=== PATIENT | female | born 1980 | race Hispanic/Latino ===

== ENCOUNTER 2018-02-15 07:37 | Inpatient (IN) | payer MEDICAID ==
[2018-02-15] MEDS ORDERED: Morphine 2 mg/ml ISec IVP STA (08:11)
[2018-02-15] MEDS ORDERED: Sodium Chloride 0.9% 1,000 ML IV STA ×3 (08:12→16:51)
[2018-02-15] MEDS ORDERED: Insulin Regular 1 UNITS/0.01 ML ML IVP ONE (08:12)
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
[2018-02-15 08:33] LABS: BASO # 0.02 K/mm3 (0.0-2.0); BASO % 0.2 % (0.0-3.0); EOS # 0.1 (0.0-0.7); EOS % 0.7 % (1.5-5.0); GRAN # 9.35 (1.4-6.5); GRAN % 87.5 % (50.0-68.0); HEMOGLOBIN 11.4 g/dL (12.0-16.0); LYMPH # 0.8 (1.2-3.4); LYMPH % 7.8 % (22.0-35.0); MEAN CORPUSCULAR HEMOGLOBIN 30.7 pg (25.0-35.0); MEAN PLATELET VOLUME 9.6 fl (7.0-11.0); MONO # 0.4 (0.1-0.6); MONO % 3.8 % (1.0-6.0); RBC 3.71 10^6/uL (3.5-6.1); RED CELL DISTRIBUTION WIDTH 13.7 % (11.5-14.5); VENOUS BLOOD GAS BASE EXCESS -9.2 mmol/L (0.0-2.0); VENOUS BLOOD GAS PO2 60 mm/Hg (30-55); VENOUS BLOOD PH 7.23 (7.32-7.43); WHITE BLOOD COUNT 10.7 10^3/ul (4.5-11.0)
[2018-02-15 08:49] LABS: INR 1.25 (0.93-1.08); PROTHROMBIN TIME 14.4 SECONDS (9.4-12.5)
[2018-02-15 08:50] LABS: PARTIAL THROMBOPLASTIN TIME 25.2 Seconds (25.1-36.5)
[2018-02-15 09:04] LABS: ALB/GLOB RATIO 1.1 (1.1-1.8); ALBUMIN 3.3 g/dL (3.0-4.8); ALT/SGPT 548 U/L (7-56); AST/SGOT 1150 U/L (14-36); BLOOD UREA NITROGEN 14 mg/dL (7-21); CALCIUM 8.5 mg/dL (8.4-10.5); GFR AFRICAN-AMERICAN > 60; GFR NON-AFRICAN AMERICAN 50
[2018-02-15] MEDS ORDERED: Iohexol 350 MG/100 ML VIAL ONE (09:20)
[2018-02-15 09:38] LABS: OSMOLALITY,SERUM 297 mosm/kg (272-300)
--- NOTE | 2018-02-15 10:13 | CT ---
PROCEDURE: CT NECK WITH CONTRAST HISTORY: concern for ludwigs angina COMPARISON: None TECHNIQUE: CT of the neck with intravenous contrast. Coronal and sagittal reformats generated. Intravenous contrast dose: 100 cc of Omni 350 Radiation dose: DLP 477 mGy-cm This CT exam was performed using one or more of the following dose reduction techniques: Automated exposure control, adjustment of the mA and/or kV according to patient size, and/or use of iterative reconstruction technique. FINDINGS: NASOPHARYNX: Unremarkable. SUPRAHYOID NECK: There is a fluid collection in the floor of the mouth suspicious for an abscess and consistent with the clinical history of Dominick's angina. There is elevation of the tongue. There is also soft tissue swelling and edema in the left parapharyngeal space as well as swelling of the epiglottis. There is no airway obstruction at this time. The findings were discussed with Dr. Whittaker at 10 a.m. The submandibular fluid collection measures 7 mm in thickness and 32 mm anterior to posterior as seen on sagittal image 59. This is at the level of the hyoid bone. INFRAHYOID NECK: Unremarkable larynx, hypopharynx, and supraglottic space. Vocal cords intact. MASS: None. GLANDS: Parotid and submandibular glands unremarkable. Normal size thyroid gland, without nodule. LYMPH NODES: Large bilateral submandibular lymph nodes are seen. CERVICAL SPINE: No fracture or focal lesion. VASCULAR STRUCTURES: Unremarkable. OTHER FINDINGS: None. IMPRESSION: There is a fluid collection in the floor of the mouth suspicious for an abscess and consistent with the clinical history of Dominick's angina. There is elevation of the tongue. There is also soft tissue swelling and edema in the left parapharyngeal space as well as swelling of the epiglottis. There is no airway obstruction at this time.
--- NOTE | 2018-02-15 10:29 | RAD ---
PROCEDURE: CHEST RADIOGRAPH, 1 VIEW HISTORY: Sepsis Patient COMPARISON: None available. FINDINGS: LUNGS: Clear. PLEURA: No pneumothorax or pleural fluid seen. CARDIOVASCULAR: Normal. OSSEOUS STRUCTURES: No significant abnormalities. VISUALIZED UPPER ABDOMEN: Normal. OTHER FINDINGS: None. IMPRESSION: No active disease.
[2018-02-15] MEDS ORDERED: Saliva Substitute 44.3 ML PO ONE (10:41)
[2018-02-15] MEDS ORDERED: Saliva Substitute 44.3 ML PO PRN (10:54)
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
[2018-02-15] MEDS ORDERED: Insulin Regular 100 UNITS in Sodium Chloride 0.9% 99 ML IV PRN (11:06)
[2018-02-15] MEDS ORDERED: Sodium Chloride 0.9% 1,000 ML IV SCH (11:15)
[2018-02-15 11:22] LABS: URINE BILIRUBIN NEGATIVE (NEGATIVE); URINE BLOOD NEGATIVE (NEGATIVE); URINE GLUCOSE (UA) 250 mg/dL (NEGATIVE); URINE LEUKOCYTE ESTERASE NEGATIVE Leu/uL (NEGATIVE); URINE PROTEIN 30 mg/dL (<30 mg/dL)
[2018-02-15 11:24] LABS: URINE APPEARANCE SL CLOUDY (CLEAR); URINE COLOR YELLOW (YELLOW)
[2018-02-15 11:42] LABS: VENOUS BLOOD GAS BASE EXCESS -9.2 mmol/L (0.0-2.0); VENOUS BLOOD GAS PO2 46 mm/Hg (30-55); VENOUS BLOOD PH 7.23 (7.32-7.43)
[2018-02-15 11:45] LABS: URINE EPITHELIAL CELLS MANY /hpf (0-5); URINE RBC NEGATIVE /hpf (0-2)
[2018-02-15] MEDS ORDERED: Lidocaine 1% w Epi 1:100,000 Inj ONE (11:50)
[2018-02-15] MEDS ORDERED: Midazolam 2 MG/2 ML VIAL ONE ×2 (11:58→13:08)
[2018-02-15] MEDS ORDERED: Propofol 10 mg/ml Inj (20 ML) ONE (11:58)
[2018-02-15] MEDS ORDERED: Ketamine 10 mg/ml Inj (20 ml) ONE (12:03)
[2018-02-15] MEDS ORDERED: Lidocaine 1% Inj (20ml) ONE (12:04)
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
[2018-02-15] MEDS ORDERED: Oxymetazoline 0.05% Nasal Spray (30 ml) NS ONE (12:24)
[2018-02-15] MEDS ORDERED: Lidocaine 1%/Epinephrine 1:100000 30 ml vial IJ ONE (13:30)
--- NOTE | 2018-02-15 14:19 | PCM.SURG1 ---
Surgeon's Initial Post Op Note - Surgeon's Notes Surgeon: Kuldeep Tamayo MD Physician Underwriter: Sallie Oquendo, PGY-1 Type of Anesthesia: General Endo, Local Anesthesia Administered By: Noel Pre-Operative Diagnosis: Severe neck swelling/abscess Operative Findings: see op report Post-Operative Diagnosis: Abscess of anterior neck, tracheostomy for respiratory compromise Operation Performed: Open tracheostomy w/#6 fenestrated Shiley, incision & drainage of anterior neck abscess Specimen/Specimens Removed: Purulent wound drainage Estimated Blood Loss: EBL {In ML}: 10 Blood Products Given: N/A Drains Used: Stiven Post-Op Condition: Fair Date of Surgery/Procedure: 02/15/18 Time of Surgery/Procedure: 14:19
[2018-02-15] MEDS ORDERED: Midazolam 100 mg/100ml in NS 100 MG/100 ML SOL IV PRN (14:23)
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
[2018-02-15] MEDS ORDERED: HYDROmorphone 0.5 mg/0.5 ml ISec IVP PRN ×2 (14:51→15:10)
[2018-02-15] MEDS: Fentanyl 1000mcg/100ml NS 1,000 MCG/100 ML BAG IV PRN (14:59)
--- NOTE | 2018-02-15 15:06 | RAD ---
HISTORY: s/p trach COMPARISON: No prior. FINDINGS: LUNGS: No active pulmonary disease. PLEURA: No significant pleural effusion identified, no pneumothorax apparent. CARDIOVASCULAR: Normal. OSSEOUS STRUCTURES: No significant abnormalities. VISUALIZED UPPER ABDOMEN: Normal. OTHER FINDINGS: None. IMPRESSION: Tracheostomy in satisfactory position. The lungs are clear
[2018-02-15] MEDS ORDERED: Labetalol 5 mg/ml Inj 20ML IV STA (15:14)
--- NOTE | 2018-02-15 15:23 | PCM.SEPTIC ---
<Mikey Stone - Last Filed: 02/15/18 15:24> Sepsis Progress Note - Reassessment Type Date of Evaluation: 02/15/18 Time of Evaluation: 13:00 Reassessment Type: Non-invasive reassessment - Non Invasive Reassessment Were the most recent vital sign reviewed: Yes Vital Sign (Latest): Temp Pulse Resp BP Pulse Ox 98 F 101 H 24 124/53 L 96 02/15/18 12:22 02/15/18 12:00 02/15/18 14:37 02/15/18 12:00 02/15/18 14:37 Cardiovascular: Yes: Tachycardia Respiratory: Yes: Normal Breath Sounds Capillary Refill: Normal (Less than 2 sec) Skin: Warm, Dry <Jesse Cummings - Last Filed: 02/18/18 17:47> Sepsis Progress Note - Non Invasive Reassessment Vital Sign (Latest): Temp Pulse Resp BP Pulse Ox 98 F 97 H 28 H 100/78 86 L 02/18/18 04:00 02/18/18 09:48 02/18/18 07:01 02/18/18 13:06 02/18/18 04:02 Attending/Attestation - Attestation I have personally seen and examined this patient.: Yes I have fully participated in the care of the patient.: Yes I have reviewed all pertinent clinical information, including history, physical exam and plan: Yes Notes (Text): 02/18/18 17:47 Please see addendum note on HPI
[2018-02-15] MEDS: Sodium Chloride 0.9% 1,000 ML IV SCH ×2 (15:24→22:31)
[2018-02-15 16:23] VITALS: BMI 25.8
[2018-02-15] MEDS ORDERED: Pneumococcal 23-Valent Vaccine IM ONE (16:23)
[2018-02-15 16:41] LABS: VENOUS BLOOD GAS BASE EXCESS -13.8 mmol/L (0.0-2.0); VENOUS BLOOD GAS PO2 149 mm/Hg (30-55)
[2018-02-15 16:47] LABS: VENOUS BLOOD PH 7.19 (7.32-7.43)
[2018-02-15 16:56] LABS: ALBUMIN 2.9 g/dL (3.0-4.8); ALT/SGPT 525 U/L (7-56); AST/SGOT 1135 U/L (14-36); BLOOD UREA NITROGEN 12 mg/dL (7-21); CALCIUM 7.4 mg/dL (8.4-10.5); GFR AFRICAN-AMERICAN > 60; GFR NON-AFRICAN AMERICAN 55
[2018-02-15] MEDS: Piperacill/Tazo 4.5gm in NS 4.5 GM/100 ML BAG IVPB SCH (17:02)
--- NOTE | 2018-02-15 19:08 | US ---
EXAM: US Abdomen Complete CLINICAL HISTORY: 38 years old, female; Pain; Abdominal pain; Generalized; Additional info: Elevated lfts TECHNIQUE: Real-time ultrasound of the abdomen (complete) with image documentation. COMPARISON: No relevant prior studies available. FINDINGS: Liver: Enlarged, 19.8 cm. Fatty infiltration. No mass. No intrahepatic ductal dilatation. Gallbladder: No gallstones. No wall thickening. No pericholecystic fluid. Common bile duct: No dilatation. No stones. Pancreas: Obscured by overlying bowel gas. Kidneys: Normal echogenicity. No hydronephrosis. Spleen: Enlarged, 14.8 cm. Aorta: Unremarkable. No aneurysm. Inferior vena cava: Unremarkable. Free fluid: No significant free fluid. IMPRESSION: 1. Hepatic steatosis. 2. Splenomegaly.
[2018-02-15 20:06] LABS: VENOUS BLOOD GAS BASE EXCESS -7.8 mmol/L (0.0-2.0); VENOUS BLOOD GAS PO2 33 mm/Hg (30-55); VENOUS BLOOD PH 7.31 (7.32-7.43)
[2018-02-15 20:21] LABS: ALBUMIN 2.7 g/dL (3.0-4.8); ALT/SGPT 519 U/L (7-56); AST/SGOT 1182 U/L (14-36); BLOOD UREA NITROGEN 11 mg/dL (7-21); GFR AFRICAN-AMERICAN > 60; GFR NON-AFRICAN AMERICAN > 60
[2018-02-15] MEDS: HYDROmorphone 0.5 mg/0.5 ml ISec IVP PRN (20:40)
[2018-02-15] MEDS ORDERED: Dextrose 5%/0.45% NS 1,000 ML IV SCH (23:45)
[2018-02-16 00:47] LABS: ALB/GLOB RATIO 0.9 (1.1-1.8); ALBUMIN 2.6 g/dL (3.0-4.8); ALT/SGPT 575 U/L (7-56); AST/SGOT 1671 U/L (14-36); BLOOD UREA NITROGEN 11 mg/dL (7-21); CALCIUM 6.8 mg/dL (8.4-10.5); GFR AFRICAN-AMERICAN > 60; GFR NON-AFRICAN AMERICAN > 60
[2018-02-16] MEDS: Piperacill/Tazo 4.5gm in NS 4.5 GM/100 ML BAG IVPB SCH ×4 (01:00→17:58)
[2018-02-16] MEDS: HYDROmorphone 0.5 mg/0.5 ml ISec IVP PRN ×3 (03:12→22:33)
[2018-02-16] MEDS ORDERED: Albuterol-Ipratrop 3 mg / 0.5 (3 ml) UD IH ONE (03:50)
[2018-02-16 04:29] LABS: GRAN % 86.5 % (50.0-68.0); HEMOGLOBIN 9.7 g/dL (12.0-16.0); MEAN CELL VOLUME 94.2 fl (80.0-105.0); MEAN CORPUSCULAR HEMOGLOBIN 31.1 pg (25.0-35.0); MEAN PLATELET VOLUME 9.4 fl (7.0-11.0); RBC 3.12 10^6/uL (3.5-6.1); RED CELL DISTRIBUTION WIDTH 13.3 % (11.5-14.5); WHITE BLOOD COUNT 8.9 10^3/ul (4.5-11.0)
[2018-02-16 04:30] LABS: GRAN # 7.68 (1.4-6.5); LYMPH # 0.9 (1.2-3.4); LYMPH % 10.3 % (22.0-35.0); MONO # 0.3 (0.1-0.6); MONO % 3.2 % (1.0-6.0)
[2018-02-16] MEDS ORDERED: MethylPREDNISolone 40 mg Vial IVP ONE (04:34)
[2018-02-16] MEDS ORDERED: Thiamine 100 mg/ml Inj IM ONE (04:43)
[2018-02-16 04:53] LABS: ARTERIAL BLOOD GAS HCO3 16.7 mmol/L (21-28); ARTERIAL BLOOD GAS HEMOGLOBIN 10.3 g/dL (11.7-17.4); ARTERIAL BLOOD GAS O2 CAPACITY 14.5 mL/dl (16-24); ARTERIAL BLOOD GAS O2 CONTENT 13.9 ML/dl (15-23); ARTERIAL BLOOD GAS O2 SAT 95.9 % (95-98); ARTERIAL BLOOD GAS PCO2 31 mm/Hg (35-45); ARTERIAL BLOOD GAS PH 7.34 (7.35-7.45); ARTERIAL BLOOD GAS TCO2 17.7 mmol.L (22-28)
[2018-02-16 05:51] LABS: ALB/GLOB RATIO 0.9 (1.1-1.8); ALBUMIN 2.5 g/dL (3.0-4.8); ALT/SGPT 674 U/L (7-56); AST/SGOT 2653 U/L (14-36); BLOOD UREA NITROGEN 12 mg/dL (7-21); CALCIUM 6.6 mg/dL (8.4-10.5); GFR AFRICAN-AMERICAN > 60; GFR NON-AFRICAN AMERICAN > 60
[2018-02-16] MEDS ORDERED: Pantoprazole 40 mg EC Tab PO SCH (06:00)
[2018-02-16] MEDS ORDERED: Levalbuterol 0.63 MG/3 ML Inhal Soln UD IH STA (06:03)
[2018-02-16] MEDS ORDERED: Dextrose 5%/0.45% NS 1,000 ML IV SCH (06:14)
--- NOTE | 2018-02-16 06:33 | CP.CCUPN ---
<Cecilia Oneil - Last Filed: 02/16/18 11:38> CCU Subjective - Physician Review Subjective (Free Text): 02/16/18 08:34 Ativan made pt agitated, paradoxically. QTc 534. Will attempt versed IVP 0.5 instead will not wean today. CXR more hazy Off insulin gtt now, got levemir 20 at 7am Denies throat pain, abdominal pain, CP, N/V/D/C. NPO for now Pain adequately controlled CCU Objective - Vital Signs / Intake & Output Vital Signs (Last 4 hours): Vital Signs Pulse BP Pulse Ox 02/16/18 04:00 86 88 L 02/16/18 03:55 86 134/96 H 87 L 02/16/18 03:45 101 H 91 L 02/16/18 03:41 135/97 H 02/16/18 03:40 101 H 02/16/18 03:30 81 88 L 02/16/18 03:15 93 H 89 L 02/16/18 03:11 78 158/96 H 84 L 02/16/18 03:00 93 H 92 L 02/16/18 02:55 88 183/105 H 88 L 02/16/18 02:45 82 89 L 02/16/18 02:40 139/92 H 90 L Intake and Output (Last 8hrs): Intake & Output 02/15/18 02/15/18 02/16/18 14:59 22:59 06:59 Intake Total 2651 Output Total 750 Balance 1901 Weight 165 lb Intake: IV 2651 Right Forearm 2000 Right Wrist 600 fentanyl 8 insulin 16 Output: Urine 750 Urine, Voided 750 Other: Voiding Method Toilet # Bowel Movements 0 - Physical Exam Head: Positive for: Atraumatic, Normocephalic Pupils: Positive for: PERRL Extroacular Muscles: Positive for: EOMI Conjunctiva: Positive for: Normal. Negative for: Icteric Mouth: Positive for: Moist Mucous Membranes Neck: Positive for: Other (Fresh trach. Dressing intact, no strike through, not swelling) Respiratory/Chest: Positive for: Clear to Auscultation, Good Air Exchange, Rales. Negative for: Accessory Muscle Use, Retracting, Rhonchi, Tachypneic Cardiovascular: Positive for: Regular Rate and Rhythm, Normal S1, S2 Abdomen: Positive for: Normal Bowel Sounds. Negative for: Tenderness, Distention, Peritoneal Signs Lower Extremity: Positive for: Normal Inspection, Other (schuster intact). Negative for: Edema Neurological: Positive for: GCS=15. Negative for: Speech Normal Skin: Positive for: Warm, Dry Psychiatric: Positive for: Alert, Oriented x 3 - Medications Active Medications: Active Medications Generic Name Dose Route Start Last Admin Trade Name Freq PRN Reason Stop Dose Admin Hydromorphone HCl 1 mg 02/15/18 15:15 02/16/18 03:12 Dilaudid IVP 1 mg Q3H PRN Administration Pain, severe (8-10) Insulin Human Regular 100 100 mls @ 3 mls/hr 02/15/18 11:06 02/15/18 20:48 units/ Sodium Chloride IV 2 units/hr .Q24H PRN 2 mls/hr TITRATE PER MD ORDER Titration Protocol 3 UNITS/HR Fentanyl Citrate 1,000 mcg in 100 mls @ 2 mls/hr 02/15/18 14:51 02/15/18 20: 45 Fentanyl Citrate/Sodium Chloride 1 Mg/100 Ml IV 5 mcg/hr .Q24H PRN 0.5 mls/hr TITRATE PER MD ORDER Titration Protocol 20 MCG/HR Piperacillin Sod/Tazobactam Sod 4.5 gm in 100 mls @ 200 mls/hr 02/15/18 18:00 02/16/18 01:00 Zosyn 4.5 Gm In Ns 100ml IVPB 02/22/18 18:01 200 mls/hr Q6 KATYA Administration Protocol Dextrose/Sodium Chloride 1,000 mls @ 100 mls/hr 02/16/18 06:14 Dextrose 5%/0.45% Ns 1000 Ml IV .Q10H KATYA Lorazepam 2 mg 02/15/18 19:11 Ativan IVP Q2H PRN Anxiety Protocol Lorazepam 1 mg 02/15/18 19:15 02/16/18 02:15 Ativan IVP 1 mg Q6H KATYA Administration Protocol Pantoprazole Sodium 40 mg 02/16/18 06:00 Protonix Ec Tab PO 0600 KATYA Saliva Substitute 1 ml 02/15/18 10:54 02/15/18 20:58 Saliva Substitute PO 1 ml Q2H PRN Administration Dry mouth Thiamine HCl 100 mg 02/16/18 10:00 Vitamin B1 Inj IM DAILY KATYA - Patient Studies Lab Studies: Lab Studies 02/16/18 02/16/18 02/16/18 Range/Units 05:08 04:40 04:15 WBC (4.5-11.0) 10^3/ul RBC (3.5-6.1) 10^6/uL Hgb (12.0-16.0) g/dL Hct (36.0-48.0) % MCV (80.0-105.0) fl MCH (25.0-35.0) pg MCHC (31.0-37.0) g/dl RDW (11.5-14.5) % Plt Count (120.0-450.0) 10^3/uL MPV (7.0-11.0) fl Gran % (50.0-68.0) % Lymph % (Auto) (22.0-35.0) % Norman % (Auto) (1.0-6.0) % Eos % (Auto) (1.5-5.0) % Baso % (Auto) (0.0-3.0) % Gran # (1.4-6.5) Lymph # (Auto) (1.2-3.4) Norman # (Auto) (0.1-0.6) Eos # (Auto) (0.0-0.7) Baso # (Auto) (0.0-2.0) K/mm3 pCO2 31 L (35-45) mm/Hg pO2 79.0 L (30-55) mm/Hg HCO3 16.7 L (21-28) mmol/L ABG pH 7.34 L (7.35-7.45) ABG Total CO2 17.7 L (22-28) mmol.L ABG O2 Saturation 95.9 (95-98) % ABG O2 Content 13.9 L (15-23) ML/dl ABG Base Excess -8.1 L (-2.0-3.0) mmol/L ABG Hemoglobin 10.3 L (11.7-17.4) g/dL ABG Carboxyhemoglobin 0.2 L (0.5-1.5) % POC ABG HHb (Measured) 4.1 (0-5) % ABG Methemoglobin 0.1 (0.0-3.0) % ABG O2 Capacity 14.5 L (16-24) mL/dl VBG pH (7.32-7.43) VBG pCO2 (40-60) VBG HCO3 (21-28) mmol/l VBG Total CO2 (22-28) mmol.L VBG O2 Sat (Calc) (40-65) % VBG Base Excess (0.0-2.0) mmol/L VBG Potassium (3.6-5.2) mmol/L Hgb O2 Saturation 95.6 (95.0-98.0) % Sodium (132-148) mmol/L Chloride (98-107) mmol/L Glucose (65-105) mg/dl Lactate (0.7-2.1) mmol/L FiO2 100.0 % Potassium (3.6-5.0) mmol/L Carbon Dioxide (21-33) mmol/L Anion Gap (10-20) BUN (7-21) mg/dL Creatinine (0.7-1.2) mg/dl Est GFR ( Amer) Est GFR (Non-Af Amer) POC Glucose (mg/dL) 251 H (65-110) mg/dL Random Glucose (70-110) mg/dL Hemoglobin A1c (4.2-6.5) % Calcium (8.4-10.5) mg/dL Magnesium 1.6 L (1.7-2.2) mg/dL Total Bilirubin (0.2-1.3) mg/dL AST (14-36) U/L ALT (7-56) U/L Alkaline Phosphatase (38-126) U/L Total Protein (5.8-8.3) g/dL Albumin (3.0-4.8) g/dL Globulin gm/dL Albumin/Globulin Ratio (1.1-1.8) Venous Blood Potassium (3.6-5.2) mmol/L Alcohol, Quantitative (0-10) mg/dL 02/16/18 02/16/18 02/16/18 Range/Units 04:15 04:15 03:54 WBC 8.9 (4.5-11.0) 10^3/ul RBC 3.12 L (3.5-6.1) 10^6/uL Hgb 9.7 L (12.0-16.0) g/dL Hct 29.4 L (36.0-48.0) % MCV 94.2 (80.0-105.0) fl MCH 31.1 (25.0-35.0) pg MCHC 33.0 (31.0-37.0) g/dl RDW 13.3 (11.5-14.5) % Plt Count 143 (120.0-450.0) 10^3/uL MPV 9.4 (7.0-11.0) fl Gran % 86.5 H (50.0-68.0) % Lymph % (Auto) 10.3 L (22.0-35.0) % Norman % (Auto) 3.2 (1.0-6.0) % Eos % (Auto) 0.0 L (1.5-5.0) % Baso % (Auto) 0.0 (0.0-3.0) % Gran # 7.68 H (1.4-6.5) Lymph # (Auto) 0.9 L (1.2-3.4) Norman # (Auto) 0.3 (0.1-0.6) Eos # (Auto) 0.0 (0.0-0.7) Baso # (Auto) 0.00 (0.0-2.0) K/mm3 pCO2 (35-45) mm/Hg pO2 (30-55) mm/Hg HCO3 (21-28) mmol/L ABG pH (7.35-7.45) ABG Total CO2 (22-28) mmol.L ABG O2 Saturation (95-98) % ABG O2 Content (15-23) ML/dl ABG Base Excess (-2.0-3.0) mmol/L ABG Hemoglobin (11.7-17.4) g/dL ABG Carboxyhemoglobin (0.5-1.5) % POC ABG HHb (Measured) (0-5) % ABG Methemoglobin (0.0-3.0) % ABG O2 Capacity (16-24) mL/dl VBG pH (7.32-7.43) VBG pCO2 (40-60) VBG HCO3 (21-28) mmol/l VBG Total CO2 (22-28) mmol.L VBG O2 Sat (Calc) (40-65) % VBG Base Excess (0.0-2.0) mmol/L VBG Potassium (3.6-5.2) mmol/L Hgb O2 Saturation (95.0-98.0) % Sodium 139 (132-148) mmol/L Chloride 112 H (98-107) mmol/L Glucose (65-105) mg/dl Lactate (0.7-2.1) mmol/L FiO2 % Potassium 4.1 (3.6-5.0) mmol/L Carbon Dioxide 17 L (21-33) mmol/L Anion Gap 14 (10-20) BUN 12 (7-21) mg/dL Creatinine 0.9 (0.7-1.2) mg/dl Est GFR ( Amer) > 60 Est GFR (Non-Af Amer) > 60 POC Glucose (mg/dL) 233 H (65-110) mg/dL Random Glucose 249 H (70-110) mg/dL Hemoglobin A1c (4.2-6.5) % Calcium 6.6 L* (8.4-10.5) mg/dL Magnesium (1.7-2.2) mg/dL Total Bilirubin 0.9 (0.2-1.3) mg/dL AST 2653 H (14-36) U/L ALT 674 H (7-56) U/L Alkaline Phosphatase 224 H (38-126) U/L Total Protein 5.3 L (5.8-8.3) g/dL Albumin 2.5 L (3.0-4.8) g/dL Globulin 2.8 gm/dL Albumin/Globulin Ratio 0.9 L (1.1-1.8) Venous Blood Potassium (3.6-5.2) mmol/L Alcohol, Quantitative (0-10) mg/dL 02/16/18 02/16/18 02/16/18 Range/Units 03:10 02:07 00:38 WBC (4.5-11.0) 10^3/ul RBC (3.5-6.1) 10^6/uL Hgb (12.0-16.0) g/dL Hct (36.0-48.0) % MCV (80.0-105.0) fl MCH (25.0-35.0) pg MCHC (31.0-37.0) g/dl RDW (11.5-14.5) % Plt Count (120.0-450.0) 10^3/uL MPV (7.0-11.0) fl Gran % (50.0-68.0) % Lymph % (Auto) (22.0-35.0) % Norman % (Auto) (1.0-6.0) % Eos % (Auto) (1.5-5.0) % Baso % (Auto) (0.0-3.0) % Gran # (1.4-6.5) Lymph # (Auto) (1.2-3.4) Norman # (Auto) (0.1-0.6) Eos # (Auto) (0.0-0.7) Baso # (Auto) (0.0-2.0) K/mm3 pCO2 (35-45) mm/Hg pO2 (30-55) mm/Hg HCO3 (21-28) mmol/L ABG pH (7.35-7.45) ABG Total CO2 (22-28) mmol.L ABG O2 Saturation (95-98) % ABG O2 Content (15-23) ML/dl ABG Base Excess (-2.0-3.0) mmol/L ABG Hemoglobin (11.7-17.4) g/dL ABG Carboxyhemoglobin (0.5-1.5) % POC ABG HHb (Measured) (0-5) % ABG Methemoglobin (0.0-3.0) % ABG O2 Capacity (16-24) mL/dl VBG pH (7.32-7.43) VBG pCO2 (40-60) VBG HCO3 (21-28) mmol/l VBG Total CO2 (22-28) mmol.L VBG O2 Sat (Calc) (40-65) % VBG Base Excess (0.0-2.0) mmol/L VBG Potassium (3.6-5.2) mmol/L Hgb O2 Saturation (95.0-98.0) % Sodium (132-148) mmol/L Chloride (98-107) mmol/L Glucose (65-105) mg/dl Lactate (0.7-2.1) mmol/L FiO2 % Potassium (3.6-5.0) mmol/L Carbon Dioxide (21-33) mmol/L Anion Gap (10-20) BUN (7-21) mg/dL Creatinine (0.7-1.2) mg/dl Est GFR ( Amer) Est GFR (Non-Af Amer) POC Glucose (mg/dL) 230 H 219 H 180 H (65-110) mg/dL Random Glucose (70-110) mg/dL Hemoglobin A1c (4.2-6.5) % Calcium (8.4-10.5) mg/dL Magnesium (1.7-2.2) mg/dL Total Bilirubin (0.2-1.3) mg/dL AST (14-36) U/L ALT (7-56) U/L Alkaline Phosphatase (38-126) U/L Total Protein (5.8-8.3) g/dL Albumin (3.0-4.8) g/dL Globulin gm/dL Albumin/Globulin Ratio (1.1-1.8) Venous Blood Potassium (3.6-5.2) mmol/L Alcohol, Quantitative (0-10) mg/dL 02/15/18 02/15/18 02/15/18 Range/Units 23:50 23:19 22:12 WBC (4.5-11.0) 10^3/ul RBC (3.5-6.1) 10^6/uL Hgb (12.0-16.0) g/dL Hct (36.0-48.0) % MCV (80.0-105.0) fl MCH (25.0-35.0) pg MCHC (31.0-37.0) g/dl RDW (11.5-14.5) % Plt Count (120.0-450.0) 10^3/uL MPV (7.0-11.0) fl Gran % (50.0-68.0) % Lymph % (Auto) (22.0-35.0) % Norman % (Auto) (1.0-6.0) % Eos % (Auto) (1.5-5.0) % Baso % (Auto) (0.0-3.0) % Gran # (1.4-6.5) Lymph # (Auto) (1.2-3.4) Norman # (Auto) (0.1-0.6) Eos # (Auto) (0.0-0.7) Baso # (Auto) (0.0-2.0) K/mm3 pCO2 (35-45) mm/Hg pO2 (30-55) mm/Hg HCO3 (21-28) mmol/L ABG pH (7.35-7.45) ABG Total CO2 (22-28) mmol.L ABG O2 Saturation (95-98) % ABG O2 Content (15-23) ML/dl ABG Base Excess (-2.0-3.0) mmol/L ABG Hemoglobin (11.7-17.4) g/dL ABG Carboxyhemoglobin (0.5-1.5) % POC ABG HHb (Measured) (0-5) % ABG Methemoglobin (0.0-3.0) % ABG O2 Capacity (16-24) mL/dl VBG pH (7.32-7.43) VBG pCO2 (40-60) VBG HCO3 (21-28) mmol/l VBG Total CO2 (22-28) mmol.L VBG O2 Sat (Calc) (40-65) % VBG Base Excess (0.0-2.0) mmol/L VBG Potassium (3.6-5.2) mmol/L Hgb O2 Saturation (95.0-98.0) % Sodium 143 (132-148) mmol/L Chloride 113 H (98-107) mmol/L Glucose (65-105) mg/dl Lactate (0.7-2.1) mmol/L FiO2 % Potassium 4.5 (3.6-5.0) mmol/L Carbon Dioxide 20 L (21-33) mmol/L Anion Gap 15 (10-20) BUN 11 (7-21) mg/dL Creatinine 1.0 (0.7-1.2) mg/dl Est GFR ( Amer) > 60 Est GFR (Non-Af Amer) > 60 POC Glucose (mg/dL) 184 H 224 H (65-110) mg/dL Random Glucose 171 H (70-110) mg/dL Hemoglobin A1c (4.2-6.5) % Calcium 6.8 L* (8.4-10.5) mg/dL Magnesium (1.7-2.2) mg/dL Total Bilirubin 0.9 (0.2-1.3) mg/dL AST 1671 H (14-36) U/L ALT 575 H (7-56) U/L Alkaline Phosphatase 249 H (38-126) U/L Total Protein 5.4 L (5.8-8.3) g/dL Albumin 2.6 L (3.0-4.8) g/dL Globulin 2.8 gm/dL Albumin/Globulin Ratio 0.9 L (1.1-1.8) Venous Blood Potassium (3.6-5.2) mmol/L Alcohol, Quantitative (0-10) mg/dL 02/15/18 02/15/18 02/15/18 Range/Units 20:48 19:50 19:50 WBC (4.5-11.0) 10^3/ul RBC (3.5-6.1) 10^6/uL Hgb (12.0-16.0) g/dL Hct (36.0-48.0) % MCV (80.0-105.0) fl MCH (25.0-35.0) pg MCHC (31.0-37.0) g/dl RDW (11.5-14.5) % Plt Count (120.0-450.0) 10^3/uL MPV (7.0-11.0) fl Gran % (50.0-68.0) % Lymph % (Auto) (22.0-35.0) % Norman % (Auto) (1.0-6.0) % Eos % (Auto) (1.5-5.0) % Baso % (Auto) (0.0-3.0) % Gran # (1.4-6.5) Lymph # (Auto) (1.2-3.4) Norman # (Auto) (0.1-0.6) Eos # (Auto) (0.0-0.7) Baso # (Auto) (0.0-2.0) K/mm3 pCO2 (35-45) mm/Hg pO2 33 (30-55) mm/Hg HCO3 (21-28) mmol/L ABG pH (7.35-7.45) ABG Total CO2 (22-28) mmol.L ABG O2 Saturation (95-98) % ABG O2 Content (15-23) ML/dl ABG Base Excess (-2.0-3.0) mmol/L ABG Hemoglobin (11.7-17.4) g/dL ABG Carboxyhemoglobin (0.5-1.5) % POC ABG HHb (Measured) (0-5) % ABG Methemoglobin (0.0-3.0) % ABG O2 Capacity (16-24) mL/dl VBG pH 7.31 L (7.32-7.43) VBG pCO2 35.0 L (40-60) VBG HCO3 17.6 L (21-28) mmol/l VBG Total CO2 18.7 L (22-28) mmol.L VBG O2 Sat (Calc) 70.7 H (40-65) % VBG Base Excess -7.8 L (0.0-2.0) mmol/L VBG Potassium 4.4 (3.6-5.2) mmol/L Hgb O2 Saturation (95.0-98.0) % Sodium 138.0 142 (132-148) mmol/L Chloride 115.0 H 112 H (98-107) mmol/L Glucose 298 H (65-105) mg/dl Lactate 2.6 H (0.7-2.1) mmol/L FiO2 21.0 % Potassium 5.0 (3.6-5.0) mmol/L Carbon Dioxide 21 (21-33) mmol/L Anion Gap 14 (10-20) BUN 11 (7-21) mg/dL Creatinine 1.0 (0.7-1.2) mg/dl Est GFR ( Amer) > 60 Est GFR (Non-Af Amer) > 60 POC Glucose (mg/dL) 233 H (65-110) mg/dL Random Glucose 266 H (70-110) mg/dL Hemoglobin A1c (4.2-6.5) % Calcium 7.0 L (8.4-10.5) mg/dL Magnesium (1.7-2.2) mg/dL Total Bilirubin 0.9 (0.2-1.3) mg/dL AST 1182 H (14-36) U/L ALT 519 H (7-56) U/L Alkaline Phosphatase 256 H (38-126) U/L Total Protein 5.3 L (5.8-8.3) g/dL Albumin 2.7 L (3.0-4.8) g/dL Globulin 2.6 gm/dL Albumin/Globulin Ratio 1.0 L (1.1-1.8) Venous Blood Potassium 4.4 (3.6-5.2) mmol/L Alcohol, Quantitative (0-10) mg/dL 02/15/18 02/15/18 02/15/18 Range/Units 19:06 18:15 17:08 WBC (4.5-11.0) 10^3/ul RBC (3.5-6.1) 10^6/uL Hgb (12.0-16.0) g/dL Hct (36.0-48.0) % MCV (80.0-105.0) fl MCH (25.0-35.0) pg MCHC (31.0-37.0) g/dl RDW (11.5-14.5) % Plt Count (120.0-450.0) 10^3/uL MPV (7.0-11.0) fl Gran % (50.0-68.0) % Lymph % (Auto) (22.0-35.0) % Norman % (Auto) (1.0-6.0) % Eos % (Auto) (1.5-5.0) % Baso % (Auto) (0.0-3.0) % Gran # (1.4-6.5) Lymph # (Auto) (1.2-3.4) Norman # (Auto) (0.1-0.6) Eos # (Auto) (0.0-0.7) Baso # (Auto) (0.0-2.0) K/mm3 pCO2 (35-45) mm/Hg pO2 (30-55) mm/Hg HCO3 (21-28) mmol/L ABG pH (7.35-7.45) ABG Total CO2 (22-28) mmol.L ABG O2 Saturation (95-98) % ABG O2 Content (15-23) ML/dl ABG Base Excess (-2.0-3.0) mmol/L ABG Hemoglobin (11.7-17.4) g/dL ABG Carboxyhemoglobin (0.5-1.5) % POC ABG HHb (Measured) (0-5) % ABG Methemoglobin (0.0-3.0) % ABG O2 Capacity (16-24) mL/dl VBG pH (7.32-7.43) VBG pCO2 (40-60) VBG HCO3 (21-28) mmol/l VBG Total CO2 (22-28) mmol.L VBG O2 Sat (Calc) (40-65) % VBG Base Excess (0.0-2.0) mmol/L VBG Potassium (3.6-5.2) mmol/L Hgb O2 Saturation (95.0-98.0) % Sodium (132-148) mmol/L Chloride (98-107) mmol/L Glucose (65-105) mg/dl Lactate (0.7-2.1) mmol/L FiO2 % Potassium (3.6-5.0) mmol/L Carbon Dioxide (21-33) mmol/L Anion Gap (10-20) BUN (7-21) mg/dL Creatinine (0.7-1.2) mg/dl Est GFR ( Amer) Est GFR (Non-Af Amer) POC Glucose (mg/dL) 277 H 298 H 322 H (65-110) mg/dL Random Glucose (70-110) mg/dL Hemoglobin A1c (4.2-6.5) % Calcium (8.4-10.5) mg/dL Magnesium (1.7-2.2) mg/dL Total Bilirubin (0.2-1.3) mg/dL AST (14-36) U/L ALT (7-56) U/L Alkaline Phosphatase (38-126) U/L Total Protein (5.8-8.3) g/dL Albumin (3.0-4.8) g/dL Globulin gm/dL Albumin/Globulin Ratio (1.1-1.8) Venous Blood Potassium (3.6-5.2) mmol/L Alcohol, Quantitative (0-10) mg/dL 18 18 02/15/18 Range/Units 16:27 16:27 16:00 WBC (4.5-11.0) 10^3/ul RBC (3.5-6.1) 10^6/uL Hgb (12.0-16.0) g/dL Hct (36.0-48.0) % MCV (80.0-105.0) fl MCH (25.0-35.0) pg MCHC (31.0-37.0) g/dl RDW (11.5-14.5) % Plt Count (120.0-450.0) 10^3/uL MPV (7.0-11.0) fl Gran % (50.0-68.0) % Lymph % (Auto) (22.0-35.0) % Norman % (Auto) (1.0-6.0) % Eos % (Auto) (1.5-5.0) % Baso % (Auto) (0.0-3.0) % Gran # (1.4-6.5) Lymph # (Auto) (1.2-3.4) Norman # (Auto) (0.1-0.6) Eos # (Auto) (0.0-0.7) Baso # (Auto) (0.0-2.0) K/mm3 pCO2 (35-45) mm/Hg pO2 149 H (30-55) mm/Hg HCO3 (21-28) mmol/L ABG pH (7.35-7.45) ABG Total CO2 (22-28) mmol.L ABG O2 Saturation (95-98) % ABG O2 Content (15-23) ML/dl ABG Base Excess (-2.0-3.0) mmol/L ABG Hemoglobin (11.7-17.4) g/dL ABG Carboxyhemoglobin (0.5-1.5) % POC ABG HHb (Measured) (0-5) % ABG Methemoglobin (0.0-3.0) % ABG O2 Capacity (16-24) mL/dl VBG pH 7.19 L* (7.32-7.43) VBG pCO2 35.0 L (40-60) VBG HCO3 13.4 L (21-28) mmol/l VBG Total CO2 14.5 L (22-28) mmol.L VBG O2 Sat (Calc) 97.6 H (40-65) % VBG Base Excess -13.8 L (0.0-2.0) mmol/L VBG Potassium 4.7 (3.6-5.2) mmol/L Hgb O2 Saturation (95.0-98.0) % Sodium 138 135.0 (132-148) mmol/L Chloride 107 108.0 H (98-107) mmol/L Glucose 478 H* (65-105) mg/dl Lactate 2.2 H (0.7-2.1) mmol/L FiO2 21.0 % Potassium 4.8 (3.6-5.0) mmol/L Carbon Dioxide 14 L (21-33) mmol/L Anion Gap 22 H (10-20) BUN 12 (7-21) mg/dL Creatinine 1.1 (0.7-1.2) mg/dl Est GFR ( Amer) > 60 Est GFR (Non-Af Amer) 55 POC Glucose (mg/dL) 401 H* (65-110) mg/dL Random Glucose 451 H* (70-110) mg/dL Hemoglobin A1c (4.2-6.5) % Calcium 7.4 L (8.4-10.5) mg/dL Magnesium (1.7-2.2) mg/dL Total Bilirubin 1.4 H (0.2-1.3) mg/dL AST 1135 H (14-36) U/L ALT 525 H (7-56) U/L Alkaline Phosphatase 308 H D (38-126) U/L Total Protein 5.8 (5.8-8.3) g/dL Albumin 2.9 L (3.0-4.8) g/dL Globulin 2.9 gm/dL Albumin/Globulin Ratio 1.0 L (1.1-1.8) Venous Blood Potassium 4.7 (3.6-5.2) mmol/L Alcohol, Quantitative (0-10) mg/dL 02/15/18 02/15/18 02/15/18 Range/Units 16:00 15:11 14:00 WBC (4.5-11.0) 10^3/ul RBC (3.5-6.1) 10^6/uL Hgb (12.0-16.0) g/dL Hct (36.0-48.0) % MCV (80.0-105.0) fl MCH (25.0-35.0) pg MCHC (31.0-37.0) g/dl RDW (11.5-14.5) % Plt Count (120.0-450.0) 10^3/uL MPV (7.0-11.0) fl Gran % (50.0-68.0) % Lymph % (Auto) (22.0-35.0) % Norman % (Auto) (1.0-6.0) % Eos % (Auto) (1.5-5.0) % Baso % (Auto) (0.0-3.0) % Gran # (1.4-6.5) Lymph # (Auto) (1.2-3.4) Norman # (Auto) (0.1-0.6) Eos # (Auto) (0.0-0.7) Baso # (Auto) (0.0-2.0) K/mm3 pCO2 (35-45) mm/Hg pO2 (30-55) mm/Hg HCO3 (21-28) mmol/L ABG pH (7.35-7.45) ABG Total CO2 (22-28) mmol.L ABG O2 Saturation (95-98) % ABG O2 Content (15-23) ML/dl ABG Base Excess (-2.0-3.0) mmol/L ABG Hemoglobin (11.7-17.4) g/dL ABG Carboxyhemoglobin (0.5-1.5) % POC ABG HHb (Measured) (0-5) % ABG Methemoglobin (0.0-3.0) % ABG O2 Capacity (16-24) mL/dl VBG pH (7.32-7.43) VBG pCO2 (40-60) VBG HCO3 (21-28) mmol/l VBG Total CO2 (22-28) mmol.L VBG O2 Sat (Calc) (40-65) % VBG Base Excess (0.0-2.0) mmol/L VBG Potassium (3.6-5.2) mmol/L Hgb O2 Saturation (95.0-98.0) % Sodium (132-148) mmol/L Chloride (98-107) mmol/L Glucose (65-105) mg/dl Lactate (0.7-2.1) mmol/L FiO2 % Potassium (3.6-5.0) mmol/L Carbon Dioxide (21-33) mmol/L Anion Gap (10-20) BUN (7-21) mg/dL Creatinine (0.7-1.2) mg/dl Est GFR ( Amer) Est GFR (Non-Af Amer) POC Glucose (mg/dL) 378 H (65-110) mg/dL Random Glucose (70-110) mg/dL Hemoglobin A1c 10.6 H (4.2-6.5) % Calcium (8.4-10.5) mg/dL Magnesium (1.7-2.2) mg/dL Total Bilirubin (0.2-1.3) mg/dL AST (14-36) U/L ALT (7-56) U/L Alkaline Phosphatase (38-126) U/L Total Protein (5.8-8.3) g/dL Albumin (3.0-4.8) g/dL Globulin gm/dL Albumin/Globulin Ratio (1.1-1.8) Venous Blood Potassium (3.6-5.2) mmol/L Alcohol, Quantitative < 10 (0-10) mg/dL 02/15/18 02/15/18 Range/Units 11:26 11:15 WBC (4.5-11.0) 10^3/ul RBC (3.5-6.1) 10^6/uL Hgb (12.0-16.0) g/dL Hct (36.0-48.0) % MCV (80.0-105.0) fl MCH (25.0-35.0) pg MCHC (31.0-37.0) g/dl RDW (11.5-14.5) % Plt Count (120.0-450.0) 10^3/uL MPV (7.0-11.0) fl Gran % (50.0-68.0) % Lymph % (Auto) (22.0-35.0) % Norman % (Auto) (1.0-6.0) % Eos % (Auto) (1.5-5.0) % Baso % (Auto) (0.0-3.0) % Gran # (1.4-6.5) Lymph # (Auto) (1.2-3.4) Norman # (Auto) (0.1-0.6) Eos # (Auto) (0.0-0.7) Baso # (Auto) (0.0-2.0) K/mm3 pCO2 (35-45) mm/Hg pO2 46 (30-55) mm/Hg HCO3 (21-28) mmol/L ABG pH (7.35-7.45) ABG Total CO2 (22-28) mmol.L ABG O2 Saturation (95-98) % ABG O2 Content (15-23) ML/dl ABG Base Excess (-2.0-3.0) mmol/L ABG Hemoglobin (11.7-17.4) g/dL ABG Carboxyhemoglobin (0.5-1.5) % POC ABG HHb (Measured) (0-5) % ABG Methemoglobin (0.0-3.0) % ABG O2 Capacity (16-24) mL/dl VBG pH 7.23 L (7.32-7.43) VBG pCO2 43.0 (40-60) VBG HCO3 18.0 L (21-28) mmol/l VBG Total CO2 19.3 L (22-28) mmol.L VBG O2 Sat (Calc) 82.2 H (40-65) % VBG Base Excess -9.2 L (0.0-2.0) mmol/L VBG Potassium 3.7 (3.6-5.2) mmol/L Hgb O2 Saturation (95.0-98.0) % Sodium 132.0 (132-148) mmol/L Chloride 101.0 (98-107) mmol/L Glucose 500 H* (65-105) mg/dl Lactate 4.4 H* (0.7-2.1) mmol/L FiO2 21.0 % Potassium (3.6-5.0) mmol/L Carbon Dioxide (21-33) mmol/L Anion Gap (10-20) BUN (7-21) mg/dL Creatinine (0.7-1.2) mg/dl Est GFR ( Amer) Est GFR (Non-Af Amer) POC Glucose (mg/dL) 396 H (65-110) mg/dL Random Glucose (70-110) mg/dL Hemoglobin A1c (4.2-6.5) % Calcium (8.4-10.5) mg/dL Magnesium (1.7-2.2) mg/dL Total Bilirubin (0.2-1.3) mg/dL AST (14-36) U/L ALT (7-56) U/L Alkaline Phosphatase (38-126) U/L Total Protein (5.8-8.3) g/dL Albumin (3.0-4.8) g/dL Globulin gm/dL Albumin/Globulin Ratio (1.1-1.8) Venous Blood Potassium 3.7 (3.6-5.2) mmol/L Alcohol, Quantitative (0-10) mg/dL Laboratory Results - last 24 hr 02/15/18 02/15/18 02/15/18 11:15 11:26 14:00 WBC RBC Hgb Hct MCV MCH MCHC RDW Plt Count MPV Gran % Lymph % (Auto) Norman % (Auto) Eos % (Auto) Baso % (Auto) Gran # Lymph # (Auto) Norman # (Auto) Eos # (Auto) Baso # (Auto) pCO2 pO2 46 HCO3 ABG pH ABG Total CO2 ABG O2 Saturation ABG O2 Content ABG Base Excess ABG Hemoglobin ABG Carboxyhemoglobin POC ABG HHb (Measured) ABG Methemoglobin ABG O2 Capacity VBG pH 7.23 L VBG pCO2 43.0 VBG HCO3 18.0 L VBG Total CO2 19.3 L VBG O2 Sat (Calc) 82.2 H VBG Base Excess -9.2 L VBG Potassium 3.7 Hgb O2 Saturation Sodium 132.0 Chloride 101.0 Glucose 500 H* Lactate 4.4 H* FiO2 21.0 Potassium Carbon Dioxide Anion Gap BUN Creatinine Est GFR ( Amer) Est GFR (Non-Af Amer) POC Glucose (mg/dL) 396 H Random Glucose Hemoglobin A1c 10.6 H Calcium Magnesium Total Bilirubin AST ALT Alkaline Phosphatase Total Protein Albumin Globulin Albumin/Globulin Ratio Venous Blood Potassium 3.7 Alcohol, Quantitative 02/15/18 02/15/18 02/15/18 15:11 16:00 16:00 WBC RBC Hgb Hct MCV MCH MCHC RDW Plt Count MPV Gran % Lymph % (Auto) Norman % (Auto) Eos % (Auto) Baso % (Auto) Gran # Lymph # (Auto) Norman # (Auto) Eos # (Auto) Baso # (Auto) pCO2 pO2 HCO3 ABG pH ABG Total CO2 ABG O2 Saturation ABG O2 Content ABG Base Excess ABG Hemoglobin ABG Carboxyhemoglobin POC ABG HHb (Measured) ABG Methemoglobin ABG O2 Capacity VBG pH VBG pCO2 VBG HCO3 VBG Total CO2 VBG O2 Sat (Calc) VBG Base Excess VBG Potassium Hgb O2 Saturation Sodium Chloride Glucose Lactate FiO2 Potassium Carbon Dioxide Anion Gap BUN Creatinine Est GFR ( Amer) Est GFR (Non-Af Amer) POC Glucose (mg/dL) 378 H 401 H* Random Glucose Hemoglobin A1c Calcium Magnesium Total Bilirubin AST ALT Alkaline Phosphatase Total Protein Albumin Globulin Albumin/Globulin Ratio Venous Blood Potassium Alcohol, Quantitative < 10 02/15/18 02/15/18 02/15/18 16:27 16:27 17:08 WBC RBC Hgb Hct MCV MCH MCHC RDW Plt Count MPV Gran % Lymph % (Auto) Norman % (Auto) Eos % (Auto) Baso % (Auto) Gran # Lymph # (Auto) Norman # (Auto) Eos # (Auto) Baso # (Auto) pCO2 pO2 149 H HCO3 ABG pH ABG Total CO2 ABG O2 Saturation ABG O2 Content ABG Base Excess ABG Hemoglobin ABG Carboxyhemoglobin POC ABG HHb (Measured) ABG Methemoglobin ABG O2 Capacity VBG pH 7.19 L* VBG pCO2 35.0 L VBG HCO3 13.4 L VBG Total CO2 14.5 L VBG O2 Sat (Calc) 97.6 H VBG Base Excess -13.8 L VBG Potassium 4.7 Hgb O2 Saturation Sodium 135.0 138 Chloride 108.0 H 107 Glucose 478 H* Lactate 2.2 H FiO2 21.0 Potassium 4.8 Carbon Dioxide 14 L Anion Gap 22 H BUN 12 Creatinine 1.1 Est GFR ( Amer) > 60 Est GFR (Non-Af Amer) 55 POC Glucose (mg/dL) 322 H Random Glucose 451 H* Hemoglobin A1c Calcium 7.4 L Magnesium Total Bilirubin 1.4 H AST 1135 H ALT 525 H Alkaline Phosphatase 308 H D Total Protein 5.8 Albumin 2.9 L Globulin 2.9 Albumin/Globulin Ratio 1.0 L Venous Blood Potassium 4.7 Alcohol, Quantitative 02/15/18 02/15/18 02/15/18 18:15 19:06 19:50 WBC RBC Hgb Hct MCV MCH MCHC RDW Plt Count MPV Gran % Lymph % (Auto) Norman % (Auto) Eos % (Auto) Baso % (Auto) Gran # Lymph # (Auto) Norman # (Auto) Eos # (Auto) Baso # (Auto) pCO2 pO2 HCO3 ABG pH ABG Total CO2 ABG O2 Saturation ABG O2 Content ABG Base Excess ABG Hemoglobin ABG Carboxyhemoglobin POC ABG HHb (Measured) ABG Methemoglobin ABG O2 Capacity VBG pH VBG pCO2 VBG HCO3 VBG Total CO2 VBG O2 Sat (Calc) VBG Base Excess VBG Potassium Hgb O2 Saturation Sodium 142 Chloride 112 H Glucose Lactate FiO2 Potassium 5.0 Carbon Dioxide 21 Anion Gap 14 BUN 11 Creatinine 1.0 Est GFR ( Amer) > 60 Est GFR (Non-Af Amer) > 60 POC Glucose (mg/dL) 298 H 277 H Random Glucose 266 H Hemoglobin A1c Calcium 7.0 L Magnesium Total Bilirubin 0.9 AST 1182 H ALT 519 H Alkaline Phosphatase 256 H Total Protein 5.3 L Albumin 2.7 L Globulin 2.6 Albumin/Globulin Ratio 1.0 L Venous Blood Potassium Alcohol, Quantitative 02/15/18 02/15/18 02/15/18 19:50 20:48 22:12 WBC RBC Hgb Hct MCV MCH MCHC RDW Plt Count MPV Gran % Lymph % (Auto) Norman % (Auto) Eos % (Auto) Baso % (Auto) Gran # Lymph # (Auto) Norman # (Auto) Eos # (Auto) Baso # (Auto) pCO2 pO2 33 HCO3 ABG pH ABG Total CO2 ABG O2 Saturation ABG O2 Content ABG Base Excess ABG Hemoglobin ABG Carboxyhemoglobin POC ABG HHb (Measured) ABG Methemoglobin ABG O2 Capacity VBG pH 7.31 L VBG pCO2 35.0 L VBG HCO3 17.6 L VBG Total CO2 18.7 L VBG O2 Sat (Calc) 70.7 H VBG Base Excess -7.8 L VBG Potassium 4.4 Hgb O2 Saturation Sodium 138.0 Chloride 115.0 H Glucose 298 H Lactate 2.6 H FiO2 21.0 Potassium Carbon Dioxide Anion Gap BUN Creatinine Est GFR ( Amer) Est GFR (Non-Af Amer) POC Glucose (mg/dL) 233 H 224 H Random Glucose Hemoglobin A1c Calcium Magnesium Total Bilirubin AST ALT Alkaline Phosphatase Total Protein Albumin Globulin Albumin/Globulin Ratio Venous Blood Potassium 4.4 Alcohol, Quantitative 02/15/18 02/15/18 02/16/18 23:19 23:50 00:38 WBC RBC Hgb Hct MCV MCH MCHC RDW Plt Count MPV Gran % Lymph % (Auto) Norman % (Auto) Eos % (Auto) Baso % (Auto) Gran # Lymph # (Auto) Norman # (Auto) Eos # (Auto) Baso # (Auto) pCO2 pO2 HCO3 ABG pH ABG Total CO2 ABG O2 Saturation ABG O2 Content ABG Base Excess ABG Hemoglobin ABG Carboxyhemoglobin POC ABG HHb (Measured) ABG Methemoglobin ABG O2 Capacity VBG pH VBG pCO2 VBG HCO3 VBG Total CO2 VBG O2 Sat (Calc) VBG Base Excess VBG Potassium Hgb O2 Saturation Sodium 143 Chloride 113 H Glucose Lactate FiO2 Potassium 4.5 Carbon Dioxide 20 L Anion Gap 15 BUN 11 Creatinine 1.0 Est GFR ( Amer) > 60 Est GFR (Non-Af Amer) > 60 POC Glucose (mg/dL) 184 H 180 H Random Glucose 171 H Hemoglobin A1c Calcium 6.8 L* Magnesium Total Bilirubin 0.9 AST 1671 H ALT 575 H Alkaline Phosphatase 249 H Total Protein 5.4 L Albumin 2.6 L Globulin 2.8 Albumin/Globulin Ratio 0.9 L Venous Blood Potassium Alcohol, Quantitative 02/16/18 02/16/18 02/16/18 02:07 03:10 03:54 WBC RBC Hgb Hct MCV MCH MCHC RDW Plt Count MPV Gran % Lymph % (Auto) Norman % (Auto) Eos % (Auto) Baso % (Auto) Gran # Lymph # (Auto) Norman # (Auto) Eos # (Auto) Baso # (Auto) pCO2 pO2 HCO3 ABG pH ABG Total CO2 ABG O2 Saturation ABG O2 Content ABG Base Excess ABG Hemoglobin ABG Carboxyhemoglobin POC ABG HHb (Measured) ABG Methemoglobin ABG O2 Capacity VBG pH VBG pCO2 VBG HCO3 VBG Total CO2 VBG O2 Sat (Calc) VBG Base Excess VBG Potassium Hgb O2 Saturation Sodium Chloride Glucose Lactate FiO2 Potassium Carbon Dioxide Anion Gap BUN Creatinine Est GFR ( Amer) Est GFR (Non-Af Amer) POC Glucose (mg/dL) 219 H 230 H 233 H Random Glucose Hemoglobin A1c Calcium Magnesium Total Bilirubin AST ALT Alkaline Phosphatase Total Protein Albumin Globulin Albumin/Globulin Ratio Venous Blood Potassium Alcohol, Quantitative 02/16/18 02/16/18 02/16/18 04:15 04:15 04:15 WBC 8.9 RBC 3.12 L Hgb 9.7 L Hct 29.4 L MCV 94.2 MCH 31.1 MCHC 33.0 RDW 13.3 Plt Count 143 MPV 9.4 Gran % 86.5 H Lymph % (Auto) 10.3 L Norman % (Auto) 3.2 Eos % (Auto) 0.0 L Baso % (Auto) 0.0 Gran # 7.68 H Lymph # (Auto) 0.9 L Norman # (Auto) 0.3 Eos # (Auto) 0.0 Baso # (Auto) 0.00 pCO2 pO2 HCO3 ABG pH ABG Total CO2 ABG O2 Saturation ABG O2 Content ABG Base Excess ABG Hemoglobin ABG Carboxyhemoglobin POC ABG HHb (Measured) ABG Methemoglobin ABG O2 Capacity VBG pH VBG pCO2 VBG HCO3 VBG Total CO2 VBG O2 Sat (Calc) VBG Base Excess VBG Potassium Hgb O2 Saturation Sodium 139 Chloride 112 H Glucose Lactate FiO2 Potassium 4.1 Carbon Dioxide 17 L Anion Gap 14 BUN 12 Creatinine 0.9 Est GFR ( Amer) > 60 Est GFR (Non-Af Amer) > 60 POC Glucose (mg/dL) Random Glucose 249 H Hemoglobin A1c Calcium 6.6 L* Magnesium 1.6 L Total Bilirubin 0.9 AST 2653 H ALT 674 H Alkaline Phosphatase 224 H Total Protein 5.3 L Albumin 2.5 L Globulin 2.8 Albumin/Globulin Ratio 0.9 L Venous Blood Potassium Alcohol, Quantitative 02/16/18 02/16/18 04:40 05:08 WBC RBC Hgb Hct MCV MCH MCHC RDW Plt Count MPV Gran % Lymph % (Auto) Norman % (Auto) Eos % (Auto) Baso % (Auto) Gran # Lymph # (Auto) Norman # (Auto) Eos # (Auto) Baso # (Auto) pCO2 31 L pO2 79.0 L HCO3 16.7 L ABG pH 7.34 L ABG Total CO2 17.7 L ABG O2 Saturation 95.9 ABG O2 Content 13.9 L ABG Base Excess -8.1 L ABG Hemoglobin 10.3 L ABG Carboxyhemoglobin 0.2 L POC ABG HHb (Measured) 4.1 ABG Methemoglobin 0.1 ABG O2 Capacity 14.5 L VBG pH VBG pCO2 VBG HCO3 VBG Total CO2 VBG O2 Sat (Calc) VBG Base Excess VBG Potassium Hgb O2 Saturation 95.6 Sodium Chloride Glucose Lactate FiO2 100.0 Potassium Carbon Dioxide Anion Gap BUN Creatinine Est GFR ( Amer) Est GFR (Non-Af Amer) POC Glucose (mg/dL) 251 H Random Glucose Hemoglobin A1c Calcium Magnesium Total Bilirubin AST ALT Alkaline Phosphatase Total Protein Albumin Globulin Albumin/Globulin Ratio Venous Blood Potassium Alcohol, Quantitative Fingerstick Blood Sugar Results: 405 Assessment/Plan - Assessment and Plan (Free Text) Plan: Mindi Jarrell, 38 F, with PMhx of Hep C, polysubstance abuse, ETOH abuse x 5 years (last drink 02/15), IDDM, HTN, presented with swelling and erythema of the mouth/neck x 3 days, associated with dysphagia. CT soft tissue neck with contrast which showed Ludwigs Angina, soft tissue edema, left parapharyngeal space, epiglottis swelling, s/p abscess InD, and tracheostomy in the OR. Pt require PRVC on 100% last night. Now on PS 60%. Minimal suction out. A 1. Ludwigs Angina Epiglotitis, Neck Cellulitis, Sepsis s/p trach, day 1 s/p I&D for abscess, day 1 (Drained 20cc pus, foul smelling) 2. DKA - resolved 3. Acute Cardiomyopathy 4. Transaminitis 2/2 drug induce, sepsis, ischemic due to transient hypotension at SBP 90, R/O hepatitis, R/o autoimmune, pending acetaminophen level 5. ETOH abuse, Ativan induced psychosis Neuro Pain control, Fentanyl drip, Dilaudid PRN CIWA q4 Versed 0.5 IV Q4 KATYA Versed 1 Q 2 PRN Per ENT, no plan to redo decadron/CT neck UDS Pulm PS 5/5, 60 --> 50% (11:30am); see if ready for trach collar this afternoon Goal is to titrate PO2 demand ABG, CXR tomorrow Continue trachy care Pending ECHO (2013, normal EF) Card Tachycardia 100s Stop all IVF Got lasix 40 IV now Will get lasix 40 at 6pm tonight GI Tissue reported very swollen. Abdominal U/S: Fatty liver, splenomegaly Liver arterial doppler Start acetylcystein per GI Nector thick, full liquid diet. - Keep cuff inflated 1200 urine output over 12 hrs Endo Got Levemir 20 at 7AM. Off insulin gtt now. Gap closes Insulin SSS ACHS Accu ACHS Levemir 20 HS Heme ID CXR showed pulm edema cannot r/o pna. will ckeck with ID about expanding coverage Zosyn (day 2) for G+ and anerobe coverage Got in ED: Clindamycin, Zosyn Decadrone x 1 VBG lactate BCx neg x 1 day PVX SCD, protonix Dispo OOB to chair Consult Dr. Tamayo, Dr Shannon, Dr Lanier <Doug Fox - Last Filed: 02/16/18 11:56> CCU Objective - Vital Signs / Intake & Output Vital Signs (Last 4 hours): Vital Signs Temp Pulse Resp BP Pulse Ox 02/16/18 10:25 104 H 93 L 02/16/18 10:10 94 H 155/95 H 94 L 02/16/18 10:00 95 H 92 L 02/16/18 09:56 91 H 150/89 96 02/16/18 09:41 96 H 153/79 H 92 L 02/16/18 09:25 101 H 118/75 96 02/16/18 09:10 94 H 147/94 H 95 02/16/18 09:00 91 H 91 L 02/16/18 08:55 139/65 02/16/18 08:54 99 H 92 L 02/16/18 08:40 98 H 148/75 92 L 02/16/18 08:26 99 H 138/91 H 91 L 02/16/18 08:22 139/70 02/16/18 08:10 97 H 139/70 91 L 02/16/18 08:00 99.9 F H 98 H 88 L 02/16/18 07:58 27 H 94 L 02/16/18 07:55 90 133/97 H 89 L 02/16/18 07:53 98.1 F Intake and Output (Last 8hrs): Intake & Output 02/15/18 02/16/18 02/16/18 22:59 06:59 14:59 Intake Total 2651 2117 Output Total 750 1200 Balance 1901 917 Weight 165 lb 176 lb 14.4 oz Intake: IV 2651 2117 Right Forearm 2000 2000 Right Wrist 600 fentanyl 8 insulin 16 Output: Urine 750 1200 Urine, Voided 750 1200 Other: Voiding Method Toilet # Bowel Movements 0 0 - Medications Active Medications: Active Medications Generic Name Dose Route Start Last Admin Trade Name Freq PRN Reason Stop Dose Admin Furosemide 40 mg 02/16/18 18:05 Lasix IVP 02/16/18 18:06 ONCE ONE Hydromorphone HCl 1 mg 02/15/18 15:15 02/16/18 06:50 Dilaudid IVP 1 mg Q3H PRN Administration Pain, severe (8-10) Fentanyl Citrate 1,000 mcg in 100 mls @ 2 mls/hr 02/15/18 14:51 02/16/18 07: 36 Fentanyl Citrate/Sodium Chloride 1 Mg/100 Ml IV 5 mcg/hr .Q24H PRN 0.5 mls/hr TITRATE PER MD ORDER Administration Protocol 20 MCG/HR Piperacillin Sod/Tazobactam Sod 4.5 gm in 100 mls @ 200 mls/hr 02/15/18 18:00 02/16/18 06:59 Zosyn 4.5 Gm In Ns 100ml IVPB 02/22/18 18:01 200 mls/hr Q6 KATYA Administration Protocol Acetylcysteine 4,000 mg/ 520 mls @ 125 mls/hr 02/16/18 10:00 02/16/18 10:42 Dextrose IV 02/16/18 14:09 125 mls/hr .[id number] ONE Administration Acetylcysteine 8,000 mg/ 1,040 mls @ 62.5 mls/hr 02/16/18 14:00 Dextrose IV 02/17/18 06:38 .[id number] ONE Insulin Detemir 20 unit 02/16/18 22:00 Levemir SC HS [facility] Insulin Human Regular 0 units 02/16/18 16:30 Humulin R Med SC ACHS [facility] Protocol Midazolam HCl 0.5 mg 02/16/18 12:00 Versed Inj IVP Q4 KATYA Midazolam HCl 1 mg 02/16/18 09:11 Versed Inj IVP Q2 PRN Agitation Pantoprazole Sodium 40 mg 02/16/18 10:00 02/16/18 09:22 Protonix Inj IVP 40 mg DAILY KATYA Administration Saliva Substitute 1 ml 02/15/18 10:54 02/15/18 20:58 Saliva Substitute PO 1 ml Q2H PRN Administration Dry mouth Thiamine HCl 100 mg 02/16/18 10:00 02/16/18 09:23 Vitamin B1 Inj IM 100 mg DAILY KATYA Administration - Patient Studies Lab Studies: Lab Studies 02/16/18 02/16/18 02/16/18 Range/Units 11:24 10:30 10:30 WBC (4.5-11.0) 10^3/ul RBC (3.5-6.1) 10^6/uL Hgb (12.0-16.0) g/dL Hct (36.0-48.0) % MCV (80.0-105.0) fl MCH (25.0-35.0) pg MCHC (31.0-37.0) g/dl RDW (11.5-14.5) % Plt Count (120.0-450.0) 10^3/uL MPV (7.0-11.0) fl Gran % (50.0-68.0) % Lymph % (Auto) (22.0-35.0) % Norman % (Auto) (1.0-6.0) % Eos % (Auto) (1.5-5.0) % Baso % (Auto) (0.0-3.0) % Gran # (1.4-6.5) Lymph # (Auto) (1.2-3.4) Norman # (Auto) (0.1-0.6) Eos # (Auto) (0.0-0.7) Baso # (Auto) (0.0-2.0) K/mm3 PT (9.4-12.5) SECONDS INR (0.93-1.08) pCO2 (35-45) mm/Hg pO2 (30-55) mm/Hg HCO3 (21-28) mmol/L ABG pH (7.35-7.45) ABG Total CO2 (22-28) mmol.L ABG O2 Saturation (95-98) % ABG O2 Content (15-23) ML/dl ABG Base Excess (-2.0-3.0) mmol/L ABG Hemoglobin (11.7-17.4) g/dL ABG Carboxyhemoglobin (0.5-1.5) % POC ABG HHb (Measured) (0-5) % ABG Methemoglobin (0.0-3.0) % ABG O2 Capacity (16-24) mL/dl VBG pH (7.32-7.43) VBG pCO2 (40-60) VBG HCO3 (21-28) mmol/l VBG Total CO2 (22-28) mmol.L VBG O2 Sat (Calc) (40-65) % VBG Base Excess (0.0-2.0) mmol/L VBG Potassium (3.6-5.2) mmol/L Hgb O2 Saturation (95.0-98.0) % Sodium (132-148) mmol/L Chloride (98-107) mmol/L Glucose (65-105) mg/dl Lactate (0.7-2.1) mmol/L FiO2 % Potassium (3.6-5.0) mmol/L Carbon Dioxide (21-33) mmol/L Anion Gap (10-20) BUN (7-21) mg/dL Creatinine (0.7-1.2) mg/dl Est GFR ( Amer) Est GFR (Non-Af Amer) POC Glucose (mg/dL) (65-110) mg/dL Random Glucose (70-110) mg/dL Hemoglobin A1c (4.2-6.5) % Calcium (8.4-10.5) mg/dL Magnesium (1.7-2.2) mg/dL Iron 11 L (45-180) ug/dL TIBC 205 L (265-497) ug/dL % Saturation 5 L (20-55) % Total Bilirubin (0.2-1.3) mg/dL AST (14-36) U/L ALT (7-56) U/L Alkaline Phosphatase (38-126) U/L Total Protein (5.8-8.3) g/dL Albumin (3.0-4.8) g/dL Globulin gm/dL Albumin/Globulin Ratio (1.1-1.8) Triglycerides 104 (35-160) mg/dL Cholesterol 120 L (130-200) mg/dL LDL Cholesterol Direct 67 (0-129) mg/dL HDL Cholesterol 39 (29-60) mg/dL Lipase 25 (23-300) U/L Venous Blood Potassium (3.6-5.2) mmol/L Salicylates < 1 L (2.0-20.0) mg/dL Acetaminophen < 10.0 L (10.0-20.0) ug/ml Alcohol, Quantitative (0-10) mg/dL 02/16/18 02/16/18 02/16/18 Range/Units 09:19 07:57 07:13 WBC (4.5-11.0) 10^3/ul RBC (3.5-6.1) 10^6/uL Hgb (12.0-16.0) g/dL Hct (36.0-48.0) % MCV (80.0-105.0) fl MCH (25.0-35.0) pg MCHC (31.0-37.0) g/dl RDW (11.5-14.5) % Plt Count (120.0-450.0) 10^3/uL MPV (7.0-11.0) fl Gran % (50.0-68.0) % Lymph % (Auto) (22.0-35.0) % Norman % (Auto) (1.0-6.0) % Eos % (Auto) (1.5-5.0) % Baso % (Auto) (0.0-3.0) % Gran # (1.4-6.5) Lymph # (Auto) (1.2-3.4) Norman # (Auto) (0.1-0.6) Eos # (Auto) (0.0-0.7) Baso # (Auto) (0.0-2.0) K/mm3 PT (9.4-12.5) SECONDS INR (0.93-1.08) pCO2 (35-45) mm/Hg pO2 (30-55) mm/Hg HCO3 (21-28) mmol/L ABG pH (7.35-7.45) ABG Total CO2 (22-28) mmol.L ABG O2 Saturation (95-98) % ABG O2 Content (15-23) ML/dl ABG Base Excess (-2.0-3.0) mmol/L ABG Hemoglobin (11.7-17.4) g/dL ABG Carboxyhemoglobin (0.5-1.5) % POC ABG HHb (Measured) (0-5) % ABG Methemoglobin (0.0-3.0) % ABG O2 Capacity (16-24) mL/dl VBG pH (7.32-7.43) VBG pCO2 (40-60) VBG HCO3 (21-28) mmol/l VBG Total CO2 (22-28) mmol.L VBG O2 Sat (Calc) (40-65) % VBG Base Excess (0.0-2.0) mmol/L VBG Potassium (3.6-5.2) mmol/L Hgb O2 Saturation (95.0-98.0) % Sodium (132-148) mmol/L Chloride (98-107) mmol/L Glucose (65-105) mg/dl Lactate (0.7-2.1) mmol/L FiO2 % Potassium (3.6-5.0) mmol/L Carbon Dioxide (21-33) mmol/L Anion Gap (10-20) BUN (7-21) mg/dL Creatinine (0.7-1.2) mg/dl Est GFR ( Amer) Est GFR (Non-Af Amer) POC Glucose (mg/dL) 280 H 270 H 264 H (65-110) mg/dL Random Glucose (70-110) mg/dL Hemoglobin A1c (4.2-6.5) % Calcium (8.4-10.5) mg/dL Magnesium (1.7-2.2) mg/dL Iron (45-180) ug/dL TIBC (265-497) ug/dL % Saturation (20-55) % Total Bilirubin (0.2-1.3) mg/dL AST (14-36) U/L ALT (7-56) U/L Alkaline Phosphatase (38-126) U/L Total Protein (5.8-8.3) g/dL Albumin (3.0-4.8) g/dL Globulin gm/dL Albumin/Globulin Ratio (1.1-1.8) Triglycerides (35-160) mg/dL Cholesterol (130-200) mg/dL LDL Cholesterol Direct (0-129) mg/dL HDL Cholesterol (29-60) mg/dL Lipase (23-300) U/L Venous Blood Potassium (3.6-5.2) mmol/L Salicylates (2.0-20.0) mg/dL Acetaminophen (10.0-20.0) ug/ml Alcohol, Quantitative (0-10) mg/dL 02/16/18 02/16/18 02/16/18 Range/Units 06:48 06:27 05:08 WBC (4.5-11.0) 10^3/ul RBC (3.5-6.1) 10^6/uL Hgb (12.0-16.0) g/dL Hct (36.0-48.0) % MCV (80.0-105.0) fl MCH (25.0-35.0) pg MCHC (31.0-37.0) g/dl RDW (11.5-14.5) % Plt Count (120.0-450.0) 10^3/uL MPV (7.0-11.0) fl Gran % (50.0-68.0) % Lymph % (Auto) (22.0-35.0) % Norman % (Auto) (1.0-6.0) % Eos % (Auto) (1.5-5.0) % Baso % (Auto) (0.0-3.0) % Gran # (1.4-6.5) Lymph # (Auto) (1.2-3.4) Norman # (Auto) (0.1-0.6) Eos # (Auto) (0.0-0.7) Baso # (Auto) (0.0-2.0) K/mm3 PT 15.8 H (9.4-12.5) SECONDS INR 1.37 H (0.93-1.08) pCO2 (35-45) mm/Hg pO2 (30-55) mm/Hg HCO3 (21-28) mmol/L ABG pH (7.35-7.45) ABG Total CO2 (22-28) mmol.L ABG O2 Saturation (95-98) % ABG O2 Content (15-23) ML/dl ABG Base Excess (-2.0-3.0) mmol/L ABG Hemoglobin (11.7-17.4) g/dL ABG Carboxyhemoglobin (0.5-1.5) % POC ABG HHb (Measured) (0-5) % ABG Methemoglobin (0.0-3.0) % ABG O2 Capacity (16-24) mL/dl VBG pH (7.32-7.43) VBG pCO2 (40-60) VBG HCO3 (21-28) mmol/l VBG Total CO2 (22-28) mmol.L VBG O2 Sat (Calc) (40-65) % VBG Base Excess (0.0-2.0) mmol/L VBG Potassium (3.6-5.2) mmol/L Hgb O2 Saturation (95.0-98.0) % Sodium (132-148) mmol/L Chloride (98-107) mmol/L Glucose (65-105) mg/dl Lactate (0.7-2.1) mmol/L FiO2 % Potassium (3.6-5.0) mmol/L Carbon Dioxide (21-33) mmol/L Anion Gap (10-20) BUN (7-21) mg/dL Creatinine (0.7-1.2) mg/dl Est GFR ( Amer) Est GFR (Non-Af Amer) POC Glucose (mg/dL) 262 H 251 H (65-110) mg/dL Random Glucose (70-110) mg/dL Hemoglobin A1c (4.2-6.5) % Calcium (8.4-10.5) mg/dL Magnesium (1.7-2.2) mg/dL Iron (45-180) ug/dL TIBC (265-497) ug/dL % Saturation (20-55) % Total Bilirubin (0.2-1.3) mg/dL AST (14-36) U/L ALT (7-56) U/L Alkaline Phosphatase (38-126) U/L Total Protein (5.8-8.3) g/dL Albumin (3.0-4.8) g/dL Globulin gm/dL Albumin/Globulin Ratio (1.1-1.8) Triglycerides (35-160) mg/dL Cholesterol (130-200) mg/dL LDL Cholesterol Direct (0-129) mg/dL HDL Cholesterol (29-60) mg/dL Lipase (23-300) U/L Venous Blood Potassium (3.6-5.2) mmol/L Salicylates (2.0-20.0) mg/dL Acetaminophen (10.0-20.0) ug/ml Alcohol, Quantitative (0-10) mg/dL 02/16/18 02/16/18 02/16/18 Range/Units 04:40 04:15 04:15 WBC (4.5-11.0) 10^3/ul RBC (3.5-6.1) 10^6/uL Hgb (12.0-16.0) g/dL Hct (36.0-48.0) % MCV (80.0-105.0) fl MCH (25.0-35.0) pg MCHC (31.0-37.0) g/dl RDW (11.5-14.5) % Plt Count (120.0-450.0) 10^3/uL MPV (7.0-11.0) fl Gran % (50.0-68.0) % Lymph % (Auto) (22.0-35.0) % Norman % (Auto) (1.0-6.0) % Eos % (Auto) (1.5-5.0) % Baso % (Auto) (0.0-3.0) % Gran # (1.4-6.5) Lymph # (Auto) (1.2-3.4) Norman # (Auto) (0.1-0.6) Eos # (Auto) (0.0-0.7) Baso # (Auto) (0.0-2.0) K/mm3 PT (9.4-12.5) SECONDS INR (0.93-1.08) pCO2 31 L (35-45) mm/Hg pO2 79.0 L (30-55) mm/Hg HCO3 16.7 L (21-28) mmol/L ABG pH 7.34 L (7.35-7.45) ABG Total CO2 17.7 L (22-28) mmol.L ABG O2 Saturation 95.9 (95-98) % ABG O2 Content 13.9 L (15-23) ML/dl ABG Base Excess -8.1 L (-2.0-3.0) mmol/L ABG Hemoglobin 10.3 L (11.7-17.4) g/dL ABG Carboxyhemoglobin 0.2 L (0.5-1.5) % POC ABG HHb (Measured) 4.1 (0-5) % ABG Methemoglobin 0.1 (0.0-3.0) % ABG O2 Capacity 14.5 L (16-24) mL/dl VBG pH (7.32-7.43) VBG pCO2 (40-60) VBG HCO3 (21-28) mmol/l VBG Total CO2 (22-28) mmol.L VBG O2 Sat (Calc) (40-65) % VBG Base Excess (0.0-2.0) mmol/L VBG Potassium (3.6-5.2) mmol/L Hgb O2 Saturation 95.6 (95.0-98.0) % Sodium 139 (132-148) mmol/L Chloride 112 H (98-107) mmol/L Glucose (65-105) mg/dl Lactate (0.7-2.1) mmol/L FiO2 100.0 % Potassium 4.1 (3.6-5.0) mmol/L Carbon Dioxide 17 L (21-33) mmol/L Anion Gap 14 (10-20) BUN 12 (7-21) mg/dL Creatinine 0.9 (0.7-1.2) mg/dl Est GFR ( Amer) > 60 Est GFR (Non-Af Amer) > 60 POC Glucose (mg/dL) (65-110) mg/dL Random Glucose 249 H (70-110) mg/dL Hemoglobin A1c (4.2-6.5) % Calcium 6.6 L* (8.4-10.5) mg/dL Magnesium 1.6 L (1.7-2.2) mg/dL Iron (45-180) ug/dL TIBC (265-497) ug/dL % Saturation (20-55) % Total Bilirubin 0.9 (0.2-1.3) mg/dL AST 2653 H (14-36) U/L ALT 674 H (7-56) U/L Alkaline Phosphatase 224 H (38-126) U/L Total Protein 5.3 L (5.8-8.3) g/dL Albumin 2.5 L (3.0-4.8) g/dL Globulin 2.8 gm/dL Albumin/Globulin Ratio 0.9 L (1.1-1.8) Triglycerides (35-160) mg/dL Cholesterol (130-200) mg/dL LDL Cholesterol Direct (0-129) mg/dL HDL Cholesterol (29-60) mg/dL Lipase (23-300) U/L Venous Blood Potassium (3.6-5.2) mmol/L Salicylates (2.0-20.0) mg/dL Acetaminophen (10.0-20.0) ug/ml Alcohol, Quantitative (0-10) mg/dL 02/16/18 02/16/18 02/16/18 Range/Units 04:15 03:54 03:10 WBC 8.9 (4.5-11.0) 10^3/ul RBC 3.12 L (3.5-6.1) 10^6/uL Hgb 9.7 L (12.0-16.0) g/dL Hct 29.4 L (36.0-48.0) % MCV 94.2 (80.0-105.0) fl MCH 31.1 (25.0-35.0) pg MCHC 33.0 (31.0-37.0) g/dl RDW 13.3 (11.5-14.5) % Plt Count 143 (120.0-450.0) 10^3/uL MPV 9.4 (7.0-11.0) fl Gran % 86.5 H (50.0-68.0) % Lymph % (Auto) 10.3 L (22.0-35.0) % Norman % (Auto) 3.2 (1.0-6.0) % Eos % (Auto) 0.0 L (1.5-5.0) % Baso % (Auto) 0.0 (0.0-3.0) % Gran # 7.68 H (1.4-6.5) Lymph # (Auto) 0.9 L (1.2-3.4) Norman # (Auto) 0.3 (0.1-0.6) Eos # (Auto) 0.0 (0.0-0.7) Baso # (Auto) 0.00 (0.0-2.0) K/mm3 PT (9.4-12.5) SECONDS INR (0.93-1.08) pCO2 (35-45) mm/Hg pO2 (30-55) mm/Hg HCO3 (21-28) mmol/L ABG pH (7.35-7.45) ABG Total CO2 (22-28) mmol.L ABG O2 Saturation (95-98) % ABG O2 Content (15-23) ML/dl ABG Base Excess (-2.0-3.0) mmol/L ABG Hemoglobin (11.7-17.4) g/dL ABG Carboxyhemoglobin (0.5-1.5) % POC ABG HHb (Measured) (0-5) % ABG Methemoglobin (0.0-3.0) % ABG O2 Capacity (16-24) mL/dl VBG pH (7.32-7.43) VBG pCO2 (40-60) VBG HCO3 (21-28) mmol/l VBG Total CO2 (22-28) mmol.L VBG O2 Sat (Calc) (40-65) % VBG Base Excess (0.0-2.0) mmol/L VBG Potassium (3.6-5.2) mmol/L Hgb O2 Saturation (95.0-98.0) % Sodium (132-148) mmol/L Chloride (98-107) mmol/L Glucose (65-105) mg/dl Lactate (0.7-2.1) mmol/L FiO2 % Potassium (3.6-5.0) mmol/L Carbon Dioxide (21-33) mmol/L Anion Gap (10-20) BUN (7-21) mg/dL Creatinine (0.7-1.2) mg/dl Est GFR ( Amer) Est GFR (Non-Af Amer) POC Glucose (mg/dL) 233 H 230 H (65-110) mg/dL Random Glucose (70-110) mg/dL Hemoglobin A1c (4.2-6.5) % Calcium (8.4-10.5) mg/dL Magnesium (1.7-2.2) mg/dL Iron (45-180) ug/dL TIBC (265-497) ug/dL % Saturation (20-55) % Total Bilirubin (0.2-1.3) mg/dL AST (14-36) U/L ALT (7-56) U/L Alkaline Phosphatase (38-126) U/L Total Protein (5.8-8.3) g/dL Albumin (3.0-4.8) g/dL Globulin gm/dL Albumin/Globulin Ratio (1.1-1.8) Triglycerides (35-160) mg/dL Cholesterol (130-200) mg/dL LDL Cholesterol Direct (0-129) mg/dL HDL Cholesterol (29-60) mg/dL Lipase (23-300) U/L Venous Blood Potassium (3.6-5.2) mmol/L Salicylates (2.0-20.0) mg/dL Acetaminophen (10.0-20.0) ug/ml Alcohol, Quantitative (0-10) mg/dL 02/16/18 02/16/18 02/15/18 Range/Units 02:07 00:38 23:50 WBC (4.5-11.0) 10^3/ul RBC (3.5-6.1) 10^6/uL Hgb (12.0-16.0) g/dL Hct (36.0-48.0) % MCV (80.0-105.0) fl MCH (25.0-35.0) pg MCHC (31.0-37.0) g/dl RDW (11.5-14.5) % Plt Count (120.0-450.0) 10^3/uL MPV (7.0-11.0) fl Gran % (50.0-68.0) % Lymph % (Auto) (22.0-35.0) % Norman % (Auto) (1.0-6.0) % Eos % (Auto) (1.5-5.0) % Baso % (Auto) (0.0-3.0) % Gran # (1.4-6.5) Lymph # (Auto) (1.2-3.4) Norman # (Auto) (0.1-0.6) Eos # (Auto) (0.0-0.7) Baso # (Auto) (0.0-2.0) K/mm3 PT (9.4-12.5) SECONDS INR (0.93-1.08) pCO2 (35-45) mm/Hg pO2 (30-55) mm/Hg HCO3 (21-28) mmol/L ABG pH (7.35-7.45) ABG Total CO2 (22-28) mmol.L ABG O2 Saturation (95-98) % ABG O2 Content (15-23) ML/dl ABG Base Excess (-2.0-3.0) mmol/L ABG Hemoglobin (11.7-17.4) g/dL ABG Carboxyhemoglobin (0.5-1.5) % POC ABG HHb (Measured) (0-5) % ABG Methemoglobin (0.0-3.0) % ABG O2 Capacity (16-24) mL/dl VBG pH (7.32-7.43) VBG pCO2 (40-60) VBG HCO3 (21-28) mmol/l VBG Total CO2 (22-28) mmol.L VBG O2 Sat (Calc) (40-65) % VBG Base Excess (0.0-2.0) mmol/L VBG Potassium (3.6-5.2) mmol/L Hgb O2 Saturation (95.0-98.0) % Sodium 143 (132-148) mmol/L Chloride 113 H (98-107) mmol/L Glucose (65-105) mg/dl Lactate (0.7-2.1) mmol/L FiO2 % Potassium 4.5 (3.6-5.0) mmol/L Carbon Dioxide 20 L (21-33) mmol/L Anion Gap 15 (10-20) BUN 11 (7-21) mg/dL Creatinine 1.0 (0.7-1.2) mg/dl Est GFR ( Amer) > 60 Est GFR (Non-Af Amer) > 60 POC Glucose (mg/dL) 219 H 180 H (65-110) mg/dL Random Glucose 171 H (70-110) mg/dL Hemoglobin A1c (4.2-6.5) % Calcium 6.8 L* (8.4-10.5) mg/dL Magnesium (1.7-2.2) mg/dL Iron (45-180) ug/dL TIBC (265-497) ug/dL % Saturation (20-55) % Total Bilirubin 0.9 (0.2-1.3) mg/dL AST 1671 H (14-36) U/L ALT 575 H (7-56) U/L Alkaline Phosphatase 249 H (38-126) U/L Total Protein 5.4 L (5.8-8.3) g/dL Albumin 2.6 L (3.0-4.8) g/dL Globulin 2.8 gm/dL Albumin/Globulin Ratio 0.9 L (1.1-1.8) Triglycerides (35-160) mg/dL Cholesterol (130-200) mg/dL LDL Cholesterol Direct (0-129) mg/dL HDL Cholesterol (29-60) mg/dL Lipase (23-300) U/L Venous Blood Potassium (3.6-5.2) mmol/L Salicylates (2.0-20.0) mg/dL Acetaminophen (10.0-20.0) ug/ml Alcohol, Quantitative (0-10) mg/dL 02/15/18 02/15/18 02/15/18 Range/Units 23:19 22:12 20:48 WBC (4.5-11.0) 10^3/ul RBC (3.5-6.1) 10^6/uL Hgb (12.0-16.0) g/dL Hct (36.0-48.0) % MCV (80.0-105.0) fl MCH (25.0-35.0) pg MCHC (31.0-37.0) g/dl RDW (11.5-14.5) % Plt Count (120.0-450.0) 10^3/uL MPV (7.0-11.0) fl Gran % (50.0-68.0) % Lymph % (Auto) (22.0-35.0) % Norman % (Auto) (1.0-6.0) % Eos % (Auto) (1.5-5.0) % Baso % (Auto) (0.0-3.0) % Gran # (1.4-6.5) Lymph # (Auto) (1.2-3.4) Norman # (Auto) (0.1-0.6) Eos # (Auto) (0.0-0.7) Baso # (Auto) (0.0-2.0) K/mm3 PT (9.4-12.5) SECONDS INR (0.93-1.08) pCO2 (35-45) mm/Hg pO2 (30-55) mm/Hg HCO3 (21-28) mmol/L ABG pH (7.35-7.45) ABG Total CO2 (22-28) mmol.L ABG O2 Saturation (95-98) % ABG O2 Content (15-23) ML/dl ABG Base Excess (-2.0-3.0) mmol/L ABG Hemoglobin (11.7-17.4) g/dL ABG Carboxyhemoglobin (0.5-1.5) % POC ABG HHb (Measured) (0-5) % ABG Methemoglobin (0.0-3.0) % ABG O2 Capacity (16-24) mL/dl VBG pH (7.32-7.43) VBG pCO2 (40-60) VBG HCO3 (21-28) mmol/l VBG Total CO2 (22-28) mmol.L VBG O2 Sat (Calc) (40-65) % VBG Base Excess (0.0-2.0) mmol/L VBG Potassium (3.6-5.2) mmol/L Hgb O2 Saturation (95.0-98.0) % Sodium (132-148) mmol/L Chloride (98-107) mmol/L Glucose (65-105) mg/dl Lactate (0.7-2.1) mmol/L FiO2 % Potassium (3.6-5.0) mmol/L Carbon Dioxide (21-33) mmol/L Anion Gap (10-20) BUN (7-21) mg/dL Creatinine (0.7-1.2) mg/dl Est GFR ( Amer) Est GFR (Non-Af Amer) POC Glucose (mg/dL) 184 H 224 H 233 H (65-110) mg/dL Random Glucose (70-110) mg/dL Hemoglobin A1c (4.2-6.5) % Calcium (8.4-10.5) mg/dL Magnesium (1.7-2.2) mg/dL Iron (45-180) ug/dL TIBC (265-497) ug/dL % Saturation (20-55) % Total Bilirubin (0.2-1.3) mg/dL AST (14-36) U/L ALT (7-56) U/L Alkaline Phosphatase (38-126) U/L Total Protein (5.8-8.3) g/dL Albumin (3.0-4.8) g/dL Globulin gm/dL Albumin/Globulin Ratio (1.1-1.8) Triglycerides (35-160) mg/dL Cholesterol (130-200) mg/dL LDL Cholesterol Direct (0-129) mg/dL HDL Cholesterol (29-60) mg/dL Lipase (23-300) U/L Venous Blood Potassium (3.6-5.2) mmol/L Salicylates (2.0-20.0) mg/dL Acetaminophen (10.0-20.0) ug/ml Alcohol, Quantitative (0-10) mg/dL 02/15/18 02/15/18 02/15/18 Range/Units 19:50 19:50 19:06 WBC (4.5-11.0) 10^3/ul RBC (3.5-6.1) 10^6/uL Hgb (12.0-16.0) g/dL Hct (36.0-48.0) % MCV (80.0-105.0) fl MCH (25.0-35.0) pg MCHC (31.0-37.0) g/dl RDW (11.5-14.5) % Plt Count (120.0-450.0) 10^3/uL MPV (7.0-11.0) fl Gran % (50.0-68.0) % Lymph % (Auto) (22.0-35.0) % Norman % (Auto) (1.0-6.0) % Eos % (Auto) (1.5-5.0) % Baso % (Auto) (0.0-3.0) % Gran # (1.4-6.5) Lymph # (Auto) (1.2-3.4) Norman # (Auto) (0.1-0.6) Eos # (Auto) (0.0-0.7) Baso # (Auto) (0.0-2.0) K/mm3 PT (9.4-12.5) SECONDS INR (0.93-1.08) pCO2 (35-45) mm/Hg pO2 33 (30-55) mm/Hg HCO3 (21-28) mmol/L ABG pH (7.35-7.45) ABG Total CO2 (22-28) mmol.L ABG O2 Saturation (95-98) % ABG O2 Content (15-23) ML/dl ABG Base Excess (-2.0-3.0) mmol/L ABG Hemoglobin (11.7-17.4) g/dL ABG Carboxyhemoglobin (0.5-1.5) % POC ABG HHb (Measured) (0-5) % ABG Methemoglobin (0.0-3.0) % ABG O2 Capacity (16-24) mL/dl VBG pH 7.31 L (7.32-7.43) VBG pCO2 35.0 L (40-60) VBG HCO3 17.6 L (21-28) mmol/l VBG Total CO2 18.7 L (22-28) mmol.L VBG O2 Sat (Calc) 70.7 H (40-65) % VBG Base Excess -7.8 L (0.0-2.0) mmol/L VBG Potassium 4.4 (3.6-5.2) mmol/L Hgb O2 Saturation (95.0-98.0) % Sodium 138.0 142 (132-148) mmol/L Chloride 115.0 H 112 H (98-107) mmol/L Glucose 298 H (65-105) mg/dl Lactate 2.6 H (0.7-2.1) mmol/L FiO2 21.0 % Potassium 5.0 (3.6-5.0) mmol/L Carbon Dioxide 21 (21-33) mmol/L Anion Gap 14 (10-20) BUN 11 (7-21) mg/dL Creatinine 1.0 (0.7-1.2) mg/dl Est GFR ( Amer) > 60 Est GFR (Non-Af Amer) > 60 POC Glucose (mg/dL) 277 H (65-110) mg/dL Random Glucose 266 H (70-110) mg/dL Hemoglobin A1c (4.2-6.5) % Calcium 7.0 L (8.4-10.5) mg/dL Magnesium (1.7-2.2) mg/dL Iron (45-180) ug/dL TIBC (265-497) ug/dL % Saturation (20-55) % Total Bilirubin 0.9 (0.2-1.3) mg/dL AST 1182 H (14-36) U/L ALT 519 H (7-56) U/L Alkaline Phosphatase 256 H (38-126) U/L Total Protein 5.3 L (5.8-8.3) g/dL Albumin 2.7 L (3.0-4.8) g/dL Globulin 2.6 gm/dL Albumin/Globulin Ratio 1.0 L (1.1-1.8) Triglycerides (35-160) mg/dL Cholesterol (130-200) mg/dL LDL Cholesterol Direct (0-129) mg/dL HDL Cholesterol (29-60) mg/dL Lipase (23-300) U/L Venous Blood Potassium 4.4 (3.6-5.2) mmol/L Salicylates (2.0-20.0) mg/dL Acetaminophen (10.0-20.0) ug/ml Alcohol, Quantitative (0-10) mg/dL 02/15/18 02/15/18 02/15/18 Range/Units 18:15 17:08 16:27 WBC (4.5-11.0) 10^3/ul RBC (3.5-6.1) 10^6/uL Hgb (12.0-16.0) g/dL Hct (36.0-48.0) % MCV (80.0-105.0) fl MCH (25.0-35.0) pg MCHC (31.0-37.0) g/dl RDW (11.5-14.5) % Plt Count (120.0-450.0) 10^3/uL MPV (7.0-11.0) fl Gran % (50.0-68.0) % Lymph % (Auto) (22.0-35.0) % Norman % (Auto) (1.0-6.0) % Eos % (Auto) (1.5-5.0) % Baso % (Auto) (0.0-3.0) % Gran # (1.4-6.5) Lymph # (Auto) (1.2-3.4) Norman # (Auto) (0.1-0.6) Eos # (Auto) (0.0-0.7) Baso # (Auto) (0.0-2.0) K/mm3 PT (9.4-12.5) SECONDS INR (0.93-1.08) pCO2 (35-45) mm/Hg pO2 (30-55) mm/Hg HCO3 (21-28) mmol/L ABG pH (7.35-7.45) ABG Total CO2 (22-28) mmol.L ABG O2 Saturation (95-98) % ABG O2 Content (15-23) ML/dl ABG Base Excess (-2.0-3.0) mmol/L ABG Hemoglobin (11.7-17.4) g/dL ABG Carboxyhemoglobin (0.5-1.5) % POC ABG HHb (Measured) (0-5) % ABG Methemoglobin (0.0-3.0) % ABG O2 Capacity (16-24) mL/dl VBG pH (7.32-7.43) VBG pCO2 (40-60) VBG HCO3 (21-28) mmol/l VBG Total CO2 (22-28) mmol.L VBG O2 Sat (Calc) (40-65) % VBG Base Excess (0.0-2.0) mmol/L VBG Potassium (3.6-5.2) mmol/L Hgb O2 Saturation (95.0-98.0) % Sodium 138 (132-148) mmol/L Chloride 107 (98-107) mmol/L Glucose (65-105) mg/dl Lactate (0.7-2.1) mmol/L FiO2 % Potassium 4.8 (3.6-5.0) mmol/L Carbon Dioxide 14 L (21-33) mmol/L Anion Gap 22 H (10-20) BUN 12 (7-21) mg/dL Creatinine 1.1 (0.7-1.2) mg/dl Est GFR ( Amer) > 60 Est GFR (Non-Af Amer) 55 POC Glucose (mg/dL) 298 H 322 H (65-110) mg/dL Random Glucose 451 H* (70-110) mg/dL Hemoglobin A1c (4.2-6.5) % Calcium 7.4 L (8.4-10.5) mg/dL Magnesium (1.7-2.2) mg/dL Iron (45-180) ug/dL TIBC (265-497) ug/dL % Saturation (20-55) % Total Bilirubin 1.4 H (0.2-1.3) mg/dL AST 1135 H (14-36) U/L ALT 525 H (7-56) U/L Alkaline Phosphatase 308 H D (38-126) U/L Total Protein 5.8 (5.8-8.3) g/dL Albumin 2.9 L (3.0-4.8) g/dL Globulin 2.9 gm/dL Albumin/Globulin Ratio 1.0 L (1.1-1.8) Triglycerides (35-160) mg/dL Cholesterol (130-200) mg/dL LDL Cholesterol Direct (0-129) mg/dL HDL Cholesterol (29-60) mg/dL Lipase (23-300) U/L Venous Blood Potassium (3.6-5.2) mmol/L Salicylates (2.0-20.0) mg/dL Acetaminophen (10.0-20.0) ug/ml Alcohol, Quantitative (0-10) mg/dL 02/15/18 02/15/18 02/15/18 Range/Units 16:27 16:00 16:00 WBC (4.5-11.0) 10^3/ul RBC (3.5-6.1) 10^6/uL Hgb (12.0-16.0) g/dL Hct (36.0-48.0) % MCV (80.0-105.0) fl MCH (25.0-35.0) pg MCHC (31.0-37.0) g/dl RDW (11.5-14.5) % Plt Count (120.0-450.0) 10^3/uL MPV (7.0-11.0) fl Gran % (50.0-68.0) % Lymph % (Auto) (22.0-35.0) % Norman % (Auto) (1.0-6.0) % Eos % (Auto) (1.5-5.0) % Baso % (Auto) (0.0-3.0) % Gran # (1.4-6.5) Lymph # (Auto) (1.2-3.4) Norman # (Auto) (0.1-0.6) Eos # (Auto) (0.0-0.7) Baso # (Auto) (0.0-2.0) K/mm3 PT (9.4-12.5) SECONDS INR (0.93-1.08) pCO2 (35-45) mm/Hg pO2 149 H (30-55) mm/Hg HCO3 (21-28) mmol/L ABG pH (7.35-7.45) ABG Total CO2 (22-28) mmol.L ABG O2 Saturation (95-98) % ABG O2 Content (15-23) ML/dl ABG Base Excess (-2.0-3.0) mmol/L ABG Hemoglobin (11.7-17.4) g/dL ABG Carboxyhemoglobin (0.5-1.5) % POC ABG HHb (Measured) (0-5) % ABG Methemoglobin (0.0-3.0) % ABG O2 Capacity (16-24) mL/dl VBG pH 7.19 L* (7.32-7.43) VBG pCO2 35.0 L (40-60) VBG HCO3 13.4 L (21-28) mmol/l VBG Total CO2 14.5 L (22-28) mmol.L VBG O2 Sat (Calc) 97.6 H (40-65) % VBG Base Excess -13.8 L (0.0-2.0) mmol/L VBG Potassium 4.7 (3.6-5.2) mmol/L Hgb O2 Saturation (95.0-98.0) % Sodium 135.0 (132-148) mmol/L Chloride 108.0 H (98-107) mmol/L Glucose 478 H* (65-105) mg/dl Lactate 2.2 H (0.7-2.1) mmol/L FiO2 21.0 % Potassium (3.6-5.0) mmol/L Carbon Dioxide (21-33) mmol/L Anion Gap (10-20) BUN (7-21) mg/dL Creatinine (0.7-1.2) mg/dl Est GFR ( Amer) Est GFR (Non-Af Amer) POC Glucose (mg/dL) 401 H* (65-110) mg/dL Random Glucose (70-110) mg/dL Hemoglobin A1c (4.2-6.5) % Calcium (8.4-10.5) mg/dL Magnesium (1.7-2.2) mg/dL Iron (45-180) ug/dL TIBC (265-497) ug/dL % Saturation (20-55) % Total Bilirubin (0.2-1.3) mg/dL AST (14-36) U/L ALT (7-56) U/L Alkaline Phosphatase (38-126) U/L Total Protein (5.8-8.3) g/dL Albumin (3.0-4.8) g/dL Globulin gm/dL Albumin/Globulin Ratio (1.1-1.8) Triglycerides (35-160) mg/dL Cholesterol (130-200) mg/dL LDL Cholesterol Direct (0-129) mg/dL HDL Cholesterol (29-60) mg/dL Lipase (23-300) U/L Venous Blood Potassium 4.7 (3.6-5.2) mmol/L Salicylates (2.0-20.0) mg/dL Acetaminophen (10.0-20.0) ug/ml Alcohol, Quantitative < 10 (0-10) mg/dL 02/15/18 02/15/18 Range/Units 15:11 14:00 WBC (4.5-11.0) 10^3/ul RBC (3.5-6.1) 10^6/uL Hgb (12.0-16.0) g/dL Hct (36.0-48.0) % MCV (80.0-105.0) fl MCH (25.0-35.0) pg MCHC (31.0-37.0) g/dl RDW (11.5-14.5) % Plt Count (120.0-450.0) 10^3/uL MPV (7.0-11.0) fl Gran % (50.0-68.0) % Lymph % (Auto) (22.0-35.0) % Norman % (Auto) (1.0-6.0) % Eos % (Auto) (1.5-5.0) % Baso % (Auto) (0.0-3.0) % Gran # (1.4-6.5) Lymph # (Auto) (1.2-3.4) Norman # (Auto) (0.1-0.6) Eos # (Auto) (0.0-0.7) Baso # (Auto) (0.0-2.0) K/mm3 PT (9.4-12.5) SECONDS INR (0.93-1.08) pCO2 (35-45) mm/Hg pO2 (30-55) mm/Hg HCO3 (21-28) mmol/L ABG pH (7.35-7.45) ABG Total CO2 (22-28) mmol.L ABG O2 Saturation (95-98) % ABG O2 Content (15-23) ML/dl ABG Base Excess (-2.0-3.0) mmol/L ABG Hemoglobin (11.7-17.4) g/dL ABG Carboxyhemoglobin (0.5-1.5) % POC ABG HHb (Measured) (0-5) % ABG Methemoglobin (0.0-3.0) % ABG O2 Capacity (16-24) mL/dl VBG pH (7.32-7.43) VBG pCO2 (40-60) VBG HCO3 (21-28) mmol/l VBG Total CO2 (22-28) mmol.L VBG O2 Sat (Calc) (40-65) % VBG Base Excess (0.0-2.0) mmol/L VBG Potassium (3.6-5.2) mmol/L Hgb O2 Saturation (95.0-98.0) % Sodium (132-148) mmol/L Chloride (98-107) mmol/L Glucose (65-105) mg/dl Lactate (0.7-2.1) mmol/L FiO2 % Potassium (3.6-5.0) mmol/L Carbon Dioxide (21-33) mmol/L Anion Gap (10-20) BUN (7-21) mg/dL Creatinine (0.7-1.2) mg/dl Est GFR ( Amer) Est GFR (Non-Af Amer) POC Glucose (mg/dL) 378 H (65-110) mg/dL Random Glucose (70-110) mg/dL Hemoglobin A1c 10.6 H (4.2-6.5) % Calcium (8.4-10.5) mg/dL Magnesium (1.7-2.2) mg/dL Iron (45-180) ug/dL TIBC (265-497) ug/dL % Saturation (20-55) % Total Bilirubin (0.2-1.3) mg/dL AST (14-36) U/L ALT (7-56) U/L Alkaline Phosphatase (38-126) U/L Total Protein (5.8-8.3) g/dL Albumin (3.0-4.8) g/dL Globulin gm/dL Albumin/Globulin Ratio (1.1-1.8) Triglycerides (35-160) mg/dL Cholesterol (130-200) mg/dL LDL Cholesterol Direct (0-129) mg/dL HDL Cholesterol (29-60) mg/dL Lipase (23-300) U/L Venous Blood Potassium (3.6-5.2) mmol/L Salicylates (2.0-20.0) mg/dL Acetaminophen (10.0-20.0) ug/ml Alcohol, Quantitative (0-10) mg/dL Laboratory Results - last 24 hr 02/15/18 02/15/18 02/15/18 14:00 15:11 16:00 WBC RBC Hgb Hct MCV MCH MCHC RDW Plt Count MPV Gran % Lymph % (Auto) Norman % (Auto) Eos % (Auto) Baso % (Auto) Gran # Lymph # (Auto) Norman # (Auto) Eos # (Auto) Baso # (Auto) PT INR pCO2 pO2 HCO3 ABG pH ABG Total CO2 ABG O2 Saturation ABG O2 Content ABG Base Excess ABG Hemoglobin ABG Carboxyhemoglobin POC ABG HHb (Measured) ABG Methemoglobin ABG O2 Capacity VBG pH VBG pCO2 VBG HCO3 VBG Total CO2 VBG O2 Sat (Calc) VBG Base Excess VBG Potassium Hgb O2 Saturation Sodium Chloride Glucose Lactate FiO2 Potassium Carbon Dioxide Anion Gap BUN Creatinine Est GFR ( Amer) Est GFR (Non-Af Amer) POC Glucose (mg/dL) 378 H Random Glucose Hemoglobin A1c 10.6 H Calcium Magnesium Iron TIBC % Saturation Total Bilirubin AST ALT Alkaline Phosphatase Total Protein Albumin Globulin Albumin/Globulin Ratio Triglycerides Cholesterol LDL Cholesterol Direct HDL Cholesterol Lipase Venous Blood Potassium Salicylates Acetaminophen Alcohol, Quantitative < 10 02/15/18 02/15/18 02/15/18 16:00 16:27 16:27 WBC RBC Hgb Hct MCV MCH MCHC RDW Plt Count MPV Gran % Lymph % (Auto) Norman % (Auto) Eos % (Auto) Baso % (Auto) Gran # Lymph # (Auto) Norman # (Auto) Eos # (Auto) Baso # (Auto) PT INR pCO2 pO2 149 H HCO3 ABG pH ABG Total CO2 ABG O2 Saturation ABG O2 Content ABG Base Excess ABG Hemoglobin ABG Carboxyhemoglobin POC ABG HHb (Measured) ABG Methemoglobin ABG O2 Capacity VBG pH 7.19 L* VBG pCO2 35.0 L VBG HCO3 13.4 L VBG Total CO2 14.5 L VBG O2 Sat (Calc) 97.6 H VBG Base Excess -13.8 L VBG Potassium 4.7 Hgb O2 Saturation Sodium 135.0 138 Chloride 108.0 H 107 Glucose 478 H* Lactate 2.2 H FiO2 21.0 Potassium 4.8 Carbon Dioxide 14 L Anion Gap 22 H BUN 12 Creatinine 1.1 Est GFR ( Amer) > 60 Est GFR (Non-Af Amer) 55 POC Glucose (mg/dL) 401 H* Random Glucose 451 H* Hemoglobin A1c Calcium 7.4 L Magnesium Iron TIBC % Saturation Total Bilirubin 1.4 H AST 1135 H ALT 525 H Alkaline Phosphatase 308 H D Total Protein 5.8 Albumin 2.9 L Globulin 2.9 Albumin/Globulin Ratio 1.0 L Triglycerides Cholesterol LDL Cholesterol Direct HDL Cholesterol Lipase Venous Blood Potassium 4.7 Salicylates Acetaminophen Alcohol, Quantitative 02/15/18 02/15/18 02/15/18 17:08 18:15 19:06 WBC RBC Hgb Hct MCV MCH MCHC RDW Plt Count MPV Gran % Lymph % (Auto) Norman % (Auto) Eos % (Auto) Baso % (Auto) Gran # Lymph # (Auto) Norman # (Auto) Eos # (Auto) Baso # (Auto) PT INR pCO2 pO2 HCO3 ABG pH ABG Total CO2 ABG O2 Saturation ABG O2 Content ABG Base Excess ABG Hemoglobin ABG Carboxyhemoglobin POC ABG HHb (Measured) ABG Methemoglobin ABG O2 Capacity VBG pH VBG pCO2 VBG HCO3 VBG Total CO2 VBG O2 Sat (Calc) VBG Base Excess VBG Potassium Hgb O2 Saturation Sodium Chloride Glucose Lactate FiO2 Potassium Carbon Dioxide Anion Gap BUN Creatinine Est GFR ( Amer) Est GFR (Non-Af Amer) POC Glucose (mg/dL) 322 H 298 H 277 H Random Glucose Hemoglobin A1c Calcium Magnesium Iron TIBC % Saturation Total Bilirubin AST ALT Alkaline Phosphatase Total Protein Albumin Globulin Albumin/Globulin Ratio Triglycerides Cholesterol LDL Cholesterol Direct HDL Cholesterol Lipase Venous Blood Potassium Salicylates Acetaminophen Alcohol, Quantitative 02/15/18 02/15/18 02/15/18 19:50 19:50 20:48 WBC RBC Hgb Hct MCV MCH MCHC RDW Plt Count MPV Gran % Lymph % (Auto) Norman % (Auto) Eos % (Auto) Baso % (Auto) Gran # Lymph # (Auto) Norman # (Auto) Eos # (Auto) Baso # (Auto) PT INR pCO2 pO2 33 HCO3 ABG pH ABG Total CO2 ABG O2 Saturation ABG O2 Content ABG Base Excess ABG Hemoglobin ABG Carboxyhemoglobin POC ABG HHb (Measured) ABG Methemoglobin ABG O2 Capacity VBG pH 7.31 L VBG pCO2 35.0 L VBG HCO3 17.6 L VBG Total CO2 18.7 L VBG O2 Sat (Calc) 70.7 H VBG Base Excess -7.8 L VBG Potassium 4.4 Hgb O2 Saturation Sodium 142 138.0 Chloride 112 H 115.0 H Glucose 298 H Lactate 2.6 H FiO2 21.0 Potassium 5.0 Carbon Dioxide 21 Anion Gap 14 BUN 11 Creatinine 1.0 Est GFR ( Amer) > 60 Est GFR (Non-Af Amer) > 60 POC Glucose (mg/dL) 233 H Random Glucose 266 H Hemoglobin A1c Calcium 7.0 L Magnesium Iron TIBC % Saturation Total Bilirubin 0.9 AST 1182 H ALT 519 H Alkaline Phosphatase 256 H Total Protein 5.3 L Albumin 2.7 L Globulin 2.6 Albumin/Globulin Ratio 1.0 L Triglycerides Cholesterol LDL Cholesterol Direct HDL Cholesterol Lipase Venous Blood Potassium 4.4 Salicylates Acetaminophen Alcohol, Quantitative 02/15/18 02/15/18 02/15/18 22:12 23:19 23:50 WBC RBC Hgb Hct MCV MCH MCHC RDW Plt Count MPV Gran % Lymph % (Auto) Norman % (Auto) Eos % (Auto) Baso % (Auto) Gran # Lymph # (Auto) Norman # (Auto) Eos # (Auto) Baso # (Auto) PT INR pCO2 pO2 HCO3 ABG pH ABG Total CO2 ABG O2 Saturation ABG O2 Content ABG Base Excess ABG Hemoglobin ABG Carboxyhemoglobin POC ABG HHb (Measured) ABG Methemoglobin ABG O2 Capacity VBG pH VBG pCO2 VBG HCO3 VBG Total CO2 VBG O2 Sat (Calc) VBG Base Excess VBG Potassium Hgb O2 Saturation Sodium 143 Chloride 113 H Glucose Lactate FiO2 Potassium 4.5 Carbon Dioxide 20 L Anion Gap 15 BUN 11 Creatinine 1.0 Est GFR ( Amer) > 60 Est GFR (Non-Af Amer) > 60 POC Glucose (mg/dL) 224 H 184 H Random Glucose 171 H Hemoglobin A1c Calcium 6.8 L* Magnesium Iron TIBC % Saturation Total Bilirubin 0.9 AST 1671 H ALT 575 H Alkaline Phosphatase 249 H Total Protein 5.4 L Albumin 2.6 L Globulin 2.8 Albumin/Globulin Ratio 0.9 L Triglycerides Cholesterol LDL Cholesterol Direct HDL Cholesterol Lipase Venous Blood Potassium Salicylates Acetaminophen Alcohol, Quantitative 02/16/18 02/16/18 02/16/18 00:38 02:07 03:10 WBC RBC Hgb Hct MCV MCH MCHC RDW Plt Count MPV Gran % Lymph % (Auto) Norman % (Auto) Eos % (Auto) Baso % (Auto) Gran # Lymph # (Auto) Norman # (Auto) Eos # (Auto) Baso # (Auto) PT INR pCO2 pO2 HCO3 ABG pH ABG Total CO2 ABG O2 Saturation ABG O2 Content ABG Base Excess ABG Hemoglobin ABG Carboxyhemoglobin POC ABG HHb (Measured) ABG Methemoglobin ABG O2 Capacity VBG pH VBG pCO2 VBG HCO3 VBG Total CO2 VBG O2 Sat (Calc) VBG Base Excess VBG Potassium Hgb O2 Saturation Sodium Chloride Glucose Lactate FiO2 Potassium Carbon Dioxide Anion Gap BUN Creatinine Est GFR ( Amer) Est GFR (Non-Af Amer) POC Glucose (mg/dL) 180 H 219 H 230 H Random Glucose Hemoglobin A1c Calcium Magnesium Iron TIBC % Saturation Total Bilirubin AST ALT Alkaline Phosphatase Total Protein Albumin Globulin Albumin/Globulin Ratio Triglycerides Cholesterol LDL Cholesterol Direct HDL Cholesterol Lipase Venous Blood Potassium Salicylates Acetaminophen Alcohol, Quantitative 02/16/18 02/16/18 02/16/18 03:54 04:15 04:15 WBC 8.9 RBC 3.12 L Hgb 9.7 L Hct 29.4 L MCV 94.2 MCH 31.1 MCHC 33.0 RDW 13.3 Plt Count 143 MPV 9.4 Gran % 86.5 H Lymph % (Auto) 10.3 L Norman % (Auto) 3.2 Eos % (Auto) 0.0 L Baso % (Auto) 0.0 Gran # 7.68 H Lymph # (Auto) 0.9 L Norman # (Auto) 0.3 Eos # (Auto) 0.0 Baso # (Auto) 0.00 PT INR pCO2 pO2 HCO3 ABG pH ABG Total CO2 ABG O2 Saturation ABG O2 Content ABG Base Excess ABG Hemoglobin ABG Carboxyhemoglobin POC ABG HHb (Measured) ABG Methemoglobin ABG O2 Capacity VBG pH VBG pCO2 VBG HCO3 VBG Total CO2 VBG O2 Sat (Calc) VBG Base Excess VBG Potassium Hgb O2 Saturation Sodium 139 Chloride 112 H Glucose Lactate FiO2 Potassium 4.1 Carbon Dioxide 17 L Anion Gap 14 BUN 12 Creatinine 0.9 Est GFR ( Amer) > 60 Est GFR (Non-Af Amer) > 60 POC Glucose (mg/dL) 233 H Random Glucose 249 H Hemoglobin A1c Calcium 6.6 L* Magnesium Iron TIBC % Saturation Total Bilirubin 0.9 AST 2653 H ALT 674 H Alkaline Phosphatase 224 H Total Protein 5.3 L Albumin 2.5 L Globulin 2.8 Albumin/Globulin Ratio 0.9 L Triglycerides Cholesterol LDL Cholesterol Direct HDL Cholesterol Lipase Venous Blood Potassium Salicylates Acetaminophen Alcohol, Quantitative 02/16/18 02/16/18 02/16/18 04:15 04:40 05:08 WBC RBC Hgb Hct MCV MCH MCHC RDW Plt Count MPV Gran % Lymph % (Auto) Norman % (Auto) Eos % (Auto) Baso % (Auto) Gran # Lymph # (Auto) Norman # (Auto) Eos # (Auto) Baso # (Auto) PT INR pCO2 31 L pO2 79.0 L HCO3 16.7 L ABG pH 7.34 L ABG Total CO2 17.7 L ABG O2 Saturation 95.9 ABG O2 Content 13.9 L ABG Base Excess -8.1 L ABG Hemoglobin 10.3 L ABG Carboxyhemoglobin 0.2 L POC ABG HHb (Measured) 4.1 ABG Methemoglobin 0.1 ABG O2 Capacity 14.5 L VBG pH VBG pCO2 VBG HCO3 VBG Total CO2 VBG O2 Sat (Calc) VBG Base Excess VBG Potassium Hgb O2 Saturation 95.6 Sodium Chloride Glucose Lactate FiO2 100.0 Potassium Carbon Dioxide Anion Gap BUN Creatinine Est GFR ( Amer) Est GFR (Non-Af Amer) POC Glucose (mg/dL) 251 H Random Glucose Hemoglobin A1c Calcium Magnesium 1.6 L Iron TIBC % Saturation Total Bilirubin AST ALT Alkaline Phosphatase Total Protein Albumin Globulin Albumin/Globulin Ratio Triglycerides Cholesterol LDL Cholesterol Direct HDL Cholesterol Lipase Venous Blood Potassium Salicylates Acetaminophen Alcohol, Quantitative 02/16/18 02/16/18 02/16/18 06:27 06:48 07:13 WBC RBC Hgb Hct MCV MCH MCHC RDW Plt Count MPV Gran % Lymph % (Auto) Norman % (Auto) Eos % (Auto) Baso % (Auto) Gran # Lymph # (Auto) Norman # (Auto) Eos # (Auto) Baso # (Auto) PT 15.8 H INR 1.37 H pCO2 pO2 HCO3 ABG pH ABG Total CO2 ABG O2 Saturation ABG O2 Content ABG Base Excess ABG Hemoglobin ABG Carboxyhemoglobin POC ABG HHb (Measured) ABG Methemoglobin ABG O2 Capacity VBG pH VBG pCO2 VBG HCO3 VBG Total CO2 VBG O2 Sat (Calc) VBG Base Excess VBG Potassium Hgb O2 Saturation Sodium Chloride Glucose Lactate FiO2 Potassium Carbon Dioxide Anion Gap BUN Creatinine Est GFR ( Amer) Est GFR (Non-Af Amer) POC Glucose (mg/dL) 262 H 264 H Random Glucose Hemoglobin A1c Calcium Magnesium Iron TIBC % Saturation Total Bilirubin AST ALT Alkaline Phosphatase Total Protein Albumin Globulin Albumin/Globulin Ratio Triglycerides Cholesterol LDL Cholesterol Direct HDL Cholesterol Lipase Venous Blood Potassium Salicylates Acetaminophen Alcohol, Quantitative 02/16/18 02/16/18 02/16/18 07:57 09:19 10:30 WBC RBC Hgb Hct MCV MCH MCHC RDW Plt Count MPV Gran % Lymph % (Auto) Norman % (Auto) Eos % (Auto) Baso % (Auto) Gran # Lymph # (Auto) Norman # (Auto) Eos # (Auto) Baso # (Auto) PT INR pCO2 pO2 HCO3 ABG pH ABG Total CO2 ABG O2 Saturation ABG O2 Content ABG Base Excess ABG Hemoglobin ABG Carboxyhemoglobin POC ABG HHb (Measured) ABG Methemoglobin ABG O2 Capacity VBG pH VBG pCO2 VBG HCO3 VBG Total CO2 VBG O2 Sat (Calc) VBG Base Excess VBG Potassium Hgb O2 Saturation Sodium Chloride Glucose Lactate FiO2 Potassium Carbon Dioxide Anion Gap BUN Creatinine Est GFR ( Amer) Est GFR (Non-Af Amer) POC Glucose (mg/dL) 270 H 280 H Random Glucose Hemoglobin A1c Calcium Magnesium Iron TIBC % Saturation Total Bilirubin AST ALT Alkaline Phosphatase Total Protein Albumin Globulin Albumin/Globulin Ratio Triglycerides Cholesterol LDL Cholesterol Direct HDL Cholesterol Lipase Venous Blood Potassium Salicylates < 1 L Acetaminophen < 10.0 L Alcohol, Quantitative 02/16/18 02/16/18 10:30 11:24 WBC RBC Hgb Hct MCV MCH MCHC RDW Plt Count MPV Gran % Lymph % (Auto) Norman % (Auto) Eos % (Auto) Baso % (Auto) Gran # Lymph # (Auto) Norman # (Auto) Eos # (Auto) Baso # (Auto) PT INR pCO2 pO2 HCO3 ABG pH ABG Total CO2 ABG O2 Saturation ABG O2 Content ABG Base Excess ABG Hemoglobin ABG Carboxyhemoglobin POC ABG HHb (Measured) ABG Methemoglobin ABG O2 Capacity VBG pH VBG pCO2 VBG HCO3 VBG Total CO2 VBG O2 Sat (Calc) VBG Base Excess VBG Potassium Hgb O2 Saturation Sodium Chloride Glucose Lactate FiO2 Potassium Carbon Dioxide Anion Gap BUN Creatinine Est GFR ( Amer) Est GFR (Non-Af Amer) POC Glucose (mg/dL) Random Glucose Hemoglobin A1c Calcium Magnesium Iron 11 L TIBC 205 L % Saturation 5 L Total Bilirubin AST ALT Alkaline Phosphatase Total Protein Albumin Globulin Albumin/Globulin Ratio Triglycerides 104 Cholesterol 120 L LDL Cholesterol Direct 67 HDL Cholesterol 39 Lipase 25 Venous Blood Potassium Salicylates Acetaminophen Alcohol, Quantitative Critical Care Progress Note - Nutrition Nutrition: Nutrition Category Date Time Status Liquid Diet [DIET] Diets 02/16/18 Lunch Ordered Assessment/Plan - Assessment and Plan (Free Text) Plan: Patient seen and examined with resident, agree with note with following additions/exceptions: Patient is 38yo female with PMhx of Hep C, polysubstance abuse, IDDM, HTN, presented with swelling and erythema of the mouth/neck x 3 days, associated with dysphagia. Pt had CT soft tissue neck done with contrast which showed Ludwigs Angina, soft tissue edema, left parapharyngeal space, epiglottis swelling, s/p abscess InD, and tracheostomy in the OR. Overnight patient developed bilateral alveolar infiltrates likel c/w Pulm Edema , with increasing FiO2 requirements, IVF discontinued, given Lasix 40mg IV x 2, with improvement in oxygenation, and good UOP. ECHO pending,c ardiology eval pending DKA resolved, off insulin drip. Currently afebrile, HD stable, comfortable in NAD, doing well on CPAP 10/5/60% LFTs have increased since admission, INR normal, RUQ SONO noted, GI following, started on NAC. Will follow up hep panel, serologies Ludwigs Angina Epiglotitis Neck Cellulitis s/p trach s/p InD Hypertension DKA, resolved Volume overload CHF, acute decompensated, EF unknown Abnormal LFTs Recommend: - cont with vent support, daily cpap trials, wean to Trach collar as tolerated - duonebs PRN - cont with Zosyn IV, follow up ID, cultures - BP control - Lasix IV diuresis - HOLD IVF - ECHO - follow up cardiology - Sliding scale, Levemir QHS - speech swallow eval - hold Steroids as per ENT - Start NAC - follow up GI - follow up liver serologies - check CMP, Mg, Phos, LFts in PM' - repeat CXR - GI ppx - DVT ppx - Monitor in MICU critical care time 35 minutes
--- NOTE | 2018-02-16 07:02 | CP.PCM.PN ---
Subjective - Date & Time of Evaluation Date of Evaluation: 02/16/18 Time of Evaluation: 04:00 - Subjective Subjective: pt with sepsis , liudmila angina , IDDM/DKA on insulin drip and fluids at 150cc etoh, pt is tachypneac hypoxix, anxious HR 116 bp 119/68. Objective - Vital Signs/Intake and Output Vital Signs (last 24 hours): Temp Pulse Resp BP Pulse Ox 98 F 86 21 134/96 H 88 L 02/15/18 15:36 02/16/18 04:00 02/15/18 15:36 02/16/18 03:55 02/16/18 04:00 Intake and Output: 02/15/18 02/16/18 18:59 06:59 Intake Total 2646 5 Output Total 750 Balance 1896 5 - Medications Medications: Current Medications Hydromorphone HCl (Dilaudid) 1 mg IVP Q3H PRN PRN Reason: Pain, severe (8-10) Last Admin: 02/16/18 03:12 Dose: 1 mg Insulin Human Regular 100 (units/ Sodium Chloride) 100 mls @ 3 mls/hr IV .Q24H PRN; Protocol; 3 UNITS/HR PRN Reason: TITRATE PER MD ORDER Last Titration: 02/15/18 20:48 Dose: 2 units/hr, 2 mls/hr Fentanyl Citrate (Fentanyl Citrate/Sodium Chloride 1 Mg/100 Ml) 1,000 mcg in 100 mls @ 2 mls/hr IV .Q24H PRN; Protocol; 20 MCG/HR PRN Reason: TITRATE PER MD ORDER Last Titration: 02/15/18 20:45 Dose: 5 mcg/hr, 0.5 mls/hr Piperacillin Sod/Tazobactam Sod (Zosyn 4.5 Gm In Ns 100ml) 4.5 gm in 100 mls @ 200 mls/hr IVPB Q6 KATYA PRN Reason: Protocol Stop: 02/22/18 18:01 Last Admin: 02/16/18 01:00 Dose: 200 mls/hr Dextrose/Sodium Chloride (Dextrose 5%/0.45% Ns 1000 Ml) 1,000 mls @ 100 mls/hr IV .Q10H KATYA Lorazepam (Ativan) 2 mg IVP Q2H PRN; Protocol PRN Reason: Anxiety Lorazepam (Ativan) 1 mg IVP Q6H KATYA PRN Reason: Protocol Last Admin: 02/16/18 02:15 Dose: 1 mg Pantoprazole Sodium (Protonix Ec Tab) 40 mg PO 0600 KATYA Saliva Substitute (Saliva Substitute) 1 ml PO Q2H PRN PRN Reason: Dry mouth Last Admin: 02/15/18 20:58 Dose: 1 ml Thiamine HCl (Vitamin B1 Inj) 100 mg IM DAILY KATYA - Labs Labs: 02/16/18 04:15 02/16/18 04:15 PT 14.4 SECONDS (9.4-12.5) H 02/15/18 08:15 INR 1.25 (0.93-1.08) H 02/15/18 08:15 APTT 25.2 Seconds (25.1-36.5) 02/15/18 08:15 - Constitutional Appears: In Acute Distress - Head Exam Head Exam: NORMOCEPHALIC - Eye Exam Eye Exam: Normal appearance Pupil Exam: PERRL - ENT Exam Additional comments: trach collar in place. - Respiratory Exam Respiratory Exam: Wheezes - Cardiovascular Exam Cardiovascular Exam: Tachycardia, RRR, +S1, +S2 - GI/Abdominal Exam GI & Abdominal Exam: Soft, Normal Bowel Sounds - Neurological Exam Neurological Exam: Awake - Psychiatric Exam Psychiatric exam: Anxious - Skin Skin Exam: Normal Color Assessment and Plan - Assessment and Plan (Free Text) Assessment: chf /?ards . dka. alcohol with drefrain. Plan: hold fluids. lasix 40 mg x1 chest x-ray.
[2018-02-16] MEDS ORDERED: Insulin Detemir 100 units/ml Vial (Levemir) SC ONE (07:05)
[2018-02-16] MEDS ORDERED: Magnesium 2 gm/50 ml NS 2 GM/50 ML BAG IVPB ONE (07:14)
[2018-02-16 07:23] LABS: PROTHROMBIN TIME 15.8 SECONDS (9.4-12.5)
[2018-02-16 07:24] LABS: INR 1.37 (0.93-1.08)
[2018-02-16] MEDS: Fentanyl 1000mcg/100ml NS 1,000 MCG/100 ML BAG IV PRN (07:36)
[2018-02-16] MEDS ORDERED: Midazolam 5 MG/5 ML VIAL IVP ONE (08:03)
[2018-02-16] MEDS ORDERED: Midazolam 2 MG/2 ML VIAL IVP ONE (08:15)
--- NOTE | 2018-02-16 08:24 | RAD ---
HISTORY: low oxygen saturation COMPARISON: 02/15/2018 FINDINGS: LUNGS: Diffuse alveolar infiltrates are seen right greater than left. The pattern is most consistent with pulmonary edema. Pneumonia cannot be excluded PLEURA: No significant pleural effusion identified, no pneumothorax apparent. CARDIOVASCULAR: Normal. OSSEOUS STRUCTURES: No significant abnormalities. VISUALIZED UPPER ABDOMEN: Normal. OTHER FINDINGS: None. IMPRESSION: Diffuse alveolar infiltrates are seen right greater than left. The pattern is most consistent with pulmonary edema. Pneumonia cannot be excluded
--- NOTE | 2018-02-16 08:30 | CP.PCM.CON ---
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 Gran % 86.5 H Lymph % (Auto) 10.3 L [place] % (Auto) 3.2 Eos % (Auto) 0.0 L Baso % (Auto) 0.0 Gran # 7.68 H Lymph # (Auto) 0.9 L [place] # (Auto) 0.3 Eos # (Auto) 0.0 Baso # (Auto) 0.00 PT INR pCO2 pO2 HCO3 ABG pH ABG Total CO2 ABG O2 Saturation ABG O2 Content ABG Base Excess ABG Hemoglobin ABG Carboxyhemoglobin POC ABG HHb (Measured) ABG Methemoglobin ABG O2 Capacity VBG pH VBG pCO2 VBG HCO3 VBG Total CO2 VBG O2 Sat (Calc) VBG Base Excess VBG Potassium Hgb O2 Saturation Sodium 139 Chloride 112 H Glucose Lactate FiO2 Potassium 4.1 Carbon Dioxide 17 L Anion Gap 14 BUN 12 Creatinine 0.9 Est GFR ( Amer) > 60 Est GFR (Non-Af Amer) > 60 POC Glucose (mg/dL) Random Glucose 249 H Hemoglobin A1c Calcium 6.6 L* Magnesium 1.6 L Total Bilirubin 0.9 AST 2653 H ALT 674 H Alkaline Phosphatase 224 H Total Protein 5.3 L Albumin 2.5 L Globulin 2.8 Albumin/Globulin Ratio 0.9 L Venous Blood Potassium Alcohol, Quantitative 02/16/18 02/16/18 02/16/18 04:40 05:08 06:27 WBC RBC Hgb Hct MCV MCH MCHC RDW Plt Count MPV Gran % Lymph % (Auto) [place] % (Auto) Eos % (Auto) Baso % (Auto) Gran # Lymph # (Auto) [place] # (Auto) Eos # (Auto) Baso # (Auto) PT INR pCO2 31 L pO2 79.0 L HCO3 16.7 L ABG pH 7.34 L ABG Total CO2 17.7 L ABG O2 Saturation 95.9 ABG O2 Content 13.9 L ABG Base Excess -8.1 L ABG Hemoglobin 10.3 L ABG Carboxyhemoglobin 0.2 L POC ABG HHb (Measured) 4.1 ABG Methemoglobin 0.1 ABG O2 Capacity 14.5 L VBG pH VBG pCO2 VBG HCO3 VBG Total CO2 VBG O2 Sat (Calc) VBG Base Excess VBG Potassium Hgb O2 Saturation 95.6 Sodium Chloride Glucose Lactate FiO2 100.0 Potassium Carbon Dioxide Anion Gap BUN Creatinine Est GFR ( Amer) Est GFR (Non-Af Amer) POC Glucose (mg/dL) 251 H 262 H Random Glucose Hemoglobin A1c Calcium Magnesium Total Bilirubin AST ALT Alkaline Phosphatase Total Protein Albumin Globulin Albumin/Globulin Ratio Venous Blood Potassium Alcohol, Quantitative 02/16/18 06:48 WBC RBC Hgb Hct MCV MCH MCHC RDW Plt Count MPV Gran % Lymph % (Auto) [place] % (Auto) Eos % (Auto) Baso % (Auto) Gran # Lymph # (Auto) [place] # (Auto) Eos # (Auto) Baso # (Auto) PT 15.8 H INR 1.37 H pCO2 pO2 HCO3 ABG pH ABG Total CO2 ABG O2 Saturation ABG O2 Content ABG Base Excess ABG Hemoglobin ABG Carboxyhemoglobin POC ABG HHb (Measured) ABG Methemoglobin ABG O2 Capacity VBG pH VBG pCO2 VBG HCO3 VBG Total CO2 VBG O2 Sat (Calc) VBG Base Excess VBG Potassium Hgb O2 Saturation Sodium Chloride Glucose Lactate FiO2 Potassium Carbon Dioxide Anion Gap BUN Creatinine Est GFR ( Amer) Est GFR (Non-Af Amer) POC Glucose (mg/dL) Random Glucose Hemoglobin A1c Calcium Magnesium Total Bilirubin AST ALT Alkaline Phosphatase Total Protein Albumin Globulin Albumin/Globulin Ratio Venous Blood Potassium Alcohol, Quantitative Attending/Attestation - Attestation I have personally seen and examined this patient.: Yes I have fully participated in the care of the patient.: Yes I have reviewed all pertinent clinical information: Yes Notes (Text): 02/16/18 09:18 I have seen and examined patient with GI fellow. Agree with above documentation with the following additions. In brief, this is a 38 year old female with history of HCV, ETOH abuse, DM, HTN who initially presented to hospital with progressive neck and jaw pain. She was found to have a pharyngeal abscess s/p I/D and tracheostomy yesterday. GI called for evaluation of elevated LFTs. She admits to recent heavy ETOH use along with daily tylenol due to neck related discomfort. She otherwise denies abdominal pain, nausea, vomiting, fever/chills, weight loss, jaundice, pruritis. No prior endoscopic evaluation. HTN / DM HCV (?treated), ETOH abuse Transaminitis - differential is broad including ischemic (period of hypotension noted during current hospitalization) vs drug induced Parapharyngeal abscess s/p I&D, tracheostomy - NPO - Continue with antibiotic therapy, follow up drug cultures - Abdominal US reviewed by me showing no focal liver lesions, obtain duplex to ensure vascular patency - Obtain viral hepatitis and autoimmune serologies - Continue to monitor LFTs, avoid hepatotoxic therapies - Would initiate NAC protocol given history of prior heavy acetaminophen use, obtain levels. Even if etiology is not related strictly to tylenol toxicity, there is literature evidence showing efficacy of treatment for non- acetaminophen related liver injury. Will continue to monitor patient clinical course.
[2018-02-16] MEDS ORDERED: Acetylcysteine 12,000 MG in Dextrose 5% In Water 200 ML IV ONE (08:59)
--- NOTE | 2018-02-16 09:15 | CP.PCM.PN ---
<Ortiz Cunningham - Last Filed: 02/16/18 11:47> Subjective - Date & Time of Evaluation Date of Evaluation: 02/16/18 Time of Evaluation: 07:40 - Subjective Subjective: Medicine Progress Note: Patient seen and examined at bedside. Patient was tachypnic, hypoxic (sat 88%) and tachycardic overnight. Patient CXR showed pulm edema. Lasix was administered. 12 Point ROS limited 2/2 tracheostomy Objective - Vital Signs/Intake and Output Vital Signs (last 24 hours): Temp Pulse Resp BP Pulse Ox 98.1 F 102 H 27 H 139/70 94 L 02/16/18 07:53 02/16/18 07:44 02/16/18 07:58 02/16/18 08:22 02/16/18 07:58 Intake and Output: 02/16/18 02/16/18 06:59 18:59 Intake Total 5 2117 Output Total 1200 Balance 5 917 - Medications Medications: Current Medications Furosemide (Lasix) 40 mg IVP ONCE ONE Stop: 02/16/18 18:06 Hydromorphone HCl (Dilaudid) 1 mg IVP Q3H PRN PRN Reason: Pain, severe (8-10) Last Admin: 02/16/18 06:50 Dose: 1 mg Fentanyl Citrate (Fentanyl Citrate/Sodium Chloride 1 Mg/100 Ml) 1,000 mcg in 100 mls @ 2 mls/hr IV .Q24H PRN; Protocol; 20 MCG/HR PRN Reason: TITRATE PER MD ORDER Last Admin: 02/16/18 07:36 Dose: 5 mcg/hr, 0.5 mls/hr Piperacillin Sod/Tazobactam Sod (Zosyn 4.5 Gm In Ns 100ml) 4.5 gm in 100 mls @ 200 mls/hr IVPB Q6 KATYA PRN Reason: Protocol Stop: 02/22/18 18:01 Last Admin: 02/16/18 06:59 Dose: 200 mls/hr Acetylcysteine 12,000 mg/ (Dextrose) 260 mls @ 250 mls/hr IV .Q1H3M ONE Stop: 02/16/18 10:01 Acetylcysteine 4,000 mg/ (Dextrose) 520 mls @ 125 mls/hr IV .Q4H10M ONE Stop: 02/16/18 14:09 Acetylcysteine 8,000 mg/ (Dextrose) 1,040 mls @ 62.5 mls/hr IV .[id number] ONE Stop: 02/17/18 06:38 Midazolam HCl (Versed Inj) 0.5 mg IVP Q4 KATYA Midazolam HCl (Versed Inj) 1 mg IVP Q2 PRN PRN Reason: Agitation Pantoprazole Sodium (Protonix Inj) 40 mg IVP DAILY KATYA Saliva Substitute (Saliva Substitute) 1 ml PO Q2H PRN PRN Reason: Dry mouth Last Admin: 02/15/18 20:58 Dose: 1 ml Thiamine HCl (Vitamin B1 Inj) 100 mg IM DAILY KATYA - Labs Labs: 02/16/18 04:15 02/16/18 04:15 PT 15.8 SECONDS (9.4-12.5) H 02/16/18 06:48 INR 1.37 (0.93-1.08) H 02/16/18 06:48 APTT 25.2 Seconds (25.1-36.5) 02/15/18 08:15 - Constitutional Appears: No Acute Distress - Head Exam Head Exam: ATRAUMATIC - Eye Exam Eye Exam: EOMI, PERRL Pupil Exam: NORMAL ACCOMODATION - ENT Exam ENT Exam: Mucous Membranes Moist Additional comments: Neck: Dressing in place is c/d/i - Respiratory Exam Respiratory Exam: Clear to Ausculation Bilateral, Rales. absent: Wheezes - Cardiovascular Exam Cardiovascular Exam: REGULAR RHYTHM, RRR, +S1, +S2 - GI/Abdominal Exam GI & Abdominal Exam: Soft. absent: Tenderness, Normal Bowel Sounds - Neurological Exam Neurological Exam: Alert, Awake - Psychiatric Exam Psychiatric exam: Normal Mood - Skin Skin Exam: Dry, Intact, Warm Assessment and Plan - Assessment and Plan (Free Text) Assessment: 38 F with pmh of HTN, DM, thyrotoxicosis, Hep C (s/p treatment?) , hx dental caries/poor dentition presents with severe neck swelling/abscess concerning for ludwigs angina s/p parapharyngeal abscess I &D POD 1. Also found to be in DKA with gap of 18 now closed, and elevated LFTs. 1. Sepsis, Severe neck swelling/abscess - Concerning for Ludwigs angina - s/p parapharyngeal abscess I &D POD 1 - Lactate 4.4 - tachycardic, tachypnic, - code sepsis called in the ED - ENT consulted for recs - Pain control - fentanyl and dilaudid prn - Abx - Continue zosyn - procal 33.54 - ID consult for recs - Monitor closely in the ICU - CXR showed pulm edema - Lasix 40mg x 2 administered - F/u HIV ordered - Saliva substitute - AM labs 2. DKA - AG of 18 - gap closed now - Insulin ggt d/jose g Long acting Insulin started - Levemir 20unit x 1 - D/c - fluids NS @ 150 - Fingersticks q1H - Cont to monitor in the ICU 3. DM - Hba1c - 10.6 - Levemir 20unit x 1 - will add sliding scale - Cont to monitor 4. Transaminitis - AST 2654 and ALT 674 - Started on NAC protocol - Abdominal US ordered - Hepatic steatosis & splenomegaly - Avoid any hepatotoxic drugs - GI consulted - -Abd US duplex to look for portal vein patency -Viral hepatitis serologies and autoimmune serologies - F/u Lipid panel for TG, Ammonia and Lipase ordered - Cont to monitor 5. Electrolyte abnormality - Hypocalcemia and hypomagnesemia - Replete Calcium and Mg supplemented as needed - Cont to monitor 6. HTN - Currently normotensive - Cont to monitor 7. GI/DVT ppx - Protonix and SCDs Case and plan was reviewed and discussed in detail with Dr Richardson. <Cynthia Richardson - Last Filed: 02/16/18 21:43> Objective - Vital Signs/Intake and Output Vital Signs (last 24 hours): Temp Pulse Resp BP Pulse Ox 98.2 F 88 24 164/111 H 93 L 02/16/18 16:00 02/16/18 18:15 02/16/18 16:44 02/16/18 18:15 02/16/18 18:15 Intake and Output: 02/16/18 02/17/18 18:59 06:59 Intake Total 3050 8 Output Total 7960 Balance -4910 8 - Medications Medications: Current Medications Albuterol/Ipratropium (Duoneb 3 Mg/0.5 Mg (3 Ml) Ud) 3 ml IH Q2H PRN PRN Reason: Shortness of Breath Last Admin: 02/16/18 20:31 Dose: 3 ml Amlodipine Besylate (Norvasc) 10 mg PO DAILY KATYA Last Admin: 02/16/18 14:10 Dose: 10 mg Hydromorphone HCl (Dilaudid) 1 mg IVP Q3H PRN PRN Reason: Pain, severe (8-10) Last Admin: 02/16/18 06:50 Dose: 1 mg Fentanyl Citrate (Fentanyl Citrate/Sodium Chloride 1 Mg/100 Ml) 1,000 mcg in 100 mls @ 2 mls/hr IV .Q24H PRN; Protocol; 20 MCG/HR PRN Reason: TITRATE PER MD ORDER Last Titration: 02/16/18 20:53 Dose: 50 mcg/hr, 5 mls/hr Piperacillin Sod/Tazobactam Sod (Zosyn 4.5 Gm In Ns 100ml) 4.5 gm in 100 mls @ 200 mls/hr IVPB Q6 KATYA PRN Reason: Protocol Stop: 02/22/18 18:01 Last Admin: 02/16/18 17:58 Dose: 200 mls/hr Acetylcysteine 8,000 mg/ (Dextrose) 1,040 mls @ 62.5 mls/hr IV .[id number] ONE Stop: 02/17/18 06:38 Last Admin: 02/16/18 14:11 Dose: 62.5 mls/hr Potassium Chloride (Potassium Chloride 10 Meq/100 Ml) 10 meq in 100 mls @ 50 mls/hr IVPB Q2H KATYA Stop: 02/16/18 22:44 Last Admin: 02/16/18 19:58 Dose: 50 mls/hr Insulin Detemir (Levemir) 27 unit SC Q12 [facility] Insulin Human Regular (Humulin R Med) 0 units SC ACHS KATYA PRN Reason: Protocol Last Admin: 02/16/18 15:47 Dose: 10 units Insulin Human Regular (Humulin R) 7 units SC AC [facility] Last Admin: 02/16/18 16:45 Dose: 7 units Losartan Potassium (Cozaar) 50 mg PO DAILY [facility] Last Admin: 02/16/18 12:20 Dose: 50 mg Midazolam HCl (Versed Inj) 0.5 mg IVP Q4 [facility] Last Admin: 02/16/18 20:27 Dose: 0.5 mg Midazolam HCl (Versed Inj) 1 mg IVP Q2 PRN PRN Reason: Agitation Nicotine (Nicoderm Cq) 1 patch TD DAILY [facility] Last Admin: 02/16/18 15:46 Dose: 1 patch Pantoprazole Sodium (Protonix Inj) 40 mg IVP DAILY KATYA Last Admin: 02/16/18 09:22 Dose: 40 mg Saliva Substitute (Saliva Substitute) 1 ml PO Q2H PRN PRN Reason: Dry mouth Last Admin: 02/15/18 20:58 Dose: 1 ml Thiamine HCl (Vitamin B1 Inj) 100 mg IM DAILY KATYA Last Admin: 02/16/18 09:23 Dose: 100 mg - Labs Labs: 02/16/18 16:40 02/16/18 16:40 PT 15.8 SECONDS (9.4-12.5) H 02/16/18 06:48 INR 1.37 (0.93-1.08) H 02/16/18 06:48 APTT 25.2 Seconds (25.1-36.5) 02/15/18 08:15 Attending/Attestation - Attestation I have personally seen and examined this patient.: Yes I have fully participated in the care of the patient.: Yes I have reviewed all pertinent clinical information, including history, physical exam and plan: Yes Notes (Text): 02/16/18 21:42 Overnight issues reviewed. vitals, labs and notes reviewed. Multi-consultation obtained. CV work up to be undertaken . Agree with the remainder of the plan as outlined by the resident. Discussed with ICU team as well.
[2018-02-16] MEDS: Thiamine 100 mg/ml Inj IM SCH (09:23)
[2018-02-16] MEDS: WATER IV ONE ×2 (09:34→10:42)
[2018-02-16] MEDS: DEXTROSE 5% IV ONE ×2 (09:34→10:42)
[2018-02-16] MEDS: ACETYLCYSTEINE IV ONE ×2 (09:34→10:42)
--- NOTE | 2018-02-16 10:07 | CP.PCM.PN ---
Subjective - Date & Time of Evaluation Date of Evaluation: 02/16/18 Time of Evaluation: 10:05 - Subjective Subjective: ENT surgery progress note -Sallie Oquendo, PGY-1 Pt S & E at bedside at 0650 and again at 0900 Pt awake all night, complaints of anxiety. Pt reports difficulty breathing while on vent, tachypneic. Nursing reported poor O2 saturations while on vent - pO2 80-90's. ICU attending ordered CXR with diffuse alveolar infiltrates R>L, likely pulmonary edema. Objective - Vital Signs/Intake and Output Vital Signs (last 24 hours): Temp Pulse Resp BP Pulse Ox 98.1 F 102 H 27 H 139/70 94 L 02/16/18 07:53 02/16/18 07:44 02/16/18 07:58 02/16/18 08:22 02/16/18 07:58 Intake and Output: 02/16/18 02/16/18 06:59 18:59 Intake Total 5 2117 Output Total 1200 Balance 5 917 - Medications Medications: Current Medications Furosemide (Lasix) 40 mg IVP ONCE ONE Stop: 02/16/18 18:06 Hydromorphone HCl (Dilaudid) 1 mg IVP Q3H PRN PRN Reason: Pain, severe (8-10) Last Admin: 02/16/18 06:50 Dose: 1 mg Fentanyl Citrate (Fentanyl Citrate/Sodium Chloride 1 Mg/100 Ml) 1,000 mcg in 100 mls @ 2 mls/hr IV .Q24H PRN; Protocol; 20 MCG/HR PRN Reason: TITRATE PER MD ORDER Last Admin: 02/16/18 07:36 Dose: 5 mcg/hr, 0.5 mls/hr Piperacillin Sod/Tazobactam Sod (Zosyn 4.5 Gm In Ns 100ml) 4.5 gm in 100 mls @ 200 mls/hr IVPB Q6 KATYA PRN Reason: Protocol Stop: 02/22/18 18:01 Last Admin: 02/16/18 06:59 Dose: 200 mls/hr Acetylcysteine 4,000 mg/ (Dextrose) 520 mls @ 125 mls/hr IV .Q4H10M ONE Stop: 02/16/18 14:09 Last Admin: 02/16/18 09:34 Dose: 125 mls/hr Acetylcysteine 8,000 mg/ (Dextrose) 1,040 mls @ 62.5 mls/hr IV .[id number] ONE Stop: 02/17/18 06:38 Midazolam HCl (Versed Inj) 0.5 mg IVP Q4 [facility] Midazolam HCl (Versed Inj) 1 mg IVP Q2 PRN PRN Reason: Agitation Pantoprazole Sodium (Protonix Inj) 40 mg IVP DAILY [facility] Last Admin: 02/16/18 09:22 Dose: 40 mg Saliva Substitute (Saliva Substitute) 1 ml PO Q2H PRN PRN Reason: Dry mouth Last Admin: 02/15/18 20:58 Dose: 1 ml Thiamine HCl (Vitamin B1 Inj) 100 mg IM DAILY [facility] Last Admin: 02/16/18 09:23 Dose: 100 mg - Labs Labs: 02/16/18 04:15 02/16/18 04:15 PT 15.8 SECONDS (9.4-12.5) H 02/16/18 06:48 INR 1.37 (0.93-1.08) H 02/16/18 06:48 APTT 25.2 Seconds (25.1-36.5) 02/15/18 08:15 Assessment and Plan - Assessment and Plan (Free Text) Assessment: 38F w/severe neck swelling/Dominick's angina POD#1 s/p tracheostomy, incision & drainage of anterior neck abscesses Plan: Rec pulm consult Decrease IVF Pulmonary toilet Pulmonary optimization Wound dressing changed overnight, will monitor Cont Abx Monitor VS Further mgmt as per ICU team KIMBERLYN attending Azra, PGY-1
--- NOTE | 2018-02-16 10:20 | CARD ---
APPROVED REPORT EKG Measurement Heart [id number] <Conclusion> Sinus tachycardia NSSTW changes Prolonged QTc
[2018-02-16 10:52] LABS: ACETAMINOPHEN < 10.0 ug/ml (10.0-20.0); SALICYLATE < 1 mg/dL (2.0-20.0)
[2018-02-16 10:53] LABS: IRON 11 ug/dL (45-180)
[2018-02-16 11:02] LABS: % IRON SATURATION 5 % (20-55); TOTAL IRON BINDING CAPACITY 205 ug/dL (265-497)
[2018-02-16] MEDS ORDERED: Insulin Reg-MEDIUM-Coverage SC SCH ×4 (11:30→16:30)
[2018-02-16 11:34] LABS: HDL CHOLESTEROL 39 mg/dL (29-60); LIPASE 25 U/L (23-300)
[2018-02-16 11:44] LABS: LDL CHOLESTEROL 67 mg/dL (0-129)
[2018-02-16] MEDS ORDERED: Labetalol 5 mg/ml Inj 20ML IV ONE (11:59)
[2018-02-16] MEDS: Midazolam 2 MG/2 ML VIAL IVP SCH ×4 (12:19→20:27)
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
[2018-02-16] MEDS: Insulin Reg-MEDIUM-Coverage SC SCH ×3 (12:42→21:44)
[2018-02-16] MEDS ORDERED: WATER IV ONE (14:00)
[2018-02-16] MEDS ORDERED: DEXTROSE 5% IV ONE (14:00)
[2018-02-16] MEDS ORDERED: ACETYLCYSTEINE IV ONE (14:00)
--- NOTE | 2018-02-16 15:26 | RAD ---
HISTORY: pulm edema COMPARISON: Earlier same day FINDINGS: LUNGS: There is improvement in the pattern of pulmonary edema. Minimal infiltrates remain PLEURA: No significant pleural effusion identified, no pneumothorax apparent. CARDIOVASCULAR: Normal. OSSEOUS STRUCTURES: No significant abnormalities. VISUALIZED UPPER ABDOMEN: Normal. OTHER FINDINGS: None. IMPRESSION: There is improvement in the pattern of pulmonary edema. Minimal infiltrates remain
[2018-02-16 15:58] LABS: OPIATES, UR NEGATIVE (NEGATIVE)
[2018-02-16 16:04] LABS: BARBITURATES, UR NEGATIVE (NEGATIVE); BENZODIAZEPINES, UR POSITIVE (NEGATIVE); PHENCYCLIDINE, UR NEGATIVE (NEGATIVE)
[2018-02-16] MEDS: Insulin Regular 1 UNITS/0.01 ML ML SC SCH (16:45)
[2018-02-16 16:46] LABS: BASO # 0.02 K/mm3 (0.0-2.0); BASO % 0.2 % (0.0-3.0); GRAN # 8.31 (1.4-6.5); GRAN % 86.9 % (50.0-68.0); HEMOGLOBIN 10.7 g/dL (12.0-16.0); LYMPH # 0.9 (1.2-3.4); LYMPH % 8.9 % (22.0-35.0); MEAN CELL VOLUME 90.9 fl (80.0-105.0); MEAN CORPUSCULAR HEMOGLOBIN 30.3 pg (25.0-35.0); MEAN CORPUSCULAR HGB CONC 33.3 g/dl (31.0-37.0); MEAN PLATELET VOLUME 9.3 fl (7.0-11.0); MONO # 0.4 (0.1-0.6); RBC 3.53 10^6/uL (3.5-6.1); RED CELL DISTRIBUTION WIDTH 13.8 % (11.5-14.5); WHITE BLOOD COUNT 9.6 10^3/ul (4.5-11.0)
[2018-02-16 17:06] LABS: ALBUMIN 2.9 g/dL (3.0-4.8); ALT/SGPT 790 U/L (7-56); BLOOD UREA NITROGEN 15 mg/dL (7-21); CALCIUM 7.8 mg/dL (8.4-10.5); GFR AFRICAN-AMERICAN > 60; GFR NON-AFRICAN AMERICAN 50
[2018-02-16 17:09] LABS: ARTERIAL BLOOD GAS HCO3 19.2 mmol/L (21-28); ARTERIAL BLOOD GAS O2 SAT 92.7 % (95-98); ARTERIAL BLOOD GAS PCO2 31 mm/Hg (35-45); ARTERIAL BLOOD GAS TCO2 20.2 mmol.L (22-28)
[2018-02-16 17:10] LABS: AST/SGOT 1495 U/L (14-36)
--- NOTE | 2018-02-16 17:57 | US ---
PROCEDURE: Portal vein duplex ultrasound. CLINICAL HISTORY: Deteriorating liver function. Evaluate for portal vein thrombosis. PHYSICIAN(S): Dustin Cervantes M.D. FINDINGS: The hepatic parenchyma is echogenic and somewhat heterogeneous The extrahepatic portal vein is patent with hepatopetal flow. No sonographic evidence for thrombus or obstruction is seen. The 3 hepatic veins are visualized centrally and patent. The hepatic artery is patent. IMPRESSION: 1. Patent portal vein with hepatopetal flow.
--- NOTE | 2018-02-16 18:08 | US ---
HISTORY: Leg pain and swelling. Evaluate for DVT PHYSICIAN(S): Dustin Cervantes MD. TECHNIQUE: Duplex sonography and color-flow Doppler with graded compression were used to evaluate the deep venous systems of both lower extremities. FINDINGS: The visualized deep venous systems of both lower extremities are sonographically normal and compressible. Normal wave forms and augmentation are seen. There is no sonographic evidence for deep venous thrombosis in the visualized segments of both lower extremities. IMPRESSION: No sonographic evidence for deep venous thrombosis in the visualized segments of both lower extremities.
[2018-02-16 18:20] LABS: B-TYPE NATRIURETIC PEPTIDE 4020 pg/mL (0-450)
[2018-02-16] MEDS: Albuterol-Ipratrop 3 mg / 0.5 (3 ml) UD IH PRN (20:31)
[2018-02-16 21:31] LABS: VENOUS BLOOD GAS BASE EXCESS -1.1 mmol/L (0.0-2.0); VENOUS BLOOD GAS PO2 42 mm/Hg (30-55); VENOUS BLOOD PH 7.37 (7.32-7.43)
[2018-02-16] MEDS: Insulin Detemir 100 units/ml Vial (Levemir) SC SCH (21:44)
[2018-02-16] MEDS ORDERED: Insulin Detemir 100 units/ml Vial (Levemir) SC SCH (22:00)
[2018-02-16] MEDS: Midazolam 2 MG/2 ML VIAL IVP PRN (22:34)
[2018-02-17] MEDS: Piperacill/Tazo 4.5gm in NS 4.5 GM/100 ML BAG IVPB SCH ×5 (01:00→23:17)
[2018-02-17] MEDS: Fentanyl 1000mcg/100ml NS 1,000 MCG/100 ML BAG IV PRN ×3 (01:30→17:19)
[2018-02-17 02:25] LABS: VENOUS BLOOD GAS BASE EXCESS 0.8 mmol/L (0.0-2.0); VENOUS BLOOD GAS PO2 56 mm/Hg (30-55); VENOUS BLOOD PH 7.39 (7.32-7.43)
[2018-02-17] MEDS: Albuterol-Ipratrop 3 mg / 0.5 (3 ml) UD IH PRN ×2 (02:35→20:26)
[2018-02-17] MEDS: Midazolam 2 MG/2 ML VIAL IVP SCH ×4 (04:25→18:00)
[2018-02-17 05:45] LABS: ARTERIAL BLOOD GAS HCO3 22.8 mmol/L (21-28); ARTERIAL BLOOD GAS PCO2 36 mm/Hg (35-45); ARTERIAL BLOOD GAS PH 7.41 (7.35-7.45); ARTERIAL BLOOD GAS TCO2 23.9 mmol.L (22-28)
[2018-02-17 05:56] LABS: BASO # 0.01 K/mm3 (0.0-2.0); BASO % 0.1 % (0.0-3.0); GRAN # 9.18 (1.4-6.5); GRAN % 82.5 % (50.0-68.0); HEMOGLOBIN 9.6 g/dL (12.0-16.0); LYMPH # 1.3 (1.2-3.4); LYMPH % 11.3 % (22.0-35.0); MEAN CORPUSCULAR HGB CONC 33.3 g/dl (31.0-37.0); MEAN PLATELET VOLUME 9.4 fl (7.0-11.0); MONO # 0.7 (0.1-0.6); MONO % 6.1 % (1.0-6.0); RBC 3.2 10^6/uL (3.5-6.1); RED CELL DISTRIBUTION WIDTH 13.6 % (11.5-14.5); WHITE BLOOD COUNT 11.1 10^3/ul (4.5-11.0)
[2018-02-17 06:43] LABS: INR 1.18 (0.93-1.08); PROTHROMBIN TIME 13.6 SECONDS (9.4-12.5)
[2018-02-17 07:03] LABS: ALB/GLOB RATIO 0.9 (1.1-1.8); ALBUMIN 2.6 g/dL (3.0-4.8); ALT/SGPT 566 U/L (7-56); AST/SGOT 395 U/L (14-36); BLOOD UREA NITROGEN 15 mg/dL (7-21); CALCIUM 7.4 mg/dL (8.4-10.5); GFR AFRICAN-AMERICAN > 60; GFR NON-AFRICAN AMERICAN 50
--- NOTE | 2018-02-17 07:43 | CP.PCM.PN ---
<Hal Bashir - Last Filed: 02/17/18 10:14> Subjective - Date & Time of Evaluation Date of Evaluation: 02/17/18 Time of Evaluation: 07:30 - Subjective Subjective: PGY5 GI Fellow Progress Note Patient seen and examined bedside this morning. Patient is drowsy but arousable. Denies any abdominal pain presently. No events overnight. 12 system ROS limited given sedation. Objective - Vital Signs/Intake and Output Vital Signs (last 24 hours): Temp Pulse Resp BP Pulse Ox 98.6 F 87 24 108/70 99 02/17/18 04:00 02/17/18 06:11 02/16/18 16:44 02/17/18 06:11 02/17/18 06:11 Intake and Output: 02/17/18 02/17/18 06:59 18:59 Intake Total 1232 Output Total 2200 Balance -968 - Medications Medications: Current Medications Albuterol/Ipratropium (Duoneb 3 Mg/0.5 Mg (3 Ml) Ud) 3 ml IH Q2H PRN PRN Reason: Shortness of Breath Last Admin: 02/17/18 02:35 Dose: 3 ml Amlodipine Besylate (Norvasc) 10 mg PO DAILY [facility] Last Admin: 02/16/18 14:10 Dose: 10 mg Hydromorphone HCl (Dilaudid) 1 mg IVP Q3H PRN PRN Reason: Pain, severe (8-10) Last Admin: 02/16/18 22:33 Dose: 1 mg Fentanyl Citrate (Fentanyl Citrate/Sodium Chloride 1 Mg/100 Ml) 1,000 mcg in 100 mls @ 2 mls/hr IV .Q24H PRN; Protocol; 20 MCG/HR PRN Reason: TITRATE PER MD ORDER Last Admin: 02/17/18 01:30 Dose: 150 mcg/hr, 15 mls/hr Piperacillin Sod/Tazobactam Sod (Zosyn 4.5 Gm In Ns 100ml) 4.5 gm in 100 mls @ 200 mls/hr IVPB Q6 [facility] PRN Reason: Protocol Stop: 02/22/18 18:01 Last Admin: 02/17/18 05:43 Dose: 200 mls/hr Insulin Detemir (Levemir) 27 unit SC Q12 [facility] Last Admin: 02/16/18 21:44 Dose: 27 units Insulin Human Regular (Humulin R Med) 0 units SC ACHS [facility] PRN Reason: Protocol Last Admin: 02/16/18 21:44 Dose: 4 units Insulin Human Regular (Humulin R) 7 units SC AC [facility] Last Admin: 02/16/18 16:45 Dose: 7 units Losartan Potassium (Cozaar) 50 mg PO DAILY [facility] Last Admin: 02/16/18 12:20 Dose: 50 mg Midazolam HCl (Versed Inj) 0.5 mg IVP Q4 [facility] Last Admin: 02/17/18 05:00 Dose: Not Given Midazolam HCl (Versed Inj) 1 mg IVP Q2 PRN PRN Reason: Agitation Last Admin: 02/16/18 22:34 Dose: 1 mg Nicotine (Nicoderm Cq) 1 patch TD DAILY [facility] Last Admin: 02/16/18 15:46 Dose: 1 patch Pantoprazole Sodium (Protonix Inj) 40 mg IVP DAILY [facility] Last Admin: 02/16/18 09:22 Dose: 40 mg Saliva Substitute (Saliva Substitute) 1 ml PO Q2H PRN PRN Reason: Dry mouth Last Admin: 02/15/18 20:58 Dose: 1 ml Thiamine HCl (Vitamin B1 Inj) 100 mg IM DAILY [facility] Last Admin: 02/16/18 09:23 Dose: 100 mg - Labs Labs: 02/17/18 05:20 02/17/18 05:20 PT 13.6 SECONDS (9.4-12.5) H 02/17/18 05:20 INR 1.18 (0.93-1.08) H 02/17/18 05:20 APTT 25.2 Seconds (25.1-36.5) 02/15/18 08:15 - Constitutional Appears: Non-toxic, No Acute Distress - Eye Exam Eye Exam: PERRL - ENT Exam ENT Exam: Mucous Membranes Dry Additional comments: trach to vent - Neck Exam Additional comments: surgical wound, clean/intact - Respiratory Exam Respiratory Exam: Clear to Ausculation Bilateral. absent: Rales, Rhonchi, Wheezes - Cardiovascular Exam Cardiovascular Exam: RRR, +S1, +S2 - GI/Abdominal Exam GI & Abdominal Exam: Soft, Normal Bowel Sounds. absent: Distended, Firm, Guarding, Rigid, Tenderness, Organomegaly - Extremities Exam Extremities Exam: Normal Inspection. absent: Pedal Edema - Neurological Exam Neurological Exam: Awake - Psychiatric Exam Psychiatric exam: Normal Affect - Skin Skin Exam: Dry, Warm Assessment and Plan - Assessment and Plan (Free Text) Assessment: Patient is a 38yo female with PMHx significant for HTN, DM, DKA, thyrotoxicosis s/p partial thyroidectomy, HCV (s/p treatment with neg viral load 2012) who presented to the hospital with throat, neck and jaw pain. -Parapharyngeal abscess s/p I&D, tracheostomy -Sepsis -Transaminasemia -Ongoing EtOH use -H/O of heorin/cocaine abuse Plan: -LFTs downtrending since yesterday -Etiology likely multifactorial with history of heavy acetaminophen use prior to arrival, ischemia (episodes of hypotension noted) -S/P NAC administration -Awaiting autoimmune and viral hepatitis serologies -Ongoing IV antibiotics with zosyn - ID following -Supportive care, monitor LFTs <Juan Robbins - Last Filed: 02/17/18 10:29> Objective - Vital Signs/Intake and Output Vital Signs (last 24 hours): Temp Pulse Resp BP Pulse Ox 98.6 F 92 H 24 105/75 99 02/17/18 04:00 02/17/18 09:25 02/16/18 16:44 02/17/18 09:25 02/17/18 06:11 Intake and Output: 02/17/18 02/17/18 06:59 18:59 Intake Total 1232 100 Output Total 2200 Balance -968 100 - Medications Medications: Current Medications Albuterol/Ipratropium (Duoneb 3 Mg/0.5 Mg (3 Ml) Ud) 3 ml IH Q2H PRN PRN Reason: Shortness of Breath Last Admin: 02/17/18 02:35 Dose: 3 ml Amlodipine Besylate (Norvasc) 10 mg PO DAILY [facility] Last Admin: 02/17/18 09:25 Dose: 10 mg Folic Acid (Folic Acid) 1 mg PO DAILY [facility] Last Admin: 02/17/18 09:31 Dose: 1 mg Hydromorphone HCl (Dilaudid) 1 mg IVP Q3H PRN PRN Reason: Pain, severe (8-10) Last Admin: 02/16/18 22:33 Dose: 1 mg Fentanyl Citrate (Fentanyl Citrate/Sodium Chloride 1 Mg/100 Ml) 1,000 mcg in 100 mls @ 2 mls/hr IV .Q24H PRN; Protocol; 20 MCG/HR PRN Reason: TITRATE PER MD ORDER Last Admin: 02/17/18 08:03 Dose: 150 mcg/hr, 15 mls/hr Piperacillin Sod/Tazobactam Sod (Zosyn 4.5 Gm In Ns 100ml) 4.5 gm in 100 mls @ 200 mls/hr IVPB Q6 [facility] PRN Reason: Protocol Stop: 02/22/18 18:01 Last Admin: 02/17/18 05:43 Dose: 200 mls/hr Potassium Chloride (Potassium Chloride 10 Meq/100 Ml) 10 meq in 100 mls @ 50 mls/hr IVPB Q2H [facility] Stop: 02/17/18 11:59 Last Admin: 02/17/18 08:21 Dose: 50 mls/hr Insulin Detemir (Levemir) 35 unit SC Q12 [facility] Insulin Human Regular (Humulin R Med) 0 units SC ACHS [facility] PRN Reason: Protocol Last Admin: 02/17/18 08:35 Dose: 7 units Insulin Human Regular (Humulin R) 7 units SC AC [facility] Last Admin: 02/17/18 08:38 Dose: 7 units Losartan Potassium (Cozaar) 50 mg PO DAILY [facility] Last Admin: 02/17/18 09:25 Dose: 50 mg Midazolam HCl (Versed Inj) 0.5 mg IVP Q4 [facility] Last Admin: 02/17/18 08:30 Dose: Not Given Midazolam HCl (Versed Inj) 1 mg IVP Q2 PRN PRN Reason: Agitation Last Admin: 02/17/18 08:28 Dose: 1 mg Multivitamins (Thera Tab) 1 tab PO 0800 [facility] Nicotine (Nicoderm Cq) 1 patch TD DAILY [facility] Last Admin: 02/17/18 09:28 Dose: 1 patch Pantoprazole Sodium (Protonix Inj) 40 mg IVP DAILY [facility] Last Admin: 02/17/18 09:28 Dose: 40 mg Saliva Substitute (Saliva Substitute) 1 ml PO Q2H PRN PRN Reason: Dry mouth Last Admin: 02/15/18 20:58 Dose: 1 ml Thiamine HCl (Vitamin B1 Inj) 100 mg IM DAILY [facility] Last Admin: 02/17/18 09:36 Dose: 100 mg - Labs Labs: 02/17/18 05:20 02/17/18 05:20 PT 13.6 SECONDS (9.4-12.5) H 02/17/18 05:20 INR 1.18 (0.93-1.08) H 02/17/18 05:20 APTT 25.2 Seconds (25.1-36.5) 02/15/18 08:15 Attending/Attestation - Attestation I have personally seen and examined this patient.: Yes I have fully participated in the care of the patient.: Yes I have reviewed all pertinent clinical information, including history, physical exam and plan: Yes Notes (Text): 02/17/18 10:25 I have seen and examined patient with GI fellow. In brief, this is a 38 year old female with history of HCV, ETOH abuse, DM, HTN who initially presented to hospital with progressive neck and jaw pain. She was found to have a pharyngeal abscess s/p I/D and tracheostomy yesterday. GI called for evaluation of elevated LFTs which are down trending. She admits to recent heavy ETOH use along with daily tylenol due to neck related discomfort. Hepatitis and autoimmune serologies are unremarkable. Continue with antibiotic therapy, follow up drug cultures. Abdominal US reviewed by me showing no focal liver lesions, obtain duplex to ensure vascular patency. Can discontinue NAC after 72 hours. Will sign off now. Thank you for letting us participate in the care of your patient
[2018-02-17] MEDS ORDERED: Magnesium 2 gm/50 ml NS 2 GM/50 ML BAG IVPB ONE (07:55)
--- NOTE | 2018-02-17 08:19 | OP ---
PROCEDURE DATE: 02/15/2018 PREOPERATIVE DIAGNOSES: Dominick's angina, airway obstruction. POSTOPERATIVE DIAGNOSES: Dominick's angina, airway obstruction. PROCEDURE: Tracheostomy under local with incision and drainage of deep neck space abscess in submandibular region. SURGEON: Kuldeep Tamayo DO [employer] T[employer]ATER: Jay. ESTIMATED BLOOD LOSS: 5 mL. OPERATIVE PROCEDURE: This is a 38-year-old white female who has developed progressive dysphagia, swelling in the anterior and lateral portions of the neck with some difficulty breathing, who was evaluated in the emergency room. Patient subsequently underwent a CT scan, which revealed evidence of Dominick's angina and was scheduled for emergent tracheostomy and drainage of the abscess. The patient was prepped and draped intraoperatively and a direct examination was carried out orally while the patient was awake with the use of the endoscope. Unfortunately due to the swelling, we decided to perform an awake tracheostomy where the patient was prepped and draped and the neck was injected using 1% Xylocaine with epinephrine. Previous incision was made over there. An incision was made in transverse fashion with a #15 blade over previous thyroidectomy scar. Dissection was carried down with Bovie dissection to the subcutaneous planes, where there was noted to be marked amount of scar tissue. The strap muscles were divided, were retracted laterally although these planes were not so apparent. Through the second tracheal ring, an incision was made in transverse fashion with a superior-based flap, which was sewn into place with a 3-0 silk suture in a horizontal mattress fashion. A #6 fenestrated cuffed tracheostomy tube is then inserted through the incision and was sewn in to place using 2-0 silk sutures. Care was then taken to the left submandibular area where using a #18 gauge needle, the majority of the abscess location was evaluated and a transverse incision was made with a #15 blade. Foul purulent discharge approximately 20 mL was evacuated from submandibular regions and with blunt finger dissection, the tracheostomy was noted to be going to the contralateral submandibular side. The wound was irrigated and cultures were obtained. A #1/4-inch Stiven drain was sewn into place using 2-0 silk suture followed by sterile dressings. The patient tolerated the procedure well, was taken from the operating room to the recovery room in stable condition. Kuldeep Tamayo DO [facility]
[2018-02-17] MEDS: Midazolam 2 MG/2 ML VIAL IVP PRN (08:28)
[2018-02-17] MEDS: Insulin Reg-MEDIUM-Coverage SC SCH ×4 (08:35→22:17)
[2018-02-17] MEDS: Insulin Regular 1 UNITS/0.01 ML ML SC SCH ×3 (08:38→17:43)
--- NOTE | 2018-02-17 08:38 | CP.CCUPN ---
<Cecilia Oneil - Last Filed: 02/17/18 12:08> CCU Subjective - Physician Review Subjective (Free Text): 02/16/18 08:34 Ativan made pt agitated, paradoxically. QTc 534. Will attempt versed IVP 0.5 instead will not wean today. CXR more hazy Off insulin gtt now, got levemir 20 at 7am Denies throat pain, abdominal pain, CP, N/V/D/C. NPO for now Pain adequately controlled 02/17/18 08:37 fentynl 150. dilaudid x 1, pain adequately controled Got 1 neb for SOB U/O 2200 CCU Objective - Vital Signs / Intake & Output Vital Signs (Last 4 hours): Vital Signs Pulse BP Pulse Ox 02/17/18 06:11 87 108/70 99 02/17/18 06:00 87 100 02/17/18 05:41 85 124/75 99 02/17/18 05:11 73 136/70 87 L 02/17/18 05:00 76 98 02/17/18 04:41 87 116/75 100 Intake and Output (Last 8hrs): Intake & Output 02/16/18 02/17/18 02/17/18 22:59 06:59 14:59 Intake Total 941 1224 Output Total 6760 2200 Balance -5819 -976 Intake: IV 461 1024 Right Forearm 350 Right Wrist 844 fentanyl 56 130 insulin 5 Oral 480 200 Output: Urine 6760 2200 Urine, Voided 6760 2200 Stool 0 0 - Physical Exam Head: Positive for: Atraumatic, Normocephalic Pupils: Positive for: PERRL Extroacular Muscles: Positive for: EOMI Conjunctiva: Positive for: Normal. Negative for: Icteric Mouth: Positive for: Moist Mucous Membranes Neck: Positive for: Other (Fresh trach. Dressing intact, no strike through, not swelling) Respiratory/Chest: Positive for: Clear to Auscultation, Good Air Exchange, Rales. Negative for: Accessory Muscle Use, Retracting, Rhonchi, Tachypneic Cardiovascular: Positive for: Regular Rate and Rhythm, Normal S1, S2 Abdomen: Positive for: Normal Bowel Sounds. Negative for: Tenderness, Distention, Peritoneal Signs Lower Extremity: Positive for: Normal Inspection, Other (schuster intact). Negative for: Edema Neurological: Positive for: GCS=15. Negative for: Speech Normal Skin: Positive for: Warm, Dry Psychiatric: Positive for: Alert, Oriented x 3 - Medications Active Medications: Active Medications Generic Name Dose Route Start Last Admin Trade Name Freq PRN Reason Stop Dose Admin Albuterol/Ipratropium 3 ml 02/16/18 19:55 02/17/18 02:35 Duoneb 3 Mg/0.5 Mg (3 Ml) Ud IH 3 ml Q2H PRN Administration Shortness of Breath Amlodipine Besylate 10 mg 02/16/18 14:15 02/16/18 14:10 Norvasc PO 10 mg DAILY KATYA Administration Hydromorphone HCl 1 mg 02/15/18 15:15 02/16/18 22:33 Dilaudid IVP 1 mg Q3H PRN Administration Pain, severe (8-10) Fentanyl Citrate 1,000 mcg in 100 mls @ 2 mls/hr 02/15/18 14:51 02/17/18 01: 30 Fentanyl Citrate/Sodium Chloride 1 Mg/100 Ml IV 150 mcg/hr .Q24H PRN 15 mls/hr TITRATE PER MD ORDER Administration Protocol 20 MCG/HR Piperacillin Sod/Tazobactam Sod 4.5 gm in 100 mls @ 200 mls/hr 02/15/18 18:00 02/17/18 05:43 Zosyn 4.5 Gm In Ns 100ml IVPB 02/22/18 18:01 200 mls/hr Q6 KATYA Administration Protocol Magnesium 2 gm/50 ml NS 2 gm in 50 mls @ 50 mls/hr 02/17/18 07:55 Magnesium Sulfate 2 Gm/50 Ml Ns IVPB 02/17/18 08:54 ONCE ONE Potassium Chloride 10 meq in 100 mls @ 50 mls/hr 02/17/18 08:00 Potassium Chloride 10 Meq/100 Ml IVPB 02/17/18 11:59 Q2H KATYA Insulin Detemir 27 unit 02/16/18 22:00 02/16/18 21:44 Levemir SC 27 units Q12 KATYA Administration Insulin Human Regular 0 units 02/16/18 12:30 02/16/18 21:44 Humulin R Med SC 4 units ACHS KATYA Administration Protocol Insulin Human Regular 7 units 02/16/18 16:30 02/16/18 16:45 Humulin R SC 7 units AC KATYA Administration Losartan Potassium 50 mg 02/16/18 12:15 02/16/18 12:20 Cozaar PO 50 mg DAILY KATYA Administration Midazolam HCl 0.5 mg 02/16/18 12:00 02/17/18 05:00 Versed Inj IVP Not Given Q4 KATYA Midazolam HCl 1 mg 02/16/18 09:11 02/16/18 22:34 Versed Inj IVP 1 mg Q2 PRN Administration Agitation Nicotine 1 patch 02/16/18 15:45 02/16/18 15:46 Nicoderm Cq TD 1 patch DAILY KATYA Administration Pantoprazole Sodium 40 mg 02/16/18 10:00 02/16/18 09:22 Protonix Inj IVP 40 mg DAILY KATYA Administration Saliva Substitute 1 ml 02/15/18 10:54 02/15/18 20:58 Saliva Substitute PO 1 ml Q2H PRN Administration Dry mouth Thiamine HCl 100 mg 02/16/18 10:00 02/16/18 09:23 Vitamin B1 Inj IM 100 mg DAILY KATYA Administration - Patient Studies Lab Studies: Lab Studies 02/17/18 02/17/18 02/17/18 Range/Units 05:30 05:20 05:20 WBC (4.5-11.0) 10^3/ul RBC (3.5-6.1) 10^6/uL Hgb (12.0-16.0) g/dL Hct (36.0-48.0) % MCV (80.0-105.0) fl MCH (25.0-35.0) pg MCHC (31.0-37.0) g/dl RDW (11.5-14.5) % Plt Count (120.0-450.0) 10^3/uL MPV (7.0-11.0) fl Gran % (50.0-68.0) % Lymph % (Auto) (22.0-35.0) % Wirt % (Auto) (1.0-6.0) % Eos % (Auto) (1.5-5.0) % Baso % (Auto) (0.0-3.0) % Gran # (1.4-6.5) Lymph # (Auto) (1.2-3.4) Wirt # (Auto) (0.1-0.6) Eos # (Auto) (0.0-0.7) Baso # (Auto) (0.0-2.0) K/mm3 PT 13.6 H (9.4-12.5) SECONDS INR 1.18 H (0.93-1.08) pCO2 36 (35-45) mm/Hg pO2 92.0 (80-100) mm/Hg HCO3 22.8 (21-28) mmol/L ABG pH 7.41 (7.35-7.45) ABG Total CO2 23.9 (22-28) mmol.L ABG O2 Saturation 97.0 (95-98) % ABG Base Excess -1.4 (-2.0-3.0) mmol/L ABG Potassium 3.0 L (3.6-5.2) mmol/L VBG pH (7.32-7.43) VBG pCO2 (40-60) VBG HCO3 (21-28) mmol/l VBG Total CO2 (22-28) mmol.L VBG O2 Sat (Calc) (40-65) % VBG Base Excess (0.0-2.0) mmol/L VBG Potassium (3.6-5.2) mmol/L Glucose 306 H (65-105) mg/dl Lactate 1.2 (0.7-2.1) mmol/L Mechanical Rate FiO2 60.0 % Tidal Volume PEEP Sodium 137.0 136 (132-148) mmol/L Potassium 3.3 L (3.6-5.0) mmol/L Chloride 108.0 H 98 (98-107) mmol/L Carbon Dioxide 26 (21-33) mmol/L Anion Gap 15 (10-20) BUN 15 (7-21) mg/dL Creatinine 1.2 (0.7-1.2) mg/dl Est GFR ( Amer) > 60 Est GFR (Non-Af Amer) 50 POC Glucose (mg/dL) (65-110) mg/dL Random Glucose 322 H* D (70-110) mg/dL Calcium 7.4 L (8.4-10.5) mg/dL Phosphorus 3.4 (2.5-4.5) mg/dL Magnesium 1.7 (1.7-2.2) mg/dL Iron (45-180) ug/dL TIBC (265-497) ug/dL % Saturation (20-55) % Ferritin ng/mL Total Bilirubin 1.2 (0.2-1.3) mg/dL AST 395 H D (14-36) U/L ALT 566 H (7-56) U/L Alkaline Phosphatase 224 H (38-126) U/L Ammonia (9-33) umol/L NT-Pro-B Natriuret Pep (0-450) pg/mL Total Protein 5.3 L (5.8-8.3) g/dL Albumin 2.6 L (3.0-4.8) g/dL Globulin 2.8 gm/dL Albumin/Globulin Ratio 0.9 L (1.1-1.8) Triglycerides (35-160) mg/dL Cholesterol (130-200) mg/dL LDL Cholesterol Direct (0-129) mg/dL HDL Cholesterol (29-60) mg/dL Lipase (23-300) U/L Arterial Blood Potassium 3.0 L (3.6-5.2) mmol/L Venous Blood Potassium (3.6-5.2) mmol/L Salicylates (2.0-20.0) mg/dL Urine Opiates Screen (NEGATIVE) Urine Methadone Screen (NEGATIVE) Acetaminophen (10.0-20.0) ug/ml Ur Barbiturates Screen (NEGATIVE) Ur Phencyclidine Scrn (NEGATIVE) Ur Amphetamines Screen (NEGATIVE) U Benzodiazepines Scrn (NEGATIVE) U Oth Cocaine Metabols (NEGATIVE) U Cannabinoids Screen (NEGATIVE) IgG (700.0-1600.0) mg/dL 02/17/18 02/17/18 02/17/18 Range/Units 05:20 01:45 01:34 WBC 11.1 H (4.5-11.0) 10^3/ul RBC 3.20 L (3.5-6.1) 10^6/uL Hgb 9.6 L (12.0-16.0) g/dL Hct 28.8 L (36.0-48.0) % MCV 90.0 (80.0-105.0) fl MCH 30.0 (25.0-35.0) pg MCHC 33.3 (31.0-37.0) g/dl RDW 13.6 (11.5-14.5) % Plt Count 148 (120.0-450.0) 10^3/uL MPV 9.4 (7.0-11.0) fl Gran % 82.5 H (50.0-68.0) % Lymph % (Auto) 11.3 L (22.0-35.0) % Wirt % (Auto) 6.1 H (1.0-6.0) % Eos % (Auto) 0.0 L (1.5-5.0) % Baso % (Auto) 0.1 (0.0-3.0) % Gran # 9.18 H (1.4-6.5) Lymph # (Auto) 1.3 (1.2-3.4) Wirt # (Auto) 0.7 H (0.1-0.6) Eos # (Auto) 0.0 (0.0-0.7) Baso # (Auto) 0.01 (0.0-2.0) K/mm3 PT (9.4-12.5) SECONDS INR (0.93-1.08) pCO2 (35-45) mm/Hg pO2 56 H (80-100) mm/Hg HCO3 (21-28) mmol/L ABG pH (7.35-7.45) ABG Total CO2 (22-28) mmol.L ABG O2 Saturation (95-98) % ABG Base Excess (-2.0-3.0) mmol/L ABG Potassium (3.6-5.2) mmol/L VBG pH 7.39 (7.32-7.43) VBG pCO2 43.0 (40-60) VBG HCO3 26.0 (21-28) mmol/l VBG Total CO2 27.3 (22-28) mmol.L VBG O2 Sat (Calc) 91.0 H (40-65) % VBG Base Excess 0.8 (0.0-2.0) mmol/L VBG Potassium 3.1 L (3.6-5.2) mmol/L Glucose 378 H (65-105) mg/dl Lactate 1.5 (0.7-2.1) mmol/L Mechanical Rate FiO2 21.0 % Tidal Volume PEEP Sodium 133.0 (132-148) mmol/L Potassium (3.6-5.0) mmol/L Chloride 100.0 (98-107) mmol/L Carbon Dioxide (21-33) mmol/L Anion Gap (10-20) BUN (7-21) mg/dL Creatinine (0.7-1.2) mg/dl Est GFR ( Amer) Est GFR (Non-Af Amer) POC Glucose (mg/dL) 356 H (65-110) mg/dL Random Glucose (70-110) mg/dL Calcium (8.4-10.5) mg/dL Phosphorus (2.5-4.5) mg/dL Magnesium (1.7-2.2) mg/dL Iron (45-180) ug/dL TIBC (265-497) ug/dL % Saturation (20-55) % Ferritin ng/mL Total Bilirubin (0.2-1.3) mg/dL AST (14-36) U/L ALT (7-56) U/L Alkaline Phosphatase (38-126) U/L Ammonia (9-33) umol/L NT-Pro-B Natriuret Pep (0-450) pg/mL Total Protein (5.8-8.3) g/dL Albumin (3.0-4.8) g/dL Globulin gm/dL Albumin/Globulin Ratio (1.1-1.8) Triglycerides (35-160) mg/dL Cholesterol (130-200) mg/dL LDL Cholesterol Direct (0-129) mg/dL HDL Cholesterol (29-60) mg/dL Lipase (23-300) U/L Arterial Blood Potassium (3.6-5.2) mmol/L Venous Blood Potassium 3.1 L (3.6-5.2) mmol/L Salicylates (2.0-20.0) mg/dL Urine Opiates Screen (NEGATIVE) Urine Methadone Screen (NEGATIVE) Acetaminophen (10.0-20.0) ug/ml Ur Barbiturates Screen (NEGATIVE) Ur Phencyclidine Scrn (NEGATIVE) Ur Amphetamines Screen (NEGATIVE) U Benzodiazepines Scrn (NEGATIVE) U Oth Cocaine Metabols (NEGATIVE) U Cannabinoids Screen (NEGATIVE) IgG (700.0-1600.0) mg/dL 02/16/18 02/16/18 02/16/18 Range/Units 21:33 21:15 17:00 WBC (4.5-11.0) 10^3/ul RBC (3.5-6.1) 10^6/uL Hgb (12.0-16.0) g/dL Hct (36.0-48.0) % MCV (80.0-105.0) fl MCH (25.0-35.0) pg MCHC (31.0-37.0) g/dl RDW (11.5-14.5) % Plt Count (120.0-450.0) 10^3/uL MPV (7.0-11.0) fl Gran % (50.0-68.0) % Lymph % (Auto) (22.0-35.0) % Wirt % (Auto) (1.0-6.0) % Eos % (Auto) (1.5-5.0) % Baso % (Auto) (0.0-3.0) % Gran # (1.4-6.5) Lymph # (Auto) (1.2-3.4) Wirt # (Auto) (0.1-0.6) Eos # (Auto) (0.0-0.7) Baso # (Auto) (0.0-2.0) K/mm3 PT (9.4-12.5) SECONDS INR (0.93-1.08) pCO2 31 L (35-45) mm/Hg pO2 42 61.0 L (80-100) mm/Hg HCO3 19.2 L (21-28) mmol/L ABG pH 7.40 (7.35-7.45) ABG Total CO2 20.2 L (22-28) mmol.L ABG O2 Saturation 92.7 L (95-98) % ABG Base Excess -4.8 L (-2.0-3.0) mmol/L ABG Potassium 3.1 L (3.6-5.2) mmol/L VBG pH 7.37 (7.32-7.43) VBG pCO2 42.0 (40-60) VBG HCO3 24.3 (21-28) mmol/l VBG Total CO2 25.6 (22-28) mmol.L VBG O2 Sat (Calc) 79.9 H (40-65) % VBG Base Excess -1.1 L (0.0-2.0) mmol/L VBG Potassium 3.6 (3.6-5.2) mmol/L Glucose 476 H* 576 H* D (65-105) mg/dl Lactate 2.3 H 2.0 (0.7-2.1) mmol/L Mechanical Rate 12 FiO2 21.0 50.0 % Tidal Volume 400 PEEP 5 Sodium 134.0 133.0 (132-148) mmol/L Potassium (3.6-5.0) mmol/L Chloride 97.0 L 101.0 (98-107) mmol/L Carbon Dioxide (21-33) mmol/L Anion Gap (10-20) BUN (7-21) mg/dL Creatinine (0.7-1.2) mg/dl Est GFR ( Amer) Est GFR (Non-Af Amer) POC Glucose (mg/dL) 412 H* (65-110) mg/dL Random Glucose (70-110) mg/dL Calcium (8.4-10.5) mg/dL Phosphorus (2.5-4.5) mg/dL Magnesium (1.7-2.2) mg/dL Iron (45-180) ug/dL TIBC (265-497) ug/dL % Saturation (20-55) % Ferritin ng/mL Total Bilirubin (0.2-1.3) mg/dL AST (14-36) U/L ALT (7-56) U/L Alkaline Phosphatase (38-126) U/L Ammonia (9-33) umol/L NT-Pro-B Natriuret Pep (0-450) pg/mL Total Protein (5.8-8.3) g/dL Albumin (3.0-4.8) g/dL Globulin gm/dL Albumin/Globulin Ratio (1.1-1.8) Triglycerides (35-160) mg/dL Cholesterol (130-200) mg/dL LDL Cholesterol Direct (0-129) mg/dL HDL Cholesterol (29-60) mg/dL Lipase (23-300) U/L Arterial Blood Potassium 3.1 L (3.6-5.2) mmol/L Venous Blood Potassium 3.6 (3.6-5.2) mmol/L Salicylates (2.0-20.0) mg/dL Urine Opiates Screen (NEGATIVE) Urine Methadone Screen (NEGATIVE) Acetaminophen (10.0-20.0) ug/ml Ur Barbiturates Screen (NEGATIVE) Ur Phencyclidine Scrn (NEGATIVE) Ur Amphetamines Screen (NEGATIVE) U Benzodiazepines Scrn (NEGATIVE) U Oth Cocaine Metabols (NEGATIVE) U Cannabinoids Screen (NEGATIVE) IgG (700.0-1600.0) mg/dL 02/16/18 02/16/18 02/16/18 Range/Units 16:40 16:40 16:40 WBC 9.6 (4.5-11.0) 10^3/ul RBC 3.53 (3.5-6.1) 10^6/uL Hgb 10.7 L (12.0-16.0) g/dL Hct 32.1 L (36.0-48.0) % MCV 90.9 D (80.0-105.0) fl MCH 30.3 (25.0-35.0) pg MCHC 33.3 (31.0-37.0) g/dl RDW 13.8 (11.5-14.5) % Plt Count 135 (120.0-450.0) 10^3/uL MPV 9.3 (7.0-11.0) fl Gran % 86.9 H (50.0-68.0) % Lymph % (Auto) 8.9 L (22.0-35.0) % Wirt % (Auto) 4.0 (1.0-6.0) % Eos % (Auto) 0.0 L (1.5-5.0) % Baso % (Auto) 0.2 (0.0-3.0) % Gran # 8.31 H (1.4-6.5) Lymph # (Auto) 0.9 L (1.2-3.4) Wirt # (Auto) 0.4 (0.1-0.6) Eos # (Auto) 0.0 (0.0-0.7) Baso # (Auto) 0.02 (0.0-2.0) K/mm3 PT (9.4-12.5) SECONDS INR (0.93-1.08) pCO2 (35-45) mm/Hg pO2 (80-100) mm/Hg HCO3 (21-28) mmol/L ABG pH (7.35-7.45) ABG Total CO2 (22-28) mmol.L ABG O2 Saturation (95-98) % ABG Base Excess (-2.0-3.0) mmol/L ABG Potassium (3.6-5.2) mmol/L VBG pH (7.32-7.43) VBG pCO2 (40-60) VBG HCO3 (21-28) mmol/l VBG Total CO2 (22-28) mmol.L VBG O2 Sat (Calc) (40-65) % VBG Base Excess (0.0-2.0) mmol/L VBG Potassium (3.6-5.2) mmol/L Glucose (65-105) mg/dl Lactate (0.7-2.1) mmol/L Mechanical Rate FiO2 % Tidal Volume PEEP Sodium 133 (132-148) mmol/L Potassium 3.5 L (3.6-5.0) mmol/L Chloride 98 (98-107) mmol/L Carbon Dioxide 19 L (21-33) mmol/L Anion Gap 19 (10-20) BUN 15 (7-21) mg/dL Creatinine 1.2 (0.7-1.2) mg/dl Est GFR ( Amer) > 60 Est GFR (Non-Af Amer) 50 POC Glucose (mg/dL) (65-110) mg/dL Random Glucose 595 H* D (70-110) mg/dL Calcium 7.8 L (8.4-10.5) mg/dL Phosphorus 3.1 (2.5-4.5) mg/dL Magnesium 2.0 (1.7-2.2) mg/dL Iron (45-180) ug/dL TIBC (265-497) ug/dL % Saturation (20-55) % Ferritin ng/mL Total Bilirubin 1.3 (0.2-1.3) mg/dL AST 1495 H (14-36) U/L ALT 790 H (7-56) U/L Alkaline Phosphatase 235 H (38-126) U/L Ammonia 9 (9-33) umol/L NT-Pro-B Natriuret Pep 4020 H (0-450) pg/mL Total Protein 5.8 (5.8-8.3) g/dL Albumin 2.9 L (3.0-4.8) g/dL Globulin 2.9 gm/dL Albumin/Globulin Ratio 1.0 L (1.1-1.8) Triglycerides (35-160) mg/dL Cholesterol (130-200) mg/dL LDL Cholesterol Direct (0-129) mg/dL HDL Cholesterol (29-60) mg/dL Lipase (23-300) U/L Arterial Blood Potassium (3.6-5.2) mmol/L Venous Blood Potassium (3.6-5.2) mmol/L Salicylates (2.0-20.0) mg/dL Urine Opiates Screen (NEGATIVE) Urine Methadone Screen (NEGATIVE) Acetaminophen (10.0-20.0) ug/ml Ur Barbiturates Screen (NEGATIVE) Ur Phencyclidine Scrn (NEGATIVE) Ur Amphetamines Screen (NEGATIVE) U Benzodiazepines Scrn (NEGATIVE) U Oth Cocaine Metabols (NEGATIVE) U Cannabinoids Screen (NEGATIVE) IgG (700.0-1600.0) mg/dL 02/16/18 02/16/18 02/16/18 Range/Units 15:43 15:00 12:00 WBC (4.5-11.0) 10^3/ul RBC (3.5-6.1) 10^6/uL Hgb (12.0-16.0) g/dL Hct (36.0-48.0) % MCV (80.0-105.0) fl MCH (25.0-35.0) pg MCHC (31.0-37.0) g/dl RDW (11.5-14.5) % Plt Count (120.0-450.0) 10^3/uL MPV (7.0-11.0) fl Gran % (50.0-68.0) % Lymph % (Auto) (22.0-35.0) % Wirt % (Auto) (1.0-6.0) % Eos % (Auto) (1.5-5.0) % Baso % (Auto) (0.0-3.0) % Gran # (1.4-6.5) Lymph # (Auto) (1.2-3.4) Wirt # (Auto) (0.1-0.6) Eos # (Auto) (0.0-0.7) Baso # (Auto) (0.0-2.0) K/mm3 PT (9.4-12.5) SECONDS INR (0.93-1.08) pCO2 (35-45) mm/Hg pO2 (80-100) mm/Hg HCO3 (21-28) mmol/L ABG pH (7.35-7.45) ABG Total CO2 (22-28) mmol.L ABG O2 Saturation (95-98) % ABG Base Excess (-2.0-3.0) mmol/L ABG Potassium (3.6-5.2) mmol/L VBG pH (7.32-7.43) VBG pCO2 (40-60) VBG HCO3 (21-28) mmol/l VBG Total CO2 (22-28) mmol.L VBG O2 Sat (Calc) (40-65) % VBG Base Excess (0.0-2.0) mmol/L VBG Potassium (3.6-5.2) mmol/L Glucose (65-105) mg/dl Lactate (0.7-2.1) mmol/L Mechanical Rate FiO2 % Tidal Volume PEEP Sodium (132-148) mmol/L Potassium (3.6-5.0) mmol/L Chloride (98-107) mmol/L Carbon Dioxide (21-33) mmol/L Anion Gap (10-20) BUN (7-21) mg/dL Creatinine (0.7-1.2) mg/dl Est GFR ( Amer) Est GFR (Non-Af Amer) POC Glucose (mg/dL) > 500 H* 405 H* (65-110) mg/dL Random Glucose (70-110) mg/dL Calcium (8.4-10.5) mg/dL Phosphorus (2.5-4.5) mg/dL Magnesium (1.7-2.2) mg/dL Iron (45-180) ug/dL TIBC (265-497) ug/dL % Saturation (20-55) % Ferritin ng/mL Total Bilirubin (0.2-1.3) mg/dL AST (14-36) U/L ALT (7-56) U/L Alkaline Phosphatase (38-126) U/L Ammonia (9-33) umol/L NT-Pro-B Natriuret Pep (0-450) pg/mL Total Protein (5.8-8.3) g/dL Albumin (3.0-4.8) g/dL Globulin gm/dL Albumin/Globulin Ratio (1.1-1.8) Triglycerides (35-160) mg/dL Cholesterol (130-200) mg/dL LDL Cholesterol Direct (0-129) mg/dL HDL Cholesterol (29-60) mg/dL Lipase (23-300) U/L Arterial Blood Potassium (3.6-5.2) mmol/L Venous Blood Potassium (3.6-5.2) mmol/L Salicylates (2.0-20.0) mg/dL Urine Opiates Screen Negative (NEGATIVE) Urine Methadone Screen Positive H (NEGATIVE) Acetaminophen (10.0-20.0) ug/ml Ur Barbiturates Screen Negative (NEGATIVE) Ur Phencyclidine Scrn Negative (NEGATIVE) Ur Amphetamines Screen Negative (NEGATIVE) U Benzodiazepines Scrn Positive H (NEGATIVE) U Oth Cocaine Metabols Negative (NEGATIVE) U Cannabinoids Screen Negative (NEGATIVE) IgG (700.0-1600.0) mg/dL 02/16/18 02/16/18 02/16/18 Range/Units 11:24 10:30 10:30 WBC (4.5-11.0) 10^3/ul RBC (3.5-6.1) 10^6/uL Hgb (12.0-16.0) g/dL Hct (36.0-48.0) % MCV (80.0-105.0) fl MCH (25.0-35.0) pg MCHC (31.0-37.0) g/dl RDW (11.5-14.5) % Plt Count (120.0-450.0) 10^3/uL MPV (7.0-11.0) fl Gran % (50.0-68.0) % Lymph % (Auto) (22.0-35.0) % Wirt % (Auto) (1.0-6.0) % Eos % (Auto) (1.5-5.0) % Baso % (Auto) (0.0-3.0) % Gran # (1.4-6.5) Lymph # (Auto) (1.2-3.4) Wirt # (Auto) (0.1-0.6) Eos # (Auto) (0.0-0.7) Baso # (Auto) (0.0-2.0) K/mm3 PT (9.4-12.5) SECONDS INR (0.93-1.08) pCO2 (35-45) mm/Hg pO2 (80-100) mm/Hg HCO3 (21-28) mmol/L ABG pH (7.35-7.45) ABG Total CO2 (22-28) mmol.L ABG O2 Saturation (95-98) % ABG Base Excess (-2.0-3.0) mmol/L ABG Potassium (3.6-5.2) mmol/L VBG pH (7.32-7.43) VBG pCO2 (40-60) VBG HCO3 (21-28) mmol/l VBG Total CO2 (22-28) mmol.L VBG O2 Sat (Calc) (40-65) % VBG Base Excess (0.0-2.0) mmol/L VBG Potassium (3.6-5.2) mmol/L Glucose (65-105) mg/dl Lactate (0.7-2.1) mmol/L Mechanical Rate FiO2 % Tidal Volume PEEP Sodium (132-148) mmol/L Potassium (3.6-5.0) mmol/L Chloride (98-107) mmol/L Carbon Dioxide (21-33) mmol/L Anion Gap (10-20) BUN (7-21) mg/dL Creatinine (0.7-1.2) mg/dl Est GFR ( Amer) Est GFR (Non-Af Amer) POC Glucose (mg/dL) (65-110) mg/dL Random Glucose (70-110) mg/dL Calcium (8.4-10.5) mg/dL Phosphorus (2.5-4.5) mg/dL Magnesium (1.7-2.2) mg/dL Iron 11 L (45-180) ug/dL TIBC 205 L (265-497) ug/dL % Saturation 5 L (20-55) % Ferritin 1150.0 ng/mL Total Bilirubin (0.2-1.3) mg/dL AST (14-36) U/L ALT (7-56) U/L Alkaline Phosphatase (38-126) U/L Ammonia (9-33) umol/L NT-Pro-B Natriuret Pep (0-450) pg/mL Total Protein (5.8-8.3) g/dL Albumin (3.0-4.8) g/dL Globulin gm/dL Albumin/Globulin Ratio (1.1-1.8) Triglycerides 104 (35-160) mg/dL Cholesterol 120 L (130-200) mg/dL LDL Cholesterol Direct 67 (0-129) mg/dL HDL Cholesterol 39 (29-60) mg/dL Lipase 25 (23-300) U/L Arterial Blood Potassium (3.6-5.2) mmol/L Venous Blood Potassium (3.6-5.2) mmol/L Salicylates (2.0-20.0) mg/dL Urine Opiates Screen (NEGATIVE) Urine Methadone Screen (NEGATIVE) Acetaminophen (10.0-20.0) ug/ml Ur Barbiturates Screen (NEGATIVE) Ur Phencyclidine Scrn (NEGATIVE) Ur Amphetamines Screen (NEGATIVE) U Benzodiazepines Scrn (NEGATIVE) U Oth Cocaine Metabols (NEGATIVE) U Cannabinoids Screen (NEGATIVE) IgG (700.0-1600.0) mg/dL 02/16/18 02/16/18 02/16/18 Range/Units 10:30 10:30 09:19 WBC (4.5-11.0) 10^3/ul RBC (3.5-6.1) 10^6/uL Hgb (12.0-16.0) g/dL Hct (36.0-48.0) % MCV (80.0-105.0) fl MCH (25.0-35.0) pg MCHC (31.0-37.0) g/dl RDW (11.5-14.5) % Plt Count (120.0-450.0) 10^3/uL MPV (7.0-11.0) fl Gran % (50.0-68.0) % Lymph % (Auto) (22.0-35.0) % Wirt % (Auto) (1.0-6.0) % Eos % (Auto) (1.5-5.0) % Baso % (Auto) (0.0-3.0) % Gran # (1.4-6.5) Lymph # (Auto) (1.2-3.4) Wirt # (Auto) (0.1-0.6) Eos # (Auto) (0.0-0.7) Baso # (Auto) (0.0-2.0) K/mm3 PT (9.4-12.5) SECONDS INR (0.93-1.08) pCO2 (35-45) mm/Hg pO2 (80-100) mm/Hg HCO3 (21-28) mmol/L ABG pH (7.35-7.45) ABG Total CO2 (22-28) mmol.L ABG O2 Saturation (95-98) % ABG Base Excess (-2.0-3.0) mmol/L ABG Potassium (3.6-5.2) mmol/L VBG pH (7.32-7.43) VBG pCO2 (40-60) VBG HCO3 (21-28) mmol/l VBG Total CO2 (22-28) mmol.L VBG O2 Sat (Calc) (40-65) % VBG Base Excess (0.0-2.0) mmol/L VBG Potassium (3.6-5.2) mmol/L Glucose (65-105) mg/dl Lactate (0.7-2.1) mmol/L Mechanical Rate FiO2 % Tidal Volume PEEP Sodium (132-148) mmol/L Potassium (3.6-5.0) mmol/L Chloride (98-107) mmol/L Carbon Dioxide (21-33) mmol/L Anion Gap (10-20) BUN (7-21) mg/dL Creatinine (0.7-1.2) mg/dl Est GFR ( Amer) Est GFR (Non-Af Amer) POC Glucose (mg/dL) 280 H (65-110) mg/dL Random Glucose (70-110) mg/dL Calcium (8.4-10.5) mg/dL Phosphorus (2.5-4.5) mg/dL Magnesium (1.7-2.2) mg/dL Iron (45-180) ug/dL TIBC (265-497) ug/dL % Saturation (20-55) % Ferritin ng/mL Total Bilirubin (0.2-1.3) mg/dL AST (14-36) U/L ALT (7-56) U/L Alkaline Phosphatase (38-126) U/L Ammonia (9-33) umol/L NT-Pro-B Natriuret Pep (0-450) pg/mL Total Protein (5.8-8.3) g/dL Albumin (3.0-4.8) g/dL Globulin gm/dL Albumin/Globulin Ratio (1.1-1.8) Triglycerides (35-160) mg/dL Cholesterol (130-200) mg/dL LDL Cholesterol Direct (0-129) mg/dL HDL Cholesterol (29-60) mg/dL Lipase (23-300) U/L Arterial Blood Potassium (3.6-5.2) mmol/L Venous Blood Potassium (3.6-5.2) mmol/L Salicylates < 1 L (2.0-20.0) mg/dL Urine Opiates Screen (NEGATIVE) Urine Methadone Screen (NEGATIVE) Acetaminophen < 10.0 L (10.0-20.0) ug/ml Ur Barbiturates Screen (NEGATIVE) Ur Phencyclidine Scrn (NEGATIVE) Ur Amphetamines Screen (NEGATIVE) U Benzodiazepines Scrn (NEGATIVE) U Oth Cocaine Metabols (NEGATIVE) U Cannabinoids Screen (NEGATIVE) IgG 712.5 (700.0-1600.0) mg/dL 02/16/18 02/16/18 Range/Units 07:57 07:13 WBC (4.5-11.0) 10^3/ul RBC (3.5-6.1) 10^6/uL Hgb (12.0-16.0) g/dL Hct (36.0-48.0) % MCV (80.0-105.0) fl MCH (25.0-35.0) pg MCHC (31.0-37.0) g/dl RDW (11.5-14.5) % Plt Count (120.0-450.0) 10^3/uL MPV (7.0-11.0) fl Gran % (50.0-68.0) % Lymph % (Auto) (22.0-35.0) % Wirt % (Auto) (1.0-6.0) % Eos % (Auto) (1.5-5.0) % Baso % (Auto) (0.0-3.0) % Gran # (1.4-6.5) Lymph # (Auto) (1.2-3.4) Wirt # (Auto) (0.1-0.6) Eos # (Auto) (0.0-0.7) Baso # (Auto) (0.0-2.0) K/mm3 PT (9.4-12.5) SECONDS INR (0.93-1.08) pCO2 (35-45) mm/Hg pO2 (80-100) mm/Hg HCO3 (21-28) mmol/L ABG pH (7.35-7.45) ABG Total CO2 (22-28) mmol.L ABG O2 Saturation (95-98) % ABG Base Excess (-2.0-3.0) mmol/L ABG Potassium (3.6-5.2) mmol/L VBG pH (7.32-7.43) VBG pCO2 (40-60) VBG HCO3 (21-28) mmol/l VBG Total CO2 (22-28) mmol.L VBG O2 Sat (Calc) (40-65) % VBG Base Excess (0.0-2.0) mmol/L VBG Potassium (3.6-5.2) mmol/L Glucose (65-105) mg/dl Lactate (0.7-2.1) mmol/L Mechanical Rate FiO2 % Tidal Volume PEEP Sodium (132-148) mmol/L Potassium (3.6-5.0) mmol/L Chloride (98-107) mmol/L Carbon Dioxide (21-33) mmol/L Anion Gap (10-20) BUN (7-21) mg/dL Creatinine (0.7-1.2) mg/dl Est GFR ( Amer) Est GFR (Non-Af Amer) POC Glucose (mg/dL) 270 H 264 H (65-110) mg/dL Random Glucose (70-110) mg/dL Calcium (8.4-10.5) mg/dL Phosphorus (2.5-4.5) mg/dL Magnesium (1.7-2.2) mg/dL Iron (45-180) ug/dL TIBC (265-497) ug/dL % Saturation (20-55) % Ferritin ng/mL Total Bilirubin (0.2-1.3) mg/dL AST (14-36) U/L ALT (7-56) U/L Alkaline Phosphatase (38-126) U/L Ammonia (9-33) umol/L NT-Pro-B Natriuret Pep (0-450) pg/mL Total Protein (5.8-8.3) g/dL Albumin (3.0-4.8) g/dL Globulin gm/dL Albumin/Globulin Ratio (1.1-1.8) Triglycerides (35-160) mg/dL Cholesterol (130-200) mg/dL LDL Cholesterol Direct (0-129) mg/dL HDL Cholesterol (29-60) mg/dL Lipase (23-300) U/L Arterial Blood Potassium (3.6-5.2) mmol/L Venous Blood Potassium (3.6-5.2) mmol/L Salicylates (2.0-20.0) mg/dL Urine Opiates Screen (NEGATIVE) Urine Methadone Screen (NEGATIVE) Acetaminophen (10.0-20.0) ug/ml Ur Barbiturates Screen (NEGATIVE) Ur Phencyclidine Scrn (NEGATIVE) Ur Amphetamines Screen (NEGATIVE) U Benzodiazepines Scrn (NEGATIVE) U Oth Cocaine Metabols (NEGATIVE) U Cannabinoids Screen (NEGATIVE) IgG (700.0-1600.0) mg/dL Laboratory Results - last 24 hr 02/16/18 02/16/18 02/16/18 07:13 07:57 09:19 WBC RBC Hgb Hct MCV MCH MCHC RDW Plt Count MPV Gran % Lymph % (Auto) Wirt % (Auto) Eos % (Auto) Baso % (Auto) Gran # Lymph # (Auto) Wirt # (Auto) Eos # (Auto) Baso # (Auto) PT INR pCO2 pO2 HCO3 ABG pH ABG Total CO2 ABG O2 Saturation ABG Base Excess ABG Potassium VBG pH VBG pCO2 VBG HCO3 VBG Total CO2 VBG O2 Sat (Calc) VBG Base Excess VBG Potassium Glucose Lactate Mechanical Rate FiO2 Tidal Volume PEEP Sodium Potassium Chloride Carbon Dioxide Anion Gap BUN Creatinine Est GFR ( Amer) Est GFR (Non-Af Amer) POC Glucose (mg/dL) 264 H 270 H 280 H Random Glucose Calcium Phosphorus Magnesium Iron TIBC % Saturation Ferritin Total Bilirubin AST ALT Alkaline Phosphatase Ammonia NT-Pro-B Natriuret Pep Total Protein Albumin Globulin Albumin/Globulin Ratio Triglycerides Cholesterol LDL Cholesterol Direct HDL Cholesterol Lipase Arterial Blood Potassium Venous Blood Potassium Salicylates Urine Opiates Screen Urine Methadone Screen Acetaminophen Ur Barbiturates Screen Ur Phencyclidine Scrn Ur Amphetamines Screen U Benzodiazepines Scrn U Oth Cocaine Metabols U Cannabinoids Screen IgG 02/16/18 02/16/18 02/16/18 10:30 10:30 10:30 WBC RBC Hgb Hct MCV MCH MCHC RDW Plt Count MPV Gran % Lymph % (Auto) Wirt % (Auto) Eos % (Auto) Baso % (Auto) Gran # Lymph # (Auto) Wirt # (Auto) Eos # (Auto) Baso # (Auto) PT INR pCO2 pO2 HCO3 ABG pH ABG Total CO2 ABG O2 Saturation ABG Base Excess ABG Potassium VBG pH VBG pCO2 VBG HCO3 VBG Total CO2 VBG O2 Sat (Calc) VBG Base Excess VBG Potassium Glucose Lactate Mechanical Rate FiO2 Tidal Volume PEEP Sodium Potassium Chloride Carbon Dioxide Anion Gap BUN Creatinine Est GFR ( Amer) Est GFR (Non-Af Amer) POC Glucose (mg/dL) Random Glucose Calcium Phosphorus Magnesium Iron TIBC % Saturation Ferritin 1150.0 Total Bilirubin AST ALT Alkaline Phosphatase Ammonia NT-Pro-B Natriuret Pep Total Protein Albumin Globulin Albumin/Globulin Ratio Triglycerides Cholesterol LDL Cholesterol Direct HDL Cholesterol Lipase Arterial Blood Potassium Venous Blood Potassium Salicylates < 1 L Urine Opiates Screen Urine Methadone Screen Acetaminophen < 10.0 L Ur Barbiturates Screen Ur Phencyclidine Scrn Ur Amphetamines Screen U Benzodiazepines Scrn U Oth Cocaine Metabols U Cannabinoids Screen IgG 712.5 02/16/18 02/16/18 02/16/18 10:30 11:24 12:00 WBC RBC Hgb Hct MCV MCH MCHC RDW Plt Count MPV Gran % Lymph % (Auto) Wirt % (Auto) Eos % (Auto) Baso % (Auto) Gran # Lymph # (Auto) Wirt # (Auto) Eos # (Auto) Baso # (Auto) PT INR pCO2 pO2 HCO3 ABG pH ABG Total CO2 ABG O2 Saturation ABG Base Excess ABG Potassium VBG pH VBG pCO2 VBG HCO3 VBG Total CO2 VBG O2 Sat (Calc) VBG Base Excess VBG Potassium Glucose Lactate Mechanical Rate FiO2 Tidal Volume PEEP Sodium Potassium Chloride Carbon Dioxide Anion Gap BUN Creatinine Est GFR ( Amer) Est GFR (Non-Af Amer) POC Glucose (mg/dL) 405 H* Random Glucose Calcium Phosphorus Magnesium Iron 11 L TIBC 205 L % Saturation 5 L Ferritin Total Bilirubin AST ALT Alkaline Phosphatase Ammonia NT-Pro-B Natriuret Pep Total Protein Albumin Globulin Albumin/Globulin Ratio Triglycerides 104 Cholesterol 120 L LDL Cholesterol Direct 67 HDL Cholesterol 39 Lipase 25 Arterial Blood Potassium Venous Blood Potassium Salicylates Urine Opiates Screen Urine Methadone Screen Acetaminophen Ur Barbiturates Screen Ur Phencyclidine Scrn Ur Amphetamines Screen U Benzodiazepines Scrn U Oth Cocaine Metabols U Cannabinoids Screen IgG 02/16/18 02/16/18 02/16/18 15:00 15:43 16:40 WBC RBC Hgb Hct MCV MCH MCHC RDW Plt Count MPV Gran % Lymph % (Auto) Wirt % (Auto) Eos % (Auto) Baso % (Auto) Gran # Lymph # (Auto) Wirt # (Auto) Eos # (Auto) Baso # (Auto) PT INR pCO2 pO2 HCO3 ABG pH ABG Total CO2 ABG O2 Saturation ABG Base Excess ABG Potassium VBG pH VBG pCO2 VBG HCO3 VBG Total CO2 VBG O2 Sat (Calc) VBG Base Excess VBG Potassium Glucose Lactate Mechanical Rate FiO2 Tidal Volume PEEP Sodium Potassium Chloride Carbon Dioxide Anion Gap BUN Creatinine Est GFR ( Amer) Est GFR (Non-Af Amer) POC Glucose (mg/dL) > 500 H* Random Glucose Calcium Phosphorus Magnesium Iron TIBC % Saturation Ferritin Total Bilirubin AST ALT Alkaline Phosphatase Ammonia 9 NT-Pro-B Natriuret Pep Total Protein Albumin Globulin Albumin/Globulin Ratio Triglycerides Cholesterol LDL Cholesterol Direct HDL Cholesterol Lipase Arterial Blood Potassium Venous Blood Potassium Salicylates Urine Opiates Screen Negative Urine Methadone Screen Positive H Acetaminophen Ur Barbiturates Screen Negative Ur Phencyclidine Scrn Negative Ur Amphetamines Screen Negative U Benzodiazepines Scrn Positive H U Oth Cocaine Metabols Negative U Cannabinoids Screen Negative IgG 02/16/18 02/16/18 02/16/18 16:40 16:40 17:00 WBC 9.6 RBC 3.53 Hgb 10.7 L Hct 32.1 L MCV 90.9 D MCH 30.3 MCHC 33.3 RDW 13.8 Plt Count 135 MPV 9.3 Gran % 86.9 H Lymph % (Auto) 8.9 L Wirt % (Auto) 4.0 Eos % (Auto) 0.0 L Baso % (Auto) 0.2 Gran # 8.31 H Lymph # (Auto) 0.9 L Wirt # (Auto) 0.4 Eos # (Auto) 0.0 Baso # (Auto) 0.02 PT INR pCO2 31 L pO2 61.0 L HCO3 19.2 L ABG pH 7.40 ABG Total CO2 20.2 L ABG O2 Saturation 92.7 L ABG Base Excess -4.8 L ABG Potassium 3.1 L VBG pH VBG pCO2 VBG HCO3 VBG Total CO2 VBG O2 Sat (Calc) VBG Base Excess VBG Potassium Glucose 576 H* D Lactate 2.0 Mechanical Rate 12 FiO2 50.0 Tidal Volume 400 PEEP 5 Sodium 133 133.0 Potassium 3.5 L Chloride 98 101.0 Carbon Dioxide 19 L Anion Gap 19 BUN 15 Creatinine 1.2 Est GFR ( Amer) > 60 Est GFR (Non-Af Amer) 50 POC Glucose (mg/dL) Random Glucose 595 H* D Calcium 7.8 L Phosphorus 3.1 Magnesium 2.0 Iron TIBC % Saturation Ferritin Total Bilirubin 1.3 AST 1495 H ALT 790 H Alkaline Phosphatase 235 H Ammonia NT-Pro-B Natriuret Pep 4020 H Total Protein 5.8 Albumin 2.9 L Globulin 2.9 Albumin/Globulin Ratio 1.0 L Triglycerides Cholesterol LDL Cholesterol Direct HDL Cholesterol Lipase Arterial Blood Potassium 3.1 L Venous Blood Potassium Salicylates Urine Opiates Screen Urine Methadone Screen Acetaminophen Ur Barbiturates Screen Ur Phencyclidine Scrn Ur Amphetamines Screen U Benzodiazepines Scrn U Oth Cocaine Metabols U Cannabinoids Screen IgG 02/16/18 02/16/18 02/17/18 21:15 21:33 01:34 WBC RBC Hgb Hct MCV MCH MCHC RDW Plt Count MPV Gran % Lymph % (Auto) Wirt % (Auto) Eos % (Auto) Baso % (Auto) Gran # Lymph # (Auto) Wirt # (Auto) Eos # (Auto) Baso # (Auto) PT INR pCO2 pO2 42 HCO3 ABG pH ABG Total CO2 ABG O2 Saturation ABG Base Excess ABG Potassium VBG pH 7.37 VBG pCO2 42.0 VBG HCO3 24.3 VBG Total CO2 25.6 VBG O2 Sat (Calc) 79.9 H VBG Base Excess -1.1 L VBG Potassium 3.6 Glucose 476 H* Lactate 2.3 H Mechanical Rate FiO2 21.0 Tidal Volume PEEP Sodium 134.0 Potassium Chloride 97.0 L Carbon Dioxide Anion Gap BUN Creatinine Est GFR ( Amer) Est GFR (Non-Af Amer) POC Glucose (mg/dL) 412 H* 356 H Random Glucose Calcium Phosphorus Magnesium Iron TIBC % Saturation Ferritin Total Bilirubin AST ALT Alkaline Phosphatase Ammonia NT-Pro-B Natriuret Pep Total Protein Albumin Globulin Albumin/Globulin Ratio Triglycerides Cholesterol LDL Cholesterol Direct HDL Cholesterol Lipase Arterial Blood Potassium Venous Blood Potassium 3.6 Salicylates Urine Opiates Screen Urine Methadone Screen Acetaminophen Ur Barbiturates Screen Ur Phencyclidine Scrn Ur Amphetamines Screen U Benzodiazepines Scrn U Oth Cocaine Metabols U Cannabinoids Screen IgG 02/17/18 02/17/18 02/17/18 01:45 05:20 05:20 WBC 11.1 H RBC 3.20 L Hgb 9.6 L Hct 28.8 L MCV 90.0 MCH 30.0 MCHC 33.3 RDW 13.6 Plt Count 148 MPV 9.4 Gran % 82.5 H Lymph % (Auto) 11.3 L Wirt % (Auto) 6.1 H Eos % (Auto) 0.0 L Baso % (Auto) 0.1 Gran # 9.18 H Lymph # (Auto) 1.3 Wirt # (Auto) 0.7 H Eos # (Auto) 0.0 Baso # (Auto) 0.01 PT INR pCO2 pO2 56 H HCO3 ABG pH ABG Total CO2 ABG O2 Saturation ABG Base Excess ABG Potassium VBG pH 7.39 VBG pCO2 43.0 VBG HCO3 26.0 VBG Total CO2 27.3 VBG O2 Sat (Calc) 91.0 H VBG Base Excess 0.8 VBG Potassium 3.1 L Glucose 378 H Lactate 1.5 Mechanical Rate FiO2 21.0 Tidal Volume PEEP Sodium 133.0 136 Potassium 3.3 L Chloride 100.0 98 Carbon Dioxide 26 Anion Gap 15 BUN 15 Creatinine 1.2 Est GFR ( Amer) > 60 Est GFR (Non-Af Amer) 50 POC Glucose (mg/dL) Random Glucose 322 H* D Calcium 7.4 L Phosphorus 3.4 Magnesium 1.7 Iron TIBC % Saturation Ferritin Total Bilirubin 1.2 AST 395 H D ALT 566 H Alkaline Phosphatase 224 H Ammonia NT-Pro-B Natriuret Pep Total Protein 5.3 L Albumin 2.6 L Globulin 2.8 Albumin/Globulin Ratio 0.9 L Triglycerides Cholesterol LDL Cholesterol Direct HDL Cholesterol Lipase Arterial Blood Potassium Venous Blood Potassium 3.1 L Salicylates Urine Opiates Screen Urine Methadone Screen Acetaminophen Ur Barbiturates Screen Ur Phencyclidine Scrn Ur Amphetamines Screen U Benzodiazepines Scrn U Oth Cocaine Metabols U Cannabinoids Screen IgG 02/17/18 02/17/18 05:20 05:30 WBC RBC Hgb Hct MCV MCH MCHC RDW Plt Count MPV Gran % Lymph % (Auto) Wirt % (Auto) Eos % (Auto) Baso % (Auto) Gran # Lymph # (Auto) Wirt # (Auto) Eos # (Auto) Baso # (Auto) PT 13.6 H INR 1.18 H pCO2 36 pO2 92.0 HCO3 22.8 ABG pH 7.41 ABG Total CO2 23.9 ABG O2 Saturation 97.0 ABG Base Excess -1.4 ABG Potassium 3.0 L VBG pH VBG pCO2 VBG HCO3 VBG Total CO2 VBG O2 Sat (Calc) VBG Base Excess VBG Potassium Glucose 306 H Lactate 1.2 Mechanical Rate FiO2 60.0 Tidal Volume PEEP Sodium 137.0 Potassium Chloride 108.0 H Carbon Dioxide Anion Gap BUN Creatinine Est GFR ( Amer) Est GFR (Non-Af Amer) POC Glucose (mg/dL) Random Glucose Calcium Phosphorus Magnesium Iron TIBC % Saturation Ferritin Total Bilirubin AST ALT Alkaline Phosphatase Ammonia NT-Pro-B Natriuret Pep Total Protein Albumin Globulin Albumin/Globulin Ratio Triglycerides Cholesterol LDL Cholesterol Direct HDL Cholesterol Lipase Arterial Blood Potassium 3.0 L Venous Blood Potassium Salicylates Urine Opiates Screen Urine Methadone Screen Acetaminophen Ur Barbiturates Screen Ur Phencyclidine Scrn Ur Amphetamines Screen U Benzodiazepines Scrn U Oth Cocaine Metabols U Cannabinoids Screen IgG Fingerstick Blood Sugar Results: 500 Critical Care Progress Note - Nutrition Nutrition: Nutrition Category Date Time Status Liquid Diet [DIET] Diets 02/16/18 Dinner Ordered Assessment/Plan - Assessment and Plan (Free Text) Plan: Ms SchulzMindi, 38 F, with PMhx of Hep C, polysubstance abuse, ETOH abuse x 5 years (last drink 02/15), IDDM, HTN, presented with swelling and erythema of the mouth/neck x 3 days, associated with dysphagia. CT soft tissue neck with contrast which showed Ludwigs Angina, soft tissue edema, left parapharyngeal space, epiglottis swelling, s/p abscess InD, and tracheostomy in the OR. Pt was on PS 5/5, 50-60%. Minimal suction out. Then, she became tachyneic, tachycardia , cough, so switch her to PRVC 400/12/P5/60% A 1. Ludwigs Angina Epiglotitis, Neck Cellulitis, Sepsis s/p trach, day 2 s/p I&D for abscess, day 2 (Drained 20cc pus, foul smelling) 2. DKA - resolved 3. Acute Cardiomyopathy 4. Transaminitis on NAC. 2/2 drug induce, sepsis, ischemic due to transient hypotension at SBP 90, R/O hepatitis, R/o autoimmune, pending acetaminophen level 5. ETOH abuse, Ativan induced psychosis Neuro Pain control, Fentanyl drip @150, Dilaudid 1q3PRN CIWA q4 Taper to Versed 0.5 IV Q6 KATYA; Versed 1 Q 3 PRN; B1, folate, MV Per ENT, no plan to redo decadron/CT neck UDS (+) Methadone F/U methadone clinic Nicotine patch Pulm PS 8/5 on 50% Goal is to titrate PO2 demand Continue trachy care Pending ECHO (2012, normal EF) Duoneb PRN Card Cozaar 50, Amlodipine 10 daily Stop all IVF Lasix PRN. U/O 8000 + 2200 cc overnight. Avoid over diurese Pending Echo GI re-consult swallow Eval Tissue reported very swollen. Abdominal U/S: Fatty liver, splenomegaly Liver arterial doppler: Patent portal vein Start acetylcystein per GI Nector thick, full liquid diet. - Keep cuff inflated Srtict i/o Repeat BMP at 5pm Check Mg to prevent refeeding syndrome Endo Levemir 27 BID, 7u regular insulin AC, ISSS-med Accu ACHS Heme ID CXR showed pulm edema cannot r/o pna. Pending ID rec on adding Vanco Zosyn (day 3) for G+ and anerobe coverage Doxy (day 1) CAP coverage Got in ED: Clindamycin, Zosyn Decadrone x 1 BCx neg x 2 day Wound Cx - anerobe neg x 1d PVX protonix, heparin SC Dispo OOB to chair Consult Dr. Tamayo, Dr Shannon, Dr Lanier s/r/d/w Dr Garcia <Ray Garcia - Last Filed: 02/17/18 13:05> CCU Objective - Vital Signs / Intake & Output Vital Signs (Last 4 hours): Vital Signs Pulse BP 02/17/18 09:25 92 H 105/75 Intake and Output (Last 8hrs): Intake & Output 02/16/18 02/17/18 02/17/18 22:59 06:59 14:59 Intake Total 941 1224 100 Output Total 6760 2200 Balance -5819 -976 100 Intake: IV 461 1024 100 Right Forearm 350 Right Wrist 844 fentanyl 56 130 insulin 5 Oral 480 200 Output: Urine 6760 2200 Urine, Voided 6760 2200 Stool 0 0 - Medications Active Medications: Active Medications Generic Name Dose Route Start Last Admin Trade Name Freq PRN Reason Stop Dose Admin Albuterol/Ipratropium 3 ml 02/16/18 19:55 02/17/18 02:35 Duoneb 3 Mg/0.5 Mg (3 Ml) Ud IH 3 ml Q2H PRN Administration Shortness of Breath Amlodipine Besylate 10 mg 02/16/18 14:15 02/17/18 09:25 Norvasc PO 10 mg DAILY KATYA Administration Folic Acid 1 mg 02/17/18 10:00 02/17/18 09:31 Folic Acid PO 1 mg DAILY KATYA Administration Hydromorphone HCl 1 mg 02/15/18 15:15 02/16/18 22:33 Dilaudid IVP 1 mg Q3H PRN Administration Pain, severe (8-10) Fentanyl Citrate 1,000 mcg in 100 mls @ 2 mls/hr 02/15/18 14:51 02/17/18 08: 03 Fentanyl Citrate/Sodium Chloride 1 Mg/100 Ml IV 150 mcg/hr .Q24H PRN 15 mls/hr TITRATE PER MD ORDER Administration Protocol 20 MCG/HR Piperacillin Sod/Tazobactam Sod 4.5 gm in 100 mls @ 200 mls/hr 02/15/18 18:00 02/17/18 05:43 Zosyn 4.5 Gm In Ns 100ml IVPB 02/22/18 18:01 200 mls/hr Q6 KATYA Administration Protocol Vancomycin HCl 2 gm/ Sodium 500 mls @ 170 mls/hr 02/17/18 10:23 Chloride IVPB 02/17/18 13:19 ONCE ONE Protocol Doxycycline Hyclate 100 mg/ 100 mls @ 100 mls/hr 02/17/18 10:30 Sodium Chloride IVPB Q12 KATYA Protocol Insulin Detemir 35 unit 02/17/18 09:54 Levemir SC Q12 KATYA Insulin Human Regular 0 units 02/16/18 12:30 02/17/18 08:35 Humulin R Med SC 7 units ACHS KATYA Administration Protocol Insulin Human Regular 7 units 02/16/18 16:30 02/17/18 08:38 Humulin R SC 7 units AC KATYA Administration Losartan Potassium 50 mg 02/16/18 12:15 02/17/18 09:25 Cozaar PO 50 mg DAILY KATYA Administration Midazolam HCl 0.5 mg 02/17/18 18:00 Versed Inj IVP Q6 KATYA Midazolam HCl 1 mg 02/17/18 15:00 Versed Inj IVP Q3 PRN Symptoms of alcohol withdrawl Multivitamins 1 tab 02/18/18 08:00 Thera Tab PO 0800 [facility] Nicotine 1 patch 02/16/18 15:45 02/17/18 09:28 Nicoderm Cq TD 1 patch DAILY KATYA Administration Pantoprazole Sodium 40 mg 02/16/18 10:00 02/17/18 09:28 Protonix Inj IVP 40 mg DAILY KATYA Administration Saliva Substitute 1 ml 02/15/18 10:54 02/15/18 20:58 Saliva Substitute PO 1 ml Q2H PRN Administration Dry mouth Thiamine HCl 100 mg 02/16/18 10:00 02/17/18 09:36 Vitamin B1 Inj IM 100 mg DAILY KATYA Administration - Patient Studies Lab Studies: Microbiology Studies 02/15/18 16:00 Anaerobic Culture - Final Abscess - Neck NO ANAEROBES ISOLATED. Lab Studies 02/17/18 02/17/18 02/17/18 Range/Units 05:30 05:20 05:20 WBC (4.5-11.0) 10^3/ul RBC (3.5-6.1) 10^6/uL Hgb (12.0-16.0) g/dL Hct (36.0-48.0) % MCV (80.0-105.0) fl MCH (25.0-35.0) pg MCHC (31.0-37.0) g/dl RDW (11.5-14.5) % Plt Count (120.0-450.0) 10^3/uL MPV (7.0-11.0) fl Gran % (50.0-68.0) % Lymph % (Auto) (22.0-35.0) % Wirt % (Auto) (1.0-6.0) % Eos % (Auto) (1.5-5.0) % Baso % (Auto) (0.0-3.0) % Gran # (1.4-6.5) Lymph # (Auto) (1.2-3.4) Wirt # (Auto) (0.1-0.6) Eos # (Auto) (0.0-0.7) Baso # (Auto) (0.0-2.0) K/mm3 PT 13.6 H (9.4-12.5) SECONDS INR 1.18 H (0.93-1.08) pCO2 36 (35-45) mm/Hg pO2 92.0 (80-100) mm/Hg HCO3 22.8 (21-28) mmol/L ABG pH 7.41 (7.35-7.45) ABG Total CO2 23.9 (22-28) mmol.L ABG O2 Saturation 97.0 (95-98) % ABG Base Excess -1.4 (-2.0-3.0) mmol/L ABG Potassium 3.0 L (3.6-5.2) mmol/L VBG pH (7.32-7.43) VBG pCO2 (40-60) VBG HCO3 (21-28) mmol/l VBG Total CO2 (22-28) mmol.L VBG O2 Sat (Calc) (40-65) % VBG Base Excess (0.0-2.0) mmol/L VBG Potassium (3.6-5.2) mmol/L Glucose 306 H (65-105) mg/dl Lactate 1.2 (0.7-2.1) mmol/L Mechanical Rate FiO2 60.0 % Tidal Volume PEEP Sodium 137.0 136 (132-148) mmol/L Potassium 3.3 L (3.6-5.0) mmol/L Chloride 108.0 H 98 (98-107) mmol/L Carbon Dioxide 26 (21-33) mmol/L Anion Gap 15 (10-20) BUN 15 (7-21) mg/dL Creatinine 1.2 (0.7-1.2) mg/dl Est GFR ( Amer) > 60 Est GFR (Non-Af Amer) 50 POC Glucose (mg/dL) (65-110) mg/dL Random Glucose 322 H* D (70-110) mg/dL Calcium 7.4 L (8.4-10.5) mg/dL Phosphorus 3.4 (2.5-4.5) mg/dL Magnesium 1.7 (1.7-2.2) mg/dL Ferritin ng/mL Total Bilirubin 1.2 (0.2-1.3) mg/dL AST 395 H D (14-36) U/L ALT 566 H (7-56) U/L Alkaline Phosphatase 224 H (38-126) U/L Ammonia (9-33) umol/L NT-Pro-B Natriuret Pep (0-450) pg/mL Total Protein 5.3 L (5.8-8.3) g/dL Albumin 2.6 L (3.0-4.8) g/dL Globulin 2.8 gm/dL Albumin/Globulin Ratio 0.9 L (1.1-1.8) Arterial Blood Potassium 3.0 L (3.6-5.2) mmol/L Venous Blood Potassium (3.6-5.2) mmol/L Urine Opiates Screen (NEGATIVE) Urine Methadone Screen (NEGATIVE) Ur Barbiturates Screen (NEGATIVE) Ur Phencyclidine Scrn (NEGATIVE) Ur Amphetamines Screen (NEGATIVE) U Benzodiazepines Scrn (NEGATIVE) U Oth Cocaine Metabols (NEGATIVE) U Cannabinoids Screen (NEGATIVE) IgG (700.0-1600.0) mg/dL Anti-Mitochondrial Ab (Negative) Hepatitis A IgM Ab (NEGATIVE) Hep Bs Antigen (NEGATIVE) Hep B Core IgM Ab (NEGATIVE) Hepatitis C Antibody (NEGATIVE) 02/17/18 02/17/18 02/17/18 Range/Units 05:20 01:45 01:34 WBC 11.1 H (4.5-11.0) 10^3/ul RBC 3.20 L (3.5-6.1) 10^6/uL Hgb 9.6 L (12.0-16.0) g/dL Hct 28.8 L (36.0-48.0) % MCV 90.0 (80.0-105.0) fl MCH 30.0 (25.0-35.0) pg MCHC 33.3 (31.0-37.0) g/dl RDW 13.6 (11.5-14.5) % Plt Count 148 (120.0-450.0) 10^3/uL MPV 9.4 (7.0-11.0) fl Gran % 82.5 H (50.0-68.0) % Lymph % (Auto) 11.3 L (22.0-35.0) % Wirt % (Auto) 6.1 H (1.0-6.0) % Eos % (Auto) 0.0 L (1.5-5.0) % Baso % (Auto) 0.1 (0.0-3.0) % Gran # 9.18 H (1.4-6.5) Lymph # (Auto) 1.3 (1.2-3.4) Wirt # (Auto) 0.7 H (0.1-0.6) Eos # (Auto) 0.0 (0.0-0.7) Baso # (Auto) 0.01 (0.0-2.0) K/mm3 PT (9.4-12.5) SECONDS INR (0.93-1.08) pCO2 (35-45) mm/Hg pO2 56 H (80-100) mm/Hg HCO3 (21-28) mmol/L ABG pH (7.35-7.45) ABG Total CO2 (22-28) mmol.L ABG O2 Saturation (95-98) % ABG Base Excess (-2.0-3.0) mmol/L ABG Potassium (3.6-5.2) mmol/L VBG pH 7.39 (7.32-7.43) VBG pCO2 43.0 (40-60) VBG HCO3 26.0 (21-28) mmol/l VBG Total CO2 27.3 (22-28) mmol.L VBG O2 Sat (Calc) 91.0 H (40-65) % VBG Base Excess 0.8 (0.0-2.0) mmol/L VBG Potassium 3.1 L (3.6-5.2) mmol/L Glucose 378 H (65-105) mg/dl Lactate 1.5 (0.7-2.1) mmol/L Mechanical Rate FiO2 21.0 % Tidal Volume PEEP Sodium 133.0 (132-148) mmol/L Potassium (3.6-5.0) mmol/L Chloride 100.0 (98-107) mmol/L Carbon Dioxide (21-33) mmol/L Anion Gap (10-20) BUN (7-21) mg/dL Creatinine (0.7-1.2) mg/dl Est GFR ( Amer) Est GFR (Non-Af Amer) POC Glucose (mg/dL) 356 H (65-110) mg/dL Random Glucose (70-110) mg/dL Calcium (8.4-10.5) mg/dL Phosphorus (2.5-4.5) mg/dL Magnesium (1.7-2.2) mg/dL Ferritin ng/mL Total Bilirubin (0.2-1.3) mg/dL AST (14-36) U/L ALT (7-56) U/L Alkaline Phosphatase (38-126) U/L Ammonia (9-33) umol/L NT-Pro-B Natriuret Pep (0-450) pg/mL Total Protein (5.8-8.3) g/dL Albumin (3.0-4.8) g/dL Globulin gm/dL Albumin/Globulin Ratio (1.1-1.8) Arterial Blood Potassium (3.6-5.2) mmol/L Venous Blood Potassium 3.1 L (3.6-5.2) mmol/L Urine Opiates Screen (NEGATIVE) Urine Methadone Screen (NEGATIVE) Ur Barbiturates Screen (NEGATIVE) Ur Phencyclidine Scrn (NEGATIVE) Ur Amphetamines Screen (NEGATIVE) U Benzodiazepines Scrn (NEGATIVE) U Oth Cocaine Metabols (NEGATIVE) U Cannabinoids Screen (NEGATIVE) IgG (700.0-1600.0) mg/dL Anti-Mitochondrial Ab (Negative) Hepatitis A IgM Ab (NEGATIVE) Hep Bs Antigen (NEGATIVE) Hep B Core IgM Ab (NEGATIVE) Hepatitis C Antibody (NEGATIVE) 02/16/18 02/16/18 02/16/18 Range/Units 21:33 21:15 17:00 WBC (4.5-11.0) 10^3/ul RBC (3.5-6.1) 10^6/uL Hgb (12.0-16.0) g/dL Hct (36.0-48.0) % MCV (80.0-105.0) fl MCH (25.0-35.0) pg MCHC (31.0-37.0) g/dl RDW (11.5-14.5) % Plt Count (120.0-450.0) 10^3/uL MPV (7.0-11.0) fl Gran % (50.0-68.0) % Lymph % (Auto) (22.0-35.0) % Wirt % (Auto) (1.0-6.0) % Eos % (Auto) (1.5-5.0) % Baso % (Auto) (0.0-3.0) % Gran # (1.4-6.5) Lymph # (Auto) (1.2-3.4) Wirt # (Auto) (0.1-0.6) Eos # (Auto) (0.0-0.7) Baso # (Auto) (0.0-2.0) K/mm3 PT (9.4-12.5) SECONDS INR (0.93-1.08) pCO2 31 L (35-45) mm/Hg pO2 42 61.0 L (80-100) mm/Hg HCO3 19.2 L (21-28) mmol/L ABG pH 7.40 (7.35-7.45) ABG Total CO2 20.2 L (22-28) mmol.L ABG O2 Saturation 92.7 L (95-98) % ABG Base Excess -4.8 L (-2.0-3.0) mmol/L ABG Potassium 3.1 L (3.6-5.2) mmol/L VBG pH 7.37 (7.32-7.43) VBG pCO2 42.0 (40-60) VBG HCO3 24.3 (21-28) mmol/l VBG Total CO2 25.6 (22-28) mmol.L VBG O2 Sat (Calc) 79.9 H (40-65) % VBG Base Excess -1.1 L (0.0-2.0) mmol/L VBG Potassium 3.6 (3.6-5.2) mmol/L Glucose 476 H* 576 H* D (65-105) mg/dl Lactate 2.3 H 2.0 (0.7-2.1) mmol/L Mechanical Rate 12 FiO2 21.0 50.0 % Tidal Volume 400 PEEP 5 Sodium 134.0 133.0 (132-148) mmol/L Potassium (3.6-5.0) mmol/L Chloride 97.0 L 101.0 (98-107) mmol/L Carbon Dioxide (21-33) mmol/L Anion Gap (10-20) BUN (7-21) mg/dL Creatinine (0.7-1.2) mg/dl Est GFR ( Amer) Est GFR (Non-Af Amer) POC Glucose (mg/dL) 412 H* (65-110) mg/dL Random Glucose (70-110) mg/dL Calcium (8.4-10.5) mg/dL Phosphorus (2.5-4.5) mg/dL Magnesium (1.7-2.2) mg/dL Ferritin ng/mL Total Bilirubin (0.2-1.3) mg/dL AST (14-36) U/L ALT (7-56) U/L Alkaline Phosphatase (38-126) U/L Ammonia (9-33) umol/L NT-Pro-B Natriuret Pep (0-450) pg/mL Total Protein (5.8-8.3) g/dL Albumin (3.0-4.8) g/dL Globulin gm/dL Albumin/Globulin Ratio (1.1-1.8) Arterial Blood Potassium 3.1 L (3.6-5.2) mmol/L Venous Blood Potassium 3.6 (3.6-5.2) mmol/L Urine Opiates Screen (NEGATIVE) Urine Methadone Screen (NEGATIVE) Ur Barbiturates Screen (NEGATIVE) Ur Phencyclidine Scrn (NEGATIVE) Ur Amphetamines Screen (NEGATIVE) U Benzodiazepines Scrn (NEGATIVE) U Oth Cocaine Metabols (NEGATIVE) U Cannabinoids Screen (NEGATIVE) IgG (700.0-1600.0) mg/dL Anti-Mitochondrial Ab (Negative) Hepatitis A IgM Ab (NEGATIVE) Hep Bs Antigen (NEGATIVE) Hep B Core IgM Ab (NEGATIVE) Hepatitis C Antibody (NEGATIVE) 02/16/18 02/16/18 02/16/18 Range/Units 16:40 16:40 16:40 WBC 9.6 (4.5-11.0) 10^3/ul RBC 3.53 (3.5-6.1) 10^6/uL Hgb 10.7 L (12.0-16.0) g/dL Hct 32.1 L (36.0-48.0) % MCV 90.9 D (80.0-105.0) fl MCH 30.3 (25.0-35.0) pg MCHC 33.3 (31.0-37.0) g/dl RDW 13.8 (11.5-14.5) % Plt Count 135 (120.0-450.0) 10^3/uL MPV 9.3 (7.0-11.0) fl Gran % 86.9 H (50.0-68.0) % Lymph % (Auto) 8.9 L (22.0-35.0) % Wirt % (Auto) 4.0 (1.0-6.0) % Eos % (Auto) 0.0 L (1.5-5.0) % Baso % (Auto) 0.2 (0.0-3.0) % Gran # 8.31 H (1.4-6.5) Lymph # (Auto) 0.9 L (1.2-3.4) Wirt # (Auto) 0.4 (0.1-0.6) Eos # (Auto) 0.0 (0.0-0.7) Baso # (Auto) 0.02 (0.0-2.0) K/mm3 PT (9.4-12.5) SECONDS INR (0.93-1.08) pCO2 (35-45) mm/Hg pO2 (80-100) mm/Hg HCO3 (21-28) mmol/L ABG pH (7.35-7.45) ABG Total CO2 (22-28) mmol.L ABG O2 Saturation (95-98) % ABG Base Excess (-2.0-3.0) mmol/L ABG Potassium (3.6-5.2) mmol/L VBG pH (7.32-7.43) VBG pCO2 (40-60) VBG HCO3 (21-28) mmol/l VBG Total CO2 (22-28) mmol.L VBG O2 Sat (Calc) (40-65) % VBG Base Excess (0.0-2.0) mmol/L VBG Potassium (3.6-5.2) mmol/L Glucose (65-105) mg/dl Lactate (0.7-2.1) mmol/L Mechanical Rate FiO2 % Tidal Volume PEEP Sodium 133 (132-148) mmol/L Potassium 3.5 L (3.6-5.0) mmol/L Chloride 98 (98-107) mmol/L Carbon Dioxide 19 L (21-33) mmol/L Anion Gap 19 (10-20) BUN 15 (7-21) mg/dL Creatinine 1.2 (0.7-1.2) mg/dl Est GFR ( Amer) > 60 Est GFR (Non-Af Amer) 50 POC Glucose (mg/dL) (65-110) mg/dL Random Glucose 595 H* D (70-110) mg/dL Calcium 7.8 L (8.4-10.5) mg/dL Phosphorus 3.1 (2.5-4.5) mg/dL Magnesium 2.0 (1.7-2.2) mg/dL Ferritin ng/mL Total Bilirubin 1.3 (0.2-1.3) mg/dL AST 1495 H (14-36) U/L ALT 790 H (7-56) U/L Alkaline Phosphatase 235 H (38-126) U/L Ammonia 9 (9-33) umol/L NT-Pro-B Natriuret Pep 4020 H (0-450) pg/mL Total Protein 5.8 (5.8-8.3) g/dL Albumin 2.9 L (3.0-4.8) g/dL Globulin 2.9 gm/dL Albumin/Globulin Ratio 1.0 L (1.1-1.8) Arterial Blood Potassium (3.6-5.2) mmol/L Venous Blood Potassium (3.6-5.2) mmol/L Urine Opiates Screen (NEGATIVE) Urine Methadone Screen (NEGATIVE) Ur Barbiturates Screen (NEGATIVE) Ur Phencyclidine Scrn (NEGATIVE) Ur Amphetamines Screen (NEGATIVE) U Benzodiazepines Scrn (NEGATIVE) U Oth Cocaine Metabols (NEGATIVE) U Cannabinoids Screen (NEGATIVE) IgG (700.0-1600.0) mg/dL Anti-Mitochondrial Ab (Negative) Hepatitis A IgM Ab (NEGATIVE) Hep Bs Antigen (NEGATIVE) Hep B Core IgM Ab (NEGATIVE) Hepatitis C Antibody (NEGATIVE) 02/16/18 02/16/18 02/16/18 Range/Units 15:43 15:00 10:30 WBC (4.5-11.0) 10^3/ul RBC (3.5-6.1) 10^6/uL Hgb (12.0-16.0) g/dL Hct (36.0-48.0) % MCV (80.0-105.0) fl MCH (25.0-35.0) pg MCHC (31.0-37.0) g/dl RDW (11.5-14.5) % Plt Count (120.0-450.0) 10^3/uL MPV (7.0-11.0) fl Gran % (50.0-68.0) % Lymph % (Auto) (22.0-35.0) % Wirt % (Auto) (1.0-6.0) % Eos % (Auto) (1.5-5.0) % Baso % (Auto) (0.0-3.0) % Gran # (1.4-6.5) Lymph # (Auto) (1.2-3.4) Wirt # (Auto) (0.1-0.6) Eos # (Auto) (0.0-0.7) Baso # (Auto) (0.0-2.0) K/mm3 PT (9.4-12.5) SECONDS INR (0.93-1.08) pCO2 (35-45) mm/Hg pO2 (80-100) mm/Hg HCO3 (21-28) mmol/L ABG pH (7.35-7.45) ABG Total CO2 (22-28) mmol.L ABG O2 Saturation (95-98) % ABG Base Excess (-2.0-3.0) mmol/L ABG Potassium (3.6-5.2) mmol/L VBG pH (7.32-7.43) VBG pCO2 (40-60) VBG HCO3 (21-28) mmol/l VBG Total CO2 (22-28) mmol.L VBG O2 Sat (Calc) (40-65) % VBG Base Excess (0.0-2.0) mmol/L VBG Potassium (3.6-5.2) mmol/L Glucose (65-105) mg/dl Lactate (0.7-2.1) mmol/L Mechanical Rate FiO2 % Tidal Volume PEEP Sodium (132-148) mmol/L Potassium (3.6-5.0) mmol/L Chloride (98-107) mmol/L Carbon Dioxide (21-33) mmol/L Anion Gap (10-20) BUN (7-21) mg/dL Creatinine (0.7-1.2) mg/dl Est GFR ( Amer) Est GFR (Non-Af Amer) POC Glucose (mg/dL) > 500 H* (65-110) mg/dL Random Glucose (70-110) mg/dL Calcium (8.4-10.5) mg/dL Phosphorus (2.5-4.5) mg/dL Magnesium (1.7-2.2) mg/dL Ferritin ng/mL Total Bilirubin (0.2-1.3) mg/dL AST (14-36) U/L ALT (7-56) U/L Alkaline Phosphatase (38-126) U/L Ammonia (9-33) umol/L NT-Pro-B Natriuret Pep (0-450) pg/mL Total Protein (5.8-8.3) g/dL Albumin (3.0-4.8) g/dL Globulin gm/dL Albumin/Globulin Ratio (1.1-1.8) Arterial Blood Potassium (3.6-5.2) mmol/L Venous Blood Potassium (3.6-5.2) mmol/L Urine Opiates Screen Negative (NEGATIVE) Urine Methadone Screen Positive H (NEGATIVE) Ur Barbiturates Screen Negative (NEGATIVE) Ur Phencyclidine Scrn Negative (NEGATIVE) Ur Amphetamines Screen Negative (NEGATIVE) U Benzodiazepines Scrn Positive H (NEGATIVE) U Oth Cocaine Metabols Negative (NEGATIVE) U Cannabinoids Screen Negative (NEGATIVE) IgG (700.0-1600.0) mg/dL Anti-Mitochondrial Ab Negative (Negative) Hepatitis A IgM Ab (NEGATIVE) Hep Bs Antigen (NEGATIVE) Hep B Core IgM Ab (NEGATIVE) Hepatitis C Antibody (NEGATIVE) 02/16/18 02/16/18 02/15/18 Range/Units 10:30 10:30 16:00 WBC (4.5-11.0) 10^3/ul RBC (3.5-6.1) 10^6/uL Hgb (12.0-16.0) g/dL Hct (36.0-48.0) % MCV (80.0-105.0) fl MCH (25.0-35.0) pg MCHC (31.0-37.0) g/dl RDW (11.5-14.5) % Plt Count (120.0-450.0) 10^3/uL MPV (7.0-11.0) fl Gran % (50.0-68.0) % Lymph % (Auto) (22.0-35.0) % Wirt % (Auto) (1.0-6.0) % Eos % (Auto) (1.5-5.0) % Baso % (Auto) (0.0-3.0) % Gran # (1.4-6.5) Lymph # (Auto) (1.2-3.4) Wirt # (Auto) (0.1-0.6) Eos # (Auto) (0.0-0.7) Baso # (Auto) (0.0-2.0) K/mm3 PT (9.4-12.5) SECONDS INR (0.93-1.08) pCO2 (35-45) mm/Hg pO2 (80-100) mm/Hg HCO3 (21-28) mmol/L ABG pH (7.35-7.45) ABG Total CO2 (22-28) mmol.L ABG O2 Saturation (95-98) % ABG Base Excess (-2.0-3.0) mmol/L ABG Potassium (3.6-5.2) mmol/L VBG pH (7.32-7.43) VBG pCO2 (40-60) VBG HCO3 (21-28) mmol/l VBG Total CO2 (22-28) mmol.L VBG O2 Sat (Calc) (40-65) % VBG Base Excess (0.0-2.0) mmol/L VBG Potassium (3.6-5.2) mmol/L Glucose (65-105) mg/dl Lactate (0.7-2.1) mmol/L Mechanical Rate FiO2 % Tidal Volume PEEP Sodium (132-148) mmol/L Potassium (3.6-5.0) mmol/L Chloride (98-107) mmol/L Carbon Dioxide (21-33) mmol/L Anion Gap (10-20) BUN (7-21) mg/dL Creatinine (0.7-1.2) mg/dl Est GFR ( Amer) Est GFR (Non-Af Amer) POC Glucose (mg/dL) (65-110) mg/dL Random Glucose (70-110) mg/dL Calcium (8.4-10.5) mg/dL Phosphorus (2.5-4.5) mg/dL Magnesium (1.7-2.2) mg/dL Ferritin 1150.0 ng/mL Total Bilirubin (0.2-1.3) mg/dL AST (14-36) U/L ALT (7-56) U/L Alkaline Phosphatase (38-126) U/L Ammonia (9-33) umol/L NT-Pro-B Natriuret Pep (0-450) pg/mL Total Protein (5.8-8.3) g/dL Albumin (3.0-4.8) g/dL Globulin gm/dL Albumin/Globulin Ratio (1.1-1.8) Arterial Blood Potassium (3.6-5.2) mmol/L Venous Blood Potassium (3.6-5.2) mmol/L Urine Opiates Screen (NEGATIVE) Urine Methadone Screen (NEGATIVE) Ur Barbiturates Screen (NEGATIVE) Ur Phencyclidine Scrn (NEGATIVE) Ur Amphetamines Screen (NEGATIVE) U Benzodiazepines Scrn (NEGATIVE) U Oth Cocaine Metabols (NEGATIVE) U Cannabinoids Screen (NEGATIVE) IgG 712.5 (700.0-1600.0) mg/dL Anti-Mitochondrial Ab (Negative) Hepatitis A IgM Ab Negative (NEGATIVE) Hep Bs Antigen Negative (NEGATIVE) Hep B Core IgM Ab Negative (NEGATIVE) Hepatitis C Antibody Reactive (NEGATIVE) Laboratory Results - last 24 hr 02/15/18 02/16/18 02/16/18 16:00 10:30 10:30 WBC RBC Hgb Hct MCV MCH MCHC RDW Plt Count MPV Gran % Lymph % (Auto) Wirt % (Auto) Eos % (Auto) Baso % (Auto) Gran # Lymph # (Auto) Wirt # (Auto) Eos # (Auto) Baso # (Auto) PT INR pCO2 pO2 HCO3 ABG pH ABG Total CO2 ABG O2 Saturation ABG Base Excess ABG Potassium VBG pH VBG pCO2 VBG HCO3 VBG Total CO2 VBG O2 Sat (Calc) VBG Base Excess VBG Potassium Glucose Lactate Mechanical Rate FiO2 Tidal Volume PEEP Sodium Potassium Chloride Carbon Dioxide Anion Gap BUN Creatinine Est GFR ( Amer) Est GFR (Non-Af Amer) POC Glucose (mg/dL) Random Glucose Calcium Phosphorus Magnesium Ferritin 1150.0 Total Bilirubin AST ALT Alkaline Phosphatase Ammonia NT-Pro-B Natriuret Pep Total Protein Albumin Globulin Albumin/Globulin Ratio Arterial Blood Potassium Venous Blood Potassium Urine Opiates Screen Urine Methadone Screen Ur Barbiturates Screen Ur Phencyclidine Scrn Ur Amphetamines Screen U Benzodiazepines Scrn U Oth Cocaine Metabols U Cannabinoids Screen IgG 712.5 Anti-Mitochondrial Ab Hepatitis A IgM Ab Negative Hep Bs Antigen Negative Hep B Core IgM Ab Negative Hepatitis C Antibody Reactive 02/16/18 02/16/18 02/16/18 10:30 15:00 15:43 WBC RBC Hgb Hct MCV MCH MCHC RDW Plt Count MPV Gran % Lymph % (Auto) Wirt % (Auto) Eos % (Auto) Baso % (Auto) Gran # Lymph # (Auto) Wirt # (Auto) Eos # (Auto) Baso # (Auto) PT INR pCO2 pO2 HCO3 ABG pH ABG Total CO2 ABG O2 Saturation ABG Base Excess ABG Potassium VBG pH VBG pCO2 VBG HCO3 VBG Total CO2 VBG O2 Sat (Calc) VBG Base Excess VBG Potassium Glucose Lactate Mechanical Rate FiO2 Tidal Volume PEEP Sodium Potassium Chloride Carbon Dioxide Anion Gap BUN Creatinine Est GFR ( Amer) Est GFR (Non-Af Amer) POC Glucose (mg/dL) > 500 H* Random Glucose Calcium Phosphorus Magnesium Ferritin Total Bilirubin AST ALT Alkaline Phosphatase Ammonia NT-Pro-B Natriuret Pep Total Protein Albumin Globulin Albumin/Globulin Ratio Arterial Blood Potassium Venous Blood Potassium Urine Opiates Screen Negative Urine Methadone Screen Positive H Ur Barbiturates Screen Negative Ur Phencyclidine Scrn Negative Ur Amphetamines Screen Negative U Benzodiazepines Scrn Positive H U Oth Cocaine Metabols Negative U Cannabinoids Screen Negative IgG Anti-Mitochondrial Ab Negative Hepatitis A IgM Ab Hep Bs Antigen Hep B Core IgM Ab Hepatitis C Antibody 02/16/18 02/16/18 02/16/18 16:40 16:40 16:40 WBC 9.6 RBC 3.53 Hgb 10.7 L Hct 32.1 L MCV 90.9 D MCH 30.3 MCHC 33.3 RDW 13.8 Plt Count 135 MPV 9.3 Gran % 86.9 H Lymph % (Auto) 8.9 L Wirt % (Auto) 4.0 Eos % (Auto) 0.0 L Baso % (Auto) 0.2 Gran # 8.31 H Lymph # (Auto) 0.9 L Wirt # (Auto) 0.4 Eos # (Auto) 0.0 Baso # (Auto) 0.02 PT INR pCO2 pO2 HCO3 ABG pH ABG Total CO2 ABG O2 Saturation ABG Base Excess ABG Potassium VBG pH VBG pCO2 VBG HCO3 VBG Total CO2 VBG O2 Sat (Calc) VBG Base Excess VBG Potassium Glucose Lactate Mechanical Rate FiO2 Tidal Volume PEEP Sodium 133 Potassium 3.5 L Chloride 98 Carbon Dioxide 19 L Anion Gap 19 BUN 15 Creatinine 1.2 Est GFR ( Amer) > 60 Est GFR (Non-Af Amer) 50 POC Glucose (mg/dL) Random Glucose 595 H* D Calcium 7.8 L Phosphorus 3.1 Magnesium 2.0 Ferritin Total Bilirubin 1.3 AST 1495 H ALT 790 H Alkaline Phosphatase 235 H Ammonia 9 NT-Pro-B Natriuret Pep 4020 H Total Protein 5.8 Albumin 2.9 L Globulin 2.9 Albumin/Globulin Ratio 1.0 L Arterial Blood Potassium Venous Blood Potassium Urine Opiates Screen Urine Methadone Screen Ur Barbiturates Screen Ur Phencyclidine Scrn Ur Amphetamines Screen U Benzodiazepines Scrn U Oth Cocaine Metabols U Cannabinoids Screen IgG Anti-Mitochondrial Ab Hepatitis A IgM Ab Hep Bs Antigen Hep B Core IgM Ab Hepatitis C Antibody 02/16/18 02/16/18 02/16/18 17:00 21:15 21:33 WBC RBC Hgb Hct MCV MCH MCHC RDW Plt Count MPV Gran % Lymph % (Auto) Wirt % (Auto) Eos % (Auto) Baso % (Auto) Gran # Lymph # (Auto) Wirt # (Auto) Eos # (Auto) Baso # (Auto) PT INR pCO2 31 L pO2 61.0 L 42 HCO3 19.2 L ABG pH 7.40 ABG Total CO2 20.2 L ABG O2 Saturation 92.7 L ABG Base Excess -4.8 L ABG Potassium 3.1 L VBG pH 7.37 VBG pCO2 42.0 VBG HCO3 24.3 VBG Total CO2 25.6 VBG O2 Sat (Calc) 79.9 H VBG Base Excess -1.1 L VBG Potassium 3.6 Glucose 576 H* D 476 H* Lactate 2.0 2.3 H Mechanical Rate 12 FiO2 50.0 21.0 Tidal Volume 400 PEEP 5 Sodium 133.0 134.0 Potassium Chloride 101.0 97.0 L Carbon Dioxide Anion Gap BUN Creatinine Est GFR ( Amer) Est GFR (Non-Af Amer) POC Glucose (mg/dL) 412 H* Random Glucose Calcium Phosphorus Magnesium Ferritin Total Bilirubin AST ALT Alkaline Phosphatase Ammonia NT-Pro-B Natriuret Pep Total Protein Albumin Globulin Albumin/Globulin Ratio Arterial Blood Potassium 3.1 L Venous Blood Potassium 3.6 Urine Opiates Screen Urine Methadone Screen Ur Barbiturates Screen Ur Phencyclidine Scrn Ur Amphetamines Screen U Benzodiazepines Scrn U Oth Cocaine Metabols U Cannabinoids Screen IgG Anti-Mitochondrial Ab Hepatitis A IgM Ab Hep Bs Antigen Hep B Core IgM Ab Hepatitis C Antibody 02/17/18 02/17/18 02/17/18 01:34 01:45 05:20 WBC 11.1 H RBC 3.20 L Hgb 9.6 L Hct 28.8 L MCV 90.0 MCH 30.0 MCHC 33.3 RDW 13.6 Plt Count 148 MPV 9.4 Gran % 82.5 H Lymph % (Auto) 11.3 L Wirt % (Auto) 6.1 H Eos % (Auto) 0.0 L Baso % (Auto) 0.1 Gran # 9.18 H Lymph # (Auto) 1.3 Wirt # (Auto) 0.7 H Eos # (Auto) 0.0 Baso # (Auto) 0.01 PT INR pCO2 pO2 56 H HCO3 ABG pH ABG Total CO2 ABG O2 Saturation ABG Base Excess ABG Potassium VBG pH 7.39 VBG pCO2 43.0 VBG HCO3 26.0 VBG Total CO2 27.3 VBG O2 Sat (Calc) 91.0 H VBG Base Excess 0.8 VBG Potassium 3.1 L Glucose 378 H Lactate 1.5 Mechanical Rate FiO2 21.0 Tidal Volume PEEP Sodium 133.0 Potassium Chloride 100.0 Carbon Dioxide Anion Gap BUN Creatinine Est GFR ( Amer) Est GFR (Non-Af Amer) POC Glucose (mg/dL) 356 H Random Glucose Calcium Phosphorus Magnesium Ferritin Total Bilirubin AST ALT Alkaline Phosphatase Ammonia NT-Pro-B Natriuret Pep Total Protein Albumin Globulin Albumin/Globulin Ratio Arterial Blood Potassium Venous Blood Potassium 3.1 L Urine Opiates Screen Urine Methadone Screen Ur Barbiturates Screen Ur Phencyclidine Scrn Ur Amphetamines Screen U Benzodiazepines Scrn U Oth Cocaine Metabols U Cannabinoids Screen IgG Anti-Mitochondrial Ab Hepatitis A IgM Ab Hep Bs Antigen Hep B Core IgM Ab Hepatitis C Antibody 02/17/18 02/17/18 02/17/18 05:20 05:20 05:30 WBC RBC Hgb Hct MCV MCH MCHC RDW Plt Count MPV Gran % Lymph % (Auto) Wirt % (Auto) Eos % (Auto) Baso % (Auto) Gran # Lymph # (Auto) Wirt # (Auto) Eos # (Auto) Baso # (Auto) PT 13.6 H INR 1.18 H pCO2 36 pO2 92.0 HCO3 22.8 ABG pH 7.41 ABG Total CO2 23.9 ABG O2 Saturation 97.0 ABG Base Excess -1.4 ABG Potassium 3.0 L VBG pH VBG pCO2 VBG HCO3 VBG Total CO2 VBG O2 Sat (Calc) VBG Base Excess VBG Potassium Glucose 306 H Lactate 1.2 Mechanical Rate FiO2 60.0 Tidal Volume PEEP Sodium 136 137.0 Potassium 3.3 L Chloride 98 108.0 H Carbon Dioxide 26 Anion Gap 15 BUN 15 Creatinine 1.2 Est GFR ( Amer) > 60 Est GFR (Non-Af Amer) 50 POC Glucose (mg/dL) Random Glucose 322 H* D Calcium 7.4 L Phosphorus 3.4 Magnesium 1.7 Ferritin Total Bilirubin 1.2 AST 395 H D ALT 566 H Alkaline Phosphatase 224 H Ammonia NT-Pro-B Natriuret Pep Total Protein 5.3 L Albumin 2.6 L Globulin 2.8 Albumin/Globulin Ratio 0.9 L Arterial Blood Potassium 3.0 L Venous Blood Potassium Urine Opiates Screen Urine Methadone Screen Ur Barbiturates Screen Ur Phencyclidine Scrn Ur Amphetamines Screen U Benzodiazepines Scrn U Oth Cocaine Metabols U Cannabinoids Screen IgG Anti-Mitochondrial Ab Hepatitis A IgM Ab Hep Bs Antigen Hep B Core IgM Ab Hepatitis C Antibody Critical Care Progress Note - Nutrition Nutrition: Nutrition Category Date Time Status Liquid Diet [DIET] Diets 02/16/18 Dinner Ordered Attending/Attestation - Attestation I have personally seen and examined this patient.: Yes I have fully participated in the care of the patient.: Yes I have reviewed all pertinent clinical information: Yes Notes (Text): 02/17/18 13:00 The patient was seen and examined at the bedside. Patient care was discussed with resident Medical records, lab studies, and imaging were reviewed and management issues were discussed and formulated. Last 24H events reviewed. Agree with above treatment plans as outlined in 's note with addition of the following: Acute Respiratory Failure \ Hypoxemia \ Dominick's angina \ Sepsis \ Parapharyngeal Abscess \ DM 2 \ Hep C \ -hemodynamic monitoring to maintain MAP>65; f\u Echo -mechanical ventilation and o2 supplementation to maintain Spo2 >90 Pao2>60 -monitor for TV 6ml\kg IBW and plateau pressure <30 -Abg and CXR reviewed -Fio2 decreased to 50%; PS 8 plus 5 Peep trial this morning -continue broad spectrum Abx as per ID team and and f\u cultures -f\u Bun\Cr and U\o; monitor and repeat e-lites -NPO and aspiration precautions; dysphagia eval repeat f\u; pt noted coughing after swallowing thickened liquid -ISS andLantus and BGM monitoring -ENT surgery f\u -f\u serial LFT; GI team f\u -DVT \ PUD prophylaxis CCM time 33min
[2018-02-17] MEDS: Insulin Detemir 100 units/ml Vial (Levemir) SC SCH ×3 (09:32→22:17)
[2018-02-17] MEDS: Thiamine 100 mg/ml Inj IM SCH (09:36)
[2018-02-17 09:40] LABS: HEPATITIS B SURFACE AG Negative (NEGATIVE)
[2018-02-17 09:46] LABS: HEPATITIS A IGM NEGATIVE (NEGATIVE); HEPATITIS B CORE AB NEGATIVE (NEGATIVE)
--- NOTE | 2018-02-17 09:57 | RAD ---
HISTORY: pulm edema COMPARISON: 02/16/2018 FINDINGS: LUNGS: No change in right lower lobe infiltrate. Mild vascular congestion PLEURA: No significant pleural effusion identified, no pneumothorax apparent. CARDIOVASCULAR: Normal. OSSEOUS STRUCTURES: No significant abnormalities. VISUALIZED UPPER ABDOMEN: Normal. OTHER FINDINGS: None. IMPRESSION: No change in right lower lobe infiltrate. Mild vascular congestion
[2018-02-17] MEDS ORDERED: Vancomycin 2 GM in Sodium Chloride 0.9% 500 ML IVPB ONE (10:23)
[2018-02-17 11:13] LABS: HEPATITIS C ANTIBODY REACTIVE (NEGATIVE)
--- NOTE | 2018-02-17 11:26 | CP.PCM.PN ---
Subjective - Date & Time of Evaluation Date of Evaluation: 02/17/18 Time of Evaluation: 11:22 - Subjective Subjective: ENT note for Dr. Cristobal Oquendo, PGY-1 Pt S & E at bedside at 1100 Pt sedated, on mechanical vent via tracheostomy- PRVC FiO2 60%, TV 400, RR 12, PEEP 5. Pt currently arousable to tactile stimuli. Per nursing- pt given sedation/anxiolytics overnight with resolution of insomnia, no acute events overnight. Parents at bedside, all questions answered. Objective - Vital Signs/Intake and Output Vital Signs (last 24 hours): Temp Pulse Resp BP Pulse Ox 98.6 F 92 H 24 105/75 99 02/17/18 04:00 02/17/18 09:25 02/16/18 16:44 02/17/18 09:25 02/17/18 06:11 Intake and Output: 02/17/18 02/17/18 06:59 18:59 Intake Total 1232 100 Output Total 2200 Balance -968 100 - Medications Medications: Current Medications Albuterol/Ipratropium (Duoneb 3 Mg/0.5 Mg (3 Ml) Ud) 3 ml IH Q2H PRN PRN Reason: Shortness of Breath Last Admin: 02/17/18 02:35 Dose: 3 ml Amlodipine Besylate (Norvasc) 10 mg PO DAILY [facility] Last Admin: 02/17/18 09:25 Dose: 10 mg Folic Acid (Folic Acid) 1 mg PO DAILY [facility] Last Admin: 02/17/18 09:31 Dose: 1 mg Hydromorphone HCl (Dilaudid) 1 mg IVP Q3H PRN PRN Reason: Pain, severe (8-10) Last Admin: 02/16/18 22:33 Dose: 1 mg Fentanyl Citrate (Fentanyl Citrate/Sodium Chloride 1 Mg/100 Ml) 1,000 mcg in 100 mls @ 2 mls/hr IV .Q24H PRN; Protocol; 20 MCG/HR PRN Reason: TITRATE PER MD ORDER Last Admin: 02/17/18 08:03 Dose: 150 mcg/hr, 15 mls/hr Piperacillin Sod/Tazobactam Sod (Zosyn 4.5 Gm In Ns 100ml) 4.5 gm in 100 mls @ 200 mls/hr IVPB Q6 [facility] PRN Reason: Protocol Stop: 02/22/18 18:01 Last Admin: 02/17/18 05:43 Dose: 200 mls/hr Potassium Chloride (Potassium Chloride 10 Meq/100 Ml) 10 meq in 100 mls @ 50 mls/hr IVPB Q2H [facility] Stop: 02/17/18 11:59 Last Admin: 02/17/18 08:21 Dose: 50 mls/hr Vancomycin HCl 2 gm/ Sodium (Chloride) 500 mls @ 170 mls/hr IVPB ONCE ONE PRN Reason: Protocol Stop: 02/17/18 13:19 Doxycycline Hyclate 100 mg/ (Sodium Chloride) 100 mls @ 100 mls/hr IVPB Q12 [facility] PRN Reason: Protocol Insulin Detemir (Levemir) 35 unit SC Q12 [facility] Insulin Human Regular (Humulin R Med) 0 units SC ACHS [facility] PRN Reason: Protocol Last Admin: 02/17/18 08:35 Dose: 7 units Insulin Human Regular (Humulin R) 7 units SC AC [facility] Last Admin: 02/17/18 08:38 Dose: 7 units Losartan Potassium (Cozaar) 50 mg PO DAILY [facility] Last Admin: 02/17/18 09:25 Dose: 50 mg Midazolam HCl (Versed Inj) 0.5 mg IVP Q4 [facility] Last Admin: 02/17/18 08:30 Dose: Not Given Midazolam HCl (Versed Inj) 1 mg IVP Q2 PRN PRN Reason: Agitation Last Admin: 02/17/18 08:28 Dose: 1 mg Multivitamins (Thera Tab) 1 tab PO 0800 [facility] Nicotine (Nicoderm Cq) 1 patch TD DAILY [facility] Last Admin: 02/17/18 09:28 Dose: 1 patch Pantoprazole Sodium (Protonix Inj) 40 mg IVP DAILY [facility] Last Admin: 02/17/18 09:28 Dose: 40 mg Saliva Substitute (Saliva Substitute) 1 ml PO Q2H PRN PRN Reason: Dry mouth Last Admin: 02/15/18 20:58 Dose: 1 ml Thiamine HCl (Vitamin B1 Inj) 100 mg IM DAILY [facility] Last Admin: 02/17/18 09:36 Dose: 100 mg - Labs Labs: 02/17/18 05:20 02/17/18 05:20 PT 13.6 SECONDS (9.4-12.5) H 02/17/18 05:20 INR 1.18 (0.93-1.08) H 02/17/18 05:20 APTT 25.2 Seconds (25.1-36.5) 02/15/18 08:15 - Constitutional Appears: Non-toxic, No Acute Distress - Head Exam Head Exam: ATRAUMATIC, NORMAL INSPECTION, NORMOCEPHALIC - ENT Exam ENT Exam: Mucous Membranes Moist. absent: Normal Exam (poor dentition) - Neck Exam Neck Exam: Tenderness (anterior, left side). absent: Normal Inspection Additional comments: anterior neck dressing in place- clean/dry/intact. Tender to palpation over anterior and left neck. Induration of anterior neck and left neck, no fluctuance appreciated Tracheostomy in place, no secretions or drainage noted, small area of dressing w /slight dried serous strike through - Respiratory Exam Respiratory Exam: NORMAL BREATHING PATTERN - Cardiovascular Exam Cardiovascular Exam: REGULAR RHYTHM, +S1, +S2 - GI/Abdominal Exam GI & Abdominal Exam: Soft. absent: Distended, Firm, Guarding, Tenderness - Extremities Exam Extremities Exam: Normal Inspection - Neurological Exam Additional comments: sedated, arousable to tactile stimuli - Psychiatric Exam Additional comments: sedated, arousable to tactile stimuli - Skin Skin Exam: Dry, Intact, Normal Color, Warm Assessment and Plan - Assessment and Plan (Free Text) Assessment: 38F w/tracheostomy, I & D of anterior neck POD#2 Plan: Contintue dressing changes for I & D site PRN Cont IV Abx Monitor tracheostomy site Further mgmt as per ICU & primary/specialist teams Will DW attending Azra, PGY-1
--- NOTE | 2018-02-17 13:15 | CP.PCM.PN ---
Subjective - Date & Time of Evaluation Date of Evaluation: 02/17/18 Time of Evaluation: 09:20 - Subjective Subjective: Still on the ventilator, groggy but arousable, noted events overnight that the patient had episodes of respiratory distress. Objective - Vital Signs/Intake and Output Vital Signs (last 24 hours): Temp Pulse Resp BP Pulse Ox 98.6 F 92 H 24 105/75 99 02/17/18 04:00 02/17/18 09:25 02/16/18 16:44 02/17/18 09:25 02/17/18 06:11 Intake and Output: 02/17/18 02/17/18 06:59 18:59 Intake Total 1232 100 Output Total 2200 Balance -968 100 - Medications Medications: Current Medications Albuterol/Ipratropium (Duoneb 3 Mg/0.5 Mg (3 Ml) Ud) 3 ml IH Q2H PRN PRN Reason: Shortness of Breath Last Admin: 02/17/18 02:35 Dose: 3 ml Amlodipine Besylate (Norvasc) 10 mg PO DAILY [facility] Last Admin: 02/17/18 09:25 Dose: 10 mg Folic Acid (Folic Acid) 1 mg PO DAILY [facility] Last Admin: 02/17/18 09:31 Dose: 1 mg Hydromorphone HCl (Dilaudid) 1 mg IVP Q3H PRN PRN Reason: Pain, severe (8-10) Last Admin: 02/16/18 22:33 Dose: 1 mg Fentanyl Citrate (Fentanyl Citrate/Sodium Chloride 1 Mg/100 Ml) 1,000 mcg in 100 mls @ 2 mls/hr IV .Q24H PRN; Protocol; 20 MCG/HR PRN Reason: TITRATE PER MD ORDER Last Admin: 02/17/18 08:03 Dose: 150 mcg/hr, 15 mls/hr Piperacillin Sod/Tazobactam Sod (Zosyn 4.5 Gm In Ns 100ml) 4.5 gm in 100 mls @ 200 mls/hr IVPB Q6 [facility] PRN Reason: Protocol Stop: 02/22/18 18:01 Last Admin: 02/17/18 05:43 Dose: 200 mls/hr Potassium Chloride (Potassium Chloride 10 Meq/100 Ml) 10 meq in 100 mls @ 50 mls/hr IVPB Q2H [facility] Stop: 02/17/18 11:59 Last Admin: 02/17/18 08:21 Dose: 50 mls/hr Vancomycin HCl 2 gm/ Sodium (Chloride) 500 mls @ 170 mls/hr IVPB ONCE ONE PRN Reason: Protocol Stop: 02/17/18 13:19 Insulin Detemir (Levemir) 35 unit SC Q12 [facility] Insulin Human Regular (Humulin R Med) 0 units SC ACHS [facility] PRN Reason: Protocol Last Admin: 02/17/18 08:35 Dose: 7 units Insulin Human Regular (Humulin R) 7 units SC AC [facility] Last Admin: 02/17/18 08:38 Dose: 7 units Losartan Potassium (Cozaar) 50 mg PO DAILY [facility] Last Admin: 02/17/18 09:25 Dose: 50 mg Midazolam HCl (Versed Inj) 0.5 mg IVP Q4 [facility] Last Admin: 02/17/18 08:30 Dose: Not Given Midazolam HCl (Versed Inj) 1 mg IVP Q2 PRN PRN Reason: Agitation Last Admin: 02/17/18 08:28 Dose: 1 mg Multivitamins (Thera Tab) 1 tab PO 0800 [facility] Nicotine (Nicoderm Cq) 1 patch TD DAILY [facility] Last Admin: 02/17/18 09:28 Dose: 1 patch Pantoprazole Sodium (Protonix Inj) 40 mg IVP DAILY [facility] Last Admin: 02/17/18 09:28 Dose: 40 mg Saliva Substitute (Saliva Substitute) 1 ml PO Q2H PRN PRN Reason: Dry mouth Last Admin: 02/15/18 20:58 Dose: 1 ml Thiamine HCl (Vitamin B1 Inj) 100 mg IM DAILY [facility] Last Admin: 02/17/18 09:36 Dose: 100 mg - Labs Labs: 02/17/18 05:20 02/17/18 05:20 PT 13.6 SECONDS (9.4-12.5) H 02/17/18 05:20 INR 1.18 (0.93-1.08) H 02/17/18 05:20 APTT 25.2 Seconds (25.1-36.5) 02/15/18 08:15 - Constitutional Appears: Chronically Ill - Head Exam Head Exam: NORMAL INSPECTION - Neck Exam Neck Exam: absent: Meningismus Additional comments: tracheostomy and dressings in place over the anterior neck - Respiratory Exam Respiratory Exam: Decreased Breath Sounds - Cardiovascular Exam Cardiovascular Exam: +S1, +S2 - GI/Abdominal Exam GI & Abdominal Exam: Soft. absent: Tenderness Assessment and Plan - Assessment and Plan (Free Text) Plan: Assessment Anterior neck abscess / Dominick's angina S/P I and and tracheostomy POD #2, on top of probable right lower lobe aspiration pneumonia acute renal failure HTN DM history of IV drug use significant smoking history chronic Hepatitis C S/P treatment history of thyrotoxicosis S/P partial thyroidectomy Plan continue Zosyn day 2, gave a dose of IV Vancomycin and started Doxycycline pending cultures from the abscess; blood cx are negative so far will monitor clinically follow up rapid HIV test reviewed CXR which is showing peristent right lower lobe infiltrate monitor transaminases which have been elevated since admission but now trending downwards
--- NOTE | 2018-02-17 14:12 | CARD ---
APPROVED REPORT EXAM: Two-dimensional and M-mode echocardiogram with Doppler and color Doppler. INDICATION 2D DIMENSIONS IVSd1.0 (0.7-1.1cm)LVDd4.6 (3.9-5.9cm) PWd1.0 (0.7-1.1cm)LVDs3.0 (2.5-4.0cm) FS (%) 34.9 %LVEF (%)64.3 (>50%) M-Mode DIMENSIONS Left Atrium (MM)3.40 (2.5-4.0cm)Aortic Root3.20 (2.2-3.7cm) Aortic Cusp Exc.1.90 (1.5-2.0cm) Aortic Valve AoV Peak Mmhxqsig377.0cm/Oj Peak GR.9mmHg Mitral Valve MV E Lvhlyftb10.6cm/sMV A Qvnsvchc92.2cm/sE/A ratio0.7 TDI Lateral E' Peak V5.95cm/sMedial E' Peak V12.30cm/sE/Lateral E'11.0 E/Medial E'5.3 Tricuspid Valve TR Peak Srckflxr110ds/sRAP [id number] Peak Gr.18mmHg [id number] LEFT VENTRICLE The left ventricle is normal size. There is normal left ventricular wall thickness. The left ventricular ejection fraction is within the normal range. Septal hypokinesis Transmitral Doppler flow pattern is Grade I-abnormal relaxation pattern. RIGHT VENTRICLE The right ventricle is normal size. There is normal right ventricular wall thickness. The right ventricular systolic function is normal. ATRIA The left atrium size is normal. The right atrium size is normal. AORTIC VALVE The aortic valve is not well visualized. No aortic regurgitation is present. There is no aortic valvular stenosis. MITRAL VALVE The mitral valve is not well visualized. There is no mitral valve regurgitation noted. There is no mitral valve stenosis. TRICUSPID VALVE The tricuspid valve is normal in structure. There is trace tricuspid regurgitation. PULMONIC VALVE The pulmonary valve is normal in structure. There is trace pulmonic valvular regurgitation. GREAT VESSELS The aortic root is normal in size. The IVC is normal in size and collapses >50% with inspiration. PERICARDIAL EFFUSION There is no pericardial effusion. <Conclusion> The left ventricle is normal size. There is normal left ventricular wall thickness. The left ventricular ejection fraction is within the normal range. Septal hypokinesis Transmitral Doppler flow pattern is Grade I-abnormal relaxation pattern.
--- NOTE | 2018-02-17 14:25 | CP.PCM.PN ---
<Leighann Casillas - Last Filed: 02/17/18 15:39> Subjective - Date & Time of Evaluation Date of Evaluation: 02/17/18 Time of Evaluation: 09:00 - Subjective Subjective: Leighann Casillas, PGY1, Medicine Progress Note for Dr Preston: Patient seen and examined at bedside. No acute events overnight. Pt failed bipap , had to be switched to PRVC. Reports pain at trach site. Denies fevers, chills , nausea, vomiting, abdominal pain, leg swelling. Objective - Vital Signs/Intake and Output Vital Signs (last 24 hours): Temp Pulse Resp BP Pulse Ox 98.6 F 92 H 24 105/75 99 02/17/18 04:00 02/17/18 09:25 02/16/18 16:44 02/17/18 09:25 02/17/18 06:11 Intake and Output: 02/17/18 02/17/18 06:59 18:59 Intake Total 1232 100 Output Total 2200 Balance -968 100 - Medications Medications: Current Medications Albuterol/Ipratropium (Duoneb 3 Mg/0.5 Mg (3 Ml) Ud) 3 ml IH Q2H PRN PRN Reason: Shortness of Breath Last Admin: 02/17/18 02:35 Dose: 3 ml Amlodipine Besylate (Norvasc) 10 mg PO DAILY [facility] Last Admin: 02/17/18 09:25 Dose: 10 mg Folic Acid (Folic Acid) 1 mg PO DAILY [facility] Last Admin: 02/17/18 09:31 Dose: 1 mg Hydromorphone HCl (Dilaudid) 1 mg IVP Q3H PRN PRN Reason: Pain, severe (8-10) Last Admin: 02/16/18 22:33 Dose: 1 mg Fentanyl Citrate (Fentanyl Citrate/Sodium Chloride 1 Mg/100 Ml) 1,000 mcg in 100 mls @ 2 mls/hr IV .Q24H PRN; Protocol; 20 MCG/HR PRN Reason: TITRATE PER MD ORDER Last Admin: 02/17/18 08:03 Dose: 150 mcg/hr, 15 mls/hr Piperacillin Sod/Tazobactam Sod (Zosyn 4.5 Gm In Ns 100ml) 4.5 gm in 100 mls @ 200 mls/hr IVPB Q6 [facility] PRN Reason: Protocol Stop: 02/22/18 18:01 Last Admin: 02/17/18 05:43 Dose: 200 mls/hr Doxycycline Hyclate 100 mg/ (Sodium Chloride) 100 mls @ 100 mls/hr IVPB Q12 [facility] PRN Reason: Protocol Insulin Detemir (Levemir) 35 unit SC Q12 [facility] Insulin Human Regular (Humulin R Med) 0 units SC ACHS [facility] PRN Reason: Protocol Last Admin: 02/17/18 13:05 Dose: 1 units Insulin Human Regular (Humulin R) 7 units SC AC [facility] Last Admin: 02/17/18 13:07 Dose: 7 units Losartan Potassium (Cozaar) 50 mg PO DAILY [facility] Last Admin: 02/17/18 09:25 Dose: 50 mg Midazolam HCl (Versed Inj) 0.5 mg IVP Q6 [facility] Midazolam HCl (Versed Inj) 1 mg IVP Q3 PRN PRN Reason: Symptoms of alcohol withdrawl Multivitamins (Thera Tab) 1 tab PO 0800 [facility] Nicotine (Nicoderm Cq) 1 patch TD DAILY [facility] Last Admin: 02/17/18 09:28 Dose: 1 patch Pantoprazole Sodium (Protonix Inj) 40 mg IVP DAILY [facility] Last Admin: 02/17/18 09:28 Dose: 40 mg Saliva Substitute (Saliva Substitute) 1 ml PO Q2H PRN PRN Reason: Dry mouth Last Admin: 02/15/18 20:58 Dose: 1 ml Thiamine HCl (Vitamin B1 Inj) 100 mg IM DAILY [facility] Last Admin: 02/17/18 09:36 Dose: 100 mg - Labs Labs: 02/17/18 05:20 02/17/18 05:20 PT 13.6 SECONDS (9.4-12.5) H 02/17/18 05:20 INR 1.18 (0.93-1.08) H 02/17/18 05:20 APTT 25.2 Seconds (25.1-36.5) 02/15/18 08:15 - Constitutional Appears: Non-toxic, No Acute Distress - Head Exam Head Exam: ATRAUMATIC, NORMOCEPHALIC Additional comments: + trach in place - Eye Exam Eye Exam: EOMI, PERRL. absent: Conjunctival injection, Nystagmus, Scleral icterus Pupil Exam: NORMAL ACCOMODATION, PERRL. absent: Fixed, Irregular, Miosis, Unequal - ENT Exam ENT Exam: Mucous Membranes Moist - Respiratory Exam Respiratory Exam: Decreased Breath Sounds. absent: Accessory Muscle Use, Rales , Rhonchi, Wheezes, Respiratory Distress, Stridor - Cardiovascular Exam Cardiovascular Exam: Tachycardia, +S1, +S2. absent: Murmur - GI/Abdominal Exam GI & Abdominal Exam: Soft, Normal Bowel Sounds. absent: Distended, Firm, Guarding, Tenderness, Mass, Organomegaly, Rebound - Extremities Exam Extremities Exam: Normal Inspection. 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 Pt also found to be in DKA, resolved currently. Pt also found to have transaminitis: Parapharyngeal abscess, s/p I &D and tracheostomy, POD 2: - Lactate 4.4 - tachycardic, tachypnic, - code sepsis called in the ED - ENT consulted. appreciate recs - Pain control - fentanyl and dilaudid prn - Abx - Continue zosyn - procal 33.54 - ID consult for recs - Monitor closely in the ICU - CXR showed pulm edema - Lasix 40mg x 2 administered - F/u HIV ordered - Saliva substitute - remains on PRVC mode on trach DKA: - Monitor blood glucose - On levemir and ISS regular - Cont to monitor in the ICU Transaminitis: - AST 2654 and ALT 674 on 02/16 -> downtrending - s/p NAC protocol - Abdominal US ordered - Hepatic steatosis & splenomegaly - Avoid any hepatotoxic drugs - GI consulted - -Abd US duplex to look for portal vein patency -Viral hepatitis serologies negative and autoimmune serologies pending - lipid panel reviewed, LDL 67. Triglycerides 104. Ammonia 9. Lipase 25. - Cont to monitor Hx of DM: - Hba1c - 10.6 - Levemir 35 units q12h. - ISS med - Cont to monitor Electrolyte abnormality: - Hypocalcemia and hypomagnesemia - Replete Calcium and Mg supplemented as needed - Cont to monitor Hx of HTN: - Currently normotensive - Cont to monitor GI/DVT ppx: - Protonix and SCDs Dispo: consider LTAC placement. Discuss with family welfare social work professor. Case seen, reviewed and discussed with Dr Preston. Leighann Casillas, pGY1 <Alexandra Preston - Last Filed: 02/17/18 18:31> Objective - Vital Signs/Intake and Output Vital Signs (last 24 hours): Temp Pulse Resp BP Pulse Ox 98.6 F 92 H 24 105/75 99 02/17/18 04:00 02/17/18 09:25 02/16/18 16:44 02/17/18 09:25 02/17/18 06:11 Intake and Output: 02/17/18 02/17/18 06:59 18:59 Intake Total 1232 200 Output Total 2200 Balance -968 200 - Medications Medications: Current Medications Albuterol/Ipratropium (Duoneb 3 Mg/0.5 Mg (3 Ml) Ud) 3 ml IH Q2H PRN PRN Reason: Shortness of Breath Last Admin: 02/17/18 02:35 Dose: 3 ml Amlodipine Besylate (Norvasc) 10 mg PO DAILY [facility] Last Admin: 02/17/18 09:25 Dose: 10 mg Folic Acid (Folic Acid) 1 mg PO DAILY [facility] Last Admin: 02/17/18 09:31 Dose: 1 mg Hydromorphone HCl (Dilaudid) 1 mg IVP Q3H PRN PRN Reason: Pain, severe (8-10) Last Admin: 02/17/18 17:15 Dose: 1 mg Fentanyl Citrate (Fentanyl Citrate/Sodium Chloride 1 Mg/100 Ml) 1,000 mcg in 100 mls @ 2 mls/hr IV .Q24H PRN; Protocol; 20 MCG/HR PRN Reason: TITRATE PER MD ORDER Last Admin: 02/17/18 17:19 Dose: 100 mcg/hr, 10 mls/hr Piperacillin Sod/Tazobactam Sod (Zosyn 4.5 Gm In Ns 100ml) 4.5 gm in 100 mls @ 200 mls/hr IVPB Q6 [facility] PRN Reason: Protocol Stop: 02/22/18 18:01 Last Admin: 02/17/18 13:00 Dose: 200 mls/hr Doxycycline Hyclate 100 mg/ (Sodium Chloride) 100 mls @ 100 mls/hr IVPB Q12 [facility] PRN Reason: Protocol Last Admin: 02/17/18 15:34 Dose: 100 mls/hr Vancomycin HCl (Vancomycin 1gm) 1 gm in 250 mls @ 167 mls/hr IVPB Q12H [facility] PRN Reason: Protocol Insulin Detemir (Levemir) 35 unit SC Q12 [facility] Last Admin: 02/17/18 10:25 Dose: 35 u Insulin Human Regular (Humulin R Med) 0 units SC ACHS [facility] PRN Reason: Protocol Last Admin: 02/17/18 17:44 Dose: Not Given Insulin Human Regular (Humulin R) 7 units SC AC [facility] Last Admin: 02/17/18 17:43 Dose: Not Given Losartan Potassium (Cozaar) 50 mg PO DAILY [facility] Last Admin: 02/17/18 09:25 Dose: 50 mg Midazolam HCl (Versed Inj) 0.5 mg IVP Q6 [facility] Midazolam HCl (Versed Inj) 1 mg IVP Q3 PRN PRN Reason: Symptoms of alcohol withdrawl Multivitamins (Thera Tab) 1 tab PO 0800 [facility] Nicotine (Nicoderm Cq) 1 patch TD DAILY [facility] Last Admin: 02/17/18 09:28 Dose: 1 patch Pantoprazole Sodium (Protonix Inj) 40 mg IVP DAILY [facility] Last Admin: 02/17/18 09:28 Dose: 40 mg Saliva Substitute (Saliva Substitute) 1 ml PO Q2H PRN PRN Reason: Dry mouth Last Admin: 02/15/18 20:58 Dose: 1 ml Thiamine HCl (Vitamin B1 Inj) 100 mg IM DAILY [facility] Last Admin: 02/17/18 09:36 Dose: 100 mg - Labs Labs: 02/17/18 17:01 02/17/18 17:01 PT 13.6 SECONDS (9.4-12.5) H 02/17/18 05:20 INR 1.18 (0.93-1.08) H 02/17/18 05:20 APTT 25.2 Seconds (25.1-36.5) 02/15/18 08:15 Attending/Attestation - Attestation I have personally seen and examined this patient.: Yes I have fully participated in the care of the patient.: Yes I have reviewed all pertinent clinical information, including history, physical exam and plan: Yes Notes (Text): 02/17/18 18:22 attending note; Patient seen and examined with resident in ICU. patient is a 38 yr old female with PMH of Hep C, DM, HTN, drug abuse and hypothyroidism presented with swelling and erythema of the mouth/neck x 3 days , associated with dysphagia. Pt had CT soft tissue neck done with contrast which showed, soft tissue edema, left parapharyngeal space, epiglottis swelling suggestive of Ludwigs Angina. Patient is s/p I/D of abscess and tracheostomy in the OR by ENT. monitor closely in ICU. Continue weaning trial. currently on ventilator support. continue IV antibiotics with doxycycline and Zosyn. culture is negative so far. ID evaluation appreciated. DKA ; Resolved. Continue Levemir with regular insulin sliding scale. Elevated LFT; etiology unclear. possible hypotension/drug effect. currently treated with N-acetylcysteine. LFTs improving. GI evaluation appreciated. Pending autoimmune workup. abdominal ultrasound showed hepatic steatosis and splenomegaly. Patent portal vein. complete alcohol and drug abuse cessation is strongly advised. Hypotension; Resolved. echocardiogram showed ejection fraction of 63% with septal hypokinesis. Monitor the patient closely in ICU. Case discussed family welfare social work professor in detail for Possible LTAC placement versus rehabilitation. upon discharge the patient will follow-up with PMD .
[2018-02-17] MEDS ORDERED: Midazolam 2 MG/2 ML VIAL IVP PRN (15:00)
[2018-02-17 17:05] LABS: BASO # 0.02 K/mm3 (0.0-2.0); BASO % 0.1 % (0.0-3.0); EOS % 0.1 % (1.5-5.0); GRAN # 11.88 (1.4-6.5); GRAN % 80.8 % (50.0-68.0); HEMOGLOBIN 9.5 g/dL (12.0-16.0); LYMPH # 2.1 (1.2-3.4); LYMPH % 14.4 % (22.0-35.0); MEAN CELL VOLUME 91.1 fl (80.0-105.0); MEAN CORPUSCULAR HEMOGLOBIN 30.4 pg (25.0-35.0); MEAN CORPUSCULAR HGB CONC 33.3 g/dl (31.0-37.0); MEAN PLATELET VOLUME 8.8 fl (7.0-11.0); MONO # 0.7 (0.1-0.6); MONO % 4.6 % (1.0-6.0); RBC 3.13 10^6/uL (3.5-6.1); RED CELL DISTRIBUTION WIDTH 13.8 % (11.5-14.5); WHITE BLOOD COUNT 14.7 10^3/ul (4.5-11.0)
[2018-02-17] MEDS: HYDROmorphone 0.5 mg/0.5 ml ISec IVP PRN ×2 (17:15→21:51)
[2018-02-17 17:23] LABS: ALBUMIN 2.7 g/dL (3.0-4.8); ALT/SGPT 473 U/L (7-56); AST/SGOT 197 U/L (14-36); BLOOD UREA NITROGEN 20 mg/dL (7-21); CALCIUM 7.3 mg/dL (8.4-10.5); GFR AFRICAN-AMERICAN > 60; GFR NON-AFRICAN AMERICAN 55
[2018-02-17 17:44] LABS: FREE T4 0.74 ng/dL (0.78-2.19)
[2018-02-17] MEDS ORDERED: Magnesium Sulfate 1 gm in D5W 1 GM/100 ML BAG IVPB ONE (18:45)
[2018-02-17] MEDS ORDERED: Vancomycin 1gm in NS 250ml 1 GM/250 ML BAG IVPB SCH (20:00)
[2018-02-17 21:04] LABS: ALB/GLOB RATIO 0.9 (1.1-1.8); ALBUMIN 2.8 g/dL (3.0-4.8); ALT/SGPT 469 U/L (7-56); AST/SGOT 235 U/L (14-36); BLOOD UREA NITROGEN 20 mg/dL (7-21); CALCIUM 7.5 mg/dL (8.4-10.5); GFR AFRICAN-AMERICAN > 60; GFR NON-AFRICAN AMERICAN 55
[2018-02-17] MEDS ORDERED: Dextrose 50% SYRINGE Inj (50 ml) IVP ONE (22:14)
[2018-02-18] MEDS: HYDROmorphone 0.5 mg/0.5 ml ISec IVP PRN ×3 (00:09→22:34)
[2018-02-18] MEDS: Vancomycin 1gm in NS 250ml 1 GM/250 ML BAG IVPB SCH ×3 (00:34→23:28)
[2018-02-18] MEDS: Midazolam 2 MG/2 ML VIAL IVP SCH ×2 (01:00→06:00)
[2018-02-18] MEDS: Albuterol-Ipratrop 3 mg / 0.5 (3 ml) UD IH PRN (02:26)
[2018-02-18] MEDS: Fentanyl 1000mcg/100ml NS 1,000 MCG/100 ML BAG IV PRN (03:25)
[2018-02-18] MEDS: Piperacill/Tazo 4.5gm in NS 4.5 GM/100 ML BAG IVPB SCH ×4 (06:18→23:28)
[2018-02-18 07:03] LABS: BASO # 0.03 K/mm3 (0.0-2.0); BASO % 0.2 % (0.0-3.0); EOS # 0.1 (0.0-0.7); EOS % 0.4 % (1.5-5.0); GRAN # 13.73 (1.4-6.5); GRAN % 82.5 % (50.0-68.0); HEMOGLOBIN 8.8 g/dL (12.0-16.0); LYMPH # 1.9 (1.2-3.4); LYMPH % 11.4 % (22.0-35.0); MEAN CELL VOLUME 91.8 fl (80.0-105.0); MEAN CORPUSCULAR HGB CONC 32.7 g/dl (31.0-37.0); MONO # 0.9 (0.1-0.6); MONO % 5.5 % (1.0-6.0); RBC 2.93 10^6/uL (3.5-6.1); WHITE BLOOD COUNT 16.6 10^3/ul (4.5-11.0)
[2018-02-18 07:35] LABS: CERULOPLASMIN 28 mg/dL (18-53)
[2018-02-18 07:46] LABS: ALB/GLOB RATIO 0.9 (1.1-1.8); ALBUMIN 2.7 g/dL (3.0-4.8); ALT/SGPT 390 U/L (7-56); AST/SGOT 197 U/L (14-36); BLOOD UREA NITROGEN 21 mg/dL (7-21); CALCIUM 7.3 mg/dL (8.4-10.5); GFR AFRICAN-AMERICAN > 60; GFR NON-AFRICAN AMERICAN > 60
[2018-02-18] MEDS: Insulin Regular 1 UNITS/0.01 ML ML SC SCH ×3 (08:15→17:54)
[2018-02-18] MEDS: Insulin Reg-MEDIUM-Coverage SC SCH ×4 (08:15→22:30)
[2018-02-18] MEDS ORDERED: Potassium Chloride 40 mEq/30 ml LIQ UD PO ONE ×2 (08:19→20:42)
[2018-02-18] MEDS: Thiamine 100 mg/ml Inj IM SCH (10:06)
--- NOTE | 2018-02-18 10:11 | RAD ---
HISTORY: pulm edema COMPARISON: 02/17/2018 FINDINGS: LUNGS: Patchy opacity at right base. Possible pneumonia. No significant change. PLEURA: No significant pleural effusion identified, no pneumothorax apparent. CARDIOVASCULAR: Normal heart size. Tracheostomy unchanged. OSSEOUS STRUCTURES: No significant abnormalities. VISUALIZED UPPER ABDOMEN: Normal. OTHER FINDINGS: None. IMPRESSION: Opacity at right base. Possible pneumonia. Followup advised.
[2018-02-18] MEDS: Multivitamin Therapeutic Tab PO SCH (10:31)
[2018-02-18] MEDS ORDERED: Magnesium Oxide 400 mg Tab UD PO STA (10:52)
--- NOTE | 2018-02-18 11:54 | CP.PCM.PN ---
Subjective - Date & Time of Evaluation Date of Evaluation: 02/18/18 Time of Evaluation: 08:45 - Subjective Subjective: Patient is now off the ventilator but still has the tracheostomy tube, no SOB at rest, no fevers, neck is starting to feel better. Objective - Vital Signs/Intake and Output Vital Signs (last 24 hours): Temp Pulse Resp BP Pulse Ox 98.6 F 109 H 22 139/65 96 02/18/18 00:00 02/18/18 04:00 02/18/18 00:00 02/18/18 03:02 02/18/18 04:00 Intake and Output: 02/17/18 02/18/18 18:59 06:59 Intake Total 1200 100 Output Total 400 Balance 800 100 - Medications Medications: Current Medications Albuterol/Ipratropium (Duoneb 3 Mg/0.5 Mg (3 Ml) Ud) 3 ml IH Q2H PRN PRN Reason: Shortness of Breath Last Admin: 02/18/18 02:26 Dose: 3 ml Amlodipine Besylate (Norvasc) 10 mg PO DAILY [facility] Last Admin: 02/17/18 09:25 Dose: 10 mg Folic Acid (Folic Acid) 1 mg PO DAILY [facility] Last Admin: 02/17/18 09:31 Dose: 1 mg Hydromorphone HCl (Dilaudid) 1 mg IVP Q3H PRN PRN Reason: Pain, severe (8-10) Last Admin: 02/18/18 04:38 Dose: 1 mg Fentanyl Citrate (Fentanyl Citrate/Sodium Chloride 1 Mg/100 Ml) 1,000 mcg in 100 mls @ 2 mls/hr IV .Q24H PRN; Protocol; 20 MCG/HR PRN Reason: TITRATE PER MD ORDER Last Admin: 02/18/18 03:25 Dose: 100 mcg/hr, 10 mls/hr Piperacillin Sod/Tazobactam Sod (Zosyn 4.5 Gm In Ns 100ml) 4.5 gm in 100 mls @ 200 mls/hr IVPB Q6 [facility] PRN Reason: Protocol Stop: 02/22/18 18:01 Last Admin: 02/18/18 06:18 Dose: 200 mls/hr Doxycycline Hyclate 100 mg/ (Sodium Chloride) 100 mls @ 100 mls/hr IVPB Q12 [facility] PRN Reason: Protocol Last Admin: 02/17/18 21:46 Dose: 100 mls/hr Vancomycin HCl (Vancomycin 1gm) 1 gm in 250 mls @ 167 mls/hr IVPB 0000,1200 [facility] PRN Reason: Protocol Last Admin: 02/18/18 00:34 Dose: 167 mls/hr Insulin Detemir (Levemir) 35 unit SC Q12 [facility] Last Admin: 02/17/18 22:17 Dose: Not Given Insulin Human Regular (Humulin R Med) 0 units SC ACHS [facility] PRN Reason: Protocol Last Admin: 02/17/18 22:17 Dose: Not Given Insulin Human Regular (Humulin R) 7 units SC AC [facility] Last Admin: 02/17/18 17:43 Dose: Not Given Losartan Potassium (Cozaar) 50 mg PO DAILY [facility] Last Admin: 02/17/18 09:25 Dose: 50 mg Midazolam HCl (Versed Inj) 0.5 mg IVP Q6 [facility] Last Admin: 02/18/18 01:00 Dose: Not Given Midazolam HCl (Versed Inj) 1 mg IVP Q3 PRN PRN Reason: Symptoms of alcohol withdrawl Last Admin: 02/18/18 02:20 Dose: 1 mg Multivitamins (Thera Tab) 1 tab PO 0800 [facility] Nicotine (Nicoderm Cq) 1 patch TD DAILY [facility] Last Admin: 02/17/18 09:28 Dose: 1 patch Pantoprazole Sodium (Protonix Inj) 40 mg IVP DAILY [facility] Last Admin: 02/17/18 09:28 Dose: 40 mg Saliva Substitute (Saliva Substitute) 1 ml PO Q2H PRN PRN Reason: Dry mouth Last Admin: 02/15/18 20:58 Dose: 1 ml Thiamine HCl (Vitamin B1 Inj) 100 mg IM DAILY [facility] Last Admin: 02/17/18 09:36 Dose: 100 mg - Labs Labs: 02/17/18 17:01 02/17/18 20:30 PT 13.6 SECONDS (9.4-12.5) H 02/17/18 05:20 INR 1.18 (0.93-1.08) H 02/17/18 05:20 APTT 25.2 Seconds (25.1-36.5) 02/15/18 08:15 - Constitutional Appears: Chronically Ill - Head Exam Head Exam: NORMAL INSPECTION - ENT Exam Additional comments: tracheostomy tube in place - Neck Exam Neck Exam: absent: Meningismus - Respiratory Exam Respiratory Exam: Decreased Breath Sounds. absent: Rales - Cardiovascular Exam Cardiovascular Exam: +S1, +S2 - GI/Abdominal Exam GI & Abdominal Exam: Soft. absent: Tenderness Assessment and Plan - Assessment and Plan (Free Text) Plan: Assessment Anterior neck abscess / Dominick's angina S/P I and and tracheostomy POD #3, on top of probable right lower lobe aspiration pneumonia, with gram positive cocci bacteremia acute renal failure HTN DM history of IV drug use significant smoking history chronic Hepatitis C S/P treatment history of thyrotoxicosis S/P partial thyroidectomy Plan continue Zosyn day 2, abd started IV Vancomycin and started Doxycycline pending cultures from the abscess; follow up the identification of the bactereia in the blood cx and will repeat blood cultures will continue to monitor clinically rapid HIV test is negative reviewed CXR which is showing peristent right lower lobe infiltrate monitor transaminases which have been elevated since admission but now trending downwards
--- NOTE | 2018-02-18 12:13 | CP.CCUPN ---
<Johnny Briggs - Last Filed: 02/18/18 12:12> CCU Subjective - Physician Review Events Since Last Encounter (Free Text): 02/18/18 10:00A Patient seen and examined at bedside. Was put back on PRVC overnight because of coughing; this AM, changed back to CPAP. Patient is doing well and denies any complaints. CCU Objective - Vital Signs / Intake & Output Vital Signs (Last 4 hours): Vital Signs Pulse BP 02/18/18 09:53 106/52 L 02/18/18 09:48 97 H Intake and Output (Last 8hrs): Intake & Output 02/17/18 02/18/18 02/18/18 22:59 06:59 14:59 Intake Total 1100 870 Output Total 400 525 Balance 700 345 Weight 77.309 kg Intake: IV 100 870 Left Hand 200 Right Forearm 450 fentanyl 120 Other 1000 Output: Urine 400 525 2-way Urethral 525 Urine, Voided 400 - Physical Exam Head: Positive for: Atraumatic, Normocephalic Pupils: Positive for: PERRL Extroacular Muscles: Positive for: EOMI Conjunctiva: Positive for: Normal. Negative for: Icteric Mouth: Positive for: Moist Mucous Membranes Neck: Positive for: Other (Fresh trach. Dressing intact, no strike through, not swelling) Respiratory/Chest: Positive for: Clear to Auscultation, Good Air Exchange, Rales. Negative for: Accessory Muscle Use, Retracting, Rhonchi, Tachypneic Cardiovascular: Positive for: Regular Rate and Rhythm, Normal S1, S2 Abdomen: Positive for: Normal Bowel Sounds. Negative for: Tenderness, Distention, Peritoneal Signs Lower Extremity: Positive for: Normal Inspection, Other (schuster intact). Negative for: Edema Neurological: Positive for: GCS=15. Negative for: Speech Normal Skin: Positive for: Warm, Dry Psychiatric: Positive for: Alert, Oriented x 3 - Medications Active Medications: Active Medications Generic Name Dose Route Start Last Admin Trade Name Freq PRN Reason Stop Dose Admin Albuterol/Ipratropium 3 ml 02/16/18 19:55 02/18/18 02:26 Duoneb 3 Mg/0.5 Mg (3 Ml) Ud IH 3 ml Q2H PRN Administration Shortness of Breath Amlodipine Besylate 10 mg 02/16/18 14:15 02/18/18 09:53 Norvasc PO 10 mg DAILY KATYA Administration Folic Acid 1 mg 02/17/18 10:00 02/18/18 09:52 Folic Acid PO 1 mg DAILY KATYA Administration Furosemide 40 mg 02/18/18 11:00 Lasix IVP DAILY [facility] Hydromorphone HCl 1 mg 02/15/18 15:15 02/18/18 04:38 Dilaudid IVP 1 mg Q3H PRN Administration Pain, severe (8-10) Piperacillin Sod/Tazobactam Sod 4.5 gm in 100 mls @ 200 mls/hr 02/15/18 18:00 02/18/18 06:18 Zosyn 4.5 Gm In Ns 100ml IVPB 02/22/18 18:01 200 mls/hr Q6 [facility] Administration Protocol Doxycycline Hyclate 100 mg/ 100 mls @ 100 mls/hr 02/17/18 10:30 02/18/18 09: 57 Sodium Chloride IVPB 100 mls/hr Q12 [facility] Administration Protocol Vancomycin HCl 1 gm in 250 mls @ 167 mls/hr 02/17/18 21:08 02/18/18 00:34 Vancomycin 1gm IVPB 167 mls/hr 0000,1200 [facility] Administration Protocol Insulin Detemir 20 unit 02/18/18 10:53 Levemir SC Q12 [facility] Insulin Human Regular 0 units 02/16/18 12:30 02/18/18 08:15 Humulin R Med SC Not Given ACHS [facility] Protocol Insulin Human Regular 3 units 02/18/18 10:54 Humulin R SC AC [facility] Losartan Potassium 50 mg 02/16/18 12:15 02/18/18 09:48 Cozaar PO 50 mg DAILY [facility] Administration Multivitamins 1 tab 02/18/18 08:00 02/18/18 10:31 Thera Tab PO 1 tab 0800 [facility] Administration Nicotine 1 patch 02/16/18 15:45 02/18/18 09:52 Nicoderm Cq TD 1 patch DAILY [facility] Administration Pantoprazole Sodium 40 mg 02/16/18 10:00 02/18/18 10:30 Protonix Inj IVP 40 mg DAILY KATYA Administration Saliva Substitute 1 ml 02/15/18 10:54 02/15/18 20:58 Saliva Substitute PO 1 ml Q2H PRN Administration Dry mouth Thiamine HCl 100 mg 02/16/18 10:00 02/18/18 10:06 Vitamin B1 Inj IM 100 mg DAILY KATYA Administration - Patient Studies Lab Studies: Microbiology Studies 02/17/18 15:55 Gram Stain - Final Abscess - Neck Wound Culture - Preliminary NO GROWTH AFTER 24 HOURS 02/15/18 16:00 Anaerobic Culture - Final Abscess - Neck NO ANAEROBES ISOLATED. Lab Studies 02/18/18 02/18/18 02/18/18 Range/Units 07:12 06:20 06:20 WBC 16.6 H (4.5-11.0) 10^3/ul RBC 2.93 L (3.5-6.1) 10^6/uL Hgb 8.8 L (12.0-16.0) g/dL Hct 26.9 L (36.0-48.0) % MCV 91.8 (80.0-105.0) fl MCH 30.0 (25.0-35.0) pg MCHC 32.7 (31.0-37.0) g/dl RDW 14.0 (11.5-14.5) % Plt Count 137 (120.0-450.0) 10^3/uL MPV 9.0 (7.0-11.0) fl Gran % 82.5 H (50.0-68.0) % Lymph % (Auto) 11.4 L (22.0-35.0) % Pierce % (Auto) 5.5 (1.0-6.0) % Eos % (Auto) 0.4 L (1.5-5.0) % Baso % (Auto) 0.2 (0.0-3.0) % Gran # 13.73 H (1.4-6.5) Lymph # (Auto) 1.9 (1.2-3.4) Pierce # (Auto) 0.9 H (0.1-0.6) Eos # (Auto) 0.1 (0.0-0.7) Baso # (Auto) 0.03 (0.0-2.0) K/mm3 Sodium 140 (132-148) mmol/L Potassium 3.4 L (3.6-5.0) mmol/L Chloride 106 (98-107) mmol/L Carbon Dioxide 24 (21-33) mmol/L Anion Gap 13 (10-20) BUN 21 (7-21) mg/dL Creatinine 1.0 (0.7-1.2) mg/dl Est GFR ( Amer) > 60 Est GFR (Non-Af Amer) > 60 POC Glucose (mg/dL) 131 H (65-110) mg/dL Random Glucose 128 H (70-110) mg/dL Calcium 7.3 L (8.4-10.5) mg/dL Phosphorus 2.8 (2.5-4.5) mg/dL Magnesium 1.7 (1.7-2.2) mg/dL Total Bilirubin 1.9 H (0.2-1.3) mg/dL AST 197 H (14-36) U/L ALT 390 H (7-56) U/L Alkaline Phosphatase 433 H (38-126) U/L Total Protein 5.6 L (5.8-8.3) g/dL Albumin 2.7 L (3.0-4.8) g/dL Globulin 2.9 gm/dL Albumin/Globulin Ratio 0.9 L (1.1-1.8) Ceruloplasmin (18-53) mg/dL Free T4 (0.78-2.19) ng/dL TSH 3rd Generation (0.46-4.68) mIU/mL Random Vancomycin (20-40) ug/mL Anti-Mitochondrial Ab (Negative) HIV 1&2 Ag/Ab, 4th Gen (Nonreactive) 02/17/18 02/17/18 02/17/18 Range/Units 23:55 22:07 21:11 WBC (4.5-11.0) 10^3/ul RBC (3.5-6.1) 10^6/uL Hgb (12.0-16.0) g/dL Hct (36.0-48.0) % MCV (80.0-105.0) fl MCH (25.0-35.0) pg MCHC (31.0-37.0) g/dl RDW (11.5-14.5) % Plt Count (120.0-450.0) 10^3/uL MPV (7.0-11.0) fl Gran % (50.0-68.0) % Lymph % (Auto) (22.0-35.0) % Pierce % (Auto) (1.0-6.0) % Eos % (Auto) (1.5-5.0) % Baso % (Auto) (0.0-3.0) % Gran # (1.4-6.5) Lymph # (Auto) (1.2-3.4) Pierce # (Auto) (0.1-0.6) Eos # (Auto) (0.0-0.7) Baso # (Auto) (0.0-2.0) K/mm3 Sodium (132-148) mmol/L Potassium (3.6-5.0) mmol/L Chloride (98-107) mmol/L Carbon Dioxide (21-33) mmol/L Anion Gap (10-20) BUN (7-21) mg/dL Creatinine (0.7-1.2) mg/dl Est GFR ( Amer) Est GFR (Non-Af Amer) POC Glucose (mg/dL) 120 H 75 (65-110) mg/dL Random Glucose (70-110) mg/dL Calcium (8.4-10.5) mg/dL Phosphorus (2.5-4.5) mg/dL Magnesium 1.9 (1.7-2.2) mg/dL Total Bilirubin (0.2-1.3) mg/dL AST (14-36) U/L ALT (7-56) U/L Alkaline Phosphatase (38-126) U/L Total Protein (5.8-8.3) g/dL Albumin (3.0-4.8) g/dL Globulin gm/dL Albumin/Globulin Ratio (1.1-1.8) Ceruloplasmin (18-53) mg/dL Free T4 (0.78-2.19) ng/dL TSH 3rd Generation (0.46-4.68) mIU/mL Random Vancomycin (20-40) ug/mL Anti-Mitochondrial Ab (Negative) HIV 1&2 Ag/Ab, 4th Gen (Nonreactive) 02/17/18 02/17/18 02/17/18 Range/Units 20:30 17:40 17:01 WBC (4.5-11.0) 10^3/ul RBC (3.5-6.1) 10^6/uL Hgb (12.0-16.0) g/dL Hct (36.0-48.0) % MCV (80.0-105.0) fl MCH (25.0-35.0) pg MCHC (31.0-37.0) g/dl RDW (11.5-14.5) % Plt Count (120.0-450.0) 10^3/uL MPV (7.0-11.0) fl Gran % (50.0-68.0) % Lymph % (Auto) (22.0-35.0) % Pierce % (Auto) (1.0-6.0) % Eos % (Auto) (1.5-5.0) % Baso % (Auto) (0.0-3.0) % Gran # (1.4-6.5) Lymph # (Auto) (1.2-3.4) Pierce # (Auto) (0.1-0.6) Eos # (Auto) (0.0-0.7) Baso # (Auto) (0.0-2.0) K/mm3 Sodium 141 (132-148) mmol/L Potassium 3.3 L (3.6-5.0) mmol/L Chloride 104 (98-107) mmol/L Carbon Dioxide 26 (21-33) mmol/L Anion Gap 15 (10-20) BUN 20 (7-21) mg/dL Creatinine 1.1 (0.7-1.2) mg/dl Est GFR ( Amer) > 60 Est GFR (Non-Af Amer) 55 POC Glucose (mg/dL) 99 (65-110) mg/dL Random Glucose 73 (70-110) mg/dL Calcium 7.5 L (8.4-10.5) mg/dL Phosphorus (2.5-4.5) mg/dL Magnesium (1.7-2.2) mg/dL Total Bilirubin 1.7 H (0.2-1.3) mg/dL AST 235 H (14-36) U/L ALT 469 H (7-56) U/L Alkaline Phosphatase 373 H D (38-126) U/L Total Protein 5.8 (5.8-8.3) g/dL Albumin 2.8 L (3.0-4.8) g/dL Globulin 3.1 gm/dL Albumin/Globulin Ratio 0.9 L (1.1-1.8) Ceruloplasmin (18-53) mg/dL Free T4 0.74 L (0.78-2.19) ng/dL TSH 3rd Generation 14.90 H (0.46-4.68) mIU/mL Random Vancomycin (20-40) ug/mL Anti-Mitochondrial Ab (Negative) HIV 1&2 Ag/Ab, 4th Gen (Nonreactive) 02/17/18 02/17/18 02/17/18 Range/Units 17:01 17:01 17:01 WBC 14.7 H D (4.5-11.0) 10^3/ul RBC 3.13 L (3.5-6.1) 10^6/uL Hgb 9.5 L (12.0-16.0) g/dL Hct 28.5 L (36.0-48.0) % MCV 91.1 (80.0-105.0) fl MCH 30.4 (25.0-35.0) pg MCHC 33.3 (31.0-37.0) g/dl RDW 13.8 (11.5-14.5) % Plt Count 145 (120.0-450.0) 10^3/uL MPV 8.8 (7.0-11.0) fl Gran % 80.8 H (50.0-68.0) % Lymph % (Auto) 14.4 L (22.0-35.0) % Pierce % (Auto) 4.6 (1.0-6.0) % Eos % (Auto) 0.1 L (1.5-5.0) % Baso % (Auto) 0.1 (0.0-3.0) % Gran # 11.88 H (1.4-6.5) Lymph # (Auto) 2.1 (1.2-3.4) Pierce # (Auto) 0.7 H (0.1-0.6) Eos # (Auto) 0.0 (0.0-0.7) Baso # (Auto) 0.02 (0.0-2.0) K/mm3 Sodium 139 (132-148) mmol/L Potassium 3.5 L (3.6-5.0) mmol/L Chloride 102 (98-107) mmol/L Carbon Dioxide 27 (21-33) mmol/L Anion Gap 13 (10-20) BUN 20 (7-21) mg/dL Creatinine 1.1 (0.7-1.2) mg/dl Est GFR ( Amer) > 60 Est GFR (Non-Af Amer) 55 POC Glucose (mg/dL) (65-110) mg/dL Random Glucose 86 (70-110) mg/dL Calcium 7.3 L (8.4-10.5) mg/dL Phosphorus 2.8 (2.5-4.5) mg/dL Magnesium 1.9 (1.7-2.2) mg/dL Total Bilirubin 1.1 (0.2-1.3) mg/dL AST 197 H D (14-36) U/L ALT 473 H (7-56) U/L Alkaline Phosphatase 261 H (38-126) U/L Total Protein 5.5 L (5.8-8.3) g/dL Albumin 2.7 L (3.0-4.8) g/dL Globulin 2.8 gm/dL Albumin/Globulin Ratio 1.0 L (1.1-1.8) Ceruloplasmin (18-53) mg/dL Free T4 (0.78-2.19) ng/dL TSH 3rd Generation (0.46-4.68) mIU/mL Random Vancomycin 36.5 (20-40) ug/mL Anti-Mitochondrial Ab (Negative) HIV 1&2 Ag/Ab, 4th Gen (Nonreactive) 02/17/18 02/17/18 02/16/18 Range/Units 12:35 07:28 16:40 WBC (4.5-11.0) 10^3/ul RBC (3.5-6.1) 10^6/uL Hgb (12.0-16.0) g/dL Hct (36.0-48.0) % MCV (80.0-105.0) fl MCH (25.0-35.0) pg MCHC (31.0-37.0) g/dl RDW (11.5-14.5) % Plt Count (120.0-450.0) 10^3/uL MPV (7.0-11.0) fl Gran % (50.0-68.0) % Lymph % (Auto) (22.0-35.0) % Pierce % (Auto) (1.0-6.0) % Eos % (Auto) (1.5-5.0) % Baso % (Auto) (0.0-3.0) % Gran # (1.4-6.5) Lymph # (Auto) (1.2-3.4) Pierce # (Auto) (0.1-0.6) Eos # (Auto) (0.0-0.7) Baso # (Auto) (0.0-2.0) K/mm3 Sodium (132-148) mmol/L Potassium (3.6-5.0) mmol/L Chloride (98-107) mmol/L Carbon Dioxide (21-33) mmol/L Anion Gap (10-20) BUN (7-21) mg/dL Creatinine (0.7-1.2) mg/dl Est GFR ( Amer) Est GFR (Non-Af Amer) POC Glucose (mg/dL) 280 H 344 H (65-110) mg/dL Random Glucose (70-110) mg/dL Calcium (8.4-10.5) mg/dL Phosphorus (2.5-4.5) mg/dL Magnesium (1.7-2.2) mg/dL Total Bilirubin (0.2-1.3) mg/dL AST (14-36) U/L ALT (7-56) U/L Alkaline Phosphatase (38-126) U/L Total Protein (5.8-8.3) g/dL Albumin (3.0-4.8) g/dL Globulin gm/dL Albumin/Globulin Ratio (1.1-1.8) Ceruloplasmin (18-53) mg/dL Free T4 (0.78-2.19) ng/dL TSH 3rd Generation (0.46-4.68) mIU/mL Random Vancomycin (20-40) ug/mL Anti-Mitochondrial Ab (Negative) HIV 1&2 Ag/Ab, 4th Gen Nonreactive (Nonreactive) 02/16/18 Range/Units 10:30 WBC (4.5-11.0) 10^3/ul RBC (3.5-6.1) 10^6/uL Hgb (12.0-16.0) g/dL Hct (36.0-48.0) % MCV (80.0-105.0) fl MCH (25.0-35.0) pg MCHC (31.0-37.0) g/dl RDW (11.5-14.5) % Plt Count (120.0-450.0) 10^3/uL MPV (7.0-11.0) fl Gran % (50.0-68.0) % Lymph % (Auto) (22.0-35.0) % Pierce % (Auto) (1.0-6.0) % Eos % (Auto) (1.5-5.0) % Baso % (Auto) (0.0-3.0) % Gran # (1.4-6.5) Lymph # (Auto) (1.2-3.4) Pierce # (Auto) (0.1-0.6) Eos # (Auto) (0.0-0.7) Baso # (Auto) (0.0-2.0) K/mm3 Sodium (132-148) mmol/L Potassium (3.6-5.0) mmol/L Chloride (98-107) mmol/L Carbon Dioxide (21-33) mmol/L Anion Gap (10-20) BUN (7-21) mg/dL Creatinine (0.7-1.2) mg/dl Est GFR ( Amer) Est GFR (Non-Af Amer) POC Glucose (mg/dL) (65-110) mg/dL Random Glucose (70-110) mg/dL Calcium (8.4-10.5) mg/dL Phosphorus (2.5-4.5) mg/dL Magnesium (1.7-2.2) mg/dL Total Bilirubin (0.2-1.3) mg/dL AST (14-36) U/L ALT (7-56) U/L Alkaline Phosphatase (38-126) U/L Total Protein (5.8-8.3) g/dL Albumin (3.0-4.8) g/dL Globulin gm/dL Albumin/Globulin Ratio (1.1-1.8) Ceruloplasmin 28 (18-53) mg/dL Free T4 (0.78-2.19) ng/dL TSH 3rd Generation (0.46-4.68) mIU/mL Random Vancomycin (20-40) ug/mL Anti-Mitochondrial Ab Negative (Negative) HIV 1&2 Ag/Ab, 4th Gen (Nonreactive) Laboratory Results - last 24 hr 02/16/18 02/16/18 02/17/18 10:30 16:40 07:28 WBC RBC Hgb Hct MCV MCH MCHC RDW Plt Count MPV Gran % Lymph % (Auto) Pierce % (Auto) Eos % (Auto) Baso % (Auto) Gran # Lymph # (Auto) Pierce # (Auto) Eos # (Auto) Baso # (Auto) Sodium Potassium Chloride Carbon Dioxide Anion Gap BUN Creatinine Est GFR ( Amer) Est GFR (Non-Af Amer) POC Glucose (mg/dL) 344 H Random Glucose Calcium Phosphorus Magnesium Total Bilirubin AST ALT Alkaline Phosphatase Total Protein Albumin Globulin Albumin/Globulin Ratio Ceruloplasmin 28 Free T4 TSH 3rd Generation Random Vancomycin Anti-Mitochondrial Ab Negative HIV 1&2 Ag/Ab, 4th Gen Nonreactive 02/17/18 02/17/18 02/17/18 12:35 17:01 17:01 WBC 14.7 H D RBC 3.13 L Hgb 9.5 L Hct 28.5 L MCV 91.1 MCH 30.4 MCHC 33.3 RDW 13.8 Plt Count 145 MPV 8.8 Gran % 80.8 H Lymph % (Auto) 14.4 L Pierce % (Auto) 4.6 Eos % (Auto) 0.1 L Baso % (Auto) 0.1 Gran # 11.88 H Lymph # (Auto) 2.1 Pierce # (Auto) 0.7 H Eos # (Auto) 0.0 Baso # (Auto) 0.02 Sodium 139 Potassium 3.5 L Chloride 102 Carbon Dioxide 27 Anion Gap 13 BUN 20 Creatinine 1.1 Est GFR ( Amer) > 60 Est GFR (Non-Af Amer) 55 POC Glucose (mg/dL) 280 H Random Glucose 86 Calcium 7.3 L Phosphorus 2.8 Magnesium 1.9 Total Bilirubin 1.1 AST 197 H D ALT 473 H Alkaline Phosphatase 261 H Total Protein 5.5 L Albumin 2.7 L Globulin 2.8 Albumin/Globulin Ratio 1.0 L Ceruloplasmin Free T4 TSH 3rd Generation Random Vancomycin Anti-Mitochondrial Ab HIV 1&2 Ag/Ab, 4th Gen 0602/17/18 02/17/18 17:01 17:01 17:40 WBC RBC Hgb Hct MCV MCH MCHC RDW Plt Count MPV Gran % Lymph % (Auto) Pierce % (Auto) Eos % (Auto) Baso % (Auto) Gran # Lymph # (Auto) Pierce # (Auto) Eos # (Auto) Baso # (Auto) Sodium Potassium Chloride Carbon Dioxide Anion Gap BUN Creatinine Est GFR ( Amer) Est GFR (Non-Af Amer) POC Glucose (mg/dL) 99 Random Glucose Calcium Phosphorus Magnesium Total Bilirubin AST ALT Alkaline Phosphatase Total Protein Albumin Globulin Albumin/Globulin Ratio Ceruloplasmin Free T4 0.74 L TSH 3rd Generation 14.90 H Random Vancomycin 36.5 Anti-Mitochondrial Ab HIV 1&2 Ag/Ab, 4th Gen 02/17/18 02/17/18 02/17/18 20:30 21:11 22:07 WBC RBC Hgb Hct MCV MCH MCHC RDW Plt Count MPV Gran % Lymph % (Auto) Pierce % (Auto) Eos % (Auto) Baso % (Auto) Gran # Lymph # (Auto) Pierce # (Auto) Eos # (Auto) Baso # (Auto) Sodium 141 Potassium 3.3 L Chloride 104 Carbon Dioxide 26 Anion Gap 15 BUN 20 Creatinine 1.1 Est GFR ( Amer) > 60 Est GFR (Non-Af Amer) 55 POC Glucose (mg/dL) 75 Random Glucose 73 Calcium 7.5 L Phosphorus Magnesium 1.9 Total Bilirubin 1.7 H AST 235 H ALT 469 H Alkaline Phosphatase 373 H D Total Protein 5.8 Albumin 2.8 L Globulin 3.1 Albumin/Globulin Ratio 0.9 L Ceruloplasmin Free T4 TSH 3rd Generation Random Vancomycin Anti-Mitochondrial Ab HIV 1&2 Ag/Ab, 4th Gen 02/17/18 02/18/18 02/18/18 23:55 06:20 06:20 WBC 16.6 H RBC 2.93 L Hgb 8.8 L Hct 26.9 L MCV 91.8 MCH 30.0 MCHC 32.7 RDW 14.0 Plt Count 137 MPV 9.0 Gran % 82.5 H Lymph % (Auto) 11.4 L Pierce % (Auto) 5.5 Eos % (Auto) 0.4 L Baso % (Auto) 0.2 Gran # 13.73 H Lymph # (Auto) 1.9 Pierce # (Auto) 0.9 H Eos # (Auto) 0.1 Baso # (Auto) 0.03 Sodium 140 Potassium 3.4 L Chloride 106 Carbon Dioxide 24 Anion Gap 13 BUN 21 Creatinine 1.0 Est GFR ( Amer) > 60 Est GFR (Non-Af Amer) > 60 POC Glucose (mg/dL) 120 H Random Glucose 128 H Calcium 7.3 L Phosphorus 2.8 Magnesium 1.7 Total Bilirubin 1.9 H AST 197 H ALT 390 H Alkaline Phosphatase 433 H Total Protein 5.6 L Albumin 2.7 L Globulin 2.9 Albumin/Globulin Ratio 0.9 L Ceruloplasmin Free T4 TSH 3rd Generation Random Vancomycin Anti-Mitochondrial Ab HIV 1&2 Ag/Ab, 4th Gen 02/18/18 07:12 WBC RBC Hgb Hct MCV MCH MCHC RDW Plt Count MPV Gran % Lymph % (Auto) Pierce % (Auto) Eos % (Auto) Baso % (Auto) Gran # Lymph # (Auto) Pierce # (Auto) Eos # (Auto) Baso # (Auto) Sodium Potassium Chloride Carbon Dioxide Anion Gap BUN Creatinine Est GFR ( Amer) Est GFR (Non-Af Amer) POC Glucose (mg/dL) 131 H Random Glucose Calcium Phosphorus Magnesium Total Bilirubin AST ALT Alkaline Phosphatase Total Protein Albumin Globulin Albumin/Globulin Ratio Ceruloplasmin Free T4 TSH 3rd Generation Random Vancomycin Anti-Mitochondrial Ab HIV 1&2 Ag/Ab, 4th Gen Fingerstick Blood Sugar Results: 130 Critical Care Progress Note - Nutrition Nutrition: Nutrition Category Date Time Status Liquid Diet [DIET] Diets 02/16/18 Dinner Ordered Assessment/Plan - Assessment and Plan (Free Text) Assessment: Mindi Jarrell, 38 F, with PMhx of Hep C, polysubstance abuse, ETOH abuse x 5 years (last drink 02/15), IDDM, HTN, presented with swelling and erythema of the mouth/neck x 3 days, associated with dysphagia. CT soft tissue neck with contrast which showed Ludwigs Angina, soft tissue edema, left parapharyngeal space, epiglottis swelling, s/p abscess InD, and tracheostomy in the OR. Pt was on PS 5/5, 50-60%. Minimal suction out. Then, she became tachyneic, tachycardia , cough, so switch her to PRVC 400/12/P5/60% A 1. Ludwigs Angina Epiglotitis, Neck Cellulitis, Sepsis s/p trach, day 2 s/p I&D for abscess, day 2 (Drained 20cc pus, foul smelling) 2. DKA - resolved 3. Acute Cardiomyopathy 4. Transaminitis on NAC. 2/2 drug induce, sepsis, ischemic due to transient hypotension at SBP 90, R/O hepatitis, R/o autoimmune, pending acetaminophen level - trending down 5. ETOH abuse, Ativan induced psychosis Neuro Dilaudid 1q3PRN CIWA q4 D/C Versed, Fentanyl B1, folate, MV Per ENT, no plan to redo decadron/CT neck UDS (+) Methadone - restart @ 90 Nicotine patch Pulm Patient on CPAP setting now Goal is to titrate PO2 demand Continue trach care Pending ECHO (2012, normal EF) Duoneb PRN Card Cozaar 50, Amlodipine 10 daily Stop all IVF Lasix 40 daily Avoid over diuresing Pending Echo read GI Abdominal U/S: Fatty liver, splenomegaly Liver arterial doppler: Patent portal vein Start acetylcysteine per GI Nector thick, full liquid diet. - Keep cuff inflated Srtict i/o Check Mg to prevent refeeding syndrome Endo Levemir 20 BID, 3u regular insulin AC, ISSS-med Accu ACHS Heme ID CXR showed pulm edema cannot r/o pna. Zosyn (day 4) for G+ and anerobe coverage; Vanc Day 2; Doxy day 2 Decadrone x 1 RPT blood culture, as first one might have been contaminated Wound Cx - anerobe neg x 1d PVX protonix, heparin SC Dispo OOB to chair Consult Dr. Tamayo, Dr Shannon, Dr Lanier <Doug Fox - Last Filed: 02/18/18 12:17> CCU Objective - Vital Signs / Intake & Output Vital Signs (Last 4 hours): Vital Signs Pulse BP 02/18/18 09:53 106/52 L 02/18/18 09:48 97 H Intake and Output (Last 8hrs): Intake & Output 02/17/18 02/18/18 02/18/18 22:59 06:59 14:59 Intake Total 1100 870 Output Total 400 525 Balance 700 345 Weight 170 lb 7 oz Intake: IV 100 870 Left Hand 200 Right Forearm 450 fentanyl 120 Other 1000 Output: Urine 400 525 2-way Urethral 525 Urine, Voided 400 - Medications Active Medications: Active Medications Generic Name Dose Route Start Last Admin Trade Name Freq PRN Reason Stop Dose Admin Albuterol/Ipratropium 3 ml 02/16/18 19:55 02/18/18 02:26 Duoneb 3 Mg/0.5 Mg (3 Ml) Ud IH 3 ml Q2H PRN Administration Shortness of Breath Amlodipine Besylate 10 mg 02/16/18 14:15 02/18/18 09:53 Norvasc PO 10 mg DAILY [facility] Administration Folic Acid 1 mg 02/17/18 10:00 02/18/18 09:52 Folic Acid PO 1 mg DAILY [facility] Administration Furosemide 40 mg 02/18/18 11:00 Lasix IVP DAILY [facility] Hydromorphone HCl 1 mg 02/15/18 15:15 02/18/18 04:38 Dilaudid IVP 1 mg Q3H PRN Administration Pain, severe (8-10) Piperacillin Sod/Tazobactam Sod 4.5 gm in 100 mls @ 200 mls/hr 02/15/18 18:00 02/18/18 06:18 Zosyn 4.5 Gm In Ns 100ml IVPB 02/22/18 18:01 200 mls/hr Q6 [facility] Administration Protocol Doxycycline Hyclate 100 mg/ 100 mls @ 100 mls/hr 02/17/18 10:30 02/18/18 09: 57 Sodium Chloride IVPB 100 mls/hr Q12 [facility] Administration Protocol Vancomycin HCl 1 gm in 250 mls @ 167 mls/hr 02/17/18 21:08 02/18/18 00:34 Vancomycin 1gm IVPB 167 mls/hr 0000,1200 [facility] Administration Protocol Insulin Detemir 20 unit 02/18/18 10:53 Levemir SC Q12 [facility] Insulin Human Regular 0 units 02/16/18 12:30 02/18/18 08:15 Humulin R Med SC Not Given ACHS [facility] Protocol Insulin Human Regular 3 units 02/18/18 10:54 Humulin R SC AC [facility] Losartan Potassium 50 mg 02/16/18 12:15 02/18/18 09:48 Cozaar PO 50 mg DAILY [facility] Administration Multivitamins 1 tab 02/18/18 08:00 02/18/18 10:31 Thera Tab PO 1 tab 0800 KATYA Administration Nicotine 1 patch 02/16/18 15:45 02/18/18 09:52 Nicoderm Cq TD 1 patch DAILY KATYA Administration Pantoprazole Sodium 40 mg 02/16/18 10:00 02/18/18 10:30 Protonix Inj IVP 40 mg DAILY KATYA Administration Saliva Substitute 1 ml 02/15/18 10:54 02/15/18 20:58 Saliva Substitute PO 1 ml Q2H PRN Administration Dry mouth Thiamine HCl 100 mg 02/16/18 10:00 02/18/18 10:06 Vitamin B1 Inj IM 100 mg DAILY KATYA Administration - Patient Studies Lab Studies: Microbiology Studies 02/17/18 15:55 Gram Stain - Final Abscess - Neck Wound Culture - Preliminary NO GROWTH AFTER 24 HOURS 02/15/18 16:00 Anaerobic Culture - Final Abscess - Neck NO ANAEROBES ISOLATED. Lab Studies 02/18/18 02/18/18 02/18/18 Range/Units 07:12 06:20 06:20 WBC 16.6 H (4.5-11.0) 10^3/ul RBC 2.93 L (3.5-6.1) 10^6/uL Hgb 8.8 L (12.0-16.0) g/dL Hct 26.9 L (36.0-48.0) % MCV 91.8 (80.0-105.0) fl MCH 30.0 (25.0-35.0) pg MCHC 32.7 (31.0-37.0) g/dl RDW 14.0 (11.5-14.5) % Plt Count 137 (120.0-450.0) 10^3/uL MPV 9.0 (7.0-11.0) fl Gran % 82.5 H (50.0-68.0) % Lymph % (Auto) 11.4 L (22.0-35.0) % Pierce % (Auto) 5.5 (1.0-6.0) % Eos % (Auto) 0.4 L (1.5-5.0) % Baso % (Auto) 0.2 (0.0-3.0) % Gran # 13.73 H (1.4-6.5) Lymph # (Auto) 1.9 (1.2-3.4) Pierce # (Auto) 0.9 H (0.1-0.6) Eos # (Auto) 0.1 (0.0-0.7) Baso # (Auto) 0.03 (0.0-2.0) K/mm3 Sodium 140 (132-148) mmol/L Potassium 3.4 L (3.6-5.0) mmol/L Chloride 106 (98-107) mmol/L Carbon Dioxide 24 (21-33) mmol/L Anion Gap 13 (10-20) BUN 21 (7-21) mg/dL Creatinine 1.0 (0.7-1.2) mg/dl Est GFR ( Amer) > 60 Est GFR (Non-Af Amer) > 60 POC Glucose (mg/dL) 131 H (65-110) mg/dL Random Glucose 128 H (70-110) mg/dL Calcium 7.3 L (8.4-10.5) mg/dL Phosphorus 2.8 (2.5-4.5) mg/dL Magnesium 1.7 (1.7-2.2) mg/dL Total Bilirubin 1.9 H (0.2-1.3) mg/dL AST 197 H (14-36) U/L ALT 390 H (7-56) U/L Alkaline Phosphatase 433 H (38-126) U/L Total Protein 5.6 L (5.8-8.3) g/dL Albumin 2.7 L (3.0-4.8) g/dL Globulin 2.9 gm/dL Albumin/Globulin Ratio 0.9 L (1.1-1.8) Ceruloplasmin (18-53) mg/dL Free T4 (0.78-2.19) ng/dL TSH 3rd Generation (0.46-4.68) mIU/mL Random Vancomycin (20-40) ug/mL Anti-Mitochondrial Ab (Negative) HIV 1&2 Ag/Ab, 4th Gen (Nonreactive) 02/17/18 02/17/18 02/17/18 Range/Units 23:55 22:07 21:11 WBC (4.5-11.0) 10^3/ul RBC (3.5-6.1) 10^6/uL Hgb (12.0-16.0) g/dL Hct (36.0-48.0) % MCV (80.0-105.0) fl MCH (25.0-35.0) pg MCHC (31.0-37.0) g/dl RDW (11.5-14.5) % Plt Count (120.0-450.0) 10^3/uL MPV (7.0-11.0) fl Gran % (50.0-68.0) % Lymph % (Auto) (22.0-35.0) % Pierce % (Auto) (1.0-6.0) % Eos % (Auto) (1.5-5.0) % Baso % (Auto) (0.0-3.0) % Gran # (1.4-6.5) Lymph # (Auto) (1.2-3.4) Pierce # (Auto) (0.1-0.6) Eos # (Auto) (0.0-0.7) Baso # (Auto) (0.0-2.0) K/mm3 Sodium (132-148) mmol/L Potassium (3.6-5.0) mmol/L Chloride (98-107) mmol/L Carbon Dioxide (21-33) mmol/L Anion Gap (10-20) BUN (7-21) mg/dL Creatinine (0.7-1.2) mg/dl Est GFR ( Amer) Est GFR (Non-Af Amer) POC Glucose (mg/dL) 120 H 75 (65-110) mg/dL Random Glucose (70-110) mg/dL Calcium (8.4-10.5) mg/dL Phosphorus (2.5-4.5) mg/dL Magnesium 1.9 (1.7-2.2) mg/dL Total Bilirubin (0.2-1.3) mg/dL AST (14-36) U/L ALT (7-56) U/L Alkaline Phosphatase (38-126) U/L Total Protein (5.8-8.3) g/dL Albumin (3.0-4.8) g/dL Globulin gm/dL Albumin/Globulin Ratio (1.1-1.8) Ceruloplasmin (18-53) mg/dL Free T4 (0.78-2.19) ng/dL TSH 3rd Generation (0.46-4.68) mIU/mL Random Vancomycin (20-40) ug/mL Anti-Mitochondrial Ab (Negative) HIV 1&2 Ag/Ab, 4th Gen (Nonreactive) 02/17/18 02/17/18 02/17/18 Range/Units 20:30 17:40 17:01 WBC (4.5-11.0) 10^3/ul RBC (3.5-6.1) 10^6/uL Hgb (12.0-16.0) g/dL Hct (36.0-48.0) % MCV (80.0-105.0) fl MCH (25.0-35.0) pg MCHC (31.0-37.0) g/dl RDW (11.5-14.5) % Plt Count (120.0-450.0) 10^3/uL MPV (7.0-11.0) fl Gran % (50.0-68.0) % Lymph % (Auto) (22.0-35.0) % Pierce % (Auto) (1.0-6.0) % Eos % (Auto) (1.5-5.0) % Baso % (Auto) (0.0-3.0) % Gran # (1.4-6.5) Lymph # (Auto) (1.2-3.4) Pierce # (Auto) (0.1-0.6) Eos # (Auto) (0.0-0.7) Baso # (Auto) (0.0-2.0) K/mm3 Sodium 141 (132-148) mmol/L Potassium 3.3 L (3.6-5.0) mmol/L Chloride 104 (98-107) mmol/L Carbon Dioxide 26 (21-33) mmol/L Anion Gap 15 (10-20) BUN 20 (7-21) mg/dL Creatinine 1.1 (0.7-1.2) mg/dl Est GFR ( Amer) > 60 Est GFR (Non-Af Amer) 55 POC Glucose (mg/dL) 99 (65-110) mg/dL Random Glucose 73 (70-110) mg/dL Calcium 7.5 L (8.4-10.5) mg/dL Phosphorus (2.5-4.5) mg/dL Magnesium (1.7-2.2) mg/dL Total Bilirubin 1.7 H (0.2-1.3) mg/dL AST 235 H (14-36) U/L ALT 469 H (7-56) U/L Alkaline Phosphatase 373 H D (38-126) U/L Total Protein 5.8 (5.8-8.3) g/dL Albumin 2.8 L (3.0-4.8) g/dL Globulin 3.1 gm/dL Albumin/Globulin Ratio 0.9 L (1.1-1.8) Ceruloplasmin (18-53) mg/dL Free T4 0.74 L (0.78-2.19) ng/dL TSH 3rd Generation 14.90 H (0.46-4.68) mIU/mL Random Vancomycin (20-40) ug/mL Anti-Mitochondrial Ab (Negative) HIV 1&2 Ag/Ab, 4th Gen (Nonreactive) 02/17/18 02/17/18 02/17/18 Range/Units 17:01 17:01 17:01 WBC 14.7 H D (4.5-11.0) 10^3/ul RBC 3.13 L (3.5-6.1) 10^6/uL Hgb 9.5 L (12.0-16.0) g/dL Hct 28.5 L (36.0-48.0) % MCV 91.1 (80.0-105.0) fl MCH 30.4 (25.0-35.0) pg MCHC 33.3 (31.0-37.0) g/dl RDW 13.8 (11.5-14.5) % Plt Count 145 (120.0-450.0) 10^3/uL MPV 8.8 (7.0-11.0) fl Gran % 80.8 H (50.0-68.0) % Lymph % (Auto) 14.4 L (22.0-35.0) % Pierce % (Auto) 4.6 (1.0-6.0) % Eos % (Auto) 0.1 L (1.5-5.0) % Baso % (Auto) 0.1 (0.0-3.0) % Gran # 11.88 H (1.4-6.5) Lymph # (Auto) 2.1 (1.2-3.4) Pierce # (Auto) 0.7 H (0.1-0.6) Eos # (Auto) 0.0 (0.0-0.7) Baso # (Auto) 0.02 (0.0-2.0) K/mm3 Sodium 139 (132-148) mmol/L Potassium 3.5 L (3.6-5.0) mmol/L Chloride 102 (98-107) mmol/L Carbon Dioxide 27 (21-33) mmol/L Anion Gap 13 (10-20) BUN 20 (7-21) mg/dL Creatinine 1.1 (0.7-1.2) mg/dl Est GFR ( Amer) > 60 Est GFR (Non-Af Amer) 55 POC Glucose (mg/dL) (65-110) mg/dL Random Glucose 86 (70-110) mg/dL Calcium 7.3 L (8.4-10.5) mg/dL Phosphorus 2.8 (2.5-4.5) mg/dL Magnesium 1.9 (1.7-2.2) mg/dL Total Bilirubin 1.1 (0.2-1.3) mg/dL AST 197 H D (14-36) U/L ALT 473 H (7-56) U/L Alkaline Phosphatase 261 H (38-126) U/L Total Protein 5.5 L (5.8-8.3) g/dL Albumin 2.7 L (3.0-4.8) g/dL Globulin 2.8 gm/dL Albumin/Globulin Ratio 1.0 L (1.1-1.8) Ceruloplasmin (18-53) mg/dL Free T4 (0.78-2.19) ng/dL TSH 3rd Generation (0.46-4.68) mIU/mL Random Vancomycin 36.5 (20-40) ug/mL Anti-Mitochondrial Ab (Negative) HIV 1&2 Ag/Ab, 4th Gen (Nonreactive) 02/17/18 02/17/18 02/16/18 Range/Units 12:35 07:28 16:40 WBC (4.5-11.0) 10^3/ul RBC (3.5-6.1) 10^6/uL Hgb (12.0-16.0) g/dL Hct (36.0-48.0) % MCV (80.0-105.0) fl MCH (25.0-35.0) pg MCHC (31.0-37.0) g/dl RDW (11.5-14.5) % Plt Count (120.0-450.0) 10^3/uL MPV (7.0-11.0) fl Gran % (50.0-68.0) % Lymph % (Auto) (22.0-35.0) % Pierce % (Auto) (1.0-6.0) % Eos % (Auto) (1.5-5.0) % Baso % (Auto) (0.0-3.0) % Gran # (1.4-6.5) Lymph # (Auto) (1.2-3.4) Pierce # (Auto) (0.1-0.6) Eos # (Auto) (0.0-0.7) Baso # (Auto) (0.0-2.0) K/mm3 Sodium (132-148) mmol/L Potassium (3.6-5.0) mmol/L Chloride (98-107) mmol/L Carbon Dioxide (21-33) mmol/L Anion Gap (10-20) BUN (7-21) mg/dL Creatinine (0.7-1.2) mg/dl Est GFR ( Amer) Est GFR (Non-Af Amer) POC Glucose (mg/dL) 280 H 344 H (65-110) mg/dL Random Glucose (70-110) mg/dL Calcium (8.4-10.5) mg/dL Phosphorus (2.5-4.5) mg/dL Magnesium (1.7-2.2) mg/dL Total Bilirubin (0.2-1.3) mg/dL AST (14-36) U/L ALT (7-56) U/L Alkaline Phosphatase (38-126) U/L Total Protein (5.8-8.3) g/dL Albumin (3.0-4.8) g/dL Globulin gm/dL Albumin/Globulin Ratio (1.1-1.8) Ceruloplasmin (18-53) mg/dL Free T4 (0.78-2.19) ng/dL TSH 3rd Generation (0.46-4.68) mIU/mL Random Vancomycin (20-40) ug/mL Anti-Mitochondrial Ab (Negative) HIV 1&2 Ag/Ab, 4th Gen Nonreactive (Nonreactive) 02/16/18 Range/Units 10:30 WBC (4.5-11.0) 10^3/ul RBC (3.5-6.1) 10^6/uL Hgb (12.0-16.0) g/dL Hct (36.0-48.0) % MCV (80.0-105.0) fl MCH (25.0-35.0) pg MCHC (31.0-37.0) g/dl RDW (11.5-14.5) % Plt Count (120.0-450.0) 10^3/uL MPV (7.0-11.0) fl Gran % (50.0-68.0) % Lymph % (Auto) (22.0-35.0) % Pierce % (Auto) (1.0-6.0) % Eos % (Auto) (1.5-5.0) % Baso % (Auto) (0.0-3.0) % Gran # (1.4-6.5) Lymph # (Auto) (1.2-3.4) Pierce # (Auto) (0.1-0.6) Eos # (Auto) (0.0-0.7) Baso # (Auto) (0.0-2.0) K/mm3 Sodium (132-148) mmol/L Potassium (3.6-5.0) mmol/L Chloride (98-107) mmol/L Carbon Dioxide (21-33) mmol/L Anion Gap (10-20) BUN (7-21) mg/dL Creatinine (0.7-1.2) mg/dl Est GFR ( Amer) Est GFR (Non-Af Amer) POC Glucose (mg/dL) (65-110) mg/dL Random Glucose (70-110) mg/dL Calcium (8.4-10.5) mg/dL Phosphorus (2.5-4.5) mg/dL Magnesium (1.7-2.2) mg/dL Total Bilirubin (0.2-1.3) mg/dL AST (14-36) U/L ALT (7-56) U/L Alkaline Phosphatase (38-126) U/L Total Protein (5.8-8.3) g/dL Albumin (3.0-4.8) g/dL Globulin gm/dL Albumin/Globulin Ratio (1.1-1.8) Ceruloplasmin 28 (18-53) mg/dL Free T4 (0.78-2.19) ng/dL TSH 3rd Generation (0.46-4.68) mIU/mL Random Vancomycin (20-40) ug/mL Anti-Mitochondrial Ab Negative (Negative) HIV 1&2 Ag/Ab, 4th Gen (Nonreactive) Laboratory Results - last 24 hr 02/16/18 02/16/18 02/17/18 10:30 16:40 07:28 WBC RBC Hgb Hct MCV MCH MCHC RDW Plt Count MPV Gran % Lymph % (Auto) Pierce % (Auto) Eos % (Auto) Baso % (Auto) Gran # Lymph # (Auto) Pierce # (Auto) Eos # (Auto) Baso # (Auto) Sodium Potassium Chloride Carbon Dioxide Anion Gap BUN Creatinine Est GFR ( Amer) Est GFR (Non-Af Amer) POC Glucose (mg/dL) 344 H Random Glucose Calcium Phosphorus Magnesium Total Bilirubin AST ALT Alkaline Phosphatase Total Protein Albumin Globulin Albumin/Globulin Ratio Ceruloplasmin 28 Free T4 TSH 3rd Generation Random Vancomycin Anti-Mitochondrial Ab Negative HIV 1&2 Ag/Ab, 4th Gen Nonreactive 02/17/18 02/17/18 02/17/18 12:35 17:01 17:01 WBC 14.7 H D RBC 3.13 L Hgb 9.5 L Hct 28.5 L MCV 91.1 MCH 30.4 MCHC 33.3 RDW 13.8 Plt Count 145 MPV 8.8 Gran % 80.8 H Lymph % (Auto) 14.4 L Pierce % (Auto) 4.6 Eos % (Auto) 0.1 L Baso % (Auto) 0.1 Gran # 11.88 H Lymph # (Auto) 2.1 Pierce # (Auto) 0.7 H Eos # (Auto) 0.0 Baso # (Auto) 0.02 Sodium 139 Potassium 3.5 L Chloride 102 Carbon Dioxide 27 Anion Gap 13 BUN 20 Creatinine 1.1 Est GFR ( Amer) > 60 Est GFR (Non-Af Amer) 55 POC Glucose (mg/dL) 280 H Random Glucose 86 Calcium 7.3 L Phosphorus 2.8 Magnesium 1.9 Total Bilirubin 1.1 AST 197 H D ALT 473 H Alkaline Phosphatase 261 H Total Protein 5.5 L Albumin 2.7 L Globulin 2.8 Albumin/Globulin Ratio 1.0 L Ceruloplasmin Free T4 TSH 3rd Generation Random Vancomycin Anti-Mitochondrial Ab HIV 1&2 Ag/Ab, 4th Gen 02/17/18 02/17/18 02/17/18 17:01 17:01 17:40 WBC RBC Hgb Hct MCV MCH MCHC RDW Plt Count MPV Gran % Lymph % (Auto) Pierce % (Auto) Eos % (Auto) Baso % (Auto) Gran # Lymph # (Auto) Pierce # (Auto) Eos # (Auto) Baso # (Auto) Sodium Potassium Chloride Carbon Dioxide Anion Gap BUN Creatinine Est GFR ( Amer) Est GFR (Non-Af Amer) POC Glucose (mg/dL) 99 Random Glucose Calcium Phosphorus Magnesium Total Bilirubin AST ALT Alkaline Phosphatase Total Protein Albumin Globulin Albumin/Globulin Ratio Ceruloplasmin Free T4 0.74 L TSH 3rd Generation 14.90 H Random Vancomycin 36.5 Anti-Mitochondrial Ab HIV 1&2 Ag/Ab, 4th Gen 02/17/18 02/17/18 02/17/18 20:30 21:11 22:07 WBC RBC Hgb Hct MCV MCH MCHC RDW Plt Count MPV Gran % Lymph % (Auto) Pierce % (Auto) Eos % (Auto) Baso % (Auto) Gran # Lymph # (Auto) Pierce # (Auto) Eos # (Auto) Baso # (Auto) Sodium 141 Potassium 3.3 L Chloride 104 Carbon Dioxide 26 Anion Gap 15 BUN 20 Creatinine 1.1 Est GFR ( Amer) > 60 Est GFR (Non-Af Amer) 55 POC Glucose (mg/dL) 75 Random Glucose 73 Calcium 7.5 L Phosphorus Magnesium 1.9 Total Bilirubin 1.7 H AST 235 H ALT 469 H Alkaline Phosphatase 373 H D Total Protein 5.8 Albumin 2.8 L Globulin 3.1 Albumin/Globulin Ratio 0.9 L Ceruloplasmin Free T4 TSH 3rd Generation Random Vancomycin Anti-Mitochondrial Ab HIV 1&2 Ag/Ab, 4th Gen 02/17/18 02/18/18 02/18/18 23:55 06:20 06:20 WBC 16.6 H RBC 2.93 L Hgb 8.8 L Hct 26.9 L MCV 91.8 MCH 30.0 MCHC 32.7 RDW 14.0 Plt Count 137 MPV 9.0 Gran % 82.5 H Lymph % (Auto) 11.4 L Pierce % (Auto) 5.5 Eos % (Auto) 0.4 L Baso % (Auto) 0.2 Gran # 13.73 H Lymph # (Auto) 1.9 Pierce # (Auto) 0.9 H Eos # (Auto) 0.1 Baso # (Auto) 0.03 Sodium 140 Potassium 3.4 L Chloride 106 Carbon Dioxide 24 Anion Gap 13 BUN 21 Creatinine 1.0 Est GFR ( Amer) > 60 Est GFR (Non-Af Amer) > 60 POC Glucose (mg/dL) 120 H Random Glucose 128 H Calcium 7.3 L Phosphorus 2.8 Magnesium 1.7 Total Bilirubin 1.9 H AST 197 H ALT 390 H Alkaline Phosphatase 433 H Total Protein 5.6 L Albumin 2.7 L Globulin 2.9 Albumin/Globulin Ratio 0.9 L Ceruloplasmin Free T4 TSH 3rd Generation Random Vancomycin Anti-Mitochondrial Ab HIV 1&2 Ag/Ab, 4th Gen 02/18/18 07:12 WBC RBC Hgb Hct MCV MCH MCHC RDW Plt Count MPV Gran % Lymph % (Auto) Pierce % (Auto) Eos % (Auto) Baso % (Auto) Gran # Lymph # (Auto) Pierce # (Auto) Eos # (Auto) Baso # (Auto) Sodium Potassium Chloride Carbon Dioxide Anion Gap BUN Creatinine Est GFR ( Amer) Est GFR (Non-Af Amer) POC Glucose (mg/dL) 131 H Random Glucose Calcium Phosphorus Magnesium Total Bilirubin AST ALT Alkaline Phosphatase Total Protein Albumin Globulin Albumin/Globulin Ratio Ceruloplasmin Free T4 TSH 3rd Generation Random Vancomycin Anti-Mitochondrial Ab HIV 1&2 Ag/Ab, 4th Gen Critical Care Progress Note - Nutrition Nutrition: Nutrition Category Date Time Status Liquid Diet [DIET] Diets 02/16/18 Dinner Ordered Assessment/Plan - Assessment and Plan (Free Text) Assessment: Patient seen and examined with resident, agree with note with following additions/exceptions: Patient is 38yo female with PMhx of Hep C, polysubstance abuse, IDDM, HTN, presented with swelling and erythema of the mouth/neck x 3 days, associated with dysphagia. CT soft tissue neck done with contrast which showed Ludwigs Angina, soft tissue edema, left parapharyngeal space, epiglottis swelling, s/p abscess InD, and tracheostomy in the OR. Patient then went in pulm edema, had persistent RLL infiltrate, on broad spectrum abx, ID following Blood cultures noted, repeat pending Patient currently on trach collar, tolrating well, 40%, saturation 94% DKA resolved ENT following ECHO done, noted LFTs now downtrending s/p NAC Ludwigs Angina Epiglotitis Neck Cellulitis s/p trach s/p InD Hypertension DKA, resolved Volume overload Abnormal LFTs Recommend: - cont with Trach collar as tolerated - duonebs PRN - cont with Zosyn IV, Vanco, Doxy, follow up ID, cultures - BP control - Lasix IV diuresis - HOLD IVF - follow up cardiology - Sliding scale, Levemir QHS, decrease dose to 20u BID - follow up GI - follow up liver serologies - GI ppx - DVT ppx - Monitor in MICU critical care time 30 minutes
--- NOTE | 2018-02-18 12:57 | CP.PCM.PN ---
<Leighann Casillas - Last Filed: 02/18/18 12:50> Subjective - Date & Time of Evaluation Date of Evaluation: 02/18/18 Time of Evaluation: 12:50 - Subjective Subjective: Leighann Casillas, PGY1, Medicine Progress Note for Dr Preston: Patient seen and examined at bedside. No acute events overnight. Pt switched to trach collar with humidified oxygen this morning, tolerating well. Pt started on methadone, drowsy on exam this morning. Mother at bedside, explained the patient's condition, all questions answered. Pt denies fevers, chills, nausea, vomiting, abdominal pain, leg swelling. Objective - Vital Signs/Intake and Output Vital Signs (last 24 hours): Temp Pulse Resp BP Pulse Ox 98 F 97 H 28 H 106/52 L 86 L 02/18/18 04:00 02/18/18 09:48 02/18/18 07:01 02/18/18 09:53 02/18/18 04:02 Intake and Output: 02/18/18 02/18/18 06:59 18:59 Intake Total 870 Output Total 525 Balance 345 - Medications Medications: Current Medications Albuterol/Ipratropium (Duoneb 3 Mg/0.5 Mg (3 Ml) Ud) 3 ml IH Q2H PRN PRN Reason: Shortness of Breath Last Admin: 02/18/18 02:26 Dose: 3 ml Amlodipine Besylate (Norvasc) 10 mg PO DAILY [facility] Last Admin: 02/18/18 09:53 Dose: 10 mg Folic Acid (Folic Acid) 1 mg PO DAILY [facility] Last Admin: 02/18/18 09:52 Dose: 1 mg Furosemide (Lasix) 40 mg IVP DAILY [facility] Hydromorphone HCl (Dilaudid) 1 mg IVP Q3H PRN PRN Reason: Pain, severe (8-10) Last Admin: 02/18/18 04:38 Dose: 1 mg Piperacillin Sod/Tazobactam Sod (Zosyn 4.5 Gm In Ns 100ml) 4.5 gm in 100 mls @ 200 mls/hr IVPB Q6 KATYA PRN Reason: Protocol Stop: 02/22/18 18:01 Last Admin: 02/18/18 06:18 Dose: 200 mls/hr Doxycycline Hyclate 100 mg/ (Sodium Chloride) 100 mls @ 100 mls/hr IVPB Q12 KATYA PRN Reason: Protocol Last Admin: 02/18/18 09:57 Dose: 100 mls/hr Vancomycin HCl (Vancomycin 1gm) 1 gm in 250 mls @ 167 mls/hr IVPB 0000,1200 KATYA PRN Reason: Protocol Last Admin: 02/18/18 00:34 Dose: 167 mls/hr Insulin Detemir (Levemir) 20 unit SC Q12 [facility] Insulin Human Regular (Humulin R Med) 0 units SC ACHS [facility] PRN Reason: Protocol Last Admin: 02/18/18 08:15 Dose: Not Given Insulin Human Regular (Humulin R) 3 units SC AC [facility] Losartan Potassium (Cozaar) 50 mg PO DAILY [facility] Last Admin: 02/18/18 09:48 Dose: 50 mg Multivitamins (Thera Tab) 1 tab PO 0800 [facility] Last Admin: 02/18/18 10:31 Dose: 1 tab Nicotine (Nicoderm Cq) 1 patch TD DAILY [facility] Last Admin: 02/18/18 09:52 Dose: 1 patch Pantoprazole Sodium (Protonix Inj) 40 mg IVP DAILY [facility] Last Admin: 02/18/18 10:30 Dose: 40 mg Saliva Substitute (Saliva Substitute) 1 ml PO Q2H PRN PRN Reason: Dry mouth Last Admin: 02/15/18 20:58 Dose: 1 ml Thiamine HCl (Vitamin B1 Inj) 100 mg IM DAILY [facility] Last Admin: 02/18/18 10:06 Dose: 100 mg - Labs Labs: 02/18/18 06:20 02/18/18 06:20 PT 13.6 SECONDS (9.4-12.5) H 02/17/18 05:20 INR 1.18 (0.93-1.08) H 02/17/18 05:20 APTT 25.2 Seconds (25.1-36.5) 02/15/18 08:15 - Additional Findings Additional findings: - Constitutional Appears: Non-toxic, No Acute Distress - Head Exam Head Exam: ATRAUMATIC, NORMOCEPHALIC Additional comments: + trach in place - Eye Exam Eye Exam: EOMI, PERRL. absent: Conjunctival injection, Nystagmus, Scleral icterus Pupil Exam: NORMAL ACCOMODATION, PERRL. absent: Fixed, Irregular, Miosis, Unequal - ENT Exam ENT Exam: Mucous Membranes Moist - Respiratory Exam Respiratory Exam: Decreased Breath Sounds. absent: Accessory Muscle Use, Rales , Rhonchi, Wheezes, Respiratory Distress, Stridor - Cardiovascular Exam Cardiovascular Exam: Tachycardia, +S1, +S2. absent: Murmur - GI/Abdominal Exam GI & Abdominal Exam: Soft, Normal Bowel Sounds. absent: Distended, Firm, Guarding, Tenderness, Mass, Organomegaly, Rebound - Extremities Exam Extremities Exam: Normal Inspection. absent: Calf Tenderness, Pedal Edema - Back Exam Back Exam: NORMAL INSPECTION - Neurological Exam Neurological Exam: Alert, Awake, Oriented x3 - Psychiatric Exam Psychiatric exam: Anxious - Skin Skin Exam: Dry, Normal Color, Warm Assessment and Plan - Assessment and Plan (Free Text) Assessment: 38 year old female with PMH HTN, DM, thyrotoxicosis s/p partial thyroidectomy, Hep C (s/p treatment), dental caries/poor dentition, presents with severe neck swelling/abscess s/p parapharyngeal abscess I&D and tracheostomy, POD 3. Pt also found to be in DKA, resolved currently. Pt also found to have transaminitis , which is downtrending: Parapharyngeal abscess, s/p I &D and tracheostomy, POD 3: - Lactate 4.4 - tachycardic, tachypnic, - code sepsis called in the ED - ENT consulted. appreciate recs - Abx - Continue zosyn - procal 33.54 - ID consult for recs - HIV NR - Saliva substitute - On humidified oxygen on trach DKA: - Monitor blood glucose - On levemir and ISS regular - Cont to monitor in the ICU Transaminitis: - AST 2654 and ALT 674 on 02/16 -> downtrending - s/p NAC protocol - Abdominal US ordered - Hepatic steatosis & splenomegaly - Avoid any hepatotoxic drugs - GI consulted - -Abd US duplex to look for portal vein patency -Viral hepatitis serologies negative and autoimmune serologies pending - lipid panel reviewed, LDL 67. Triglycerides 104. Ammonia 9. Lipase 25. - Cont to monitor Hx of opiate abuse: - On methadone 90 mg daily given by clinic - Pt given 1 dose today Hx of DM: - Hba1c - 10.6 - Levemir 35 units q12h. - ISS med - Cont to monitor Hypokalemia: - repleted Hx of HTN: - Currently normotensive - Cont to monitor GI/DVT ppx: - Protonix and SCDs Dispo: consider LTAC placement. Discuss with manager social responsibility. Case seen, reviewed and discussed with Dr Preston. Leighann Casillas, PGY1 <Alexandra Preston - Last Filed: 02/18/18 17:05> Objective - Vital Signs/Intake and Output Vital Signs (last 24 hours): Temp Pulse Resp BP Pulse Ox 98 F 97 H 28 H 100/78 86 L 02/18/18 04:00 02/18/18 09:48 02/18/18 07:01 02/18/18 13:06 02/18/18 04:02 Intake and Output: 02/18/18 02/18/18 06:59 18:59 Intake Total 870 Output Total 525 Balance 345 - Medications Medications: Current Medications Albuterol/Ipratropium (Duoneb 3 Mg/0.5 Mg (3 Ml) Ud) 3 ml IH Q2H PRN PRN Reason: Shortness of Breath Last Admin: 02/18/18 02:26 Dose: 3 ml Amlodipine Besylate (Norvasc) 10 mg PO DAILY KATYA Last Admin: 02/18/18 09:53 Dose: 10 mg Folic Acid (Folic Acid) 1 mg PO DAILY KATYA Last Admin: 02/18/18 09:52 Dose: 1 mg Furosemide (Lasix) 40 mg IVP DAILY KATYA Last Admin: 02/18/18 13:06 Dose: 40 mg Hydromorphone HCl (Dilaudid) 1 mg IVP Q3H PRN PRN Reason: Pain, severe (8-10) Last Admin: 02/18/18 04:38 Dose: 1 mg Piperacillin Sod/Tazobactam Sod (Zosyn 4.5 Gm In Ns 100ml) 4.5 gm in 100 mls @ 200 mls/hr IVPB Q6 KATYA PRN Reason: Protocol Stop: 02/22/18 18:01 Last Admin: 02/18/18 12:49 Dose: 200 mls/hr Doxycycline Hyclate 100 mg/ (Sodium Chloride) 100 mls @ 100 mls/hr IVPB Q12 KATYA PRN Reason: Protocol Last Admin: 02/18/18 09:57 Dose: 100 mls/hr Vancomycin HCl (Vancomycin 1gm) 1 gm in 250 mls @ 167 mls/hr IVPB 0000,1200 [facility] PRN Reason: Protocol Last Admin: 02/18/18 13:01 Dose: 167 mls/hr Insulin Detemir (Levemir) 20 unit SC Q12 [facility] Insulin Human Regular (Humulin R Med) 0 units SC ACHS KATYA PRN Reason: Protocol Last Admin: 02/18/18 14:52 Dose: Not Given Insulin Human Regular (Humulin R) 3 units SC AC [facility] Last Admin: 02/18/18 13:03 Dose: 3 units Losartan Potassium (Cozaar) 50 mg PO DAILY [facility] Last Admin: 02/18/18 09:48 Dose: 50 mg Multivitamins (Thera Tab) 1 tab PO 0800 [facility] Last Admin: 02/18/18 10:31 Dose: 1 tab Nicotine (Nicoderm Cq) 1 patch TD DAILY [facility] Last Admin: 02/18/18 09:52 Dose: 1 patch Pantoprazole Sodium (Protonix Inj) 40 mg IVP DAILY [facility] Last Admin: 02/18/18 10:30 Dose: 40 mg Saliva Substitute (Saliva Substitute) 1 ml PO Q2H PRN PRN Reason: Dry mouth Last Admin: 02/15/18 20:58 Dose: 1 ml Thiamine HCl (Vitamin B1 Inj) 100 mg IM DAILY [facility] Last Admin: 02/18/18 10:06 Dose: 100 mg - Labs Labs: 02/18/18 06:20 02/18/18 06:20 PT 13.6 SECONDS (9.4-12.5) H 02/17/18 05:20 INR 1.18 (0.93-1.08) H 02/17/18 05:20 APTT 25.2 Seconds (25.1-36.5) 02/15/18 08:15 Attending/Attestation - Attestation I have personally seen and examined this patient.: Yes I have fully participated in the care of the patient.: Yes I have reviewed all pertinent clinical information, including history, physical exam and plan: Yes Notes (Text): 02/18/18 16:56 attending note; Patient seen and examined with resident in ICU. patient's mother by the bedside. Patient is a 38 yr old female with PMH of Hep C, DM, HTN, drug abuse and hypothyroidism is admitted with parapharyngeal abscess and Dominick's angina. s/p I/D of abscess and tracheostomy in the OR by ENT. monitor closely in ICU. Continue weaning trial. currently on Trach collar. continue IV antibiotics with doxycycline, vancomycin and Zosyn. culture is negative so far. ID evaluation appreciated. DKA ; Resolved. Continue Levemir with regular insulin sliding scale. Elevated LFT; etiology unclear. possible hypotension/drug effect. treated with N -acetylcysteine. LFTs improving. GI evaluation appreciated. abdominal ultrasound showed hepatic steatosis and splenomegaly. Patent portal vein. complete alcohol and drug abuse cessation is strongly advised. history of opiate abuse. Currently on methadone program. Continue methadone. Out of bed to chair tolerated. physical therapy evaluation requested. Case discussed manager social responsibility for discharge planning. upon discharge the patient will follow-up with PMD . 02/18/18 17:05
--- NOTE | 2018-02-18 15:51 | CP.PCM.PN ---
Subjective - Date & Time of Evaluation Date of Evaluation: 02/18/18 Time of Evaluation: 13:20 - Subjective Subjective: ENT progress note for Dr. Vijay Oquendo, PGY-1 Pt S & E at bedside with attending at 1310 Pt sedated, on mechanical vent via tracheostomy, resting comfortably in bed. Pt continues to c/o of anterior neck pain, no other complaints. More sedated as per ICU for comfort. Objective - Vital Signs/Intake and Output Vital Signs (last 24 hours): Temp Pulse Resp BP Pulse Ox 98 F 97 H 28 H 100/78 86 L 02/18/18 04:00 02/18/18 09:48 02/18/18 07:01 02/18/18 13:06 02/18/18 04:02 Intake and Output: 02/18/18 02/18/18 06:59 18:59 Intake Total 870 Output Total 525 Balance 345 - Medications Medications: Current Medications Albuterol/Ipratropium (Duoneb 3 Mg/0.5 Mg (3 Ml) Ud) 3 ml IH Q2H PRN PRN Reason: Shortness of Breath Last Admin: 02/18/18 02:26 Dose: 3 ml Amlodipine Besylate (Norvasc) 10 mg PO DAILY [facility] Last Admin: 02/18/18 09:53 Dose: 10 mg Folic Acid (Folic Acid) 1 mg PO DAILY [facility] Last Admin: 02/18/18 09:52 Dose: 1 mg Furosemide (Lasix) 40 mg IVP DAILY [facility] Last Admin: 02/18/18 13:06 Dose: 40 mg Hydromorphone HCl (Dilaudid) 1 mg IVP Q3H PRN PRN Reason: Pain, severe (8-10) Last Admin: 02/18/18 04:38 Dose: 1 mg Piperacillin Sod/Tazobactam Sod (Zosyn 4.5 Gm In Ns 100ml) 4.5 gm in 100 mls @ 200 mls/hr IVPB Q6 [facility] PRN Reason: Protocol Stop: 02/22/18 18:01 Last Admin: 02/18/18 12:49 Dose: 200 mls/hr Doxycycline Hyclate 100 mg/ (Sodium Chloride) 100 mls @ 100 mls/hr IVPB Q12 [facility] PRN Reason: Protocol Last Admin: 02/18/18 09:57 Dose: 100 mls/hr Vancomycin HCl (Vancomycin 1gm) 1 gm in 250 mls @ 167 mls/hr IVPB 0000,1200 [facility] PRN Reason: Protocol Last Admin: 02/18/18 13:01 Dose: 167 mls/hr Insulin Detemir (Levemir) 20 unit SC Q12 [facility] Insulin Human Regular (Humulin R Med) 0 units SC ACHS [facility] PRN Reason: Protocol Last Admin: 02/18/18 14:52 Dose: Not Given Insulin Human Regular (Humulin R) 3 units SC AC [facility] Last Admin: 02/18/18 13:03 Dose: 3 units Losartan Potassium (Cozaar) 50 mg PO DAILY [facility] Last Admin: 02/18/18 09:48 Dose: 50 mg Multivitamins (Thera Tab) 1 tab PO 0800 [facility] Last Admin: 02/18/18 10:31 Dose: 1 tab Nicotine (Nicoderm Cq) 1 patch TD DAILY [facility] Last Admin: 02/18/18 09:52 Dose: 1 patch Pantoprazole Sodium (Protonix Inj) 40 mg IVP DAILY [facility] Last Admin: 02/18/18 10:30 Dose: 40 mg Saliva Substitute (Saliva Substitute) 1 ml PO Q2H PRN PRN Reason: Dry mouth Last Admin: 02/15/18 20:58 Dose: 1 ml Thiamine HCl (Vitamin B1 Inj) 100 mg IM DAILY [facility] Last Admin: 02/18/18 10:06 Dose: 100 mg - Labs Labs: 02/18/18 06:20 02/18/18 06:20 PT 13.6 SECONDS (9.4-12.5) H 02/17/18 05:20 INR 1.18 (0.93-1.08) H 02/17/18 05:20 APTT 25.2 Seconds (25.1-36.5) 02/15/18 08:15 - Constitutional Appears: Non-toxic, No Acute Distress - Head Exam Head Exam: absent: ATRAUMATIC, NORMAL INSPECTION, NORMOCEPHALIC - Eye Exam Eye Exam: EOMI, Normal appearance - ENT Exam ENT Exam: Mucous Membranes Moist. absent: Normal Exam (poor dentition) - Neck Exam Additional comments: tender to palpation over anterior/left lateral neck Dressing saturated with purulent discharge- changed - Respiratory Exam Respiratory Exam: NORMAL BREATHING PATTERN (on mechanical vent via trach) - Cardiovascular Exam Cardiovascular Exam: Tachycardia, +S1, +S2 - GI/Abdominal Exam GI & Abdominal Exam: Soft. absent: Distended, Tenderness - Extremities Exam Extremities Exam: Normal Inspection - Neurological Exam Neurological Exam: absent: Alert, Awake (arousable to verbal stimuli) - Psychiatric Exam Additional comments: tracheostomy - Skin Skin Exam: Dry, Intact, Normal Color, Warm Assessment and Plan - Assessment and Plan (Free Text) Assessment: 38F w/Dominick's angina s/p tracheostomy, I & D of anterior neck POD# 3 Plan: Dressing changes PRN Plan for downsizing vs passy norma valve on 02/24 Cont Abx Further mgmt as per primary and ICU teams DW attending Azra, PGY-1
[2018-02-18 17:52] LABS: BASO # 0.04 K/mm3 (0.0-2.0); BASO % 0.2 % (0.0-3.0); EOS # 0.1 (0.0-0.7); EOS % 0.7 % (1.5-5.0); GRAN # 14.07 (1.4-6.5); GRAN % 83.7 % (50.0-68.0); HEMOGLOBIN 8.5 g/dL (12.0-16.0); LYMPH # 1.6 (1.2-3.4); LYMPH % 9.6 % (22.0-35.0); MEAN CELL VOLUME 91.9 fl (80.0-105.0); MEAN CORPUSCULAR HEMOGLOBIN 29.9 pg (25.0-35.0); MEAN CORPUSCULAR HGB CONC 32.6 g/dl (31.0-37.0); MEAN PLATELET VOLUME 8.8 fl (7.0-11.0); MONO % 5.8 % (1.0-6.0); RBC 2.84 10^6/uL (3.5-6.1); WHITE BLOOD COUNT 16.8 10^3/ul (4.5-11.0)
[2018-02-18 18:06] LABS: ALB/GLOB RATIO 0.9 (1.1-1.8); ALBUMIN 2.7 g/dL (3.0-4.8); ALT/SGPT 311 U/L (7-56); AST/SGOT 114 U/L (14-36); BLOOD UREA NITROGEN 21 mg/dL (7-21); CALCIUM 7.4 mg/dL (8.4-10.5); GFR AFRICAN-AMERICAN > 60; GFR NON-AFRICAN AMERICAN > 60
[2018-02-18] MEDS: Insulin Detemir 100 units/ml Vial (Levemir) SC SCH (22:36)
[2018-02-19] MEDS: HYDROmorphone 0.5 mg/0.5 ml ISec IVP PRN ×2 (05:01→10:23)
[2018-02-19] MEDS: Piperacill/Tazo 4.5gm in NS 4.5 GM/100 ML BAG IVPB SCH ×3 (05:02→17:31)
[2018-02-19 06:15] LABS: ARTERIAL BLOOD GAS HCO3 25.4 mmol/L (21-28); ARTERIAL BLOOD GAS O2 SAT 96.6 % (95-98); ARTERIAL BLOOD GAS PCO2 41 mm/Hg (35-45); ARTERIAL BLOOD GAS TCO2 26.7 mmol.L (22-28)
[2018-02-19 07:20] LABS: FREE T4 0.6 ng/dL (0.78-2.19)
[2018-02-19] MEDS: Albuterol-Ipratrop 3 mg / 0.5 (3 ml) UD IH PRN (08:16)
[2018-02-19] MEDS: Insulin Reg-MEDIUM-Coverage SC SCH ×4 (08:30→21:58)
[2018-02-19] MEDS: Insulin Regular 1 UNITS/0.01 ML ML SC SCH ×3 (08:30→17:31)
[2018-02-19] MEDS ORDERED: Potassium Chloride 20 mEq ER Tab PO STA (09:14)
[2018-02-19] MEDS: Thiamine 100 mg/ml Inj IM SCH (09:39)
[2018-02-19] MEDS: Multivitamin Therapeutic Tab PO SCH (09:44)
[2018-02-19] MEDS: Insulin Detemir 100 units/ml Vial (Levemir) SC SCH ×2 (09:44→21:59)
[2018-02-19] MEDS ORDERED: Potassium Chloride 40 mEq/30 ml LIQ UD PO STA (09:59)
--- NOTE | 2018-02-19 10:58 | CP.PCM.PN ---
<Kami Dailey - Last Filed: 02/19/18 11:17> Subjective - Date & Time of Evaluation Date of Evaluation: 02/19/18 Time of Evaluation: 07:45 - Subjective Subjective: Progress note for hospitalist service. Patient with no acute events overnight. Was stable with trach colar. Remains afebrile. Patient was sitting up in a chair this morning. Denies cp, or sob. Objective - Vital Signs/Intake and Output Vital Signs (last 24 hours): Temp Pulse Resp BP Pulse Ox 98.8 F 91 H 16 120/52 L 95 02/19/18 07:51 02/19/18 09:42 02/19/18 07:51 02/19/18 09:43 02/19/18 07:51 Intake and Output: 02/19/18 02/19/18 06:59 18:59 Intake Total 650 Output Total 500 Balance 150 - Medications Medications: Current Medications Albuterol/Ipratropium (Duoneb 3 Mg/0.5 Mg (3 Ml) Ud) 3 ml IH Q2H PRN PRN Reason: Shortness of Breath Last Admin: 02/19/18 08:16 Dose: 3 ml Amlodipine Besylate (Norvasc) 10 mg PO DAILY [facility] Last Admin: 02/19/18 09:43 Dose: 10 mg Folic Acid (Folic Acid) 1 mg PO DAILY [facility] Last Admin: 02/19/18 09:42 Dose: 1 mg Hydromorphone HCl (Dilaudid) 1 mg IVP Q3H PRN PRN Reason: Pain, severe (8-10) Last Admin: 02/19/18 10:23 Dose: 1 mg Piperacillin Sod/Tazobactam Sod (Zosyn 4.5 Gm In Ns 100ml) 4.5 gm in 100 mls @ 200 mls/hr IVPB Q6 [facility] PRN Reason: Protocol Stop: 02/22/18 18:01 Last Admin: 02/19/18 05:02 Dose: 200 mls/hr Doxycycline Hyclate 100 mg/ (Sodium Chloride) 100 mls @ 100 mls/hr IVPB Q12 [facility] PRN Reason: Protocol Last Admin: 02/19/18 09:46 Dose: 100 mls/hr Vancomycin HCl (Vancomycin 1gm) 1 gm in 250 mls @ 167 mls/hr IVPB 0000,1200 [facility] PRN Reason: Protocol Last Admin: 02/18/18 23:28 Dose: 167 mls/hr Insulin Detemir (Levemir) 20 unit SC Q12 [facility] Last Admin: 02/19/18 09:44 Dose: 20 u Insulin Human Regular (Humulin R Med) 0 units SC ACHS [facility] PRN Reason: Protocol Last Admin: 02/19/18 08:30 Dose: 1 units Insulin Human Regular (Humulin R) 3 units SC AC [facility] Last Admin: 02/19/18 08:30 Dose: 3 units Losartan Potassium (Cozaar) 25 mg PO DAILY [facility] Last Admin: 02/19/18 09:42 Dose: 25 mg Multivitamins (Thera Tab) 1 tab PO 0800 [facility] Last Admin: 02/19/18 09:44 Dose: 1 tab Nicotine (Nicoderm Cq) 1 patch TD DAILY [facility] Last Admin: 02/19/18 09:39 Dose: 1 patch Pantoprazole Sodium (Protonix Inj) 40 mg IVP DAILY [facility] Last Admin: 02/19/18 09:39 Dose: 40 mg Saliva Substitute (Saliva Substitute) 1 ml PO Q2H PRN PRN Reason: Dry mouth Last Admin: 02/15/18 20:58 Dose: 1 ml Thiamine HCl (Vitamin B1 Inj) 100 mg IM DAILY [facility] Last Admin: 02/19/18 09:39 Dose: 100 mg - Labs Labs: 02/18/18 17:49 02/18/18 17:49 PT 13.6 SECONDS (9.4-12.5) H 02/17/18 05:20 INR 1.18 (0.93-1.08) H 02/17/18 05:20 APTT 25.2 Seconds (25.1-36.5) 02/15/18 08:15 - Constitutional Appears: No Acute Distress, Older Than Stated Age, Chronically Ill - Head Exam Head Exam: ATRAUMATIC, NORMAL INSPECTION, NORMOCEPHALIC - Eye Exam Eye Exam: EOMI, Normal appearance, PERRL - ENT Exam ENT Exam: Mucous Membranes Moist Additional comments: + trach with trach color in place. Wound with no active drainage, no worsening erythema or edema. - Neck Exam Additional comments: + trach in trach colar. - Respiratory Exam Respiratory Exam: Decreased Breath Sounds (at the right base. ), NORMAL BREATHING PATTERN. absent: Rales, Rhonchi, Wheezes, Respiratory Distress, Stridor - Cardiovascular Exam Cardiovascular Exam: REGULAR RHYTHM, RRR, +S1, +S2. absent: Gallop, JVD, Rubs, Murmur - GI/Abdominal Exam GI & Abdominal Exam: Soft, Normal Bowel Sounds. absent: Distended, Firm, Guarding, Rigid, Tenderness - Extremities Exam Extremities Exam: Normal Inspection. absent: Pedal Edema - Back Exam Back Exam: NORMAL INSPECTION - Neurological Exam Neurological Exam: Alert, Awake, Oriented x3 - Psychiatric Exam Psychiatric exam: Normal Affect, Normal Mood - Skin Skin Exam: Dry, Warm Assessment and Plan - Assessment and Plan (Free Text) Assessment: Patient is a 38 y/o with PMHx of HTN, IDDM, thyrotoxicosis s/p partial thyroidectomy, Hep C (s/p treatment), dental caries/poor dentition, h/o drug abuse on methadone, hypothyroidism, admitted with severe neck swelling/abscess s /p parapharyngeal abscess I&D and tracheostomy, along with epiglotitis s/p trach , now on trach colar. Patient was also in DKA on admission, but has since resolved. Patient is currently being treated for possible pneumonia pending placement. Plan: 1- Dominick angina with parapharyngeal abscess- - Likely from poor oral care versus IVDA ( patient denied recent use, have abused in the past and is on methadone). HIV negative, lupus work up normal. - s/p I &D and tracheotomy - Patient is currently off of vent and is tolerating trach colar - As per ENT patient will need the trach changed to fenestrated trach tube in few days. - Cleared patient to eat, currently on liquid diet. - Continue saliva substitute - Patient to follow up with ENT as outpatient. 2- Sepsis likely due to parapharyngeal abscess superimposed with aspiration pneumonia- - With gram positive cocci bacteremia, bacteremia resolved on repeat cultures. - sepsis resolving - will continue to trend leukocytosis, currently afebrile - will continue with vanco, zosyn and doxy as per ID 3- Right lower lobe aspiration pneumonia - Mild improvement on cxr - will continue with prn duoneb - on abx as stated above - continue incentive spirometer, chest pt 4- DKA:resolved with uncontrolled IDDM - continue with basal and pre-meal insulin - hgba1c this admission 10.6 - also on iss, and fingertsicks achs 5- Transaminitis- acute on chronic, likely due to portal vein congestion/sepsis - s/p NAC - Abdominal u/s with steatosis and splenomegaly - hep panel + for hep C, as per patient underwent treatment in the past - lupus work up normal - LRTs trending down - will avoid nephrotox and continue to monitor. 6- Alcohol withdrawal- resolved - s/p detox - will continue with thiamine and folic acid. 7- Hypokalemia: - Will continue to monitor and replete accordingly. 8- Grade 1 diastolic CHF with septal hypokinesis - spoke to Dr Almaraz, the bus attendant, outpatient stress test. 9- Acute on chronic anemia- likely iatrogenic superimposed to anemia of chronic disease. - Ferritin elevated - No signs of active bleeding - will continue to monitor 10- Tobacco abuse- continue with nicotine patch 11- H/o IVDA: - On methadone 90 mg daily as per methadone clinic - will continue 90 mg methadone 12- H/o HTN: - Continue with Norvasc and cozaar 13- H/o hypothyroidism- - will resume synthroid 14- GI/DVT prophylaxis: protonix and Lovenox sc. 15- Dispo: Pending insurance approval for LTAC. Patient seen, examined and case discussed with Dr Preston. <Alexandra Preston - Last Filed: 02/19/18 19:03> Objective - Vital Signs/Intake and Output Vital Signs (last 24 hours): Temp Pulse Resp BP Pulse Ox 98.3 F 94 H 18 103/50 L 92 L 02/19/18 12:00 02/19/18 13:00 02/19/18 13:00 02/19/18 12:02 02/19/18 13:00 Intake and Output: 02/19/18 02/19/18 06:59 18:59 Intake Total 650 530 Output Total 500 Balance 150 530 - Medications Medications: Current Medications Albuterol/Ipratropium (Duoneb 3 Mg/0.5 Mg (3 Ml) Ud) 3 ml IH Q2H PRN PRN Reason: Shortness of Breath Last Admin: 02/19/18 08:16 Dose: 3 ml Amlodipine Besylate (Norvasc) 10 mg PO DAILY [facility] Last Admin: 02/19/18 09:43 Dose: 10 mg Enoxaparin Sodium (Lovenox) 30 mg SC DAILY [facility] PRN Reason: Protocol Folic Acid (Folic Acid) 1 mg PO DAILY [facility] Last Admin: 02/19/18 09:42 Dose: 1 mg Piperacillin Sod/Tazobactam Sod (Zosyn 4.5 Gm In Ns 100ml) 4.5 gm in 100 mls @ 200 mls/hr IVPB Q6 [facility] PRN Reason: Protocol Stop: 02/22/18 18:01 Last Admin: 02/19/18 17:31 Dose: 200 mls/hr Doxycycline Hyclate 100 mg/ (Sodium Chloride) 100 mls @ 100 mls/hr IVPB Q12 [facility] PRN Reason: Protocol Last Admin: 02/19/18 09:46 Dose: 100 mls/hr Vancomycin HCl (Vancomycin 1gm) 1 gm in 250 mls @ 167 mls/hr IVPB 0000,1200 [facility] PRN Reason: Protocol Last Admin: 02/19/18 12:06 Dose: 167 mls/hr Insulin Detemir (Levemir) 20 unit SC Q12 [facility] Last Admin: 02/19/18 09:44 Dose: 20 u Insulin Human Regular (Humulin R Med) 0 units SC ACHS [facility] PRN Reason: Protocol Last Admin: 02/19/18 17:31 Dose: 3 units Insulin Human Regular (Humulin R) 3 units SC AC [facility] Last Admin: 02/19/18 17:31 Dose: 3 units Levothyroxine Sodium (Synthroid) 112 mcg PO DAILY [facility] Losartan Potassium (Cozaar) 25 mg PO DAILY [facility] Last Admin: 02/19/18 09:42 Dose: 25 mg Multivitamins (Thera Tab) 1 tab PO 0800 [facility] Last Admin: 02/19/18 09:44 Dose: 1 tab Nicotine (Nicoderm Cq) 1 patch TD DAILY [facility] Last Admin: 02/19/18 09:39 Dose: 1 patch Pantoprazole Sodium (Protonix Inj) 40 mg IVP DAILY [facility] Last Admin: 02/19/18 09:39 Dose: 40 mg Saliva Substitute (Saliva Substitute) 1 ml PO Q2H PRN PRN Reason: Dry mouth Last Admin: 02/15/18 20:58 Dose: 1 ml Thiamine HCl (Vitamin B1 Inj) 100 mg IM DAILY [facility] Last Admin: 02/19/18 09:39 Dose: 100 mg - Labs Labs: 02/19/18 11:50 02/19/18 11:50 PT 13.6 SECONDS (9.4-12.5) H 02/17/18 05:20 INR 1.18 (0.93-1.08) H 02/17/18 05:20 APTT 25.2 Seconds (25.1-36.5) 02/15/18 08:15 Attending/Attestation - Attestation I have personally seen and examined this patient.: Yes I have fully participated in the care of the patient.: Yes I have reviewed all pertinent clinical information, including history, physical exam and plan: Yes Notes (Text): 02/19/18 18:59 attending note; Patient seen and examined with resident in ICU. Patient is sitting in a chair. Currently on trach collar. Tolerating well. Patient is a 38 yr old female with PMH of Hep C, DM, HTN, drug abuse and hypothyroidism is admitted with parapharyngeal abscess and Dominick's angina. s/p I/D of abscess and tracheostomy in the OR by ENT. monitor closely in ICU. Continue weaning trial. currently on Trach collar. continue IV antibiotics with doxycycline, vancomycin and Zosyn. culture is negative so far. ID evaluation appreciated. Advised to continue antibiotics for 10 more days. DKA ; Resolved. Continue Levemir with regular insulin sliding scale. Elevated LFT; etiology unclear. possible hypotension/drug effect. treated with N -acetylcysteine. LFTs improving. GI evaluation appreciated. abdominal ultrasound showed hepatic steatosis and splenomegaly. Patent portal vein. complete alcohol and drug abuse cessation is strongly advised. history of opiate abuse. Currently on methadone program. Continue methadone. Out of bed to chair tolerated. physical therapy evaluation appreciated. Subacute rehabilitation recommended. Case discussed licensed clinical social worker for discharge planning. Possible transfer to LTAC or subacute rehabilitation. Patient and patient's mom aware of discharge planning to rehabilitation. upon discharge the patient will follow-up with PMD .
--- NOTE | 2018-02-19 11:13 | CP.CCUPN ---
<Johnny Briggs - Last Filed: 02/19/18 10:55> CCU Subjective - Physician Review Events Since Last Encounter (Free Text): 02/19/18 09:00A Patient seen and examined at bedside. No acute events overnight. Patient has been switched to trach collar, and she is tolerating it well. CCU Objective - Vital Signs / Intake & Output Vital Signs (Last 4 hours): Vital Signs Temp Pulse Resp BP Pulse Ox 02/19/18 09:43 120/52 L 02/19/18 09:42 91 H 120/52 L 02/19/18 07:51 98.8 F 69 16 106/61 95 Intake and Output (Last 8hrs): Intake & Output 02/18/18 02/19/18 02/19/18 22:59 06:59 14:59 Intake Total 670 650 Output Total 3200 500 Balance -2530 150 Intake: IV 470 650 Left Hand 100 Right Forearm 450 550 fentanyl 20 Oral 200 Output: Urine 3200 500 2-way Urethral 3200 Urine, Voided 500 Stool 0 Other: # Voids Urine, Voided 1 - Physical Exam Head: Positive for: Atraumatic, Normocephalic Pupils: Positive for: PERRL Extroacular Muscles: Positive for: EOMI Conjunctiva: Positive for: Normal. Negative for: Icteric Mouth: Positive for: Moist Mucous Membranes Neck: Positive for: Other (Fresh trach. Dressing intact, no strike through, not swelling) Respiratory/Chest: Positive for: Clear to Auscultation, Good Air Exchange, Rales. Negative for: Accessory Muscle Use, Retracting, Rhonchi, Tachypneic Cardiovascular: Positive for: Regular Rate and Rhythm, Normal S1, S2 Abdomen: Positive for: Normal Bowel Sounds. Negative for: Tenderness, Distention, Peritoneal Signs Lower Extremity: Positive for: Normal Inspection, Other (schuster intact). Negative for: Edema Neurological: Positive for: GCS=15. Negative for: Speech Normal Skin: Positive for: Warm, Dry Psychiatric: Positive for: Alert, Oriented x 3 - Medications Active Medications: Active Medications Generic Name Dose Route Start Last Admin Trade Name Freq PRN Reason Stop Dose Admin Albuterol/Ipratropium 3 ml 02/16/18 19:55 02/19/18 08:16 Duoneb 3 Mg/0.5 Mg (3 Ml) Ud IH 3 ml Q2H PRN Administration Shortness of Breath Amlodipine Besylate 10 mg 02/16/18 14:15 02/19/18 09:43 Norvasc PO 10 mg DAILY KATYA Administration Folic Acid 1 mg 02/17/18 10:00 02/19/18 09:42 Folic Acid PO 1 mg DAILY KATYA Administration Hydromorphone HCl 1 mg 02/15/18 15:15 02/19/18 10:23 Dilaudid IVP 1 mg Q3H PRN Administration Pain, severe (8-10) Piperacillin Sod/Tazobactam Sod 4.5 gm in 100 mls @ 200 mls/hr 02/15/18 18:00 02/19/18 05:02 Zosyn 4.5 Gm In Ns 100ml IVPB 02/22/18 18:01 200 mls/hr Q6 KATYA Administration Protocol Doxycycline Hyclate 100 mg/ 100 mls @ 100 mls/hr 02/17/18 10:30 02/19/18 09: 46 Sodium Chloride IVPB 100 mls/hr Q12 KATYA Administration Protocol Vancomycin HCl 1 gm in 250 mls @ 167 mls/hr 02/17/18 21:08 02/18/18 23:28 Vancomycin 1gm IVPB 167 mls/hr 0000,1200 KATYA Administration Protocol Insulin Detemir 20 unit 02/18/18 10:53 02/19/18 09:44 Levemir SC 20 u Q12 KATYA Administration Insulin Human Regular 0 units 02/16/18 12:30 02/19/18 08:30 Humulin R Med SC 1 units ACHS KATYA Administration Protocol Insulin Human Regular 3 units 02/18/18 10:54 02/19/18 08:30 Humulin R SC 3 units AC KATYA Administration Losartan Potassium 25 mg 02/18/18 17:01 02/19/18 09:42 Cozaar PO 25 mg DAILY KATYA Administration Multivitamins 1 tab 02/18/18 08:00 02/19/18 09:44 Thera Tab PO 1 tab 0800 KATYA Administration Nicotine 1 patch 02/16/18 15:45 02/19/18 09:39 Nicoderm Cq TD 1 patch DAILY KATYA Administration Pantoprazole Sodium 40 mg 02/16/18 10:00 02/19/18 09:39 Protonix Inj IVP 40 mg DAILY KATYA Administration Saliva Substitute 1 ml 02/15/18 10:54 02/15/18 20:58 Saliva Substitute PO 1 ml Q2H PRN Administration Dry mouth Thiamine HCl 100 mg 02/16/18 10:00 02/19/18 09:39 Vitamin B1 Inj IM 100 mg DAILY KATYA Administration - Patient Studies Lab Studies: Microbiology Studies 02/18/18 09:30 Blood Culture - Preliminary Blood-Venous NO GROWTH AFTER 24 HOURS 02/18/18 09:00 Blood Culture - Preliminary Blood-Venous NO GROWTH AFTER 24 HOURS 02/17/18 15:55 Gram Stain - Final Abscess - Neck Anaerobic Culture - Final NO ANAEROBES ISOLATED. Wound Culture - Preliminary NO GROWTH AFTER 24 HOURS 02/17/18 22:15 Gram Stain - Final Neck Wound Culture - Preliminary NO GROWTH AFTER 24 HOURS Lab Studies 02/19/18 02/19/18 02/19/18 Range/Units 07:12 06:40 06:40 WBC (4.5-11.0) 10^3/ul RBC (3.5-6.1) 10^6/uL Hgb (12.0-16.0) g/dL Hct (36.0-48.0) % MCV (80.0-105.0) fl MCH (25.0-35.0) pg MCHC (31.0-37.0) g/dl RDW (11.5-14.5) % Plt Count (120.0-450.0) 10^3/uL MPV (7.0-11.0) fl Gran % (50.0-68.0) % Lymph % (Auto) (22.0-35.0) % [place] % (Auto) (1.0-6.0) % Eos % (Auto) (1.5-5.0) % Baso % (Auto) (0.0-3.0) % Gran # (1.4-6.5) Lymph # (Auto) (1.2-3.4) [place] # (Auto) (0.1-0.6) Eos # (Auto) (0.0-0.7) Baso # (Auto) (0.0-2.0) K/mm3 pCO2 (35-45) mm/Hg pO2 (80-100) mm/Hg HCO3 (21-28) mmol/L ABG pH (7.35-7.45) ABG Total CO2 (22-28) mmol.L ABG O2 Saturation (95-98) % ABG Base Excess (-2.0-3.0) mmol/L ABG Potassium (3.6-5.2) mmol/L Glucose (65-105) mg/dl Lactate (0.7-2.1) mmol/L FiO2 % Sodium (132-148) mmol/L Potassium (3.6-5.0) mmol/L Chloride (98-107) mmol/L Carbon Dioxide (21-33) mmol/L Anion Gap (10-20) BUN (7-21) mg/dL Creatinine (0.7-1.2) mg/dl Est GFR ( Amer) Est GFR (Non-Af Amer) POC Glucose (mg/dL) 192 H (65-110) mg/dL Random Glucose (70-110) mg/dL Calcium (8.4-10.5) mg/dL Phosphorus 3.2 (2.5-4.5) mg/dL Magnesium 1.9 (1.7-2.2) mg/dL Total Bilirubin (0.2-1.3) mg/dL AST (14-36) U/L ALT (7-56) U/L Alkaline Phosphatase (38-126) U/L Total Protein (5.8-8.3) g/dL Albumin (3.0-4.8) g/dL Globulin gm/dL Albumin/Globulin Ratio (1.1-1.8) Free T4 0.60 L (0.78-2.19) ng/dL TSH 3rd Generation 28.70 H (0.46-4.68) mIU/mL Arterial Blood Potassium (3.6-5.2) mmol/L REGINO Screen (Negative) REGINO Titer REGINO Titer 2 REGINO Pattern REGINO Pattern 2 Smooth Muscle Ab Titer Anti-Smooth Muscle Ab (Negative) Liver/Kid Microsomes Ab (<=20.0) U 02/19/18 02/18/18 02/18/18 Range/Units 05:40 22:20 17:49 WBC (4.5-11.0) 10^3/ul RBC (3.5-6.1) 10^6/uL Hgb (12.0-16.0) g/dL Hct (36.0-48.0) % MCV (80.0-105.0) fl MCH (25.0-35.0) pg MCHC (31.0-37.0) g/dl RDW (11.5-14.5) % Plt Count (120.0-450.0) 10^3/uL MPV (7.0-11.0) fl Gran % (50.0-68.0) % Lymph % (Auto) (22.0-35.0) % [place] % (Auto) (1.0-6.0) % Eos % (Auto) (1.5-5.0) % Baso % (Auto) (0.0-3.0) % Gran # (1.4-6.5) Lymph # (Auto) (1.2-3.4) [place] # (Auto) (0.1-0.6) Eos # (Auto) (0.0-0.7) Baso # (Auto) (0.0-2.0) K/mm3 pCO2 41 (35-45) mm/Hg pO2 80.0 (80-100) mm/Hg HCO3 25.4 (21-28) mmol/L ABG pH 7.40 (7.35-7.45) ABG Total CO2 26.7 (22-28) mmol.L ABG O2 Saturation 96.6 (95-98) % ABG Base Excess 0.5 (-2.0-3.0) mmol/L ABG Potassium 3.0 L (3.6-5.2) mmol/L Glucose 213 H (65-105) mg/dl Lactate 0.8 (0.7-2.1) mmol/L FiO2 50.0 % Sodium 138.0 138 (132-148) mmol/L Potassium 3.5 L (3.6-5.0) mmol/L Chloride 106.0 99 (98-107) mmol/L Carbon Dioxide 26 (21-33) mmol/L Anion Gap 16 (10-20) BUN 21 (7-21) mg/dL Creatinine 1.0 (0.7-1.2) mg/dl Est GFR ( Amer) > 60 Est GFR (Non-Af Amer) > 60 POC Glucose (mg/dL) 206 H (65-110) mg/dL Random Glucose 239 H (70-110) mg/dL Calcium 7.4 L (8.4-10.5) mg/dL Phosphorus 3.9 (2.5-4.5) mg/dL Magnesium 1.7 (1.7-2.2) mg/dL Total Bilirubin 2.2 H (0.2-1.3) mg/dL AST 114 H D (14-36) U/L ALT 311 H (7-56) U/L Alkaline Phosphatase 441 H (38-126) U/L Total Protein 5.6 L (5.8-8.3) g/dL Albumin 2.7 L (3.0-4.8) g/dL Globulin 2.9 gm/dL Albumin/Globulin Ratio 0.9 L (1.1-1.8) Free T4 (0.78-2.19) ng/dL TSH 3rd Generation (0.46-4.68) mIU/mL Arterial Blood Potassium 3.0 L (3.6-5.2) mmol/L REGINO Screen (Negative) REGINO Titer REGINO Titer 2 REGINO Pattern REGINO Pattern 2 Smooth Muscle Ab Titer Anti-Smooth Muscle Ab (Negative) Liver/Kid Microsomes Ab (<=20.0) U 02/18/18 02/18/18 02/18/18 Range/Units 17:49 16:13 11:39 WBC 16.8 H (4.5-11.0) 10^3/ul RBC 2.84 L (3.5-6.1) 10^6/uL Hgb 8.5 L (12.0-16.0) g/dL Hct 26.1 L (36.0-48.0) % MCV 91.9 (80.0-105.0) fl MCH 29.9 (25.0-35.0) pg MCHC 32.6 (31.0-37.0) g/dl RDW 14.0 (11.5-14.5) % Plt Count 130 (120.0-450.0) 10^3/uL MPV 8.8 (7.0-11.0) fl Gran % 83.7 H (50.0-68.0) % Lymph % (Auto) 9.6 L (22.0-35.0) % [place] % (Auto) 5.8 (1.0-6.0) % Eos % (Auto) 0.7 L (1.5-5.0) % Baso % (Auto) 0.2 (0.0-3.0) % Gran # 14.07 H (1.4-6.5) Lymph # (Auto) 1.6 (1.2-3.4) [place] # (Auto) 1.0 H (0.1-0.6) Eos # (Auto) 0.1 (0.0-0.7) Baso # (Auto) 0.04 (0.0-2.0) K/mm3 pCO2 (35-45) mm/Hg pO2 (80-100) mm/Hg HCO3 (21-28) mmol/L ABG pH (7.35-7.45) ABG Total CO2 (22-28) mmol.L ABG O2 Saturation (95-98) % ABG Base Excess (-2.0-3.0) mmol/L ABG Potassium (3.6-5.2) mmol/L Glucose (65-105) mg/dl Lactate (0.7-2.1) mmol/L FiO2 % Sodium (132-148) mmol/L Potassium (3.6-5.0) mmol/L Chloride (98-107) mmol/L Carbon Dioxide (21-33) mmol/L Anion Gap (10-20) BUN (7-21) mg/dL Creatinine (0.7-1.2) mg/dl Est GFR ( Amer) Est GFR (Non-Af Amer) POC Glucose (mg/dL) 227 H 163 H (65-110) mg/dL Random Glucose (70-110) mg/dL Calcium (8.4-10.5) mg/dL Phosphorus (2.5-4.5) mg/dL Magnesium (1.7-2.2) mg/dL Total Bilirubin (0.2-1.3) mg/dL AST (14-36) U/L ALT (7-56) U/L Alkaline Phosphatase (38-126) U/L Total Protein (5.8-8.3) g/dL Albumin (3.0-4.8) g/dL Globulin gm/dL Albumin/Globulin Ratio (1.1-1.8) Free T4 (0.78-2.19) ng/dL TSH 3rd Generation (0.46-4.68) mIU/mL Arterial Blood Potassium (3.6-5.2) mmol/L REGINO Screen (Negative) REGINO Titer REGINO Titer 2 REGINO Pattern REGINO Pattern 2 Smooth Muscle Ab Titer Anti-Smooth Muscle Ab (Negative) Liver/Kid Microsomes Ab (<=20.0) U 02/16/18 Range/Units 10:30 WBC (4.5-11.0) 10^3/ul RBC (3.5-6.1) 10^6/uL Hgb (12.0-16.0) g/dL Hct (36.0-48.0) % MCV (80.0-105.0) fl MCH (25.0-35.0) pg MCHC (31.0-37.0) g/dl RDW (11.5-14.5) % Plt Count (120.0-450.0) 10^3/uL MPV (7.0-11.0) fl Gran % (50.0-68.0) % Lymph % (Auto) (22.0-35.0) % [place] % (Auto) (1.0-6.0) % Eos % (Auto) (1.5-5.0) % Baso % (Auto) (0.0-3.0) % Gran # (1.4-6.5) Lymph # (Auto) (1.2-3.4) [place] # (Auto) (0.1-0.6) Eos # (Auto) (0.0-0.7) Baso # (Auto) (0.0-2.0) K/mm3 pCO2 (35-45) mm/Hg pO2 (80-100) mm/Hg HCO3 (21-28) mmol/L ABG pH (7.35-7.45) ABG Total CO2 (22-28) mmol.L ABG O2 Saturation (95-98) % ABG Base Excess (-2.0-3.0) mmol/L ABG Potassium (3.6-5.2) mmol/L Glucose (65-105) mg/dl Lactate (0.7-2.1) mmol/L FiO2 % Sodium (132-148) mmol/L Potassium (3.6-5.0) mmol/L Chloride (98-107) mmol/L Carbon Dioxide (21-33) mmol/L Anion Gap (10-20) BUN (7-21) mg/dL Creatinine (0.7-1.2) mg/dl Est GFR ( Amer) Est GFR (Non-Af Amer) POC Glucose (mg/dL) (65-110) mg/dL Random Glucose (70-110) mg/dL Calcium (8.4-10.5) mg/dL Phosphorus (2.5-4.5) mg/dL Magnesium (1.7-2.2) mg/dL Total Bilirubin (0.2-1.3) mg/dL AST (14-36) U/L ALT (7-56) U/L Alkaline Phosphatase (38-126) U/L Total Protein (5.8-8.3) g/dL Albumin (3.0-4.8) g/dL Globulin gm/dL Albumin/Globulin Ratio (1.1-1.8) Free T4 (0.78-2.19) ng/dL TSH 3rd Generation (0.46-4.68) mIU/mL Arterial Blood Potassium (3.6-5.2) mmol/L REGINO Screen Negative (Negative) REGINO Titer TEST NOT PERFORMED REGINO Titer 2 TEST NOT PERFORMED REGINO Pattern TEST NOT PERFORMED REGINO Pattern 2 TEST NOT PERFORMED Smooth Muscle Ab Titer TEST NOT PERFORMED Anti-Smooth Muscle Ab Negative (Negative) Liver/Kid Microsomes Ab <=20.0 (<=20.0) U Laboratory Results - last 24 hr 02/16/18 02/18/18 02/18/18 10:30 11:39 16:13 WBC RBC Hgb Hct MCV MCH MCHC RDW Plt Count MPV Gran % Lymph % (Auto) [place] % (Auto) Eos % (Auto) Baso % (Auto) Gran # Lymph # (Auto) [place] # (Auto) Eos # (Auto) Baso # (Auto) pCO2 pO2 HCO3 ABG pH ABG Total CO2 ABG O2 Saturation ABG Base Excess ABG Potassium Glucose Lactate FiO2 Sodium Potassium Chloride Carbon Dioxide Anion Gap BUN Creatinine Est GFR ( Amer) Est GFR (Non-Af Amer) POC Glucose (mg/dL) 163 H 227 H Random Glucose Calcium Phosphorus Magnesium Total Bilirubin AST ALT Alkaline Phosphatase Total Protein Albumin Globulin Albumin/Globulin Ratio Free T4 TSH 3rd Generation Arterial Blood Potassium REGINO Screen Negative REGINO Titer TEST NOT PERFORMED REGINO Titer 2 TEST NOT PERFORMED REGINO Pattern TEST NOT PERFORMED REGINO Pattern 2 TEST NOT PERFORMED Smooth Muscle Ab Titer TEST NOT PERFORMED Anti-Smooth Muscle Ab Negative Liver/Kid Microsomes Ab <=20.0 02/18/18 02/18/18 02/18/18 17:49 17:49 22:20 WBC 16.8 H RBC 2.84 L Hgb 8.5 L Hct 26.1 L MCV 91.9 MCH 29.9 MCHC 32.6 RDW 14.0 Plt Count 130 MPV 8.8 Gran % 83.7 H Lymph % (Auto) 9.6 L [place] % (Auto) 5.8 Eos % (Auto) 0.7 L Baso % (Auto) 0.2 Gran # 14.07 H Lymph # (Auto) 1.6 [place] # (Auto) 1.0 H Eos # (Auto) 0.1 Baso # (Auto) 0.04 pCO2 pO2 HCO3 ABG pH ABG Total CO2 ABG O2 Saturation ABG Base Excess ABG Potassium Glucose Lactate FiO2 Sodium 138 Potassium 3.5 L Chloride 99 Carbon Dioxide 26 Anion Gap 16 BUN 21 Creatinine 1.0 Est GFR ( Amer) > 60 Est GFR (Non-Af Amer) > 60 POC Glucose (mg/dL) 206 H Random Glucose 239 H Calcium 7.4 L Phosphorus 3.9 Magnesium 1.7 Total Bilirubin 2.2 H AST 114 H D ALT 311 H Alkaline Phosphatase 441 H Total Protein 5.6 L Albumin 2.7 L Globulin 2.9 Albumin/Globulin Ratio 0.9 L Free T4 TSH 3rd Generation Arterial Blood Potassium REGINO Screen REGINO Titer REGINO Titer 2 REGINO Pattern REGINO Pattern 2 Smooth Muscle Ab Titer Anti-Smooth Muscle Ab Liver/Kid Microsomes Ab 02/19/18 02/19/18 02/19/18 05:40 06:40 06:40 WBC RBC Hgb Hct MCV MCH MCHC RDW Plt Count MPV Gran % Lymph % (Auto) [place] % (Auto) Eos % (Auto) Baso % (Auto) Gran # Lymph # (Auto) [place] # (Auto) Eos # (Auto) Baso # (Auto) pCO2 41 pO2 80.0 HCO3 25.4 ABG pH 7.40 ABG Total CO2 26.7 ABG O2 Saturation 96.6 ABG Base Excess 0.5 ABG Potassium 3.0 L Glucose 213 H Lactate 0.8 FiO2 50.0 Sodium 138.0 Potassium Chloride 106.0 Carbon Dioxide Anion Gap BUN Creatinine Est GFR ( Amer) Est GFR (Non-Af Amer) POC Glucose (mg/dL) Random Glucose Calcium Phosphorus 3.2 Magnesium 1.9 Total Bilirubin AST ALT Alkaline Phosphatase Total Protein Albumin Globulin Albumin/Globulin Ratio Free T4 0.60 L TSH 3rd Generation 28.70 H Arterial Blood Potassium 3.0 L REGINO Screen REGINO Titer REGINO Titer 2 REGINO Pattern REGINO Pattern 2 Smooth Muscle Ab Titer Anti-Smooth Muscle Ab Liver/Kid Microsomes Ab 02/19/18 07:12 WBC RBC Hgb Hct MCV MCH MCHC RDW Plt Count MPV Gran % Lymph % (Auto) [place] % (Auto) Eos % (Auto) Baso % (Auto) Gran # Lymph # (Auto) [place] # (Auto) Eos # (Auto) Baso # (Auto) pCO2 pO2 HCO3 ABG pH ABG Total CO2 ABG O2 Saturation ABG Base Excess ABG Potassium Glucose Lactate FiO2 Sodium Potassium Chloride Carbon Dioxide Anion Gap BUN Creatinine Est GFR ( Amer) Est GFR (Non-Af Amer) POC Glucose (mg/dL) 192 H Random Glucose Calcium Phosphorus Magnesium Total Bilirubin AST ALT Alkaline Phosphatase Total Protein Albumin Globulin Albumin/Globulin Ratio Free T4 TSH 3rd Generation Arterial Blood Potassium REGINO Screen REGINO Titer REGINO Titer 2 REGINO Pattern REGINO Pattern 2 Smooth Muscle Ab Titer Anti-Smooth Muscle Ab Liver/Kid Microsomes Ab Fingerstick Blood Sugar Results: 192 Critical Care Progress Note - Nutrition Nutrition: Nutrition Category Date Time Status Liquid Diet [DIET] Diets 02/16/18 Dinner Ordered Assessment/Plan - Assessment and Plan (Free Text) Assessment: 38 year old 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 Patient only has one SIRS criteria of tachycardia at present, but clinically has severe tenderness and swelling. CT per my read shows tongue obstructing airway with severe soft tissue swelling. Glucose on admission was 477 with anion gap of 18, pH 7.23, and Lactate of 4.4. Plan: Neuro: - Maintain Normothermia Pulm: - Patient on trach collar, satting well - Maintain O2 sats > 92% Cardio: - MAP > 65 GI: - Protonix for PPX Renal: - Euvolemia Heme: - Heparin PPX ID: - Doxy, Zosyn Endo: - Maintain euglycemia with levemir and humulin - DKA - resolved Dispo: At this time, patient stable for transfer to med/surg <JonjulianTanya andresriy - Last Filed: 02/19/18 12:25> CCU Objective - Vital Signs / Intake & Output Vital Signs (Last 4 hours): Vital Signs Pulse BP 02/19/18 09:43 120/52 L 02/19/18 09:42 91 H 120/52 L Intake and Output (Last 8hrs): Intake & Output 02/18/18 02/19/18 02/19/18 22:59 06:59 14:59 Intake Total 670 650 Output Total 3200 500 Balance -2530 150 Intake: IV 470 650 Left Hand 100 Right Forearm 450 550 fentanyl 20 Oral 200 Output: Urine 3200 500 2-way Urethral 3200 Urine, Voided 500 Stool 0 Other: # Voids Urine, Voided 1 - Medications Active Medications: Active Medications Generic Name Dose Route Start Last Admin Trade Name Freq PRN Reason Stop Dose Admin Albuterol/Ipratropium 3 ml 02/16/18 19:55 02/19/18 08:16 Duoneb 3 Mg/0.5 Mg (3 Ml) Ud IH 3 ml Q2H PRN Administration Shortness of Breath Amlodipine Besylate 10 mg 02/16/18 14:15 02/19/18 09:43 Norvasc PO 10 mg DAILY KATYA Administration Enoxaparin Sodium 30 mg 02/20/18 10:00 Lovenox SC DAILY KATYA Protocol Folic Acid 1 mg 02/17/18 10:00 02/19/18 09:42 Folic Acid PO 1 mg DAILY KATYA Administration Piperacillin Sod/Tazobactam Sod 4.5 gm in 100 mls @ 200 mls/hr 02/15/18 18:00 02/19/18 11:10 Zosyn 4.5 Gm In Ns 100ml IVPB 02/22/18 18:01 200 mls/hr Q6 KATYA Administration Protocol Doxycycline Hyclate 100 mg/ 100 mls @ 100 mls/hr 02/17/18 10:30 02/19/18 09: 46 Sodium Chloride IVPB 100 mls/hr Q12 KATYA Administration Protocol Vancomycin HCl 1 gm in 250 mls @ 167 mls/hr 02/17/18 21:08 02/19/18 12:06 Vancomycin 1gm IVPB 167 mls/hr 0000,1200 KATYA Administration Protocol Insulin Detemir 20 unit 02/18/18 10:53 02/19/18 09:44 Levemir SC 20 u Q12 KATYA Administration Insulin Human Regular 0 units 02/16/18 12:30 02/19/18 12:05 Humulin R Med SC 5 units ACHS KATYA Administration Protocol Insulin Human Regular 3 units 02/18/18 10:54 02/19/18 12:08 Humulin R SC 3 units AC KATYA Administration Levothyroxine Sodium 112 mcg 02/20/18 10:00 Synthroid PO DAILY KATYA Losartan Potassium 25 mg 02/18/18 17:01 02/19/18 09:42 Cozaar PO 25 mg DAILY KATYA Administration Multivitamins 1 tab 02/18/18 08:00 02/19/18 09:44 Thera Tab PO 1 tab 0800 KATYA Administration Nicotine 1 patch 02/16/18 15:45 02/19/18 09:39 Nicoderm Cq TD 1 patch DAILY KATYA Administration Pantoprazole Sodium 40 mg 02/16/18 10:00 02/19/18 09:39 Protonix Inj IVP 40 mg DAILY KATYA Administration Saliva Substitute 1 ml 02/15/18 10:54 02/15/18 20:58 Saliva Substitute PO 1 ml Q2H PRN Administration Dry mouth Thiamine HCl 100 mg 02/16/18 10:00 02/19/18 09:39 Vitamin B1 Inj IM 100 mg DAILY KATYA Administration - Patient Studies Lab Studies: Microbiology Studies 02/17/18 15:55 Gram Stain - Final Abscess - Neck Anaerobic Culture - Final NO ANAEROBES ISOLATED. Wound Culture - Preliminary No growth. 02/18/18 09:30 Blood Culture - Preliminary Blood-Venous NO GROWTH AFTER 24 HOURS 02/18/18 09:00 Blood Culture - Preliminary Blood-Venous NO GROWTH AFTER 24 HOURS 02/17/18 22:15 Gram Stain - Final Neck Wound Culture - Preliminary NO GROWTH AFTER 24 HOURS Lab Studies 02/19/18 02/19/18 02/19/18 Range/Units 11:50 11:50 11:06 WBC 18.1 H (4.5-11.0) 10^3/ul RBC 2.80 L (3.5-6.1) 10^6/uL Hgb 8.4 L (12.0-16.0) g/dL Hct 25.8 L (36.0-48.0) % MCV 92.1 (80.0-105.0) fl MCH 30.0 (25.0-35.0) pg MCHC 32.6 (31.0-37.0) g/dl RDW 13.9 (11.5-14.5) % Plt Count 149 (120.0-450.0) 10^3/uL MPV 9.4 (7.0-11.0) fl Gran % 77.6 H (50.0-68.0) % Lymph % (Auto) 16.0 L (22.0-35.0) % [place] % (Auto) 4.4 (1.0-6.0) % Eos % (Auto) 1.7 (1.5-5.0) % Baso % (Auto) 0.3 (0.0-3.0) % Gran # 14.06 H (1.4-6.5) Lymph # (Auto) 2.9 (1.2-3.4) [place] # (Auto) 0.8 H (0.1-0.6) Eos # (Auto) 0.3 (0.0-0.7) Baso # (Auto) 0.05 (0.0-2.0) K/mm3 pCO2 (35-45) mm/Hg pO2 (80-100) mm/Hg HCO3 (21-28) mmol/L ABG pH (7.35-7.45) ABG Total CO2 (22-28) mmol.L ABG O2 Saturation (95-98) % ABG Base Excess (-2.0-3.0) mmol/L ABG Potassium (3.6-5.2) mmol/L Glucose (65-105) mg/dl Lactate (0.7-2.1) mmol/L FiO2 % Sodium 139 (132-148) mmol/L Potassium 3.4 L (3.6-5.0) mmol/L Chloride 101 (98-107) mmol/L Carbon Dioxide 24 (21-33) mmol/L Anion Gap 17 (10-20) BUN 23 H (7-21) mg/dL Creatinine 1.0 (0.7-1.2) mg/dl Est GFR ( Amer) > 60 Est GFR (Non-Af Amer) > 60 POC Glucose (mg/dL) 250 H (65-110) mg/dL Random Glucose 205 H (70-110) mg/dL Calcium 7.6 L (8.4-10.5) mg/dL Phosphorus (2.5-4.5) mg/dL Magnesium (1.7-2.2) mg/dL Total Bilirubin 1.4 H (0.2-1.3) mg/dL AST 72 H D (14-36) U/L ALT 254 H (7-56) U/L Alkaline Phosphatase 418 H (38-126) U/L Total Protein 5.6 L (5.8-8.3) g/dL Albumin 2.7 L (3.0-4.8) g/dL Globulin 3.0 gm/dL Albumin/Globulin Ratio 0.9 L (1.1-1.8) Free T4 (0.78-2.19) ng/dL TSH 3rd Generation (0.46-4.68) mIU/mL Arterial Blood Potassium (3.6-5.2) mmol/L REGINO Screen (Negative) REGINO Titer REGINO Titer 2 REGINO Pattern REGINO Pattern 2 Smooth Muscle Ab Titer Anti-Smooth Muscle Ab (Negative) Liver/Kid Microsomes Ab (<=20.0) U 02/19/18 02/19/18 02/19/18 Range/Units 07:12 06:40 06:40 WBC (4.5-11.0) 10^3/ul RBC (3.5-6.1) 10^6/uL Hgb (12.0-16.0) g/dL Hct (36.0-48.0) % MCV (80.0-105.0) fl MCH (25.0-35.0) pg MCHC (31.0-37.0) g/dl RDW (11.5-14.5) % Plt Count (120.0-450.0) 10^3/uL MPV (7.0-11.0) fl Gran % (50.0-68.0) % Lymph % (Auto) (22.0-35.0) % [place] % (Auto) (1.0-6.0) % Eos % (Auto) (1.5-5.0) % Baso % (Auto) (0.0-3.0) % Gran # (1.4-6.5) Lymph # (Auto) (1.2-3.4) [place] # (Auto) (0.1-0.6) Eos # (Auto) (0.0-0.7) Baso # (Auto) (0.0-2.0) K/mm3 pCO2 (35-45) mm/Hg pO2 (80-100) mm/Hg HCO3 (21-28) mmol/L ABG pH (7.35-7.45) ABG Total CO2 (22-28) mmol.L ABG O2 Saturation (95-98) % ABG Base Excess (-2.0-3.0) mmol/L ABG Potassium (3.6-5.2) mmol/L Glucose (65-105) mg/dl Lactate (0.7-2.1) mmol/L FiO2 % Sodium (132-148) mmol/L Potassium (3.6-5.0) mmol/L Chloride (98-107) mmol/L Carbon Dioxide (21-33) mmol/L Anion Gap (10-20) BUN (7-21) mg/dL Creatinine (0.7-1.2) mg/dl Est GFR ( Amer) Est GFR (Non-Af Amer) POC Glucose (mg/dL) 192 H (65-110) mg/dL Random Glucose (70-110) mg/dL Calcium (8.4-10.5) mg/dL Phosphorus 3.2 (2.5-4.5) mg/dL Magnesium 1.9 (1.7-2.2) mg/dL Total Bilirubin (0.2-1.3) mg/dL AST (14-36) U/L ALT (7-56) U/L Alkaline Phosphatase (38-126) U/L Total Protein (5.8-8.3) g/dL Albumin (3.0-4.8) g/dL Globulin gm/dL Albumin/Globulin Ratio (1.1-1.8) Free T4 0.60 L (0.78-2.19) ng/dL TSH 3rd Generation 28.70 H (0.46-4.68) mIU/mL Arterial Blood Potassium (3.6-5.2) mmol/L REGINO Screen (Negative) REGINO Titer REGINO Titer 2 REGINO Pattern REGINO Pattern 2 Smooth Muscle Ab Titer Anti-Smooth Muscle Ab (Negative) Liver/Kid Microsomes Ab (<=20.0) U 02/19/18 02/18/18 02/18/18 Range/Units 05:40 22:20 17:49 WBC (4.5-11.0) 10^3/ul RBC (3.5-6.1) 10^6/uL Hgb (12.0-16.0) g/dL Hct (36.0-48.0) % MCV (80.0-105.0) fl MCH (25.0-35.0) pg MCHC (31.0-37.0) g/dl RDW (11.5-14.5) % Plt Count (120.0-450.0) 10^3/uL MPV (7.0-11.0) fl Gran % (50.0-68.0) % Lymph % (Auto) (22.0-35.0) % [place] % (Auto) (1.0-6.0) % Eos % (Auto) (1.5-5.0) % Baso % (Auto) (0.0-3.0) % Gran # (1.4-6.5) Lymph # (Auto) (1.2-3.4) [place] # (Auto) (0.1-0.6) Eos # (Auto) (0.0-0.7) Baso # (Auto) (0.0-2.0) K/mm3 pCO2 41 (35-45) mm/Hg pO2 80.0 (80-100) mm/Hg HCO3 25.4 (21-28) mmol/L ABG pH 7.40 (7.35-7.45) ABG Total CO2 26.7 (22-28) mmol.L ABG O2 Saturation 96.6 (95-98) % ABG Base Excess 0.5 (-2.0-3.0) mmol/L ABG Potassium 3.0 L (3.6-5.2) mmol/L Glucose 213 H (65-105) mg/dl Lactate 0.8 (0.7-2.1) mmol/L FiO2 50.0 % Sodium 138.0 138 (132-148) mmol/L Potassium 3.5 L (3.6-5.0) mmol/L Chloride 106.0 99 (98-107) mmol/L Carbon Dioxide 26 (21-33) mmol/L Anion Gap 16 (10-20) BUN 21 (7-21) mg/dL Creatinine 1.0 (0.7-1.2) mg/dl Est GFR ( Amer) > 60 Est GFR (Non-Af Amer) > 60 POC Glucose (mg/dL) 206 H (65-110) mg/dL Random Glucose 239 H (70-110) mg/dL Calcium 7.4 L (8.4-10.5) mg/dL Phosphorus 3.9 (2.5-4.5) mg/dL Magnesium 1.7 (1.7-2.2) mg/dL Total Bilirubin 2.2 H (0.2-1.3) mg/dL AST 114 H D (14-36) U/L ALT 311 H (7-56) U/L Alkaline Phosphatase 441 H (38-126) U/L Total Protein 5.6 L (5.8-8.3) g/dL Albumin 2.7 L (3.0-4.8) g/dL Globulin 2.9 gm/dL Albumin/Globulin Ratio 0.9 L (1.1-1.8) Free T4 (0.78-2.19) ng/dL TSH 3rd Generation (0.46-4.68) mIU/mL Arterial Blood Potassium 3.0 L (3.6-5.2) mmol/L REGINO Screen (Negative) REGINO Titer REGINO Titer 2 REGINO Pattern REGINO Pattern 2 Smooth Muscle Ab Titer Anti-Smooth Muscle Ab (Negative) Liver/Kid Microsomes Ab (<=20.0) U 02/18/18 02/18/18 02/18/18 Range/Units 17:49 16:13 11:39 WBC 16.8 H (4.5-11.0) 10^3/ul RBC 2.84 L (3.5-6.1) 10^6/uL Hgb 8.5 L (12.0-16.0) g/dL Hct 26.1 L (36.0-48.0) % MCV 91.9 (80.0-105.0) fl MCH 29.9 (25.0-35.0) pg MCHC 32.6 (31.0-37.0) g/dl RDW 14.0 (11.5-14.5) % Plt Count 130 (120.0-450.0) 10^3/uL MPV 8.8 (7.0-11.0) fl Gran % 83.7 H (50.0-68.0) % Lymph % (Auto) 9.6 L (22.0-35.0) % [place] % (Auto) 5.8 (1.0-6.0) % Eos % (Auto) 0.7 L (1.5-5.0) % Baso % (Auto) 0.2 (0.0-3.0) % Gran # 14.07 H (1.4-6.5) Lymph # (Auto) 1.6 (1.2-3.4) [place] # (Auto) 1.0 H (0.1-0.6) Eos # (Auto) 0.1 (0.0-0.7) Baso # (Auto) 0.04 (0.0-2.0) K/mm3 pCO2 (35-45) mm/Hg pO2 (80-100) mm/Hg HCO3 (21-28) mmol/L ABG pH (7.35-7.45) ABG Total CO2 (22-28) mmol.L ABG O2 Saturation (95-98) % ABG Base Excess (-2.0-3.0) mmol/L ABG Potassium (3.6-5.2) mmol/L Glucose (65-105) mg/dl Lactate (0.7-2.1) mmol/L FiO2 % Sodium (132-148) mmol/L Potassium (3.6-5.0) mmol/L Chloride (98-107) mmol/L Carbon Dioxide (21-33) mmol/L Anion Gap (10-20) BUN (7-21) mg/dL Creatinine (0.7-1.2) mg/dl Est GFR ( Amer) Est GFR (Non-Af Amer) POC Glucose (mg/dL) 227 H 163 H (65-110) mg/dL Random Glucose (70-110) mg/dL Calcium (8.4-10.5) mg/dL Phosphorus (2.5-4.5) mg/dL Magnesium (1.7-2.2) mg/dL Total Bilirubin (0.2-1.3) mg/dL AST (14-36) U/L ALT (7-56) U/L Alkaline Phosphatase (38-126) U/L Total Protein (5.8-8.3) g/dL Albumin (3.0-4.8) g/dL Globulin gm/dL Albumin/Globulin Ratio (1.1-1.8) Free T4 (0.78-2.19) ng/dL TSH 3rd Generation (0.46-4.68) mIU/mL Arterial Blood Potassium (3.6-5.2) mmol/L REGINO Screen (Negative) REGINO Titer REGINO Titer 2 REGINO Pattern REGINO Pattern 2 Smooth Muscle Ab Titer Anti-Smooth Muscle Ab (Negative) Liver/Kid Microsomes Ab (<=20.0) U /06/26 Range/Units 10:30 WBC (4.5-11.0) 10^3/ul RBC (3.5-6.1) 10^6/uL Hgb (12.0-16.0) g/dL Hct (36.0-48.0) % MCV (80.0-105.0) fl MCH (25.0-35.0) pg MCHC (31.0-37.0) g/dl RDW (11.5-14.5) % Plt Count (120.0-450.0) 10^3/uL MPV (7.0-11.0) fl Gran % (50.0-68.0) % Lymph % (Auto) (22.0-35.0) % [place] % (Auto) (1.0-6.0) % Eos % (Auto) (1.5-5.0) % Baso % (Auto) (0.0-3.0) % Gran # (1.4-6.5) Lymph # (Auto) (1.2-3.4) [place] # (Auto) (0.1-0.6) Eos # (Auto) (0.0-0.7) Baso # (Auto) (0.0-2.0) K/mm3 pCO2 (35-45) mm/Hg pO2 (80-100) mm/Hg HCO3 (21-28) mmol/L ABG pH (7.35-7.45) ABG Total CO2 (22-28) mmol.L ABG O2 Saturation (95-98) % ABG Base Excess (-2.0-3.0) mmol/L ABG Potassium (3.6-5.2) mmol/L Glucose (65-105) mg/dl Lactate (0.7-2.1) mmol/L FiO2 % Sodium (132-148) mmol/L Potassium (3.6-5.0) mmol/L Chloride (98-107) mmol/L Carbon Dioxide (21-33) mmol/L Anion Gap (10-20) BUN (7-21) mg/dL Creatinine (0.7-1.2) mg/dl Est GFR ( Amer) Est GFR (Non-Af Amer) POC Glucose (mg/dL) (65-110) mg/dL Random Glucose (70-110) mg/dL Calcium (8.4-10.5) mg/dL Phosphorus (2.5-4.5) mg/dL Magnesium (1.7-2.2) mg/dL Total Bilirubin (0.2-1.3) mg/dL AST (14-36) U/L ALT (7-56) U/L Alkaline Phosphatase (38-126) U/L Total Protein (5.8-8.3) g/dL Albumin (3.0-4.8) g/dL Globulin gm/dL Albumin/Globulin Ratio (1.1-1.8) Free T4 (0.78-2.19) ng/dL TSH 3rd Generation (0.46-4.68) mIU/mL Arterial Blood Potassium (3.6-5.2) mmol/L REGINO Screen Negative (Negative) REGINO Titer TEST NOT PERFORMED REGINO Titer 2 TEST NOT PERFORMED REGINO Pattern TEST NOT PERFORMED REGINO Pattern 2 TEST NOT PERFORMED Smooth Muscle Ab Titer TEST NOT PERFORMED Anti-Smooth Muscle Ab Negative (Negative) Liver/Kid Microsomes Ab <=20.0 (<=20.0) U Laboratory Results - last 24 hr 02/16/18 02/18/18 02/18/18 10:30 11:39 16:13 WBC RBC Hgb Hct MCV MCH MCHC RDW Plt Count MPV Gran % Lymph % (Auto) [place] % (Auto) Eos % (Auto) Baso % (Auto) Gran # Lymph # (Auto) [place] # (Auto) Eos # (Auto) Baso # (Auto) pCO2 pO2 HCO3 ABG pH ABG Total CO2 ABG O2 Saturation ABG Base Excess ABG Potassium Glucose Lactate FiO2 Sodium Potassium Chloride Carbon Dioxide Anion Gap BUN Creatinine Est GFR ( Amer) Est GFR (Non-Af Amer) POC Glucose (mg/dL) 163 H 227 H Random Glucose Calcium Phosphorus Magnesium Total Bilirubin AST ALT Alkaline Phosphatase Total Protein Albumin Globulin Albumin/Globulin Ratio Free T4 TSH 3rd Generation Arterial Blood Potassium REGINO Screen Negative REGINO Titer TEST NOT PERFORMED REGINO Titer 2 TEST NOT PERFORMED REGINO Pattern TEST NOT PERFORMED REGINO Pattern 2 TEST NOT PERFORMED Smooth Muscle Ab Titer TEST NOT PERFORMED Anti-Smooth Muscle Ab Negative Liver/Kid Microsomes Ab <=20.0 02/18/18 02/18/18 02/18/18 17:49 17:49 22:20 WBC 16.8 H RBC 2.84 L Hgb 8.5 L Hct 26.1 L MCV 91.9 MCH 29.9 MCHC 32.6 RDW 14.0 Plt Count 130 MPV 8.8 Gran % 83.7 H Lymph % (Auto) 9.6 L [place] % (Auto) 5.8 Eos % (Auto) 0.7 L Baso % (Auto) 0.2 Gran # 14.07 H Lymph # (Auto) 1.6 [place] # (Auto) 1.0 H Eos # (Auto) 0.1 Baso # (Auto) 0.04 pCO2 pO2 HCO3 ABG pH ABG Total CO2 ABG O2 Saturation ABG Base Excess ABG Potassium Glucose Lactate FiO2 Sodium 138 Potassium 3.5 L Chloride 99 Carbon Dioxide 26 Anion Gap 16 BUN 21 Creatinine 1.0 Est GFR ( Amer) > 60 Est GFR (Non-Af Amer) > 60 POC Glucose (mg/dL) 206 H Random Glucose 239 H Calcium 7.4 L Phosphorus 3.9 Magnesium 1.7 Total Bilirubin 2.2 H AST 114 H D ALT 311 H Alkaline Phosphatase 441 H Total Protein 5.6 L Albumin 2.7 L Globulin 2.9 Albumin/Globulin Ratio 0.9 L Free T4 TSH 3rd Generation Arterial Blood Potassium REGINO Screen REGINO Titer REGINO Titer 2 REGINO Pattern REGINO Pattern 2 Smooth Muscle Ab Titer Anti-Smooth Muscle Ab Liver/Kid Microsomes Ab 02/19/18 02/19/18 02/19/18 05:40 06:40 06:40 WBC RBC Hgb Hct MCV MCH MCHC RDW Plt Count MPV Gran % Lymph % (Auto) [place] % (Auto) Eos % (Auto) Baso % (Auto) Gran # Lymph # (Auto) [place] # (Auto) Eos # (Auto) Baso # (Auto) pCO2 41 pO2 80.0 HCO3 25.4 ABG pH 7.40 ABG Total CO2 26.7 ABG O2 Saturation 96.6 ABG Base Excess 0.5 ABG Potassium 3.0 L Glucose 213 H Lactate 0.8 FiO2 50.0 Sodium 138.0 Potassium Chloride 106.0 Carbon Dioxide Anion Gap BUN Creatinine Est GFR ( Amer) Est GFR (Non-Af Amer) POC Glucose (mg/dL) Random Glucose Calcium Phosphorus 3.2 Magnesium 1.9 Total Bilirubin AST ALT Alkaline Phosphatase Total Protein Albumin Globulin Albumin/Globulin Ratio Free T4 0.60 L TSH 3rd Generation 28.70 H Arterial Blood Potassium 3.0 L REGINO Screen REGINO Titer REGINO Titer 2 REGINO Pattern REGINO Pattern 2 Smooth Muscle Ab Titer Anti-Smooth Muscle Ab Liver/Kid Microsomes Ab 02/19/18 02/19/18 02/19/18 07:12 11:06 11:50 WBC 18.1 H RBC 2.80 L Hgb 8.4 L Hct 25.8 L MCV 92.1 MCH 30.0 MCHC 32.6 RDW 13.9 Plt Count 149 MPV 9.4 Gran % 77.6 H Lymph % (Auto) 16.0 L [place] % (Auto) 4.4 Eos % (Auto) 1.7 Baso % (Auto) 0.3 Gran # 14.06 H Lymph # (Auto) 2.9 [place] # (Auto) 0.8 H Eos # (Auto) 0.3 Baso # (Auto) 0.05 pCO2 pO2 HCO3 ABG pH ABG Total CO2 ABG O2 Saturation ABG Base Excess ABG Potassium Glucose Lactate FiO2 Sodium Potassium Chloride Carbon Dioxide Anion Gap BUN Creatinine Est GFR ( Amer) Est GFR (Non-Af Amer) POC Glucose (mg/dL) 192 H 250 H Random Glucose Calcium Phosphorus Magnesium Total Bilirubin AST ALT Alkaline Phosphatase Total Protein Albumin Globulin Albumin/Globulin Ratio Free T4 TSH 3rd Generation Arterial Blood Potassium REGINO Screen REGINO Titer REGINO Titer 2 REGINO Pattern REGINO Pattern 2 Smooth Muscle Ab Titer Anti-Smooth Muscle Ab Liver/Kid Microsomes Ab 02/19/18 11:50 WBC RBC Hgb Hct MCV MCH MCHC RDW Plt Count MPV Gran % Lymph % (Auto) [place] % (Auto) Eos % (Auto) Baso % (Auto) Gran # Lymph # (Auto) [place] # (Auto) Eos # (Auto) Baso # (Auto) pCO2 pO2 HCO3 ABG pH ABG Total CO2 ABG O2 Saturation ABG Base Excess ABG Potassium Glucose Lactate FiO2 Sodium 139 Potassium 3.4 L Chloride 101 Carbon Dioxide 24 Anion Gap 17 BUN 23 H Creatinine 1.0 Est GFR ( Amer) > 60 Est GFR (Non-Af Amer) > 60 POC Glucose (mg/dL) Random Glucose 205 H Calcium 7.6 L Phosphorus Magnesium Total Bilirubin 1.4 H AST 72 H D ALT 254 H Alkaline Phosphatase 418 H Total Protein 5.6 L Albumin 2.7 L Globulin 3.0 Albumin/Globulin Ratio 0.9 L Free T4 TSH 3rd Generation Arterial Blood Potassium REGINO Screen REGINO Titer REGINO Titer 2 REGINO Pattern REGINO Pattern 2 Smooth Muscle Ab Titer Anti-Smooth Muscle Ab Liver/Kid Microsomes Ab Critical Care Progress Note - Nutrition Nutrition: Nutrition Category Date Time Status Liquid Diet [DIET] Diets 02/16/18 Dinner Ordered Assessment/Plan - Assessment and Plan (Free Text) Assessment: Patient seen and examined with resident, agree with note with following additions/exceptions: Patient is 38yo female with PMhx of Hep C, polysubstance abuse, IDDM, HTN, presented with swelling and erythema of the mouth/neck x 3 days, associated with dysphagia. CT soft tissue showed Ludwigs Angina, soft tissue edema, left parapharyngeal space, epiglottis swelling, s/p abscess InD, and tracheostomy with ENT. Patient then went in pulm edema, had persistent RLL infiltrate, on broad spectrum abx, ID following Blood cultures noted, repeat pending Patient currently on trach collar, tolerating well, 40%, saturation 94%, for over 24 hours Afebrile, BP stable DKA resolved ENT following ECHO done, noted LFTs now downtrending s/p NAC Overall improving Pt/OT ordered Ludwigs Angina Epiglotitis Neck Cellulitis s/p trach s/p InD Hypertension DKA, resolved Volume overload, resolved Abnormal LFTs, resolving Recommend: - cont with Trach collar as tolerated - duonebs PRN - cont with Zosyn IV, Vanco, Doxy, follow up ID, cultures - BP control - DC Lasix - follow up cardiology - Sliding scale, Levemir 20u BID - follow up GI - follow up liver serologies - GI ppx - DVT ppx - transfer to floor
[2018-02-19] MEDS ORDERED: Levothyroxine 100 mcg (0.1 mg) Inj IVP ONE (11:14)
[2018-02-19] MEDS: Vancomycin 1gm in NS 250ml 1 GM/250 ML BAG IVPB SCH (12:06)
[2018-02-19 12:07] LABS: BASO # 0.05 K/mm3 (0.0-2.0); BASO % 0.3 % (0.0-3.0); EOS # 0.3 (0.0-0.7); EOS % 1.7 % (1.5-5.0); GRAN # 14.06 (1.4-6.5); GRAN % 77.6 % (50.0-68.0); HEMOGLOBIN 8.4 g/dL (12.0-16.0); LYMPH # 2.9 (1.2-3.4); MEAN CELL VOLUME 92.1 fl (80.0-105.0); MEAN CORPUSCULAR HGB CONC 32.6 g/dl (31.0-37.0); MEAN PLATELET VOLUME 9.4 fl (7.0-11.0); MONO # 0.8 (0.1-0.6); MONO % 4.4 % (1.0-6.0); RBC 2.8 10^6/uL (3.5-6.1); RED CELL DISTRIBUTION WIDTH 13.9 % (11.5-14.5); WHITE BLOOD COUNT 18.1 10^3/ul (4.5-11.0)
[2018-02-19 12:14] LABS: ALB/GLOB RATIO 0.9 (1.1-1.8); ALBUMIN 2.7 g/dL (3.0-4.8); ALT/SGPT 254 U/L (7-56); AST/SGOT 72 U/L (14-36); BLOOD UREA NITROGEN 23 mg/dL (7-21); CALCIUM 7.6 mg/dL (8.4-10.5); GFR AFRICAN-AMERICAN > 60; GFR NON-AFRICAN AMERICAN > 60
--- NOTE | 2018-02-19 12:58 | CP.PCM.PN ---
Subjective - Date & Time of Evaluation Date of Evaluation: 02/19/18 Time of Evaluation: 08:50 - Subjective Subjective: Patient is feeling better and has more energy, no fevers. Objective - Vital Signs/Intake and Output Vital Signs (last 24 hours): Temp Pulse Resp BP Pulse Ox 98.2 F 78 20 105/58 L 100 02/19/18 04:00 02/19/18 06:00 02/19/18 04:02 02/19/18 04:02 02/19/18 04:02 Intake and Output: 02/18/18 02/19/18 18:59 06:59 Intake Total 670 650 Output Total 3200 500 Balance -2530 150 - Medications Medications: Current Medications Albuterol/Ipratropium (Duoneb 3 Mg/0.5 Mg (3 Ml) Ud) 3 ml IH Q2H PRN PRN Reason: Shortness of Breath Last Admin: 02/18/18 02:26 Dose: 3 ml Amlodipine Besylate (Norvasc) 10 mg PO DAILY [facility] Last Admin: 02/18/18 09:53 Dose: 10 mg Folic Acid (Folic Acid) 1 mg PO DAILY [facility] Last Admin: 02/18/18 09:52 Dose: 1 mg Furosemide (Lasix) 40 mg IVP DAILY [facility] Last Admin: 02/18/18 13:06 Dose: 40 mg Hydromorphone HCl (Dilaudid) 1 mg IVP Q3H PRN PRN Reason: Pain, severe (8-10) Last Admin: 02/19/18 05:01 Dose: 1 mg Piperacillin Sod/Tazobactam Sod (Zosyn 4.5 Gm In Ns 100ml) 4.5 gm in 100 mls @ 200 mls/hr IVPB Q6 [facility] PRN Reason: Protocol Stop: 02/22/18 18:01 Last Admin: 02/19/18 05:02 Dose: 200 mls/hr Doxycycline Hyclate 100 mg/ (Sodium Chloride) 100 mls @ 100 mls/hr IVPB Q12 [facility] PRN Reason: Protocol Last Admin: 02/18/18 21:23 Dose: 100 mls/hr Vancomycin HCl (Vancomycin 1gm) 1 gm in 250 mls @ 167 mls/hr IVPB 0000,1200 [facility] PRN Reason: Protocol Last Admin: 02/18/18 23:28 Dose: 167 mls/hr Insulin Detemir (Levemir) 20 unit SC Q12 [facility] Last Admin: 02/18/18 22:36 Dose: 20 u Insulin Human Regular (Humulin R Med) 0 units SC ACHS [facility] PRN Reason: Protocol Last Admin: 02/18/18 22:30 Dose: Not Given Insulin Human Regular (Humulin R) 3 units SC AC [facility] Last Admin: 02/18/18 17:54 Dose: 3 units Losartan Potassium (Cozaar) 25 mg PO DAILY [facility] Multivitamins (Thera Tab) 1 tab PO 0800 [facility] Last Admin: 02/18/18 10:31 Dose: 1 tab Nicotine (Nicoderm Cq) 1 patch TD DAILY [facility] Last Admin: 02/18/18 09:52 Dose: 1 patch Pantoprazole Sodium (Protonix Inj) 40 mg IVP DAILY [facility] Last Admin: 02/18/18 10:30 Dose: 40 mg Saliva Substitute (Saliva Substitute) 1 ml PO Q2H PRN PRN Reason: Dry mouth Last Admin: 02/15/18 20:58 Dose: 1 ml Thiamine HCl (Vitamin B1 Inj) 100 mg IM DAILY [facility] Last Admin: 02/18/18 10:06 Dose: 100 mg - Labs Labs: 02/18/18 17:49 02/18/18 17:49 PT 13.6 SECONDS (9.4-12.5) H 02/17/18 05:20 INR 1.18 (0.93-1.08) H 02/17/18 05:20 APTT 25.2 Seconds (25.1-36.5) 02/15/18 08:15 - Constitutional Appears: Non-toxic, Chronically Ill - Head Exam Head Exam: NORMAL INSPECTION - ENT Exam Additional comments: tracheostomy in place - Neck Exam Neck Exam: absent: Meningismus - Respiratory Exam Respiratory Exam: Decreased Breath Sounds. absent: Rales - Cardiovascular Exam Cardiovascular Exam: +S1, +S2 - GI/Abdominal Exam GI & Abdominal Exam: Soft. absent: Tenderness Assessment and Plan - Assessment and Plan (Free Text) Plan: Assessment Anterior neck abscess / Dominick's angina S/P I and and tracheostomy POD #4, on top of probable right lower lobe aspiration pneumonia, with gram positive cocci bacteremia acute renal failure HTN DM history of IV drug use significant smoking history chronic Hepatitis C S/P treatment history of thyrotoxicosis S/P partial thyroidectomy Plan continue Zosyn day 3 and IV Vancomycin and Doxycycline pending final cultures from the abscess; follow up the identification of the bacteria in the blood cx; repeat blood cultures are negative so far will continue to monitor clinically rapid HIV test is negative reviewed CXR which is showing peristent right lower lobe infiltrate monitor transaminases which have been elevated since admission but now trending downwards
--- NOTE | 2018-02-19 13:23 | RAD ---
HISTORY: pulm edema COMPARISON: 02/18/2018 FINDINGS: LUNGS: There is resolution of the previously seen perihilar infiltrates PLEURA: No significant pleural effusion identified, no pneumothorax apparent. CARDIOVASCULAR: Mild vascular congestion OSSEOUS STRUCTURES: No significant abnormalities. VISUALIZED UPPER ABDOMEN: Normal. OTHER FINDINGS: None. IMPRESSION: Improved pulmonary edema
[2018-02-19] MEDS ORDERED: DiphenhydrAMINE 12.5 mg/5 ml LIQ UD (5 ml) PO STA (23:48)
[2018-02-20] MEDS: Vancomycin 1gm in NS 250ml 1 GM/250 ML BAG IVPB SCH (00:33)
[2018-02-20] MEDS: Piperacill/Tazo 4.5gm in NS 4.5 GM/100 ML BAG IVPB SCH ×4 (00:34→23:29)
--- NOTE | 2018-02-20 01:58 | PN ---
DATE: 02/19/2018 Postop status post tracheostomy and drainage of Dominick angina, left side of the neck with continued discomfort and trach. The patient is now in bed 565 with noted improvement as stated by the patient, unable to verbalize, but hard writing, significant improvement in swelling, but still noted moderate drainage on pad. [place] drain over 48 hours will continue as the patient slowly improves. Tracheostomy is noted to be intact. Suture line intact, clean, and dry. The patient is comfortable without suctioning noted. Horacio Guzmán DO [email or web address]
[2018-02-20 06:27] LABS: BASO # 0.06 K/mm3 (0.0-2.0); BASO % 0.3 % (0.0-3.0); EOS # 0.5 (0.0-0.7); EOS % 2.2 % (1.5-5.0); GRAN # 15.31 (1.4-6.5); GRAN % 75.4 % (50.0-68.0); LYMPH # 3.3 (1.2-3.4); LYMPH % 16.1 % (22.0-35.0); MEAN CELL VOLUME 92.8 fl (80.0-105.0); MEAN CORPUSCULAR HEMOGLOBIN 30.3 pg (25.0-35.0); MEAN CORPUSCULAR HGB CONC 32.7 g/dl (31.0-37.0); MEAN PLATELET VOLUME 9.6 fl (7.0-11.0); MONO # 1.2 (0.1-0.6); RBC 2.21 10^6/uL (3.5-6.1); RED CELL DISTRIBUTION WIDTH 14.3 % (11.5-14.5); WHITE BLOOD COUNT 20.3 10^3/ul (4.5-11.0)
[2018-02-20] MEDS: Insulin Reg-MEDIUM-Coverage SC SCH ×4 (06:48→21:55)
[2018-02-20] MEDS: Insulin Regular 1 UNITS/0.01 ML ML SC SCH ×3 (06:49→17:00)
[2018-02-20 06:50] LABS: HEMOGLOBIN 6.7 g/dL (12.0-16.0)
[2018-02-20 07:40] LABS: ALB/GLOB RATIO 0.9 (1.1-1.8); ALBUMIN 2.5 g/dL (3.0-4.8); ALT/SGPT 224 U/L (7-56); AST/SGOT 193 U/L (14-36); BLOOD UREA NITROGEN 28 mg/dL (7-21); GFR AFRICAN-AMERICAN > 60; GFR NON-AFRICAN AMERICAN 55
[2018-02-20 08:16] LABS: MEAN CELL VOLUME 92.1 fl (80.0-105.0); MEAN CORPUSCULAR HEMOGLOBIN 30.2 pg (25.0-35.0); MEAN CORPUSCULAR HGB CONC 32.8 g/dl (31.0-37.0); MEAN PLATELET VOLUME 9.3 fl (7.0-11.0); RBC 2.15 10^6/uL (3.5-6.1); RED CELL DISTRIBUTION WIDTH 14.2 % (11.5-14.5); WHITE BLOOD COUNT 17.9 10^3/ul (4.5-11.0)
[2018-02-20 08:19] LABS: HEMOGLOBIN 6.5 g/dL (12.0-16.0)
[2018-02-20] MEDS: Insulin Detemir 100 units/ml Vial (Levemir) SC SCH ×2 (09:16→21:55)
[2018-02-20] MEDS: Levothyroxine 112 MCG TAB PO SCH (09:16)
[2018-02-20] MEDS: Multivitamin Therapeutic Tab PO SCH (09:17)
[2018-02-20] MEDS: Thiamine 100 mg/ml Inj IM SCH (09:18)
[2018-02-20] MEDS ORDERED: Bisacodyl 5mg EC Tab PO ONE (09:51)
[2018-02-20] MEDS ORDERED: Enoxaparin 30 mg Syringe SC SCH (10:00)
--- NOTE | 2018-02-20 10:33 | CP.PCM.PN ---
<[email or web address] - Last Filed: 02/20/18 10:30> Subjective - Date & Time of Evaluation Date of Evaluation: 02/20/18 Time of Evaluation: 09:15 - Subjective Subjective: PGY5 GI Fellow Progress Note Our service has been reconsulted on this patient due to the development of acute blood loss anemia with rectal bleeding. Patient suddenly developed large volume liquid/bloody stool this morning and repeat CBC showed HGB of 6.5. She denies any pain at this time and has no history of rectal bleeding previously. Denies any issues overnight and currently denies any lightheadedness, dizziness , chest pain. No events overnight prior to this episode. 12 system ROS performed and negative except where stated. Objective - Vital Signs/Intake and Output Vital Signs (last 24 hours): Temp Pulse Resp BP Pulse Ox 98.2 F 78 20 106/54 L 97 02/20/18 06:00 02/20/18 06:00 02/20/18 06:00 02/20/18 06:00 02/20/18 06:00 Intake and Output: 02/20/18 02/20/18 06:59 18:59 Intake Total 780 Balance 780 - Medications Medications: Current Medications Albuterol/Ipratropium (Duoneb 3 Mg/0.5 Mg (3 Ml) Ud) 3 ml IH Q2H PRN PRN Reason: Shortness of Breath Last Admin: 02/19/18 08:16 Dose: 3 ml Folic Acid (Folic Acid) 1 mg PO DAILY [facility] Last Admin: 02/20/18 09:14 Dose: Not Given Piperacillin Sod/Tazobactam Sod (Zosyn 4.5 Gm In Ns 100ml) 4.5 gm in 100 mls @ 200 mls/hr IVPB Q6 [facility] PRN Reason: Protocol Stop: 02/22/18 18:01 Last Admin: 02/20/18 05:50 Dose: 200 mls/hr Doxycycline Hyclate 100 mg/ (Sodium Chloride) 100 mls @ 100 mls/hr IVPB Q12 [facility] PRN Reason: Protocol Last Admin: 02/20/18 09:30 Dose: 100 mls/hr Potassium Chloride (Potassium Chloride 10 Meq/100 Ml) 10 meq in 100 mls @ 50 mls/hr IVPB Q2H [facility] Stop: 02/20/18 13:59 Insulin Detemir (Levemir) 25 unit SC Q12 [facility] Last Admin: 02/20/18 09:16 Dose: Not Given Insulin Human Regular (Humulin R Med) 0 units SC ACHS [facility] PRN Reason: Protocol Last Admin: 02/20/18 06:48 Dose: 10 units Insulin Human Regular (Humulin R) 3 units SC AC [facility] Last Admin: 02/20/18 06:49 Dose: 3 units Levothyroxine Sodium (Synthroid) 112 mcg PO DAILY [facility] Last Admin: 02/20/18 09:16 Dose: Not Given Losartan Potassium (Cozaar) 25 mg PO DAILY [facility] Last Admin: 02/20/18 09:14 Dose: Not Given Methadone HCl (Methadone) 90 mg PO DAILY [facility] Last Admin: 02/20/18 09:16 Dose: Not Given Multivitamins (Thera Tab) 1 tab PO 0800 [facility] Last Admin: 02/20/18 09:17 Dose: Not Given Nicotine (Nicoderm Cq) 1 patch TD DAILY [facility] Last Admin: 02/20/18 09:16 Dose: 1 patch Pantoprazole Sodium (Protonix Inj) 40 mg IVP Q12 [facility] Last Admin: 02/20/18 09:16 Dose: 40 mg Saliva Substitute (Saliva Substitute) 1 ml PO Q2H PRN PRN Reason: Dry mouth Last Admin: 02/15/18 20:58 Dose: 1 ml Thiamine HCl (Vitamin B1 Inj) 100 mg IM DAILY [facility] Last Admin: 02/20/18 09:18 Dose: 100 mg - Labs Labs: 02/20/18 08:00 02/20/18 06:10 PT 13.6 SECONDS (9.4-12.5) H 02/17/18 05:20 INR 1.18 (0.93-1.08) H 02/17/18 05:20 APTT 25.2 Seconds (25.1-36.5) 02/15/18 08:15 - Constitutional Appears: No Acute Distress - Eye Exam Eye Exam: EOMI, PERRL - ENT Exam ENT Exam: Mucous Membranes Dry Additional comments: trach collar in place, neck wound from recent surgical procedure dressed/clean with some serous discharge - Respiratory Exam Respiratory Exam: Clear to Ausculation Bilateral. absent: Rales, Rhonchi, Wheezes - Cardiovascular Exam Cardiovascular Exam: RRR, +S1, +S2 - GI/Abdominal Exam GI & Abdominal Exam: Soft, Normal Bowel Sounds. absent: Distended, Firm, Guarding, Rigid, Tenderness, Organomegaly - Extremities Exam Extremities Exam: Normal Inspection. absent: Pedal Edema - Neurological Exam Neurological Exam: Alert, Awake, Oriented x3 - Psychiatric Exam Psychiatric exam: Normal Affect, Normal Mood - Skin Skin Exam: Dry, Warm Assessment and Plan - Assessment and Plan (Free Text) Assessment: Patient is a 38yo female with PMHx significant for HTN, DM, DKA, thyrotoxicosis s/p partial thyroidectomy, HCV (s/p treatment with neg viral load 2012) who presented to the hospital with throat, neck and jaw pain. -Parapharyngeal abscess s/p I&D, tracheostomy -New onset rectal bleeding, blood loss anemia -Transaminasemia - resolving -Ongoing EtOH use -H/O of heorin/cocaine abuse Plan: -Plan for EGD today, please maintain NPO -If EGD negative, will try to plan for colonoscopy tomorrow if patient can tolerate prep -Patient to receive 2 units PRBCs -Monitor CBC Q8H and transfuse as needed -Autoimmune and viral hepatitis serologies unremarkable (known h/o HCV thus Ab+) -Will check HCV VL - confirm maintained SVR or development of re-infection <Murray Cantu - Last Filed: 02/20/18 12:24> Objective - Vital Signs/Intake and Output Vital Signs (last 24 hours): Temp Pulse Resp BP Pulse Ox 98.0 F 88 18 102/66 97 02/20/18 11:43 02/20/18 11:43 02/20/18 11:43 02/20/18 11:43 02/20/18 06:00 Intake and Output: 02/20/18 02/20/18 06:59 18:59 Intake Total 780 25 Balance 780 25 - Medications Medications: Current Medications Albuterol/Ipratropium (Duoneb 3 Mg/0.5 Mg (3 Ml) Ud) 3 ml IH Q2H PRN PRN Reason: Shortness of Breath Last Admin: 02/19/18 08:16 Dose: 3 ml Folic Acid (Folic Acid) 1 mg PO DAILY [facility] Last Admin: 02/20/18 09:14 Dose: Not Given Piperacillin Sod/Tazobactam Sod (Zosyn 4.5 Gm In Ns 100ml) 4.5 gm in 100 mls @ 200 mls/hr IVPB Q6 [facility] PRN Reason: Protocol Stop: 02/22/18 18:01 Last Admin: 02/20/18 05:50 Dose: 200 mls/hr Doxycycline Hyclate 100 mg/ (Sodium Chloride) 100 mls @ 100 mls/hr IVPB Q12 [facility] PRN Reason: Protocol Last Admin: 02/20/18 09:30 Dose: 100 mls/hr Potassium Chloride (Potassium Chloride 10 Meq/100 Ml) 10 meq in 100 mls @ 50 mls/hr IVPB Q2H [facility] Stop: 02/20/18 13:59 Sodium Chloride (Sodium Chloride 0.9%) 1,000 mls @ 100 mls/hr IV .Q10H [facility] Insulin Detemir (Levemir) 25 unit SC Q12 [facility] Last Admin: 02/20/18 09:16 Dose: Not Given Insulin Human Regular (Humulin R Med) 0 units SC ACHS [facility] PRN Reason: Protocol Last Admin: 02/20/18 11:15 Dose: Not Given Insulin Human Regular (Humulin R) 3 units SC AC [facility] Last Admin: 02/20/18 11:15 Dose: Not Given Levothyroxine Sodium (Synthroid) 112 mcg PO DAILY [facility] Last Admin: 02/20/18 09:16 Dose: Not Given Losartan Potassium (Cozaar) 25 mg PO DAILY [facility] Last Admin: 02/20/18 09:14 Dose: Not Given Methadone HCl (Methadone) 90 mg PO DAILY [facility] Last Admin: 02/20/18 09:16 Dose: Not Given Multivitamins (Thera Tab) 1 tab PO 0800 [facility] Last Admin: 02/20/18 09:17 Dose: Not Given Nicotine (Nicoderm Cq) 1 patch TD DAILY [facility] Last Admin: 02/20/18 09:16 Dose: 1 patch Nystatin (Nystatin Oral Susp) 5 ml PO QID [facility] Pantoprazole Sodium (Protonix Susp) 40 mg PO 0600 [facility] Saliva Substitute (Saliva Substitute) 1 ml PO Q2H PRN PRN Reason: Dry mouth Last Admin: 02/15/18 20:58 Dose: 1 ml Thiamine HCl (Vitamin B1 Inj) 100 mg IM DAILY [facility] Last Admin: 02/20/18 09:18 Dose: 100 mg - Labs Labs: 02/20/18 08:00 02/20/18 06:10 PT 13.6 SECONDS (9.4-12.5) H 02/17/18 05:20 INR 1.18 (0.93-1.08) H 02/17/18 05:20 APTT 25.2 Seconds (25.1-36.5) 02/15/18 08:15 Attending/Attestation - Attestation I have personally seen and examined this patient.: Yes I have fully participated in the care of the patient.: Yes I have reviewed all pertinent clinical information, including history, physical exam and plan: Yes Notes (Text): 02/20/18 11:24 38 year old female with pharyngeal abscess s/p tracheostomy now with GI bleeding and acute blood loss anemia. Recommend urgent egd today. Start PPI. NPO.
[2018-02-20] MEDS ORDERED: Etomidate 20 mg/10ml Inj IV ONE (11:57)
[2018-02-20] MEDS ORDERED: Propofol 10 mg/ml Inj (20 ML) ONE (11:57)
[2018-02-20] MEDS ORDERED: Lidocaine 2% Inj (20ml) ONE (11:57)
[2018-02-20] MEDS ORDERED: Peg-Electrolyte Oral Soln 4L (Golytely) PO ONE (12:00)
[2018-02-20] MEDS ORDERED: Insulin Detemir 100 units/ml Vial (Levemir) SC SCH (13:16)
--- NOTE | 2018-02-20 13:33 | CP.PCM.PN ---
<Leighann Casillas - Last Filed: 02/20/18 13:14> Subjective - Date & Time of Evaluation Date of Evaluation: 02/20/18 Time of Evaluation: 13:14 - Subjective Subjective: Leighann Casillas, PGY1, Medicine Progress Note for Dr Preston: Patient seen and examined at bedside. Pt had 2-3 thin liquid, tarry stools overnight, last one at 7 AM. Denies fever, chills, nausea, vomiting, hematemesis , abdominal pain, leg swelling. Objective - Vital Signs/Intake and Output Vital Signs (last 24 hours): Temp Pulse Resp BP Pulse Ox 97.7 F 67 16 94/65 L 97 02/20/18 12:52 02/20/18 12:52 02/20/18 12:52 02/20/18 12:52 02/20/18 12:52 Intake and Output: 02/20/18 02/20/18 06:59 18:59 Intake Total 780 25 Balance 780 25 - Medications Medications: Current Medications Albuterol/Ipratropium (Duoneb 3 Mg/0.5 Mg (3 Ml) Ud) 3 ml IH Q2H PRN PRN Reason: Shortness of Breath Last Admin: 02/19/18 08:16 Dose: 3 ml Folic Acid (Folic Acid) 1 mg PO DAILY [facility] Last Admin: 02/20/18 09:14 Dose: Not Given Piperacillin Sod/Tazobactam Sod (Zosyn 4.5 Gm In Ns 100ml) 4.5 gm in 100 mls @ 200 mls/hr IVPB Q6 [facility] PRN Reason: Protocol Stop: 02/22/18 18:01 Last Admin: 02/20/18 05:50 Dose: 200 mls/hr Doxycycline Hyclate 100 mg/ (Sodium Chloride) 100 mls @ 100 mls/hr IVPB Q12 [facility] PRN Reason: Protocol Last Admin: 02/20/18 09:30 Dose: 100 mls/hr Potassium Chloride (Potassium Chloride 10 Meq/100 Ml) 10 meq in 100 mls @ 50 mls/hr IVPB Q2H [facility] Stop: 02/20/18 13:59 Sodium Chloride (Sodium Chloride 0.9%) 1,000 mls @ 100 mls/hr IV .Q10H [facility] Insulin Detemir (Levemir) 25 unit SC Q12 [facility] Last Admin: 02/20/18 09:16 Dose: Not Given Insulin Human Regular (Humulin R Med) 0 units SC ACHS [facility] PRN Reason: Protocol Last Admin: 02/20/18 11:15 Dose: Not Given Insulin Human Regular (Humulin R) 3 units SC AC [facility] Last Admin: 02/20/18 11:15 Dose: Not Given Levothyroxine Sodium (Synthroid) 112 mcg PO DAILY [facility] Last Admin: 02/20/18 09:16 Dose: Not Given Losartan Potassium (Cozaar) 25 mg PO DAILY [facility] Last Admin: 02/20/18 09:14 Dose: Not Given Methadone HCl (Methadone) 90 mg PO DAILY [facility] Last Admin: 02/20/18 09:16 Dose: Not Given Multivitamins (Thera Tab) 1 tab PO 0800 [facility] Last Admin: 02/20/18 09:17 Dose: Not Given Nicotine (Nicoderm Cq) 1 patch TD DAILY [facility] Last Admin: 02/20/18 09:16 Dose: 1 patch Nystatin (Nystatin Oral Susp) 5 ml PO QID [facility] Pantoprazole Sodium (Protonix Susp) 40 mg PO 0600 [facility] Saliva Substitute (Saliva Substitute) 1 ml PO Q2H PRN PRN Reason: Dry mouth Last Admin: 02/15/18 20:58 Dose: 1 ml Thiamine HCl (Vitamin B1 Inj) 100 mg IM DAILY [facility] Last Admin: 02/20/18 09:18 Dose: 100 mg - Labs Labs: 02/20/18 08:00 02/20/18 06:10 PT 13.6 SECONDS (9.4-12.5) H 02/17/18 05:20 INR 1.18 (0.93-1.08) H 02/17/18 05:20 APTT 25.2 Seconds (25.1-36.5) 02/15/18 08:15 - Constitutional Appears: Non-toxic, No Acute Distress, Chronically Ill - Head Exam Head Exam: ATRAUMATIC, NORMOCEPHALIC - Eye Exam Eye Exam: EOMI, PERRL. absent: Conjunctival injection, Nystagmus, Scleral icterus Pupil Exam: NORMAL ACCOMODATION, PERRL. absent: Fixed, Irregular, Miosis, Unequal - ENT Exam ENT Exam: Mucous Membranes Moist - Neck Exam Neck Exam: Full ROM Additional comments: + trach collar in place, no erythema/secretions noted - Respiratory Exam Respiratory Exam: Clear to Ausculation Bilateral, NORMAL BREATHING PATTERN. absent: Accessory Muscle Use, Rales, Rhonchi, Wheezes, Stridor - Cardiovascular Exam Cardiovascular Exam: RRR, +S1, +S2. absent: Murmur - GI/Abdominal Exam GI & Abdominal Exam: Soft, Normal Bowel Sounds. absent: Distended, Firm, Guarding, Rigid, Tenderness, Hernia, Mass, Organomegaly, Rebound - Extremities Exam Extremities Exam: Normal Inspection. absent: Calf Tenderness, Pedal Edema - Back Exam Back Exam: NORMAL INSPECTION. absent: CVA tenderness (L), CVA tenderness (R) - Neurological Exam Neurological Exam: Alert, Awake, Oriented x3 - Psychiatric Exam Psychiatric exam: Normal Affect, Normal Mood - Skin Skin Exam: Dry, Normal Color, Warm Assessment and Plan - Assessment and Plan (Free Text) Assessment: 38 y/o with PMHx of HTN, IDDM, thyrotoxicosis s/p partial thyroidectomy, Hep C ( s/p treatment), dental caries/poor dentition, h/o drug abuse on methadone, hypothyroidism, admitted with severe neck swelling/abscess s/p parapharyngeal abscess I&D, along with epiglotitis s/p trach, now on trach colar. Patient was also in DKA on admission, but has since resolved. Patient is currently being treated for pneumonia. Pt had tarry stools overnight with Hgb 6.5, EGD showed esophageal candidiasis and three duodenal ulcers, currently being transfused 2 unit prbcs: Upper GI bleed: 2/2 duodenal ulcers - Protonix - liquid diet - GI consulted. appreciate recs. - EGD today esophageal candidiasis. Nonbleeding duodenal and gastric ulcers. Gastritis. - Discontinued lovenox - Monitor Dominick angina with parapharyngeal abscess- - Likely from poor oral care versus IVDA ( patient denied recent use, have abused in the past and is on methadone). HIV negative, lupus work up normal. - s/p I &D and tracheotomy - Patient is currently off of vent and is tolerating trach colar - As per ENT patient will need the trach changed to fenestrated trach tube in few days. - Cleared patient to eat, currently on liquid diet. - Continue saliva substitute - Patient to follow up with ENT as outpatient. Sepsis likely due to parapharyngeal abscess superimposed with aspiration pneumonia- - With gram positive cocci bacteremia, bacteremia resolved on repeat cultures. - sepsis resolving - will continue to trend leukocytosis, currently afebrile - will continue with vanco, zosyn and doxy as per ID Right lower lobe aspiration pneumonia - Mild improvement on cxr - will continue with prn duoneb - on abx as stated above - continue incentive spirometer, chest pt DKA:resolved with uncontrolled IDDM - continue with basal and pre-meal insulin - hgba1c this admission 10.6 - also on iss, and fingertsicks achs Transaminitis- acute on chronic, likely due to portal vein congestion/sepsis - s/p NAC - Abdominal u/s with steatosis and splenomegaly - hep panel + for hep C, as per patient underwent treatment in the past - lupus work up normal - LRTs trending down - will avoid nephrotox and continue to monitor. Alcohol withdrawal- resolved - s/p detox - will continue with thiamine and folic acid. Hypokalemia: - Will continue to monitor and replete accordingly. Grade 1 diastolic CHF with septal hypokinesis - spoke to Dr Almaraz, the medical manager, outpatient stress test. Acute on chronic anemia- likely iatrogenic superimposed to anemia of chronic disease. - Ferritin elevated - No signs of active bleeding - will continue to monitor Tobacco abuse- continue with nicotine patch H/o IVDA: - On methadone 90 mg daily as per methadone clinic - will continue 90 mg methadone H/o HTN: - Continue with Norvasc and cozaar H/o hypothyroidism- - cont with synthroid GI/DVT prophylaxis: protonix and Scds Dispo: Pending insurance approval for LTAC. Patient seen, examined and case discussed with Dr Preston. Leighann Casillas, PGY1 <Alexandra Preston - Last Filed: 02/20/18 16:51> Objective - Vital Signs/Intake and Output Vital Signs (last 24 hours): Temp Pulse Resp BP Pulse Ox 98.2 F 64 18 107/72 97 02/20/18 15:48 02/20/18 15:48 02/20/18 15:48 02/20/18 15:48 02/20/18 13:25 Intake and Output: 02/20/18 02/20/18 06:59 18:59 Intake Total 780 400 Balance 780 400 - Medications Medications: Current Medications Albuterol/Ipratropium (Duoneb 3 Mg/0.5 Mg (3 Ml) Ud) 3 ml IH Q2H PRN PRN Reason: Shortness of Breath Last Admin: 02/19/18 08:16 Dose: 3 ml Folic Acid (Folic Acid) 1 mg PO DAILY [facility] Last Admin: 02/20/18 09:14 Dose: Not Given Hydromorphone HCl (Dilaudid) 0.5 mg IVP Q6H PRN PRN Reason: Pain, moderate (4-7) Last Admin: 02/20/18 14:35 Dose: 0.5 mg Piperacillin Sod/Tazobactam Sod (Zosyn 4.5 Gm In Ns 100ml) 4.5 gm in 100 mls @ 200 mls/hr IVPB Q6 [facility] PRN Reason: Protocol Stop: 02/22/18 18:01 Last Admin: 02/20/18 05:50 Dose: 200 mls/hr Doxycycline Hyclate 100 mg/ (Sodium Chloride) 100 mls @ 100 mls/hr IVPB Q12 [facility] PRN Reason: Protocol Last Admin: 02/20/18 09:30 Dose: 100 mls/hr Sodium Chloride (Sodium Chloride 0.9%) 1,000 mls @ 100 mls/hr IV .Q10H [facility] Insulin Detemir (Levemir) 25 unit SC Q12 [facility] Insulin Human Regular (Humulin R Med) 0 units SC ACHS [facility] PRN Reason: Protocol Last Admin: 02/20/18 11:15 Dose: Not Given Insulin Human Regular (Humulin R) 3 units SC AC [facility] Last Admin: 02/20/18 11:15 Dose: Not Given Levothyroxine Sodium (Synthroid) 112 mcg PO DAILY [facility] Last Admin: 02/20/18 09:16 Dose: Not Given Losartan Potassium (Cozaar) 25 mg PO DAILY [facility] Last Admin: 02/20/18 09:14 Dose: Not Given Methadone HCl (Methadone) 90 mg PO DAILY [facility] Last Admin: 02/20/18 09:16 Dose: Not Given Multivitamins (Thera Tab) 1 tab PO 0800 [facility] Last Admin: 02/20/18 09:17 Dose: Not Given Nicotine (Nicoderm Cq) 1 patch TD DAILY [facility] Last Admin: 02/20/18 09:16 Dose: 1 patch Nystatin (Nystatin Oral Susp) 5 ml PO QID [facility] Pantoprazole Sodium (Protonix Susp) 40 mg PO 0600 [facility] Saliva Substitute (Saliva Substitute) 1 ml PO Q2H PRN PRN Reason: Dry mouth Last Admin: 02/15/18 20:58 Dose: 1 ml Thiamine HCl (Vitamin B1 Inj) 100 mg IM DAILY [facility] Last Admin: 02/20/18 09:18 Dose: 100 mg - Labs Labs: 02/20/18 08:00 02/20/18 06:10 PT 13.6 SECONDS (9.4-12.5) H 02/17/18 05:20 INR 1.18 (0.93-1.08) H 02/17/18 05:20 APTT 25.2 Seconds (25.1-36.5) 02/15/18 08:15 Attending/Attestation - Attestation I have personally seen and examined this patient.: Yes I have fully participated in the care of the patient.: Yes I have reviewed all pertinent clinical information, including history, physical exam and plan: Yes Notes (Text): 02/20/18 16:46 attending note; Patient seen and examined with resident. Patient had an episode of dark stool this morning. Hemoglobin dropped to 6.7. Blood transfusion ordered. GI evaluation requested. Patient is a 38 yr old female with PMH of Hep C, DM, HTN, drug abuse and hypothyroidism is admitted with parapharyngeal abscess and Dominick's angina. s/p I/D of abscess and tracheostomy in the OR by ENT. monitor closely in ICU. Continue weaning trial. currently on Trach collar. GI bleed; Hemoglobin dropped to 6.7. Blood transfusion ordered. GI evaluation requested. Status post EGD; showed gastric ulcer with clean base. continue IV antibiotics with doxycycline, vancomycin and Zosyn. culture is negative so far. ID evaluation appreciated. Advised to continue antibiotics for 9 more days. DKA ; Resolved. Continue Levemir with regular insulin sliding scale. Elevated LFT; LFTs improving. GI evaluation appreciated. abdominal ultrasound showed hepatic steatosis and splenomegaly. Patent portal vein. complete alcohol and drug abuse cessation is strongly advised. history of opiate abuse. Currently on methadone program. Continue methadone. Out of bed to chair tolerated. physical therapy evaluation appreciated. Subacute rehabilitation recommended. Case discussed licensed clinical social worker for discharge planning. Possible transfer to LTAC when stable. upon discharge the patient will follow-up with PMD .
[2018-02-20] MEDS: Nystatin 100,000 Units/ml Oral Susp 5 ml UD PO SCH ×3 (14:00→21:35)
[2018-02-20] MEDS: HYDROmorphone 0.5 mg/0.5 ml ISec IVP PRN ×2 (14:35→20:44)
[2018-02-20 19:57] LABS: MEAN CELL VOLUME 91.9 fl (80.0-105.0); MEAN CORPUSCULAR HGB CONC 32.7 g/dl (31.0-37.0); MEAN PLATELET VOLUME 9.3 fl (7.0-11.0); RBC 3.33 10^6/uL (3.5-6.1); RED CELL DISTRIBUTION WIDTH 14.3 % (11.5-14.5); WHITE BLOOD COUNT 16.2 10^3/ul (4.5-11.0)
[2018-02-20] MEDS: Sodium Chloride 0.9% 1,000 ML IV SCH (21:36)
[2018-02-21] MEDS: HYDROmorphone 0.5 mg/0.5 ml ISec IVP PRN ×4 (02:15→20:35)
[2018-02-21] MEDS: Pantoprazole 40 mg Susp UD PO SCH (05:20)
[2018-02-21] MEDS: Piperacill/Tazo 4.5gm in NS 4.5 GM/100 ML BAG IVPB SCH ×4 (05:20→23:15)
[2018-02-21 06:27] LABS: BASO # 0.06 K/mm3 (0.0-2.0); BASO % 0.4 % (0.0-3.0); EOS # 0.5 (0.0-0.7); EOS % 3.5 % (1.5-5.0); GRAN # 11.13 (1.4-6.5); GRAN % 74.9 % (50.0-68.0); HEMOGLOBIN 8.9 g/dL (12.0-16.0); LYMPH # 2.3 (1.2-3.4); LYMPH % 15.4 % (22.0-35.0); MEAN CELL VOLUME 91.6 fl (80.0-105.0); MEAN CORPUSCULAR HEMOGLOBIN 29.8 pg (25.0-35.0); MEAN CORPUSCULAR HGB CONC 32.5 g/dl (31.0-37.0); MEAN PLATELET VOLUME 9.4 fl (7.0-11.0); MONO # 0.9 (0.1-0.6); MONO % 5.8 % (1.0-6.0); RBC 2.99 10^6/uL (3.5-6.1); RED CELL DISTRIBUTION WIDTH 14.5 % (11.5-14.5); WHITE BLOOD COUNT 14.9 10^3/ul (4.5-11.0)
[2018-02-21 06:54] LABS: ALB/GLOB RATIO 0.8 (1.1-1.8); ALBUMIN 2.4 g/dL (3.0-4.8); ALT/SGPT 165 U/L (7-56); AST/SGOT 58 U/L (14-36); BLOOD UREA NITROGEN 14 mg/dL (7-21); CALCIUM 7.5 mg/dL (8.4-10.5); GFR AFRICAN-AMERICAN > 60; GFR NON-AFRICAN AMERICAN > 60
[2018-02-21] MEDS: Sodium Chloride 0.9% 1,000 ML IV SCH ×3 (08:30→19:00)
--- NOTE | 2018-02-21 08:31 | CP.PCM.PN ---
<Hal Bashir - Last Filed: 02/21/18 10:32> Subjective - Date & Time of Evaluation Date of Evaluation: 02/21/18 Time of Evaluation: 07:00 - Subjective Subjective: PGY5 GI Fellow Progress Note Patient seen and examined bedside this morning. The patient continues to complain of left sided neck pain. Denies any bloody bowel movements however discussion with nursing staff revealed that patient passed two large, liquid bloody bowel movements. No nausea, vomiting, abdominal pain overnight. 12 system ROS performed and negative except where stated. Objective - Vital Signs/Intake and Output Vital Signs (last 24 hours): Temp Pulse Resp BP Pulse Ox 98.2 F 73 19 119/82 97 02/21/18 05:43 02/21/18 05:43 02/21/18 05:43 02/21/18 05:43 02/21/18 05:43 Intake and Output: 02/21/18 02/21/18 06:59 18:59 Intake Total 1460 Balance 1460 - Medications Medications: Current Medications Albuterol/Ipratropium (Duoneb 3 Mg/0.5 Mg (3 Ml) Ud) 3 ml IH Q2H PRN PRN Reason: Shortness of Breath Last Admin: 02/19/18 08:16 Dose: 3 ml Folic Acid (Folic Acid) 1 mg PO DAILY [facility] Last Admin: 02/20/18 09:14 Dose: Not Given Hydromorphone HCl (Dilaudid) 0.5 mg IVP Q6H PRN PRN Reason: Pain, moderate (4-7) Last Admin: 02/21/18 02:15 Dose: 0.5 mg Piperacillin Sod/Tazobactam Sod (Zosyn 4.5 Gm In Ns 100ml) 4.5 gm in 100 mls @ 200 mls/hr IVPB Q6 [facility] PRN Reason: Protocol Stop: 02/22/18 18:01 Last Admin: 02/21/18 05:20 Dose: 200 mls/hr Doxycycline Hyclate 100 mg/ (Sodium Chloride) 100 mls @ 100 mls/hr IVPB Q12 [facility] PRN Reason: Protocol Last Admin: 02/20/18 21:35 Dose: 100 mls/hr Sodium Chloride (Sodium Chloride 0.9%) 1,000 mls @ 100 mls/hr IV .Q10H [facility] Last Admin: 02/20/18 21:36 Dose: 100 mls/hr Insulin Detemir (Levemir) 25 unit SC Q12 [facility] Last Admin: 02/20/18 21:55 Dose: Not Given Insulin Human Regular (Humulin R Med) 0 units SC ACHS [facility] PRN Reason: Protocol Last Admin: 02/20/18 21:55 Dose: Not Given Insulin Human Regular (Humulin R) 3 units SC AC [facility] Last Admin: 02/20/18 17:00 Dose: Not Given Levothyroxine Sodium (Synthroid) 112 mcg PO DAILY [facility] Last Admin: 02/20/18 09:16 Dose: Not Given Losartan Potassium (Cozaar) 25 mg PO DAILY [facility] Last Admin: 02/20/18 09:14 Dose: Not Given Methadone HCl (Methadone) 90 mg PO DAILY [facility] Last Admin: 02/20/18 09:16 Dose: Not Given Multivitamins (Thera Tab) 1 tab PO 0800 [facility] Last Admin: 02/20/18 09:17 Dose: Not Given Nicotine (Nicoderm Cq) 1 patch TD DAILY [facility] Last Admin: 02/20/18 09:16 Dose: 1 patch Nystatin (Nystatin Oral Susp) 5 ml PO QID [facility] Last Admin: 02/20/18 21:35 Dose: 5 ml Pantoprazole Sodium (Protonix Susp) 40 mg PO 0600 [facility] Last Admin: 02/21/18 05:20 Dose: 40 mg Saliva Substitute (Saliva Substitute) 1 ml PO Q2H PRN PRN Reason: Dry mouth Last Admin: 02/15/18 20:58 Dose: 1 ml Thiamine HCl (Vitamin B1 Inj) 100 mg IM DAILY [facility] Last Admin: 02/20/18 09:18 Dose: 100 mg - Labs Labs: 02/21/18 05:20 02/21/18 05:20 PT 13.6 SECONDS (9.4-12.5) H 02/17/18 05:20 INR 1.18 (0.93-1.08) H 02/17/18 05:20 APTT 25.2 Seconds (25.1-36.5) 02/15/18 08:15 - Constitutional Appears: No Acute Distress - Eye Exam Eye Exam: EOMI, PERRL - ENT Exam ENT Exam: Mucous Membranes Dry Additional comments: trach collar in place, neck dressings intact, clean/dry - Respiratory Exam Respiratory Exam: Rales. absent: Clear to Ausculation Bilateral, Rhonchi, Wheezes - Cardiovascular Exam Cardiovascular Exam: RRR, +S1, +S2 - GI/Abdominal Exam GI & Abdominal Exam: Soft, Normal Bowel Sounds. absent: Distended, Firm, Guarding, Rigid, Tenderness, Organomegaly - Extremities Exam Extremities Exam: Normal Inspection. absent: Pedal Edema - Neurological Exam Neurological Exam: Alert, Awake, Oriented x3 - Psychiatric Exam Psychiatric exam: Normal Affect, Normal Mood - Skin Skin Exam: Dry, Warm Assessment and Plan - Assessment and Plan (Free Text) Assessment: Patient is a 38yo female with PMHx significant for HTN, DM, DKA, thyrotoxicosis s/p partial thyroidectomy, HCV (s/p treatment with neg viral load 2012) who presented to the hospital with throat, neck and jaw pain. -Peptic ulcer disease - 3 duodenal ulcers -Acute blood loss anemia -Parapharyngeal abscess s/p I&D, tracheostomy -Transaminasemia - resolving -Ongoing EtOH use -H/O of heorin/cocaine abuse Plan: -Patient is a s/p EGD with discovery of 3 large clean based (Inocencio class 3) dudodenal ulcers -Continue PPI therapy 40mg PO QAMAC -If hemoglobin continues to drop and patient keeps have episodes hematochezia would recommend colonoscopy with split prep over the next two days -Transfuse as needed -LFTs downtrending -HCV VL pending to confirm maintained SVR or development of re-infection <Willam Lanier - Last Filed: 02/21/18 11:23> Objective - Vital Signs/Intake and Output Vital Signs (last 24 hours): Temp Pulse Resp BP Pulse Ox 98.2 F 73 19 119/82 97 02/21/18 05:43 02/21/18 05:43 02/21/18 05:43 02/21/18 05:43 02/21/18 05:43 Intake and Output: 02/21/18 02/21/18 06:59 18:59 Intake Total 1460 Balance 1460 - Medications Medications: Current Medications Albuterol/Ipratropium (Duoneb 3 Mg/0.5 Mg (3 Ml) Ud) 3 ml IH Q2H PRN PRN Reason: Shortness of Breath Last Admin: 02/19/18 08:16 Dose: 3 ml Folic Acid (Folic Acid) 1 mg PO DAILY [facility] Last Admin: 02/20/18 09:14 Dose: Not Given Hydromorphone HCl (Dilaudid) 0.5 mg IVP Q6H PRN PRN Reason: Pain, moderate (4-7) Last Admin: 02/21/18 08:40 Dose: 0.5 mg Piperacillin Sod/Tazobactam Sod (Zosyn 4.5 Gm In Ns 100ml) 4.5 gm in 100 mls @ 200 mls/hr IVPB Q6 [facility] PRN Reason: Protocol Stop: 02/22/18 18:01 Last Admin: 02/21/18 05:20 Dose: 200 mls/hr Doxycycline Hyclate 100 mg/ (Sodium Chloride) 100 mls @ 100 mls/hr IVPB Q12 [facility] PRN Reason: Protocol Last Admin: 02/20/18 21:35 Dose: 100 mls/hr Sodium Chloride (Sodium Chloride 0.9%) 1,000 mls @ 100 mls/hr IV .Q10H [facility] Last Admin: 02/20/18 21:36 Dose: 100 mls/hr Insulin Detemir (Levemir) 25 unit SC Q12 [facility] Last Admin: 02/20/18 21:55 Dose: Not Given Insulin Human Regular (Humulin R Med) 0 units SC ACHS [facility] PRN Reason: Protocol Last Admin: 02/21/18 08:34 Dose: 3 units Insulin Human Regular (Humulin R) 3 units SC AC [facility] Last Admin: 02/21/18 08:34 Dose: 3 units Levothyroxine Sodium (Synthroid) 112 mcg PO DAILY [facility] Last Admin: 02/20/18 09:16 Dose: Not Given Losartan Potassium (Cozaar) 25 mg PO DAILY [facility] Last Admin: 02/20/18 09:14 Dose: Not Given Methadone HCl (Methadone) 90 mg PO DAILY [facility] Last Admin: 02/20/18 09:16 Dose: Not Given Multivitamins (Thera Tab) 1 tab PO 0800 [facility] Last Admin: 02/20/18 09:17 Dose: Not Given Nicotine (Nicoderm Cq) 1 patch TD DAILY [facility] Last Admin: 02/20/18 09:16 Dose: 1 patch Nystatin (Nystatin Oral Susp) 5 ml PO QID [facility] Last Admin: 02/20/18 21:35 Dose: 5 ml Pantoprazole Sodium (Protonix Susp) 40 mg PO 0600 [facility] Last Admin: 02/21/18 05:20 Dose: 40 mg Saliva Substitute (Saliva Substitute) 1 ml PO Q2H PRN PRN Reason: Dry mouth Last Admin: 02/15/18 20:58 Dose: 1 ml Thiamine HCl (Vitamin B1 Inj) 100 mg IM DAILY [facility] Last Admin: 02/20/18 09:18 Dose: 100 mg - Labs Labs: 02/21/18 10:45 02/21/18 05:20 PT 13.6 SECONDS (9.4-12.5) H 02/17/18 05:20 INR 1.18 (0.93-1.08) H 02/17/18 05:20 APTT 25.2 Seconds (25.1-36.5) 02/15/18 08:15 Attending/Attestation - Attestation I have personally seen and examined this patient.: Yes I have fully participated in the care of the patient.: Yes I have reviewed all pertinent clinical information, including history, physical exam and plan: Yes Notes (Text): 02/21/18 11:16 I have seen and examined patient with GI fellow. No acute events overnight. As per nursing staff, patient had two episodes of hematochezia overnight. She denies abdominal pain, nausea, vomiting, fever/chills. Tolerating PO liquids without difficulty. Review of vitals from today are normal. HTN / DM Parapharyngeal abscess s/p I&D, tracheostomy Polysubstance abuse Anemia, s/p EGD showing duodenal ulcers - Liquid diet as tolerated - Continue to monitor H/H, post PRBC transfusion - Continue with PPI therapy - If continued hematochezia occurs, would recommend colonoscopy to be performed saturday with two day bowel preparation over the weekend - If H/H remains stable with no further episodes, can likely discharge patient to LTAC with further outpatient follow up - Case discussed with Dr. Preston
[2018-02-21] MEDS: Insulin Reg-MEDIUM-Coverage SC SCH ×4 (08:34→21:57)
[2018-02-21] MEDS: Insulin Regular 1 UNITS/0.01 ML ML SC SCH ×3 (08:34→19:03)
[2018-02-21 10:56] LABS: HEMOGLOBIN 9.2 g/dL (12.0-16.0)
[2018-02-21] MEDS: Levothyroxine 112 MCG TAB PO SCH (11:12)
[2018-02-21] MEDS: Thiamine 100 mg/ml Inj IM SCH (11:20)
[2018-02-21] MEDS: Multivitamin Therapeutic Tab PO SCH (11:20)
[2018-02-21] MEDS: Nystatin 100,000 Units/ml Oral Susp 5 ml UD PO SCH ×4 (11:21→22:38)
[2018-02-21] MEDS: Insulin Detemir 100 units/ml Vial (Levemir) SC SCH ×2 (11:43→21:58)
--- NOTE | 2018-02-21 12:05 | CP.PCM.PN ---
<Leighann Casillas - Last Filed: 02/21/18 12:01> Subjective - Date & Time of Evaluation Date of Evaluation: 02/21/18 Time of Evaluation: 12:01 - Subjective Subjective: Leighann Casillas, PGY1, Medicine Progress Note for Dr Preston: Patient seen and examined at bedside. Pt had 2 large, bloody BMs overnight. Denies fever, chills, nausea, vomiting, hematemesis, abdominal pain, leg swelling. Objective - Vital Signs/Intake and Output Vital Signs (last 24 hours): Temp Pulse Resp BP Pulse Ox 98.1 F 64 18 134/89 97 02/21/18 11:29 02/21/18 11:29 02/21/18 11:29 02/21/18 11:29 02/21/18 05:43 Intake and Output: 02/21/18 02/21/18 06:59 18:59 Intake Total 1460 Balance 1460 - Medications Medications: Current Medications Albuterol/Ipratropium (Duoneb 3 Mg/0.5 Mg (3 Ml) Ud) 3 ml IH Q2H PRN PRN Reason: Shortness of Breath Last Admin: 02/19/18 08:16 Dose: 3 ml Folic Acid (Folic Acid) 1 mg PO DAILY [facility] Last Admin: 02/21/18 11:12 Dose: 1 mg Hydromorphone HCl (Dilaudid) 0.5 mg IVP Q6H PRN PRN Reason: Pain, moderate (4-7) Last Admin: 02/21/18 08:40 Dose: 0.5 mg Piperacillin Sod/Tazobactam Sod (Zosyn 4.5 Gm In Ns 100ml) 4.5 gm in 100 mls @ 200 mls/hr IVPB Q6 [facility] PRN Reason: Protocol Stop: 02/22/18 18:01 Last Admin: 02/21/18 05:20 Dose: 200 mls/hr Doxycycline Hyclate 100 mg/ (Sodium Chloride) 100 mls @ 100 mls/hr IVPB Q12 [facility] PRN Reason: Protocol Last Admin: 02/21/18 11:20 Dose: 100 mls/hr Sodium Chloride (Sodium Chloride 0.9%) 1,000 mls @ 100 mls/hr IV .Q10H [facility] Last Admin: 02/20/18 21:36 Dose: 100 mls/hr Insulin Detemir (Levemir) 25 unit SC Q12 [facility] Last Admin: 02/21/18 11:43 Dose: 25 u Insulin Human Regular (Humulin R Med) 0 units SC ACHS [facility] PRN Reason: Protocol Last Admin: 02/21/18 08:34 Dose: 3 units Insulin Human Regular (Humulin R) 3 units SC AC [facility] Last Admin: 02/21/18 08:34 Dose: 3 units Levothyroxine Sodium (Synthroid) 112 mcg PO DAILY [facility] Last Admin: 02/21/18 11:12 Dose: 112 mcg Losartan Potassium (Cozaar) 25 mg PO DAILY [facility] Last Admin: 02/21/18 11:18 Dose: 25 mg Methadone HCl (Methadone) 90 mg PO DAILY [facility] Last Admin: 02/21/18 11:11 Dose: 90 mg Multivitamins (Thera Tab) 1 tab PO 0800 [facility] Last Admin: 02/21/18 11:20 Dose: 1 tab Nicotine (Nicoderm Cq) 1 patch TD DAILY [facility] Last Admin: 02/21/18 11:11 Dose: 1 patch Nystatin (Nystatin Oral Susp) 5 ml PO QID [facility] Last Admin: 02/21/18 11:21 Dose: 5 ml Pantoprazole Sodium (Protonix Susp) 40 mg PO 0600 [facility] Last Admin: 02/21/18 05:20 Dose: 40 mg Saliva Substitute (Saliva Substitute) 1 ml PO Q2H PRN PRN Reason: Dry mouth Last Admin: 02/15/18 20:58 Dose: 1 ml Thiamine HCl (Vitamin B1 Inj) 100 mg IM DAILY [facility] Last Admin: 02/21/18 11:20 Dose: 100 mg - Labs Labs: 02/21/18 10:45 02/21/18 05:20 PT 13.6 SECONDS (9.4-12.5) H 02/17/18 05:20 INR 1.18 (0.93-1.08) H 02/17/18 05:20 APTT 25.2 Seconds (25.1-36.5) 02/15/18 08:15 - Additional Findings Additional findings: - Constitutional Appears: Non-toxic, No Acute Distress, Chronically Ill - Head Exam Head Exam: ATRAUMATIC, NORMOCEPHALIC - Eye Exam Eye Exam: EOMI, PERRL. absent: Conjunctival injection, Nystagmus, Scleral icterus Pupil Exam: NORMAL ACCOMODATION, PERRL. absent: Fixed, Irregular, Miosis, Unequal - ENT Exam ENT Exam: Mucous Membranes Moist - Neck Exam Neck Exam: Full ROM Additional comments: + trach collar in place, no erythema/secretions noted - Respiratory Exam Respiratory Exam: Clear to Ausculation Bilateral, NORMAL BREATHING PATTERN. absent: Accessory Muscle Use, Rales, Rhonchi, Wheezes, Stridor - Cardiovascular Exam Cardiovascular Exam: RRR, +S1, +S2. absent: Murmur - GI/Abdominal Exam GI & Abdominal Exam: Soft, Normal Bowel Sounds. absent: Distended, Firm, Guarding, Rigid, Tenderness, Hernia, Mass, Organomegaly, Rebound - Extremities Exam Extremities Exam: Normal Inspection. absent: Calf Tenderness, Pedal Edema - Back Exam Back Exam: NORMAL INSPECTION. absent: CVA tenderness (L), CVA tenderness (R) - Neurological Exam Neurological Exam: Alert, Awake, Oriented x3 - Psychiatric Exam Psychiatric exam: Normal Affect, Normal Mood - Skin Skin Exam: Dry, Normal Color, Warm Assessment and Plan - Assessment and Plan (Free Text) Assessment: 38 y/o with PMHx of HTN, IDDM, thyrotoxicosis s/p partial thyroidectomy, Hep C ( s/p treatment), dental caries/poor dentition, h/o drug abuse on methadone, hypothyroidism, admitted with severe neck swelling/abscess s/p parapharyngeal abscess I&D, along with epiglotitis s/p trach, now on trach colar. Patient was also in DKA on admission, but has since resolved. Patient is currently being treated for pneumonia. Pt developed tarry stools with a drop in hemoglobin, s/p 2 units prbcs transfusion. EGD showed esophageal candidiasis and three duodenal ulcers: GI bleed: 2/2 duodenal ulcers vs AVMs vs colonic polyps? - Protonix - liquid diet - GI consulted. appreciate recs. - EGD showed esophageal candidiasis. Nonbleeding duodenal and gastric ulcers. Gastritis. - Discontinued lovenox - Monitor - Hgb 9.2 today. Dominick angina with parapharyngeal abscess- - Likely from poor oral care versus IVDA ( patient denied recent use, have abused in the past and is on methadone). HIV negative, lupus work up normal. - s/p I &D and tracheotomy - Patient is currently off of vent and is tolerating trach colar - As per ENT patient will need the trach changed to fenestrated trach tube in few days. - Cleared patient to eat, currently on liquid diet. - Continue saliva substitute - Patient to follow up with ENT as outpatient. Sepsis likely due to parapharyngeal abscess superimposed with aspiration pneumonia- - With gram positive cocci bacteremia, bacteremia resolved on repeat cultures. - sepsis resolving - will continue to trend leukocytosis, currently afebrile - will continue with vanco, zosyn and doxy as per ID Right lower lobe aspiration pneumonia - Mild improvement on cxr - will continue with prn duoneb - on abx as stated above - continue incentive spirometer, chest pt DKA:resolved with uncontrolled IDDM - continue with basal and pre-meal insulin - hgba1c this admission 10.6 - also on iss, and fingertsicks achs Transaminitis- acute on chronic, likely due to portal vein congestion/sepsis - s/p NAC - Abdominal u/s with steatosis and splenomegaly - hep panel + for hep C, as per patient underwent treatment in the past - lupus work up normal - LRTs trending down - will avoid nephrotox and continue to monitor. Alcohol withdrawal- resolved - s/p detox - will continue with thiamine and folic acid. Hypokalemia: - Will continue to monitor and replete accordingly. Grade 1 diastolic CHF with septal hypokinesis - spoke to Dr Almaraz, the hotel receptionist, outpatient stress test. Acute on chronic anemia- likely iatrogenic superimposed to anemia of chronic disease. - Ferritin elevated - No signs of active bleeding - will continue to monitor Tobacco abuse- continue with nicotine patch H/o IVDA: - On methadone 90 mg daily as per methadone clinic - will continue 90 mg methadone H/o HTN: - Continue with Norvasc and cozaar H/o hypothyroidism- - cont with synthroid GI/DVT prophylaxis: protonix and Scds Dispo: Pending insurance approval for LTAC. Patient seen, examined and case discussed with Dr Preston. Leighann Casillas, PGY1 <Alexandra Preston - Last Filed: 02/21/18 18:55> Objective - Vital Signs/Intake and Output Vital Signs (last 24 hours): Temp Pulse Resp BP Pulse Ox 98.7 F 90 18 111/69 97 02/21/18 17:25 02/21/18 17:25 02/21/18 17:25 02/21/18 17:25 02/21/18 05:43 Intake and Output: 02/21/18 02/21/18 06:59 18:59 Intake Total 1460 240 Output Total 1 Balance 1460 239 - Medications Medications: Current Medications Albuterol/Ipratropium (Duoneb 3 Mg/0.5 Mg (3 Ml) Ud) 3 ml IH Q2H PRN PRN Reason: Shortness of Breath Last Admin: 02/19/18 08:16 Dose: 3 ml Folic Acid (Folic Acid) 1 mg PO DAILY [facility] Last Admin: 02/21/18 11:12 Dose: 1 mg Hydromorphone HCl (Dilaudid) 0.5 mg IVP Q6H PRN PRN Reason: Pain, moderate (4-7) Last Admin: 02/21/18 15:06 Dose: 0.5 mg Piperacillin Sod/Tazobactam Sod (Zosyn 4.5 Gm In Ns 100ml) 4.5 gm in 100 mls @ 200 mls/hr IVPB Q6 [facility] PRN Reason: Protocol Stop: 02/22/18 18:01 Last Admin: 02/21/18 13:41 Dose: 200 mls/hr Sodium Chloride (Sodium Chloride 0.9%) 1,000 mls @ 100 mls/hr IV .Q10H [facility] Last Admin: 02/21/18 15:11 Dose: 100 mls/hr Insulin Detemir (Levemir) 25 unit SC Q12 [facility] Last Admin: 02/21/18 11:43 Dose: 25 u Insulin Human Regular (Humulin R Med) 0 units SC ACHS [facility] PRN Reason: Protocol Last Admin: 02/21/18 13:42 Dose: 3 units Insulin Human Regular (Humulin R) 3 units SC AC [facility] Last Admin: 02/21/18 13:41 Dose: 3 units Levothyroxine Sodium (Synthroid) 112 mcg PO DAILY [facility] Last Admin: 02/21/18 11:12 Dose: 112 mcg Losartan Potassium (Cozaar) 25 mg PO DAILY [facility] Last Admin: 02/21/18 11:18 Dose: 25 mg Methadone HCl (Methadone) 90 mg PO DAILY [facility] Last Admin: 02/21/18 11:11 Dose: 90 mg Multivitamins (Thera Tab) 1 tab PO 0800 [facility] Last Admin: 02/21/18 11:20 Dose: 1 tab Nicotine (Nicoderm Cq) 1 patch TD DAILY [facility] Last Admin: 02/21/18 11:11 Dose: 1 patch Nystatin (Nystatin Oral Susp) 5 ml PO QID [facility] Last Admin: 02/21/18 15:06 Dose: 5 ml Pantoprazole Sodium (Protonix Susp) 40 mg PO 0600 [facility] Last Admin: 02/21/18 05:20 Dose: 40 mg Saliva Substitute (Saliva Substitute) 1 ml PO Q2H PRN PRN Reason: Dry mouth Last Admin: 02/15/18 20:58 Dose: 1 ml Thiamine HCl (Vitamin B1 Inj) 100 mg IM DAILY [facility] Last Admin: 02/21/18 11:20 Dose: 100 mg - Labs Labs: 02/21/18 10:45 02/21/18 05:20 PT 13.6 SECONDS (9.4-12.5) H 02/17/18 05:20 INR 1.18 (0.93-1.08) H 02/17/18 05:20 APTT 25.2 Seconds (25.1-36.5) 02/15/18 08:15 Attending/Attestation - Attestation I have personally seen and examined this patient.: Yes I have fully participated in the care of the patient.: Yes I have reviewed all pertinent clinical information, including history, physical exam and plan: Yes Notes (Text): 02/21/18 18:54 attending note; Patient seen and examined with resident and GI attending. Patient had one episode of dark stool this morning. Patient is a 38 yr old female with PMH of Hep C, DM, HTN, drug abuse and hypothyroidism is admitted with parapharyngeal abscess and Dominick's angina. s/p I/D of abscess and tracheostomy in the OR by ENT. monitor closely in ICU. Continue weaning trial. currently on Trach collar. Status post EGD; showed gastric ulcer with clean base. Status post 2 unit PRBC transfusion. Hemoglobin is 8.9 this a.m.. Repeat hemoglobin ordered. Monitor for bleeding. Transfuse as needed. continue IV antibiotics with doxycycline, vancomycin and Zosyn. culture is negative so far. ID evaluation appreciated. Advised to continue antibiotics for 8 more days. DKA ; Resolved. Continuewith regular insulin sliding scale. Elevated LFT; LFTs improving. GI evaluation appreciated. abdominal ultrasound showed hepatic steatosis and splenomegaly. Patent portal vein. complete alcohol and drug abuse cessation is strongly advised. history of opiate abuse. Currently on methadone program. Continue methadone. Out of bed to chair tolerated. physical therapy evaluation appreciated. Subacute rehabilitation recommended. Case discussed social organization professor for discharge planning. Possible transfer to LTAC when stable. Monitor hemoglobin over the weekend. Possible transfer to LTAC on Saturday if stable. Might need colonoscopy if hemoglobin continues to drop. upon discharge the patient will follow-up with PMD .
--- NOTE | 2018-02-21 12:07 | CP.PCM.PN ---
Subjective - Date & Time of Evaluation Date of Evaluation: 02/21/18 Time of Evaluation: 10:30 - Subjective Subjective: Comfortable, much improved neck pain, no fevers, no SOB, improved cough but developed GI bleeding. Objective - Vital Signs/Intake and Output Vital Signs (last 24 hours): Temp Pulse Resp BP Pulse Ox 98.2 F 73 19 119/82 97 02/21/18 05:43 02/21/18 05:43 02/21/18 05:43 02/21/18 05:43 02/21/18 05:43 Intake and Output: 02/21/18 02/21/18 06:59 18:59 Intake Total 1460 Balance 1460 - Medications Medications: Current Medications Albuterol/Ipratropium (Duoneb 3 Mg/0.5 Mg (3 Ml) Ud) 3 ml IH Q2H PRN PRN Reason: Shortness of Breath Last Admin: 02/19/18 08:16 Dose: 3 ml Folic Acid (Folic Acid) 1 mg PO DAILY [facility] [place] Last Admin: 02/20/18 09:14 Dose: Not Given Hydromorphone HCl (Dilaudid) 0.5 mg IVP Q6H PRN PRN Reason: Pain, moderate (4-7) Last Admin: 02/21/18 08:40 Dose: 0.5 mg Piperacillin Sod/Tazobactam Sod (Zosyn 4.5 Gm In Ns 100ml) 4.5 gm in 100 mls @ 200 mls/hr IVPB Q6 [facility] PRN Reason: Protocol Stop: 02/22/18 18:01 Last Admin: 02/21/18 05:20 Dose: 200 mls/hr Doxycycline Hyclate 100 mg/ (Sodium Chloride) 100 mls @ 100 mls/hr IVPB Q12 [facility] PRN Reason: Protocol Last Admin: 02/20/18 21:35 Dose: 100 mls/hr Sodium Chloride (Sodium Chloride 0.9%) 1,000 mls @ 100 mls/hr IV .Q10H [facility] [place] Last Admin: 02/20/18 21:36 Dose: 100 mls/hr Insulin Detemir (Levemir) 25 unit SC Q12 [facility] [place] Last Admin: 02/20/18 21:55 Dose: Not Given Insulin Human Regular (Humulin R Med) 0 units SC ACHS [facility] PRN Reason: Protocol Last Admin: 02/21/18 08:34 Dose: 3 units Insulin Human Regular (Humulin R) 3 units SC AC [facility] [place] Last Admin: 02/21/18 08:34 Dose: 3 units Levothyroxine Sodium (Synthroid) 112 mcg PO DAILY [facility] [place] Last Admin: 02/20/18 09:16 Dose: Not Given Losartan Potassium (Cozaar) 25 mg PO DAILY [facility] [place] Last Admin: 02/20/18 09:14 Dose: Not Given Methadone HCl (Methadone) 90 mg PO DAILY [facility] [place] Last Admin: 02/20/18 09:16 Dose: Not Given Multivitamins (Thera Tab) 1 tab PO 0800 [facility] [place] Last Admin: 02/20/18 09:17 Dose: Not Given Nicotine (Nicoderm Cq) 1 patch TD DAILY [facility] [place] Last Admin: 02/20/18 09:16 Dose: 1 patch Nystatin (Nystatin Oral Susp) 5 ml PO QID [facility] [place] Last Admin: 02/20/18 21:35 Dose: 5 ml Pantoprazole Sodium (Protonix Susp) 40 mg PO 0600 [facility] [place] Last Admin: 02/21/18 05:20 Dose: 40 mg Saliva Substitute (Saliva Substitute) 1 ml PO Q2H PRN PRN Reason: Dry mouth Last Admin: 02/15/18 20:58 Dose: 1 ml Thiamine HCl (Vitamin B1 Inj) 100 mg IM DAILY [facility] [place] Last Admin: 02/20/18 09:18 Dose: 100 mg - Labs Labs: 02/21/18 05:20 02/21/18 05:20 PT 13.6 SECONDS (9.4-12.5) H 02/17/18 05:20 INR 1.18 (0.93-1.08) H 02/17/18 05:20 APTT 25.2 Seconds (25.1-36.5) 02/15/18 08:15 - Constitutional Appears: Non-toxic, Chronically Ill - Head Exam Head Exam: NORMAL INSPECTION - ENT Exam Additional comments: tracheostomy tube in place Assessment and Plan - Assessment and Plan (Free Text) Plan: Assessment Anterior neck abscess / Dominick's angina S/P I and and tracheostomy POD #5, on top of probable right lower lobe aspiration pneumonia, with Peptostrep bacteremia GI bleeding from duodenal ulcers acute renal failure HTN DM history of IV drug use significant smoking history chronic Hepatitis C S/P treatment history of thyrotoxicosis S/P partial thyroidectomy Plan continue Zosyn day 4 - will need at least 2 weeks of antibiotics will continue to monitor clinically rapid HIV test is negative monitor transaminases which have been elevated since admission but now trending downwards
--- NOTE | 2018-02-21 15:37 | CP.PCM.PN ---
Subjective - Date & Time of Evaluation Date of Evaluation: 02/21/18 Time of Evaluation: 15:34 - Subjective Subjective: pt seen and examined s/p I&D submandibular/Dominick's abscess. Pt feels pain and swelling has been improving, she went for endoscopy. Objective - Vital Signs/Intake and Output Vital Signs (last 24 hours): Temp Pulse Resp BP Pulse Ox 98.1 F 64 18 134/89 97 02/21/18 11:29 02/21/18 11:29 02/21/18 11:29 02/21/18 11:29 02/21/18 05:43 Intake and Output: 02/21/18 02/21/18 06:59 18:59 Intake Total 1460 Balance 1460 - Medications Medications: Current Medications Albuterol/Ipratropium (Duoneb 3 Mg/0.5 Mg (3 Ml) Ud) 3 ml IH Q2H PRN PRN Reason: Shortness of Breath Last Admin: 02/19/18 08:16 Dose: 3 ml Folic Acid (Folic Acid) 1 mg PO DAILY [facility] Last Admin: 02/21/18 11:12 Dose: 1 mg Hydromorphone HCl (Dilaudid) 0.5 mg IVP Q6H PRN PRN Reason: Pain, moderate (4-7) Last Admin: 02/21/18 15:06 Dose: 0.5 mg Piperacillin Sod/Tazobactam Sod (Zosyn 4.5 Gm In Ns 100ml) 4.5 gm in 100 mls @ 200 mls/hr IVPB Q6 [facility] PRN Reason: Protocol Stop: 02/22/18 18:01 Last Admin: 02/21/18 13:41 Dose: 200 mls/hr Sodium Chloride (Sodium Chloride 0.9%) 1,000 mls @ 100 mls/hr IV .Q10H [facility] Last Admin: 02/21/18 15:11 Dose: 100 mls/hr Insulin Detemir (Levemir) 25 unit SC Q12 [facility] Last Admin: 02/21/18 11:43 Dose: 25 u Insulin Human Regular (Humulin R Med) 0 units SC ACHS [facility] PRN Reason: Protocol Last Admin: 02/21/18 13:42 Dose: 3 units Insulin Human Regular (Humulin R) 3 units SC AC [facility] Last Admin: 02/21/18 13:41 Dose: 3 units Levothyroxine Sodium (Synthroid) 112 mcg PO DAILY [facility] Last Admin: 02/21/18 11:12 Dose: 112 mcg Losartan Potassium (Cozaar) 25 mg PO DAILY [facility] Last Admin: 02/21/18 11:18 Dose: 25 mg Methadone HCl (Methadone) 90 mg PO DAILY [facility] Last Admin: 02/21/18 11:11 Dose: 90 mg Multivitamins (Thera Tab) 1 tab PO 0800 [facility] Last Admin: 02/21/18 11:20 Dose: 1 tab Nicotine (Nicoderm Cq) 1 patch TD DAILY [facility] Last Admin: 02/21/18 11:11 Dose: 1 patch Nystatin (Nystatin Oral Susp) 5 ml PO QID [facility] Last Admin: 02/21/18 15:06 Dose: 5 ml Pantoprazole Sodium (Protonix Susp) 40 mg PO 0600 [facility] Last Admin: 02/21/18 05:20 Dose: 40 mg Saliva Substitute (Saliva Substitute) 1 ml PO Q2H PRN PRN Reason: Dry mouth Last Admin: 02/15/18 20:58 Dose: 1 ml Thiamine HCl (Vitamin B1 Inj) 100 mg IM DAILY [facility] Last Admin: 02/21/18 11:20 Dose: 100 mg - Labs Labs: 02/21/18 10:45 02/21/18 05:20 PT 13.6 SECONDS (9.4-12.5) H 02/17/18 05:20 INR 1.18 (0.93-1.08) H 02/17/18 05:20 APTT 25.2 Seconds (25.1-36.5) 02/15/18 08:15 - Constitutional Appears: Well, Non-toxic - Head Exam Head Exam: ATRAUMATIC, NORMAL INSPECTION - Eye Exam Eye Exam: Normal appearance Pupil Exam: PERRL - ENT Exam ENT Exam: Mucous Membranes Moist Additional comments: poor dentition - Neck Exam Neck Exam: Tenderness Additional comments: ute drain removed, minimal purulence expressed. pt neck indurated minimal erythema - Respiratory Exam Respiratory Exam: NORMAL BREATHING PATTERN Assessment and Plan (1) DKA (diabetic ketoacidoses) Status: Acute (2) Duodenal ulcer Status: Acute (3) Elevated LFTs Status: Acute (4) Epiglottitis Status: Acute (5) Ludwigs angina Status: Acute (6) Uncontrolled diabetes mellitus Status: Acute (7) Hypoglycemia Status: Acute - Assessment and Plan (Free Text) Plan: continue IV abx, continue tracheotomy status. follow
[2018-02-22] MEDS: HYDROmorphone 0.5 mg/0.5 ml ISec IVP PRN ×4 (02:10→20:30)
[2018-02-22] MEDS: Sodium Chloride 0.9% 1,000 ML IV SCH ×2 (02:12→06:05)
[2018-02-22] MEDS: Piperacill/Tazo 4.5gm in NS 4.5 GM/100 ML BAG IVPB SCH ×3 (05:48→18:18)
--- NOTE | 2018-02-22 05:51 | CP.PCM.PN ---
<Azalia Jenkins - Last Filed: 02/22/18 11:48> Subjective - Date & Time of Evaluation Date of Evaluation: 02/22/18 Time of Evaluation: 08:00 - Subjective Subjective: GI Fellow PGY4 Progress Note Patient seen and examined bedside this morning. The patient continues to complain of left sided neck pain. No nausea, vomiting, abdominal pain overnight. Pt is s/p 2U PRBCs 6/14 with Hgb stable. No further rectal bleeding. ROS: 12 system ROS performed and negative except as above Objective - Vital Signs/Intake and Output Vital Signs (last 24 hours): Temp Pulse Resp BP Pulse Ox 99.1 F 74 20 126/83 100 02/22/18 00:01 02/22/18 00:01 02/22/18 00:01 02/22/18 00:01 02/22/18 00:01 Intake and Output: 02/21/18 02/22/18 18:59 06:59 Intake Total 240 Output Total 1 Balance 239 - Medications Medications: Current Medications Albuterol/Ipratropium (Duoneb 3 Mg/0.5 Mg (3 Ml) Ud) 3 ml IH Q2H PRN PRN Reason: Shortness of Breath Last Admin: 02/19/18 08:16 Dose: 3 ml Folic Acid (Folic Acid) 1 mg PO DAILY [facility] Last Admin: 02/21/18 11:12 Dose: 1 mg Hydromorphone HCl (Dilaudid) 0.5 mg IVP Q6H PRN PRN Reason: Pain, moderate (4-7) Last Admin: 02/22/18 02:10 Dose: 0.5 mg Piperacillin Sod/Tazobactam Sod (Zosyn 4.5 Gm In Ns 100ml) 4.5 gm in 100 mls @ 200 mls/hr IVPB Q6 [facility] PRN Reason: Protocol Stop: 02/22/18 18:01 Last Admin: 02/21/18 23:15 Dose: 200 mls/hr Sodium Chloride (Sodium Chloride 0.9%) 1,000 mls @ 100 mls/hr IV .Q10H [facility] Last Admin: 02/22/18 02:12 Dose: 100 mls/hr Insulin Detemir (Levemir) 25 unit SC Q12 [facility] Last Admin: 02/21/18 21:58 Dose: Not Given Insulin Human Regular (Humulin R Med) 0 units SC ACHS [facility] PRN Reason: Protocol Last Admin: 02/21/18 21:57 Dose: Not Given Insulin Human Regular (Humulin R) 3 units SC AC [facility] Last Admin: 02/21/18 19:03 Dose: 3 units Levothyroxine Sodium (Synthroid) 112 mcg PO DAILY [facility] Last Admin: 02/21/18 11:12 Dose: 112 mcg Losartan Potassium (Cozaar) 25 mg PO DAILY [facility] Last Admin: 02/21/18 11:18 Dose: 25 mg Methadone HCl (Methadone) 90 mg PO DAILY [facility] Last Admin: 02/21/18 11:11 Dose: 90 mg Multivitamins (Thera Tab) 1 tab PO 0800 [facility] Last Admin: 02/21/18 11:20 Dose: 1 tab Nicotine (Nicoderm Cq) 1 patch TD DAILY [facility] Last Admin: 02/21/18 11:11 Dose: 1 patch Nystatin (Nystatin Oral Susp) 5 ml PO QID [facility] Last Admin: 02/21/18 22:38 Dose: 5 ml Pantoprazole Sodium (Protonix Susp) 40 mg PO 0600 [facility] Last Admin: 02/21/18 05:20 Dose: 40 mg Saliva Substitute (Saliva Substitute) 1 ml PO Q2H PRN PRN Reason: Dry mouth Last Admin: 02/15/18 20:58 Dose: 1 ml Thiamine HCl (Vitamin B1 Inj) 100 mg IM DAILY [facility] Last Admin: 02/21/18 11:20 Dose: 100 mg - Labs Labs: 02/21/18 10:45 02/21/18 05:20 PT 13.6 SECONDS (9.4-12.5) H 02/17/18 05:20 INR 1.18 (0.93-1.08) H 02/17/18 05:20 APTT 25.2 Seconds (25.1-36.5) 02/15/18 08:15 - Constitutional Appears: Non-toxic, No Acute Distress - Head Exam Head Exam: ATRAUMATIC, NORMAL INSPECTION, NORMOCEPHALIC - Eye Exam Eye Exam: EOMI, Normal appearance, PERRL Pupil Exam: PERRL - ENT Exam ENT Exam: Mucous Membranes Dry Additional comments: trach - Neck Exam Neck Exam: absent: Normal Inspection - Respiratory Exam Respiratory Exam: Rhonchi, NORMAL BREATHING PATTERN - Cardiovascular Exam Cardiovascular Exam: RRR, +S1, +S2 - GI/Abdominal Exam GI & Abdominal Exam: Soft, Normal Bowel Sounds. absent: Distended, Tenderness - Extremities Exam Extremities Exam: Full ROM, Normal Inspection - Neurological Exam Neurological Exam: Alert, Awake, Oriented x3 - Psychiatric Exam Psychiatric exam: Normal Affect, Normal Mood - Skin Skin Exam: Dry, Intact, Normal Color, Warm Assessment and Plan - Assessment and Plan (Free Text) Assessment: This is a 38yo female with PMHx significant for HTN, DM, DKA, thyrotoxicosis s/ p partial thyroidectomy, HCV (s/p treatment with neg viral load 2012) who presented to the hospital with throat, neck and jaw pain. 1. Peptic ulcer disease -Gastric and duodenal ulcers 2. Acute blood loss anemia 3. Parapharyngeal abscess s/p I&D, tracheostomy 4. Transaminasemia - resolving 5. Ongoing EtOH use 6. H/O of heroin/cocaine abuse Plan: -Continue supportive care with pain control and anti-emetics -Patient is a s/p EGD with discovery of large clean based (Inocencio class 3) dudodenal and gastric ulcers -Continue PPI therapy 40mg PO QAMAC -If hemoglobin continues to drop and patient keeps have episodes hematochezia would recommend colonoscopy with split prep over the next two days -Transfuse as needed -LFTs downtrending -Liquid diet -Abx per ID -At this time no rectal bleeding, H/H, no plan for any GI intervention -Will sign off, please call with any concerns or questions <Juan Robbins - Last Filed: 02/22/18 12:19> Objective - Vital Signs/Intake and Output Vital Signs (last 24 hours): Temp Pulse Resp BP Pulse Ox 99.2 F 63 20 130/70 98 02/22/18 06:00 02/22/18 09:22 02/22/18 06:00 02/22/18 09:22 02/22/18 06:00 Intake and Output: 02/22/18 02/22/18 06:59 18:59 Intake Total 120 Output Total 500 Balance -380 - Medications Medications: Current Medications Albuterol/Ipratropium (Duoneb 3 Mg/0.5 Mg (3 Ml) Ud) 3 ml IH Q2H PRN PRN Reason: Shortness of Breath Last Admin: 02/19/18 08:16 Dose: 3 ml Folic Acid (Folic Acid) 1 mg PO DAILY [facility] Last Admin: 02/22/18 09:22 Dose: 1 mg Hydromorphone HCl (Dilaudid) 0.5 mg IVP Q6H PRN PRN Reason: Pain, moderate (4-7) Last Admin: 02/22/18 08:33 Dose: 0.5 mg Piperacillin Sod/Tazobactam Sod (Zosyn 4.5 Gm In Ns 100ml) 4.5 gm in 100 mls @ 200 mls/hr IVPB Q6 [facility] PRN Reason: Protocol Stop: 02/22/18 18:01 Last Admin: 02/22/18 05:48 Dose: 200 mls/hr Sodium Chloride (Sodium Chloride 0.9%) 1,000 mls @ 100 mls/hr IV .Q10H [facility] Last Admin: 02/22/18 06:05 Dose: Not Given Insulin Detemir (Levemir) 25 unit SC Q12 [facility] Last Admin: 02/22/18 09:24 Dose: Not Given Insulin Human Regular (Humulin R Med) 0 units SC ACHS [facility] PRN Reason: Protocol Last Admin: 02/22/18 08:13 Dose: Not Given Levothyroxine Sodium (Synthroid) 112 mcg PO DAILY [facility] Last Admin: 02/22/18 09:22 Dose: 112 mcg Losartan Potassium (Cozaar) 25 mg PO DAILY [facility] Last Admin: 02/22/18 09:22 Dose: 25 mg Methadone HCl (Methadone) 90 mg PO DAILY [facility] Last Admin: 02/22/18 09:22 Dose: 90 mg Multivitamins (Thera Tab) 1 tab PO 0800 [facility] Last Admin: 02/22/18 09:22 Dose: 1 tab Nicotine (Nicoderm Cq) 1 patch TD DAILY [facility] Last Admin: 02/22/18 09:21 Dose: 1 patch Nystatin (Nystatin Oral Susp) 5 ml PO QID [facility] Last Admin: 02/22/18 09:22 Dose: 5 ml Pantoprazole Sodium (Protonix Susp) 40 mg PO 0600 [facility] Last Admin: 02/22/18 05:52 Dose: 40 mg Saliva Substitute (Saliva Substitute) 1 ml PO Q2H PRN PRN Reason: Dry mouth Last Admin: 02/15/18 20:58 Dose: 1 ml Thiamine HCl (Vitamin B1 Inj) 100 mg IM DAILY [facility] Last Admin: 02/22/18 09:22 Dose: 100 mg - Labs Labs: 02/22/18 06:00 02/22/18 06:00 PT 13.6 SECONDS (9.4-12.5) H 02/17/18 05:20 INR 1.18 (0.93-1.08) H 02/17/18 05:20 APTT 25.2 Seconds (25.1-36.5) 02/15/18 08:15 Attending/Attestation - Attestation I have personally seen and examined this patient.: Yes I have fully participated in the care of the patient.: Yes I have reviewed all pertinent clinical information, including history, physical exam and plan: Yes Notes (Text): 02/22/18 12:18 I have seen and examined patient with GI fellow. No acute events overnight. No episodes of rectal bleeding. She denies abdominal pain, nausea, vomiting, fever /chills. Tolerating PO liquids without difficulty. Review of vitals from today are normal. Hct/Hb stable after transfusion. s/p EGD that showed duodenal ulcers. Continue with PPI therapy. Continue to monitor H/H, post PRBC transfusion - If H/H remains stable with no further episodes, can likely discharge patient to LTAC with further outpatient follow up - Case discussed with Dr. Preston
[2018-02-22] MEDS: Pantoprazole 40 mg Susp UD PO SCH (05:52)
[2018-02-22 07:08] LABS: BASO # 0.05 K/mm3 (0.0-2.0); BASO % 0.3 % (0.0-3.0); EOS # 0.4 (0.0-0.7); EOS % 2.5 % (1.5-5.0); GRAN # 11.83 (1.4-6.5); GRAN % 72.8 % (50.0-68.0); LYMPH # 3.2 (1.2-3.4); LYMPH % 19.7 % (22.0-35.0); MEAN CELL VOLUME 92.6 fl (80.0-105.0); MEAN CORPUSCULAR HEMOGLOBIN 29.8 pg (25.0-35.0); MEAN CORPUSCULAR HGB CONC 32.2 g/dl (31.0-37.0); MEAN PLATELET VOLUME 9.2 fl (7.0-11.0); MONO # 0.8 (0.1-0.6); MONO % 4.7 % (1.0-6.0); RBC 3.36 10^6/uL (3.5-6.1); RED CELL DISTRIBUTION WIDTH 14.5 % (11.5-14.5); WHITE BLOOD COUNT 16.2 10^3/ul (4.5-11.0)
[2018-02-22 07:22] LABS: ALB/GLOB RATIO 0.8 (1.1-1.8); ALBUMIN 2.8 g/dL (3.0-4.8); ALT/SGPT 132 U/L (7-56); AST/SGOT 58 U/L (14-36); BLOOD UREA NITROGEN 6 mg/dL (7-21); CALCIUM 7.9 mg/dL (8.4-10.5); GFR AFRICAN-AMERICAN > 60; GFR NON-AFRICAN AMERICAN > 60
[2018-02-22] MEDS: Insulin Regular 1 UNITS/0.01 ML ML SC SCH (08:13)
[2018-02-22] MEDS: Insulin Reg-MEDIUM-Coverage SC SCH ×3 (08:13→17:18)
[2018-02-22] MEDS: Multivitamin Therapeutic Tab PO SCH (09:22)
[2018-02-22] MEDS: Nystatin 100,000 Units/ml Oral Susp 5 ml UD PO SCH ×4 (09:22→22:15)
[2018-02-22] MEDS: Thiamine 100 mg/ml Inj IM SCH (09:22)
[2018-02-22] MEDS: Levothyroxine 112 MCG TAB PO SCH (09:22)
[2018-02-22] MEDS: Insulin Detemir 100 units/ml Vial (Levemir) SC SCH (09:24)
--- NOTE | 2018-02-22 14:32 | PN ---
DATE: 02/22/2018 SUBJECTIVE: Patient is seen earlier this morning in room 266, bed 2. No fevers and no chills. PHYSICAL EXAMINATION: VITAL SIGNS: On exam, temperature is 99, blood pressure is 117/70, respiratory rate 20, heart rate of 69. HEENT: Unremarkable. NECK: Supple. LUNGS: Have decreased breath sounds. HEART: Normal S1, S2. ABDOMEN: Soft, nontender. No rebound or guarding. LABORATORY EXAMINATION: [place] [address], hemoglobin of 10, platelets of 240. Creatinine 0.7. Urinalysis is noted. HIV is negative. Hepatitis C is positive. Microbiology reveals the blood cultures with Peptostreptococcus species in one bottle. Review of orders reveals the patient to be on Zosyn. ASSESSMENT AND PLAN: A 38-year-old female with the anterior neck abscess, Dominick's angina status post tracheostomy postoperative day #6, probable right lower lobe aspiration pneumonia with Peptostreptococcus bacteremia in a patient with hypertension, diabetes, history of intravenous drug abuse, smoker, hepatitis C status post treatment, history of thyrotoxicosis status post thyroidectomy in the past, currently on day #5 of Zosyn and will need at least 2 weeks, 5 of 14 days of antibiotics. Patient's human immunodeficiency virus is negative. We will follow with you. Frederic Ansari MD
--- NOTE | 2018-02-22 16:16 | CP.PCM.PN ---
<Leighann Casillas - Last Filed: 02/22/18 16:11> Subjective - Date & Time of Evaluation Date of Evaluation: 02/22/18 Time of Evaluation: 11:00 - Subjective Subjective: Leighann Casillas, PGY1, Medicine Progress Note for Dr Preston: Patient seen and examined at bedside. Pt had 1 large nonbloody BM overnight. Denies weakness, dizziness, fever, chills, nausea, vomiting, hematemesis, abdominal pain, leg swelling. Objective - Vital Signs/Intake and Output Vital Signs (last 24 hours): Temp Pulse Resp BP Pulse Ox 98.3 F 63 18 124/85 98 02/22/18 12:00 02/22/18 14:00 02/22/18 12:00 02/22/18 12:00 02/22/18 06:00 Intake and Output: 02/22/18 02/22/18 06:59 18:59 Intake Total 120 Output Total 500 Balance -380 - Medications Medications: Current Medications Albuterol/Ipratropium (Duoneb 3 Mg/0.5 Mg (3 Ml) Ud) 3 ml IH Q2H PRN PRN Reason: Shortness of Breath Last Admin: 02/19/18 08:16 Dose: 3 ml Folic Acid (Folic Acid) 1 mg PO DAILY [facility] Last Admin: 02/22/18 09:22 Dose: 1 mg Hydromorphone HCl (Dilaudid) 0.5 mg IVP Q6H PRN PRN Reason: Pain, moderate (4-7) Last Admin: 02/22/18 13:46 Dose: 0.5 mg Piperacillin Sod/Tazobactam Sod (Zosyn 4.5 Gm In Ns 100ml) 4.5 gm in 100 mls @ 200 mls/hr IVPB Q6 [facility] PRN Reason: Protocol Stop: 02/22/18 18:01 Last Admin: 02/22/18 12:35 Dose: 200 mls/hr Sodium Chloride (Sodium Chloride 0.9%) 1,000 mls @ 100 mls/hr IV .Q10H [facility] Last Admin: 02/22/18 06:05 Dose: Not Given Insulin Detemir (Levemir) 25 unit SC Q12 [facility] Last Admin: 02/22/18 09:24 Dose: Not Given Insulin Human Regular (Humulin R Med) 0 units SC ACHS [facility] PRN Reason: Protocol Last Admin: 02/22/18 12:35 Dose: 1 units Levothyroxine Sodium (Synthroid) 112 mcg PO DAILY [facility] Last Admin: 02/22/18 09:22 Dose: 112 mcg Losartan Potassium (Cozaar) 25 mg PO DAILY [facility] Last Admin: 02/22/18 09:22 Dose: 25 mg Methadone HCl (Methadone) 90 mg PO DAILY [facility] Last Admin: 02/22/18 09:22 Dose: 90 mg Multivitamins (Thera Tab) 1 tab PO 0800 [facility] Last Admin: 02/22/18 09:22 Dose: 1 tab Nicotine (Nicoderm Cq) 1 patch TD DAILY [facility] Last Admin: 02/22/18 09:21 Dose: 1 patch Nystatin (Nystatin Oral Susp) 5 ml PO QID [facility] Last Admin: 02/22/18 13:43 Dose: 5 ml Pantoprazole Sodium (Protonix Susp) 40 mg PO 0600 [facility] Last Admin: 02/22/18 05:52 Dose: 40 mg Saliva Substitute (Saliva Substitute) 1 ml PO Q2H PRN PRN Reason: Dry mouth Last Admin: 02/15/18 20:58 Dose: 1 ml Thiamine HCl (Vitamin B1 Inj) 100 mg IM DAILY [facility] Last Admin: 02/22/18 09:22 Dose: 100 mg - Labs Labs: 02/22/18 06:00 02/22/18 06:00 PT 13.6 SECONDS (9.4-12.5) H 02/17/18 05:20 INR 1.18 (0.93-1.08) H 02/17/18 05:20 APTT 25.2 Seconds (25.1-36.5) 02/15/18 08:15 - Additional Findings Additional findings: - Constitutional Appears: Non-toxic, No Acute Distress, Chronically Ill - Head Exam Head Exam: ATRAUMATIC, NORMOCEPHALIC - Eye Exam Eye Exam: EOMI, PERRL. absent: Conjunctival injection, Nystagmus, Scleral icterus Pupil Exam: NORMAL ACCOMODATION, PERRL. absent: Fixed, Irregular, Miosis, Unequal - ENT Exam ENT Exam: Mucous Membranes Moist - Neck Exam Neck Exam: Full ROM Additional comments: + trach collar in place, no erythema/secretions noted - Respiratory Exam Respiratory Exam: Clear to Ausculation Bilateral, NORMAL BREATHING PATTERN. absent: Accessory Muscle Use, Rales, Rhonchi, Wheezes, Stridor - Cardiovascular Exam Cardiovascular Exam: RRR, +S1, +S2. absent: Murmur - GI/Abdominal Exam GI & Abdominal Exam: Soft, Normal Bowel Sounds. absent: Distended, Firm, Guarding, Rigid, Tenderness, Hernia, Mass, Organomegaly, Rebound - Extremities Exam Extremities Exam: Normal Inspection. absent: Calf Tenderness, Pedal Edema - Back Exam Back Exam: NORMAL INSPECTION. absent: CVA tenderness (L), CVA tenderness (R) - Neurological Exam Neurological Exam: Alert, Awake, Oriented x3 - Psychiatric Exam Psychiatric exam: Normal Affect, Normal Mood - Skin Skin Exam: Dry, Normal Color, Warm Assessment and Plan - Assessment and Plan (Free Text) Assessment: 38 y/o with PMHx of HTN, IDDM, thyrotoxicosis s/p partial thyroidectomy, Hep C ( s/p treatment), dental caries/poor dentition, h/o drug abuse on methadone, hypothyroidism, admitted with severe neck swelling/abscess s/p parapharyngeal abscess I&D, along with epiglotitis s/p trach, now on trach colar. Patient was also in DKA on admission, but has since resolved. Patient is currently being treated for pneumonia. Pt developed tarry stools with a drop in hemoglobin, s/p 2 units prbcs transfusion. EGD showed esophageal candidiasis and three duodenal ulcers with clean base. No further bleeding episodes, pt stable: GI bleed: 2/2 duodenal ulcers vs AVMs vs colonic polyps? - stable - Protonix - liquid diet - GI consulted. appreciate recs. - EGD showed esophageal candidiasis. Nonbleeding duodenal and gastric ulcers. Gastritis. - Monitor Hgb Dominick angina with parapharyngeal abscess- - Likely from poor oral care versus IVDA ( patient denied recent use, have abused in the past and is on methadone). HIV negative, lupus work up normal. - s/p I &D and tracheostomy - Patient is currently off of vent and is tolerating trach colar - As per ENT patient will need the trach changed to fenestrated trach tube in few days. - Cleared patient to eat, currently on liquid diet. - Continue saliva substitute - Patient to follow up with ENT as outpatient. Sepsis likely due to parapharyngeal abscess superimposed with aspiration pneumonia- - With gram positive cocci bacteremia, bacteremia resolved on repeat cultures. - sepsis resolving - will continue to trend leukocytosis, currently afebrile - Zosyn day 12/21, as per ID Right lower lobe aspiration pneumonia - Mild improvement on cxr - will continue with prn duoneb - on abx as stated above - continue incentive spirometer, chest pt DKA: resolved with uncontrolled IDDM - continue with basal and pre-meal insulin - hgba1c this admission 10.6 - also on iss, and fingertsicks achs Transaminitis- acute on chronic, likely due to portal vein congestion/sepsis - s/p NAC - Abdominal u/s with steatosis and splenomegaly - hep panel + for hep C, as per patient underwent treatment in the past - lupus work up normal - LFTs trending down - will avoid hepatotoxic agents and continue to monitor. Alcohol withdrawal- resolved - s/p detox - will continue with thiamine and folic acid. Hypokalemia: - Will continue to monitor and replete accordingly. Grade 1 diastolic CHF with septal hypokinesis - spoke to Dr Almaraz, the skill labor, outpatient stress test. Acute on chronic anemia- likely iatrogenic superimposed to anemia of chronic disease. - Ferritin elevated - No signs of active bleeding - will continue to monitor Tobacco abuse- continue with nicotine patch H/o IVDA: - On methadone 90 mg daily as per methadone clinic - will continue 90 mg methadone H/o HTN: - Continue with Norvasc and cozaar H/o hypothyroidism- - cont with synthroid GI/DVT prophylaxis: protonix and Scds Dispo: Pending insurance approval for LTAC. Patient seen, examined and case discussed with Dr Preston. Leighann Casillas, PGY1 <Alexandra Preston - Last Filed: 02/22/18 16:51> Objective - Vital Signs/Intake and Output Vital Signs (last 24 hours): Temp Pulse Resp BP Pulse Ox 98.3 F 63 18 124/85 98 02/22/18 12:00 02/22/18 14:00 02/22/18 12:00 02/22/18 12:00 02/22/18 06:00 Intake and Output: 02/22/18 02/22/18 06:59 18:59 Intake Total 120 Output Total 500 Balance -380 - Medications Medications: Current Medications Albuterol/Ipratropium (Duoneb 3 Mg/0.5 Mg (3 Ml) Ud) 3 ml IH Q2H PRN PRN Reason: Shortness of Breath Last Admin: 02/19/18 08:16 Dose: 3 ml Folic Acid (Folic Acid) 1 mg PO DAILY [facility] Last Admin: 02/22/18 09:22 Dose: 1 mg Hydromorphone HCl (Dilaudid) 0.5 mg IVP Q6H PRN PRN Reason: Pain, moderate (4-7) Last Admin: 02/22/18 13:46 Dose: 0.5 mg Piperacillin Sod/Tazobactam Sod (Zosyn 4.5 Gm In Ns 100ml) 4.5 gm in 100 mls @ 200 mls/hr IVPB Q6 [facility] PRN Reason: Protocol Stop: 02/22/18 18:01 Last Admin: 02/22/18 12:35 Dose: 200 mls/hr Sodium Chloride (Sodium Chloride 0.9%) 1,000 mls @ 100 mls/hr IV .Q10H [facility] Last Admin: 02/22/18 06:05 Dose: Not Given Insulin Detemir (Levemir) 25 unit SC Q12 [facility] Last Admin: 02/22/18 09:24 Dose: Not Given Insulin Human Regular (Humulin R Med) 0 units SC ACHS [facility] PRN Reason: Protocol Last Admin: 02/22/18 12:35 Dose: 1 units Levothyroxine Sodium (Synthroid) 112 mcg PO DAILY [facility] Last Admin: 02/22/18 09:22 Dose: 112 mcg Losartan Potassium (Cozaar) 25 mg PO DAILY [facility] Last Admin: 02/22/18 09:22 Dose: 25 mg Methadone HCl (Methadone) 90 mg PO DAILY [facility] Last Admin: 02/22/18 09:22 Dose: 90 mg Multivitamins (Thera Tab) 1 tab PO 0800 [facility] Last Admin: 02/22/18 09:22 Dose: 1 tab Nicotine (Nicoderm Cq) 1 patch TD DAILY [facility] Last Admin: 02/22/18 09:21 Dose: 1 patch Nystatin (Nystatin Oral Susp) 5 ml PO QID [facility] Last Admin: 02/22/18 13:43 Dose: 5 ml Pantoprazole Sodium (Protonix Susp) 40 mg PO 0600 [facility] Last Admin: 06/16/18 05:52 Dose: 40 mg Saliva Substitute (Saliva Substitute) 1 ml PO Q2H PRN PRN Reason: Dry mouth Last Admin: 02/15/18 20:58 Dose: 1 ml Thiamine HCl (Vitamin B1 Inj) 100 mg IM DAILY [facility] Last Admin: 02/22/18 09:22 Dose: 100 mg - Labs Labs: 02/22/18 06:00 02/22/18 06:00 PT 13.6 SECONDS (9.4-12.5) H 02/17/18 05:20 INR 1.18 (0.93-1.08) H 02/17/18 05:20 APTT 25.2 Seconds (25.1-36.5) 02/15/18 08:15 Attending/Attestation - Attestation I have personally seen and examined this patient.: Yes I have fully participated in the care of the patient.: Yes I have reviewed all pertinent clinical information, including history, physical exam and plan: Yes Notes (Text): 02/22/18 16:38 attending note; Patient seen and examined with resident. patient had one bowel movement today. No significant bleeding. Patient is a 38 yr old female with PMH of Hep C, DM, HTN, drug abuse and hypothyroidism is admitted with parapharyngeal abscess and Dominick's angina. s/p I/D of abscess and tracheostomy in the OR by ENT. monitor closely in ICU. Continue weaning trial. currently on Trach collar. Status post EGD; showed gastric ulcer with clean base. Status post 2 unit PRBC transfusion. Hemoglobin is 10 this am. no active bleeding. case discussed with GI in detail. New to monitor closely. Might need colonoscopy if hemoglobin drops or for any new bleeding. sepsis; patient is on IV Zosyn. To complete 2 weeks of antibiotics as per ID. DKA ; Resolved. Continue with regular insulin sliding scale. complete alcohol and drug abuse cessation is strongly advised. history of opiate abuse. Currently on methadone program. Continue methadone. Possible transfer to LTAC on Saturday if stable. upon discharge the patient will follow-up with PMD .
[2018-02-23] MEDS: Insulin Reg-MEDIUM-Coverage SC SCH ×5 (00:40→22:30)
[2018-02-23] MEDS: Insulin Detemir 100 units/ml Vial (Levemir) SC SCH ×3 (00:44→22:30)
[2018-02-23] MEDS: HYDROmorphone 0.5 mg/0.5 ml ISec IVP PRN ×3 (03:14→17:36)
[2018-02-23] MEDS: Pantoprazole 40 mg Susp UD PO SCH (05:54)
[2018-02-23] MEDS: Albuterol-Ipratrop 3 mg / 0.5 (3 ml) UD IH PRN (07:32)
[2018-02-23 07:49] LABS: BASO # 0.04 K/mm3 (0.0-2.0); BASO % 0.3 % (0.0-3.0); EOS # 0.3 (0.0-0.7); EOS % 1.9 % (1.5-5.0); GRAN # 12.04 (1.4-6.5); GRAN % 77.3 % (50.0-68.0); HEMOGLOBIN 9.5 g/dL (12.0-16.0); LYMPH # 2.4 (1.2-3.4); LYMPH % 15.2 % (22.0-35.0); MEAN CELL VOLUME 92.9 fl (80.0-105.0); MEAN CORPUSCULAR HEMOGLOBIN 29.5 pg (25.0-35.0); MEAN CORPUSCULAR HGB CONC 31.8 g/dl (31.0-37.0); MEAN PLATELET VOLUME 9.3 fl (7.0-11.0); MONO # 0.8 (0.1-0.6); MONO % 5.3 % (1.0-6.0); RBC 3.22 10^6/uL (3.5-6.1); RED CELL DISTRIBUTION WIDTH 14.3 % (11.5-14.5); WHITE BLOOD COUNT 15.6 10^3/ul (4.5-11.0)
[2018-02-23 08:05] LABS: ALB/GLOB RATIO 0.9 (1.1-1.8); ALBUMIN 2.8 g/dL (3.0-4.8); ALT/SGPT 93 U/L (7-56); AST/SGOT 33 U/L (14-36); BLOOD UREA NITROGEN 6 mg/dL (7-21); GFR AFRICAN-AMERICAN > 60; GFR NON-AFRICAN AMERICAN > 60
[2018-02-23] MEDS: Nystatin 100,000 Units/ml Oral Susp 5 ml UD PO SCH ×4 (09:38→22:05)
[2018-02-23] MEDS: Levothyroxine 112 MCG TAB PO SCH (09:39)
[2018-02-23] MEDS: Multivitamin Therapeutic Tab PO SCH (09:40)
--- NOTE | 2018-02-23 11:39 | CP.PCM.PN ---
<Leighann Casillas - Last Filed: 02/23/18 11:26> Subjective - Date & Time of Evaluation Date of Evaluation: 02/23/18 Time of Evaluation: 11:26 - Subjective Subjective: Leighann Casillas, PGY1, Medicine Progress Note for Dr Preston: Patient seen and examined at bedside. Pt reports one nonbloody BM last night. Denies weakness, dizziness, fever, chills, nausea, vomiting, hematemesis, abdominal pain, leg swelling. Objective - Vital Signs/Intake and Output Vital Signs (last 24 hours): Temp Pulse Resp BP Pulse Ox 98.5 F 63 16 126/75 98 02/23/18 06:00 02/23/18 10:00 02/23/18 06:00 02/23/18 09:40 02/23/18 06:00 Intake and Output: 02/23/18 02/23/18 06:59 18:59 Intake Total 120 Balance 120 - Medications Medications: Current Medications Albuterol/Ipratropium (Duoneb 3 Mg/0.5 Mg (3 Ml) Ud) 3 ml IH Q2H PRN PRN Reason: Shortness of Breath Last Admin: 02/19/18 08:16 Dose: 3 ml Folic Acid (Folic Acid) 1 mg PO DAILY [facility] Last Admin: 02/23/18 09:39 Dose: 1 mg Hydromorphone HCl (Dilaudid) 0.5 mg IVP Q6H PRN PRN Reason: Pain, moderate (4-7) Last Admin: 02/23/18 09:38 Dose: 0.5 mg Hydromorphone HCl (Dilaudid) 2 mg PO Q6 PRN PRN Reason: Pain, severe (8-10) Piperacillin Sod/Tazobactam Sod (Zosyn 3.375 In Ns 100ml) 100 mls @ 200 mls/hr IVPB Q6 [facility] PRN Reason: Protocol Stop: 02/23/18 18:29 Insulin Detemir (Levemir) 25 unit SC Q12 [facility] Last Admin: 02/23/18 09:38 Dose: 25 u Insulin Human Regular (Humulin R Med) 0 units SC ACHS [facility] PRN Reason: Protocol Last Admin: 02/23/18 08:42 Dose: 3 units Levothyroxine Sodium (Synthroid) 112 mcg PO DAILY [facility] Last Admin: 02/23/18 09:39 Dose: 112 mcg Losartan Potassium (Cozaar) 25 mg PO DAILY [facility] Last Admin: 02/23/18 09:40 Dose: 25 mg Methadone HCl (Methadone) 90 mg PO DAILY [facility] Last Admin: 02/23/18 10:24 Dose: 90 mg Multivitamins (Thera Tab) 1 tab PO 0800 [facility] Last Admin: 02/23/18 09:40 Dose: 1 tab Nicotine (Nicoderm Cq) 1 patch TD DAILY [facility] Last Admin: 02/23/18 09:39 Dose: 1 patch Nystatin (Nystatin Oral Susp) 5 ml PO QID [facility] Last Admin: 02/23/18 09:38 Dose: 5 ml Pantoprazole Sodium (Protonix Susp) 40 mg PO 0600 [facility] Last Admin: 02/23/18 05:54 Dose: 40 mg Saliva Substitute (Saliva Substitute) 1 ml PO Q2H PRN PRN Reason: Dry mouth Last Admin: 02/15/18 20:58 Dose: 1 ml Thiamine HCl (Vitamin B1 Tab) 100 mg PO DAILY [facility] Last Admin: 02/23/18 09:39 Dose: 100 mg - Labs Labs: 02/23/18 07:00 02/23/18 07:00 PT 13.6 SECONDS (9.4-12.5) H 02/17/18 05:20 INR 1.18 (0.93-1.08) H 02/17/18 05:20 APTT 25.2 Seconds (25.1-36.5) 02/15/18 08:15 - Additional Findings Additional findings: - Constitutional Appears: Non-toxic, No Acute Distress, Chronically Ill - Head Exam Head Exam: ATRAUMATIC, NORMOCEPHALIC - Eye Exam Eye Exam: EOMI, PERRL. absent: Conjunctival injection, Nystagmus, Scleral icterus Pupil Exam: NORMAL ACCOMODATION, PERRL. absent: Fixed, Irregular, Miosis, Unequal - ENT Exam ENT Exam: Mucous Membranes Moist - Neck Exam Neck Exam: Full ROM Additional comments: + trach collar in place, no erythema/secretions noted - Respiratory Exam Respiratory Exam: Clear to Ausculation Bilateral, NORMAL BREATHING PATTERN. absent: Accessory Muscle Use, Rales, Rhonchi, Wheezes, Stridor - Cardiovascular Exam Cardiovascular Exam: RRR, +S1, +S2. absent: Murmur - GI/Abdominal Exam GI & Abdominal Exam: Soft, Normal Bowel Sounds. absent: Distended, Firm, Guarding, Rigid, Tenderness, Hernia, Mass, Organomegaly, Rebound - Extremities Exam Extremities Exam: Normal Inspection. absent: Calf Tenderness, Pedal Edema - Back Exam Back Exam: NORMAL INSPECTION. absent: CVA tenderness (L), CVA tenderness (R) - Neurological Exam Neurological Exam: Alert, Awake, Oriented x3 - Psychiatric Exam Psychiatric exam: Normal Affect, Normal Mood - Skin Skin Exam: Dry, Normal Color, Warm Assessment and Plan - Assessment and Plan (Free Text) Assessment: 38 y/o with PMHx of HTN, IDDM, thyrotoxicosis s/p partial thyroidectomy, Hep C ( s/p treatment), dental caries/poor dentition, h/o drug abuse on methadone, hypothyroidism, admitted with severe neck swelling/abscess s/p parapharyngeal abscess I&D, along with epiglotitis s/p trach, now on trach colar. Patient was also in DKA on admission, but has since resolved. Patient is currently being treated for pneumonia. Pt developed tarry stools with a drop in hemoglobin, s/p 2 units prbcs transfusion. EGD showed esophageal candidiasis and three duodenal ulcers with clean base. No further bleeding episodes, pt stable, likely discharge on Saturday to LTAC (may need PICC line due to poor IV access): GI bleed: 2/2 duodenal ulcers vs AVMs vs colonic polyps? - stable - Protonix - liquid diet - GI consulted. appreciate recs. - EGD showed esophageal candidiasis. Nonbleeding duodenal and gastric ulcers. Gastritis. - Monitor Hgb Dominick angina with parapharyngeal abscess- - Likely from poor oral care versus IVDA ( patient denied recent use, have abused in the past and is on methadone). HIV negative, lupus work up normal. - s/p I &D and tracheostomy - Patient is currently off of vent and is tolerating trach colar - As per ENT patient will need the trach changed to fenestrated trach tube in few days. - Cleared patient to eat, currently on liquid diet. - Continue saliva substitute - Patient to follow up with ENT as outpatient. Sepsis likely due to parapharyngeal abscess superimposed with aspiration pneumonia- - With gram positive cocci bacteremia, bacteremia resolved on repeat cultures. - sepsis resolving - will continue to trend leukocytosis, currently afebrile - Zosyn day 12/21, as per ID Right lower lobe aspiration pneumonia - Mild improvement on cxr - will continue with prn duoneb - on abx as stated above - continue incentive spirometer, chest pt DKA: resolved with uncontrolled IDDM - continue with basal and pre-meal insulin - hgba1c this admission 10.6 - also on iss, and fingertsicks achs Transaminitis- acute on chronic, likely due to portal vein congestion/sepsis - s/p NAC - Abdominal u/s with steatosis and splenomegaly - hep panel + for hep C, as per patient underwent treatment in the past - lupus work up normal - LFTs trending down - will avoid hepatotoxic agents and continue to monitor. Alcohol withdrawal- resolved - s/p detox - will continue with thiamine and folic acid. Hypokalemia: - Will continue to monitor and replete accordingly. Grade 1 diastolic CHF with septal hypokinesis - spoke to Dr Almaraz, the top stitcher, outpatient stress test. Acute on chronic anemia- likely iatrogenic superimposed to anemia of chronic disease. - Ferritin elevated - No signs of active bleeding - will continue to monitor Tobacco abuse- continue with nicotine patch H/o IVDA: - On methadone 90 mg daily as per methadone clinic - will continue 90 mg methadone H/o HTN: - Continue with Norvasc and cozaar H/o hypothyroidism- - cont with synthroid GI/DVT prophylaxis: protonix and Scds Dispo: Pending insurance approval for LTAC - likely discharge Saturday Patient seen, examined and case discussed with Dr Preston. Leighann Casillas, PGY1 <Alexandra Preston - Last Filed: 02/23/18 12:16> Objective - Vital Signs/Intake and Output Vital Signs (last 24 hours): Temp Pulse Resp BP Pulse Ox 98.5 F 63 16 126/75 98 02/23/18 06:00 02/23/18 10:00 02/23/18 06:00 02/23/18 09:40 02/23/18 06:00 Intake and Output: 02/23/18 02/23/18 06:59 18:59 Intake Total 120 Balance 120 - Medications Medications: Current Medications Albuterol/Ipratropium (Duoneb 3 Mg/0.5 Mg (3 Ml) Ud) 3 ml IH Q2H PRN PRN Reason: Shortness of Breath Last Admin: 02/19/18 08:16 Dose: 3 ml Folic Acid (Folic Acid) 1 mg PO DAILY [facility] Last Admin: 02/23/18 09:39 Dose: 1 mg Hydromorphone HCl (Dilaudid) 0.5 mg IVP Q6H PRN PRN Reason: Pain, moderate (4-7) Last Admin: 02/23/18 09:38 Dose: 0.5 mg Hydromorphone HCl (Dilaudid) 2 mg PO Q6 PRN PRN Reason: Pain, severe (8-10) Piperacillin Sod/Tazobactam Sod (Zosyn 3.375 In Ns 100ml) 100 mls @ 200 mls/hr IVPB Q6 [facility] PRN Reason: Protocol Stop: 02/23/18 18:29 Last Admin: 02/23/18 12:08 Dose: 200 mls/hr Insulin Detemir (Levemir) 25 unit SC Q12 [facility] Last Admin: 02/23/18 09:38 Dose: 25 u Insulin Human Regular (Humulin R Med) 0 units SC ACHS [facility] PRN Reason: Protocol Last Admin: 02/23/18 12:08 Dose: 5 units Levothyroxine Sodium (Synthroid) 112 mcg PO DAILY [facility] Last Admin: 02/23/18 09:39 Dose: 112 mcg Losartan Potassium (Cozaar) 25 mg PO DAILY [facility] Last Admin: 02/23/18 09:40 Dose: 25 mg Methadone HCl (Methadone) 90 mg PO DAILY [facility] Last Admin: 02/23/18 10:24 Dose: 90 mg Multivitamins (Thera Tab) 1 tab PO 0800 [facility] Last Admin: 02/23/18 09:40 Dose: 1 tab Nicotine (Nicoderm Cq) 1 patch TD DAILY [facility] Last Admin: 02/23/18 09:39 Dose: 1 patch Nystatin (Nystatin Oral Susp) 5 ml PO QID [facility] Last Admin: 02/23/18 09:38 Dose: 5 ml Pantoprazole Sodium (Protonix Susp) 40 mg PO 0600 [facility] Last Admin: 02/23/18 05:54 Dose: 40 mg Saliva Substitute (Saliva Substitute) 1 ml PO Q2H PRN PRN Reason: Dry mouth Last Admin: 02/15/18 20:58 Dose: 1 ml Thiamine HCl (Vitamin B1 Tab) 100 mg PO DAILY [facility] Last Admin: 02/23/18 09:39 Dose: 100 mg - Labs Labs: 02/23/18 07:00 02/23/18 07:00 PT 13.6 SECONDS (9.4-12.5) H 02/17/18 05:20 INR 1.18 (0.93-1.08) H 02/17/18 05:20 APTT 25.2 Seconds (25.1-36.5) 02/15/18 08:15 Attending/Attestation - Attestation I have personally seen and examined this patient.: Yes I have fully participated in the care of the patient.: Yes I have reviewed all pertinent clinical information, including history, physical exam and plan: Yes Notes (Text): 02/23/18 12:15 attending note; Patient seen and examined with resident. Had one BM without any bleeding. Patient is a 38 yr old female with PMH of Hep C, DM, HTN, drug abuse and hypothyroidism is admitted with parapharyngeal abscess and Dominick's angina. s/p I/D of abscess and tracheostomy in the OR by ENT. monitor closely in ICU. Continue weaning trial. currently on Trach collar. Status post EGD; showed gastric ulcer with clean base. Status post 2 unit PRBC transfusion. Hemoglobin is 9.5 this am. no active bleeding. sepsis; patient is on IV Zosyn. To complete 2 weeks of antibiotics as per ID. DKA ; Resolved. Continue with regular insulin sliding scale. complete alcohol and drug abuse cessation is strongly advised. history of opiate abuse. Currently on methadone program. Continue methadone. Patient is still requesting IV Dilaudid. Poor IV access. We will get midline tomorrow. Possible transfer to LTAC tomorrow if stable. GI team updated about repeat hemoglobin. No plan for any procedures now. upon discharge the patient will follow-up with PMD . 02/23/18 12:16
[2018-02-23] MEDS: Piperacillin/Tazobact 3.375 gm 100 ML IVPB SCH ×2 (12:08→17:34)
--- NOTE | 2018-02-23 16:17 | PN ---
DATE: 02/23/2018 SUBJECTIVE: The patient is in bed, in no acute distress, nontoxic. No fevers and chills. PHYSICAL EXAMINATION: VITAL SIGNS: Temperature is 98, blood pressure is 120/70, respiratory rate of 16, heart rate of 65. HEENT: Examination of HEENT is unremarkable. NECK: Supple. LUNGS: Have decreased breath sounds. HEART: Normal S1, S2. ABDOMEN: Soft, nontender. LABORATORY DATA: Laboratory examination reveals a white count of 15,600, hemoglobin of 9, platelets of 264. Chemistries reveals a BUN of 6, creatinine of 0.7 and procalcitonin of 33. Urinalysis is noted. Stool for occult is positive. Hepatitis C antibody is positive. HIV is negative. Microbiology showed Peptostreptococcus species in the blood and originally repeat blood cultures are no growth. Review of orders reveals the patient to be on Zosyn. ASSESSMENT AND PLAN: A 38-year-old female with inferior neck abscess, Dominick's angina, status post tracheostomy, postoperatively day #7. Probable right lower lobe aspiration pneumonia with Peptostreptococcus bacteremia in a patient with hypertensive, diabetes, history of intravenous drug abuse, smoker, hepatitis C, history of thyrotoxicosis, status post thyroidectomy in the past, currently on day #6 of Zosyn. Would complete the 14 days of antibiotics, may be able to switch to p.o. if able to tolerate it. Frederic Ansari MD
[2018-02-24] MEDS: HYDROmorphone 0.5 mg/0.5 ml ISec IVP PRN (02:55)
[2018-02-24] MEDS: Albuterol-Ipratrop 3 mg / 0.5 (3 ml) UD IH PRN (05:48)
[2018-02-24] MEDS: Pantoprazole 40 mg Susp UD PO SCH (06:23)
[2018-02-24 06:51] VITALS: O2SAT 98
[2018-02-24 08:08] LABS: BASO # 0.04 K/mm3 (0.0-2.0); BASO % 0.3 % (0.0-3.0); EOS # 0.2 (0.0-0.7); EOS % 1.6 % (1.5-5.0); GRAN # 11.13 (1.4-6.5); GRAN % 75.4 % (50.0-68.0); HEMOGLOBIN 8.9 g/dL (12.0-16.0); LYMPH # 2.5 (1.2-3.4); LYMPH % 16.7 % (22.0-35.0); MEAN CELL VOLUME 91.6 fl (80.0-105.0); MEAN CORPUSCULAR HEMOGLOBIN 29.9 pg (25.0-35.0); MEAN CORPUSCULAR HGB CONC 32.6 g/dl (31.0-37.0); MEAN PLATELET VOLUME 8.8 fl (7.0-11.0); MONO # 0.9 (0.1-0.6); RBC 2.98 10^6/uL (3.5-6.1); RED CELL DISTRIBUTION WIDTH 14.3 % (11.5-14.5); WHITE BLOOD COUNT 14.8 10^3/ul (4.5-11.0)
[2018-02-24] MEDS: Insulin Reg-MEDIUM-Coverage SC SCH ×2 (08:16→13:01)
[2018-02-24] MEDS: Multivitamin Therapeutic Tab PO SCH (08:30)
[2018-02-24 08:31] LABS: ALB/GLOB RATIO 0.8 (1.1-1.8); ALBUMIN 2.7 g/dL (3.0-4.8); ALT/SGPT 105 U/L (7-56); AST/SGOT 118 U/L (14-36); BLOOD UREA NITROGEN 5 mg/dL (7-21); CALCIUM 8.4 mg/dL (8.4-10.5); GFR AFRICAN-AMERICAN > 60; GFR NON-AFRICAN AMERICAN > 60
--- NOTE | 2018-02-24 09:53 | CP.PCM.PN ---
Subjective - Date & Time of Evaluation Date of Evaluation: 02/24/18 Time of Evaluation: 09:51 - Subjective Subjective: ENT progress note for Dr. Dima Oquendo, PGY-1 Pt S & E at bedside at 0840 Pt reports continued pain over left neck/anterior neck incision-improving. Tolerating liquid diet. No other complaints. Objective - Vital Signs/Intake and Output Vital Signs (last 24 hours): Temp Pulse Resp BP Pulse Ox 98.1 F 67 20 114/74 98 02/24/18 06:00 02/24/18 06:00 02/24/18 06:00 02/24/18 06:00 02/24/18 06:00 Intake and Output: 02/24/18 02/24/18 06:59 18:59 Intake Total 240 Balance 240 - Medications Medications: Current Medications Albuterol/Ipratropium (Duoneb 3 Mg/0.5 Mg (3 Ml) Ud) 3 ml IH Q2H PRN PRN Reason: Shortness of Breath Last Admin: 02/24/18 05:48 Dose: 3 ml Folic Acid (Folic Acid) 1 mg PO DAILY [facility] Last Admin: 02/23/18 09:39 Dose: 1 mg Hydromorphone HCl (Dilaudid) 0.5 mg IVP Q6H PRN PRN Reason: Pain, moderate (4-7) Last Admin: 02/24/18 02:55 Dose: 0.5 mg Hydromorphone HCl (Dilaudid) 2 mg PO Q6 PRN PRN Reason: Pain, severe (8-10) Last Admin: 02/24/18 08:39 Dose: 2 mg Insulin Detemir (Levemir) 25 unit SC Q12 [facility] Last Admin: 02/23/18 22:30 Dose: Not Given Insulin Human Regular (Humulin R Med) 0 units SC ACHS [facility] PRN Reason: Protocol Last Admin: 02/24/18 08:16 Dose: Not Given Levothyroxine Sodium (Synthroid) 112 mcg PO DAILY [facility] Last Admin: 02/23/18 09:39 Dose: 112 mcg Losartan Potassium (Cozaar) 25 mg PO DAILY [facility] Last Admin: 02/23/18 09:40 Dose: 25 mg Methadone HCl (Methadone) 90 mg PO DAILY [facility] Last Admin: 02/23/18 10:24 Dose: 90 mg Multivitamins (Thera Tab) 1 tab PO 0800 [facility] Last Admin: 02/24/18 08:30 Dose: 1 tab Nicotine (Nicoderm Cq) 1 patch TD DAILY [facility] Last Admin: 02/23/18 09:39 Dose: 1 patch Nystatin (Nystatin Oral Susp) 5 ml PO QID [facility] Last Admin: 02/23/18 22:05 Dose: 5 ml Pantoprazole Sodium (Protonix Susp) 40 mg PO 0600 [facility] Last Admin: 02/24/18 06:23 Dose: 40 mg Saliva Substitute (Saliva Substitute) 1 ml PO Q2H PRN PRN Reason: Dry mouth Last Admin: 02/15/18 20:58 Dose: 1 ml Thiamine HCl (Vitamin B1 Tab) 100 mg PO DAILY [facility] Last Admin: 02/23/18 17:39 Dose: Not Given - Labs Labs: 02/24/18 08:00 02/24/18 08:00 PT 13.6 SECONDS (9.4-12.5) H 02/17/18 05:20 INR 1.18 (0.93-1.08) H 02/17/18 05:20 APTT 25.2 Seconds (25.1-36.5) 02/15/18 08:15 - Constitutional Appears: Non-toxic, No Acute Distress - Head Exam Head Exam: ATRAUMATIC, NORMAL INSPECTION, NORMOCEPHALIC - Eye Exam Eye Exam: EOMI, Normal appearance - ENT Exam ENT Exam: Mucous Membranes Moist, Normal Exam - Neck Exam Additional comments: tracheostomy in place- no secretions noted dressing in place over I & D site- clean/dry/intact Tender to palpation over left lateral neck/anterior neck, swelling improved - Respiratory Exam Respiratory Exam: NORMAL BREATHING PATTERN - Cardiovascular Exam Cardiovascular Exam: REGULAR RHYTHM - GI/Abdominal Exam GI & Abdominal Exam: Soft. absent: Distended, Tenderness - Extremities Exam Extremities Exam: Normal Inspection - Neurological Exam Neurological Exam: Alert, Awake - Psychiatric Exam Additional comments: unable to assess- tracheostomy in place, currently non verbal - Skin Skin Exam: Dry, Normal Color, Warm Assessment and Plan - Assessment and Plan (Free Text) Assessment: 38F w/PMH sig for recurrent dental caries with Dominick's angina s/p tracheostomy , I & D of anterior neck POD#9 Plan: Plan for trach exchange at bedside today w/passy norma valve placement Cont IV Abx Speech evaluation for education Cont trach care Further recs pending attending evaluation Will DW attending Azra, PGY-1
[2018-02-24] MEDS: Nystatin 100,000 Units/ml Oral Susp 5 ml UD PO SCH ×2 (10:14→14:00)
[2018-02-24] MEDS: Levothyroxine 112 MCG TAB PO SCH (10:14)
[2018-02-24] MEDS: Insulin Detemir 100 units/ml Vial (Levemir) SC SCH (10:19)
[2018-02-24 14:22] VITALS: PULSE 66
[2018-02-24 15:03] VITALS: BP 134/87; RESP 18; TEMP 98.2
--- NOTE | 2018-02-24 15:37 | CP.PCM.PN ---
Subjective - Date & Time of Evaluation Date of Evaluation: 02/24/18 Time of Evaluation: 13:30 - Subjective Subjective: Resting comfortably in bed, no fevers, not in distress. Objective - Vital Signs/Intake and Output Vital Signs (last 24 hours): Temp Pulse Resp BP Pulse Ox 98.1 F 67 20 114/74 98 02/24/18 06:00 02/24/18 06:00 02/24/18 06:00 02/24/18 06:00 02/24/18 06:00 Intake and Output: 02/24/18 02/24/18 06:59 18:59 Intake Total 240 Balance 240 - Medications Medications: Current Medications Albuterol/Ipratropium (Duoneb 3 Mg/0.5 Mg (3 Ml) Ud) 3 ml IH Q2H PRN PRN Reason: Shortness of Breath Last Admin: 02/24/18 05:48 Dose: 3 ml Folic Acid (Folic Acid) 1 mg PO DAILY [facility] Last Admin: 02/23/18 09:39 Dose: 1 mg Hydromorphone HCl (Dilaudid) 0.5 mg IVP Q6H PRN PRN Reason: Pain, moderate (4-7) Last Admin: 02/24/18 02:55 Dose: 0.5 mg Hydromorphone HCl (Dilaudid) 2 mg PO Q6 PRN PRN Reason: Pain, severe (8-10) Last Admin: 02/24/18 04:38 Dose: 2 mg Insulin Detemir (Levemir) 25 unit SC Q12 [facility] Last Admin: 02/23/18 22:30 Dose: Not Given Insulin Human Regular (Humulin R Med) 0 units SC ACHS [facility] PRN Reason: Protocol Last Admin: 02/23/18 22:30 Dose: Not Given Levothyroxine Sodium (Synthroid) 112 mcg PO DAILY [facility] Last Admin: 02/23/18 09:39 Dose: 112 mcg Losartan Potassium (Cozaar) 25 mg PO DAILY [facility] Last Admin: 02/23/18 09:40 Dose: 25 mg Methadone HCl (Methadone) 90 mg PO DAILY [facility] Last Admin: 02/23/18 10:24 Dose: 90 mg Multivitamins (Thera Tab) 1 tab PO 0800 [facility] Last Admin: 02/23/18 09:40 Dose: 1 tab Nicotine (Nicoderm Cq) 1 patch TD DAILY [facility] Last Admin: 02/23/18 09:39 Dose: 1 patch Nystatin (Nystatin Oral Susp) 5 ml PO QID [facility] Last Admin: 02/23/18 22:05 Dose: 5 ml Pantoprazole Sodium (Protonix Susp) 40 mg PO 0600 [facility] Last Admin: 02/24/18 06:23 Dose: 40 mg Saliva Substitute (Saliva Substitute) 1 ml PO Q2H PRN PRN Reason: Dry mouth Last Admin: 02/15/18 20:58 Dose: 1 ml Thiamine HCl (Vitamin B1 Tab) 100 mg PO DAILY [facility] Last Admin: 02/23/18 17:39 Dose: Not Given - Labs Labs: 02/23/18 07:00 02/23/18 07:00 PT 13.6 SECONDS (9.4-12.5) H 02/17/18 05:20 INR 1.18 (0.93-1.08) H 02/17/18 05:20 APTT 25.2 Seconds (25.1-36.5) 02/15/18 08:15 - Constitutional Appears: Chronically Ill - Head Exam Head Exam: NORMAL INSPECTION - ENT Exam Additional comments: dressings in place - Neck Exam Neck Exam: absent: Meningismus - Respiratory Exam Respiratory Exam: Decreased Breath Sounds - Cardiovascular Exam Cardiovascular Exam: +S1, +S2 - GI/Abdominal Exam GI & Abdominal Exam: Soft. absent: Tenderness Assessment and Plan - Assessment and Plan (Free Text) Plan: Assessment Anterior neck abscess / Dominick's angina S/P I and and tracheostomy POD #8, on top of probable right lower lobe aspiration pneumonia, with Peptostrep bacteremia GI bleeding from duodenal ulcers acute renal failure HTN DM history of IV drug use significant smoking history chronic Hepatitis C S/P treatment history of thyrotoxicosis S/P partial thyroidectomy Plan continue Zosyn day 7 - will need at least 2 weeks of antibiotics (can be switched to PO antibiotics when ready for discharge) rapid HIV test is negative
--- NOTE | 2018-02-24 15:54 | CP.PCM.DIS ---
<Leighann Casillas - Last Filed: 02/24/18 16:40> Provider - Provider Date of Admission: 02/15/18 10:24 Attending physician: Lila Espinosa MD Primary care physician: Jovita Mendez MD Consults[facility] Time Spent in preparation of Discharge (in minutes): 60 Diagnosis - Discharge Diagnosis (1) DKA (diabetic ketoacidoses) Status: Acute (2) Duodenal ulcer Status: Acute (3) Elevated LFTs Status: Acute (4) Epiglottitis Status: Acute (5) [place] angina Status: Acute (6) Uncontrolled diabetes mellitus Status: Acute Hospital Course - Lab Results Lab Results: Micro Results 02/18/18 09:30 Blood-Venous Blood Culture - Final NO GROWTH AFTER 5 DAYS 02/18/18 09:30 Blood-Venous Gram Stain - Final TEST NOT PERFORMED 02/18/18 09:00 Blood-Venous Blood Culture - Final NO GROWTH AFTER 5 DAYS 02/17/18 15:55 Abscess - Neck Gram Stain - Final 02/17/18 15:55 Abscess - Neck Anaerobic Culture - Final NO ANAEROBES ISOLATED. 02/17/18 15:55 Abscess - Neck Wound Culture - Final No growth. 02/17/18 22:15 Neck Gram Stain - Final 02/17/18 22:15 Neck Wound Culture - Final No growth. 02/15/18 16:00 Abscess - Neck Anaerobic Culture - Final NO ANAEROBES ISOLATED. Most Recent Lab Values WBC 14.8 10^3/ul (4.5-11.0) H 02/24/18 08:00 RBC 2.98 10^6/uL (3.5-6.1) L 02/24/18 08:00 Hgb 8.9 g/dL (12.0-16.0) L 02/24/18 08:00 Hct 27.3 % (36.0-48.0) L 02/24/18 08:00 MCV 91.6 fl (80.0-105.0) 02/24/18 08:00 MCH 29.9 pg (25.0-35.0) 02/24/18 08:00 MCHC 32.6 g/dl (31.0-37.0) 02/24/18 08:00 RDW 14.3 % (11.5-14.5) 02/24/18 08:00 Plt Count 283 10^3/uL (120.0-450.0) 02/24/18 08:00 MPV 8.8 fl (7.0-11.0) 02/24/18 08:00 Gran % 75.4 % (50.0-68.0) H 02/24/18 08:00 Lymph % (Auto) 16.7 % (22.0-35.0) L 02/24/18 08:00 [place] % (Auto) 6.0 % (1.0-6.0) 02/24/18 08:00 Eos % (Auto) 1.6 % (1.5-5.0) 02/24/18 08:00 Baso % (Auto) 0.3 % (0.0-3.0) 02/24/18 08:00 Gran # 11.13 (1.4-6.5) H 02/24/18 08:00 Lymph # (Auto) 2.5 (1.2-3.4) 02/24/18 08:00 [place] # (Auto) 0.9 (0.1-0.6) H 02/24/18 08:00 Eos # (Auto) 0.2 (0.0-0.7) 02/24/18 08:00 Baso # (Auto) 0.04 K/mm3 (0.0-2.0) 02/24/18 08:00 ESR 60 mm/hr (0.0-20.0) H 02/15/18 08:15 PT 13.6 SECONDS (9.4-12.5) H 02/17/18 05:20 INR 1.18 (0.93-1.08) H 02/17/18 05:20 APTT 25.2 Seconds (25.1-36.5) 02/15/18 08:15 pCO2 41 mm/Hg (35-45) 02/19/18 05:40 pO2 80.0 mm/Hg (80-100) 02/19/18 05:40 HCO3 25.4 mmol/L (21-28) 02/19/18 05:40 ABG pH 7.40 (7.35-7.45) 02/19/18 05:40 ABG Total CO2 26.7 mmol.L (22-28) 02/19/18 05:40 ABG O2 Saturation 96.6 % (95-98) 02/19/18 05:40 ABG O2 Content 13.9 ML/dl (15-23) L 02/16/18 04:40 ABG Base Excess 0.5 mmol/L (-2.0-3.0) 02/19/18 05:40 ABG Hemoglobin 10.3 g/dL (11.7-17.4) L 02/16/18 04:40 ABG Carboxyhemoglobin 0.2 % (0.5-1.5) L 02/16/18 04:40 POC ABG HHb (Measured) 4.1 % (0-5) 02/16/18 04:40 ABG Methemoglobin 0.1 % (0.0-3.0) 02/16/18 04:40 ABG O2 Capacity 14.5 mL/dl (16-24) L 02/16/18 04:40 ABG Potassium 3.0 mmol/L (3.6-5.2) L 02/19/18 05:40 VBG pH 7.39 (7.32-7.43) 02/17/18 01:45 VBG pCO2 43.0 (40-60) 02/17/18 01:45 VBG HCO3 26.0 mmol/l (21-28) 02/17/18 01:45 VBG Total CO2 27.3 mmol.L (22-28) 02/17/18 01:45 VBG O2 Sat (Calc) 91.0 % (40-65) H 02/17/18 01:45 VBG Base Excess 0.8 mmol/L (0.0-2.0) 02/17/18 01:45 VBG Potassium 3.1 mmol/L (3.6-5.2) L 02/17/18 01:45 Hgb O2 Saturation 95.6 % (95.0-98.0) 02/16/18 04:40 Sodium 138.0 mmol/L (132-148) 02/19/18 05:40 Chloride 106.0 mmol/L (98-107) 02/19/18 05:40 Glucose 213 mg/dl (65-105) H 02/19/18 05:40 Lactate 0.8 mmol/L (0.7-2.1) 02/19/18 05:40 Mechanical Rate 12 02/16/18 17:00 FiO2 50.0 % 02/19/18 05:40 Tidal Volume 400 02/16/18 17:00 PEEP 5 02/16/18 17:00 Sodium 136 mmol/L (132-148) 02/24/18 08:00 Potassium 3.8 mmol/L (3.6-5.0) 02/24/18 08:00 Chloride 100 mmol/L (98-107) 02/24/18 08:00 Carbon Dioxide 31 mmol/L (21-33) 02/24/18 08:00 Anion Gap 9 (10-20) L 02/24/18 08:00 BUN 5 mg/dL (7-21) L 02/24/18 08:00 Creatinine 0.8 mg/dl (0.7-1.2) 02/24/18 08:00 Est GFR ( Amer) > 60 02/24/18 08:00 Est GFR (Non-Af Amer) > 60 02/24/18 08:00 POC Glucose (mg/dL) 280 mg/dL (65-110) H 02/24/18 11:11 Random Glucose 140 mg/dL (70-110) H 02/24/18 08:00 Hemoglobin A1c 10.6 % (4.2-6.5) H 02/15/18 14:00 Serum Osmolality 297 mosm/kg (272-300) 02/15/18 08:15 Calcium 8.4 mg/dL (8.4-10.5) 02/24/18 08:00 Phosphorus 3.2 mg/dL (2.5-4.5) 02/19/18 06:40 Magnesium 1.9 mg/dL (1.7-2.2) 02/19/18 06:40 Iron 11 ug/dL (45-180) L 02/16/18 10:30 TIBC 205 ug/dL (265-497) L 02/16/18 10:30 % Saturation 5 % (20-55) L 02/16/18 10:30 Ferritin 1150.0 ng/mL 02/16/18 10:30 Total Bilirubin 0.5 mg/dL (0.2-1.3) 02/24/18 08:00 AST 118 U/L (14-36) H D 02/24/18 08:00 ALT 105 U/L (7-56) H 02/24/18 08:00 Alkaline Phosphatase 244 U/L (38-126) H 02/24/18 08:00 Ammonia 9 umol/L (9-33) 02/16/18 16:40 C-React Prot High Sens > 15.00 mg/L (1.00-3.00) H 02/15/18 08:15 NT-Pro-B Natriuret Pep 4020 pg/mL (0-450) H 02/16/18 16:40 Total Protein 5.9 g/dL (5.8-8.3) 02/24/18 08:00 Albumin 2.7 g/dL (3.0-4.8) L 02/24/18 08:00 Globulin 3.2 gm/dL 02/24/18 08:00 Albumin/Globulin Ratio 0.8 (1.1-1.8) L 02/24/18 08:00 Ceruloplasmin 28 mg/dL (18-53) 02/16/18 10:30 Triglycerides 104 mg/dL (35-160) 02/16/18 11:24 Cholesterol 120 mg/dL (130-200) L 02/16/18 11:24 LDL Cholesterol Direct 67 mg/dL (0-129) 02/16/18 11:24 HDL Cholesterol 39 mg/dL (29-60) 02/16/18 11:24 Lipase 25 U/L (23-300) 02/16/18 11:24 Procalcitonin 33.54 NG/ML (0.19-0.49) H 02/15/18 08:15 Free T4 0.60 ng/dL (0.78-2.19) L 02/19/18 06:40 TSH 3rd Generation 28.70 mIU/mL (0.46-4.68) H 02/19/18 06:40 Arterial Blood Potassium 3.0 mmol/L (3.6-5.2) L 02/19/18 05:40 Venous Blood Potassium 3.1 mmol/L (3.6-5.2) L 02/17/18 01:45 Urine Color Yellow (YELLOW) 02/15/18 09:30 Urine Appearance Sl cloudy (CLEAR) 02/15/18 09:30 Urine pH 6.0 (4.7-8.0) 02/15/18 09:30 Ur Specific [place] 1.020 (1.005-1.035) 02/15/18 09:30 Urine Protein 30 mg/dL (<30 mg/dL) H 02/15/18 09:30 Urine Glucose (UA) 250 mg/dL (NEGATIVE) H 02/15/18 09:30 Urine Ketones 15 mg/dL (NEGATIVE) H 02/15/18 09:30 Urine Blood Negative (NEGATIVE) 02/15/18 09:30 Urine Nitrate Negative (NEGATIVE) 02/15/18 09:30 Urine Bilirubin Negative (NEGATIVE) 02/15/18 09:30 Urine Urobilinogen 1.0 E.U./dL (<1 E.U./dL) H 02/15/18 09:30 Ur Leukocyte Esterase Negative [place]/uL (NEGATIVE) 02/15/18 09:30 Urine RBC Negative /hpf (0-2) 02/15/18 09:30 Urine WBC 2 - 5 /hpf (0-6) 02/15/18 09:30 Ur Epithelial Cells Many /hpf (0-5) 02/15/18 09:30 Stool Occult Blood Positive (NEGATIVE) H 02/20/18 08:00 Random Vancomycin 36.5 ug/mL (20-40) 02/17/18 17:01 Salicylates < 1 mg/dL (2.0-20.0) L 02/16/18 10:30 Urine Opiates Screen Negative (NEGATIVE) 02/16/18 15:00 Urine Methadone Screen Positive (NEGATIVE) H 02/16/18 15:00 Acetaminophen < 10.0 ug/ml (10.0-20.0) L 02/16/18 10:30 Ur Barbiturates Screen Negative (NEGATIVE) 02/16/18 15:00 Ur Phencyclidine Scrn Negative (NEGATIVE) 02/16/18 15:00 Ur Amphetamines Screen Negative (NEGATIVE) 02/16/18 15:00 U Benzodiazepines Scrn Positive (NEGATIVE) H 02/16/18 15:00 U Oth Cocaine Metabols Negative (NEGATIVE) 02/16/18 15:00 U Cannabinoids Screen Negative (NEGATIVE) 02/16/18 15:00 Alcohol, Quantitative < 10 mg/dL (0-10) 02/15/18 16:00 IgG 712.5 mg/dL (700.0-1600.0) 02/16/18 10:30 REGINO Screen Negative (Negative) 02/16/18 10:30 REGINO Titer TEST NOT PERFORMED 02/16/18 10:30 REGINO Titer 2 TEST NOT PERFORMED 02/16/18 10:30 REGINO Pattern TEST NOT PERFORMED 02/16/18 10:30 REGINO Pattern 2 TEST NOT PERFORMED 02/16/18 10:30 Anti-Mitochondrial Ab Negative (Negative) 02/16/18 10:30 Smooth Muscle Ab Titer TEST NOT PERFORMED 02/16/18 10:30 Anti-Smooth Muscle Ab Negative (Negative) 02/16/18 10:30 Liver/Kid Microsomes Ab <=20.0 U (<=20.0) 02/16/18 10:30 Hepatitis A IgM Ab Negative (NEGATIVE) 02/15/18 16:00 Hep Bs Antigen Negative (NEGATIVE) 02/15/18 16:00 Hep B Core IgM Ab Negative (NEGATIVE) 02/15/18 16:00 Hepatitis C Antibody Reactive (NEGATIVE) 02/15/18 16:00 Hepatitis C RNA <15 not detected IU/mL (<15) 02/20/18 10:35 HCV RNA Quant (PCR) <1.18 not detected Log IU/mL (<1.18) 02/20/18 10:35 HIV 1&2 Ag/Ab, 4th Gen Nonreactive (Nonreactive) 02/16/18 16:40 Blood Type B POSITIVE 02/20/18 08:00 Blood Type Confirm B POSITIVE 02/20/18 08:30 Antibody Screen Negative 02/20/18 08:00 Crossmatch See Detail 02/20/18 08:00 BBK History Checked No verified bt 02/20/18 08:00 - Hospital Course Hospital Course: 38 year old female with PMH of HTN, IDDM, thyrotoxicosis s/p partial thyroidectomy, Hep C (s/p treatment), dental caries/poor dentition, h/o drug abuse on methadone, hypothyroidism, admitted with severe neck swelling/abscess and DKA. On imaging, pt found to have extensive parapharyngeal abscess and epiglottitis, ENT drained the abscess and put a tracheostomy. Pt also found to have pneumonia, treated appropriately with antibiotics. Pt also found to have transaminitis, received NAC therapy, hepatitis panel negative, except for Hep C (for which patient was treated). Pt's opioid withdrawal was treated with methadone. Pt developed an episode of acute GI bleed - black tarry stools, EGD showed duodenal ulcers, received 2 units of prbcs. Bleeding stopped with hemoglobin stable x 3 days. Pt discharged to LTAC with appropriate medications. Patient to continue 8 more days of zosyn at LTAC as per ID. Case seen and discussed with Dr Espinosa. Leighann Casillas, PGY1 Discharge Exam - Additional Findings Additional findings: - Constitutional Appears: Non-toxic, No Acute Distress, Chronically Ill - Head Exam Head Exam: ATRAUMATIC, NORMOCEPHALIC - Eye Exam Eye Exam: EOMI, PERRL. absent: Conjunctival injection, Nystagmus, Scleral icterus Pupil Exam: NORMAL ACCOMODATION, PERRL. absent: Fixed, Irregular, Miosis, Unequal - ENT Exam ENT Exam: Mucous Membranes Moist - Neck Exam Neck Exam: Full ROM Additional comments: + trach collar in place, no erythema/secretions noted - Respiratory Exam Respiratory Exam: Clear to Ausculation Bilateral, NORMAL BREATHING PATTERN. absent: Accessory Muscle Use, Rales, Rhonchi, Wheezes, Stridor - Cardiovascular Exam Cardiovascular Exam: RRR, +S1, +S2. absent: Murmur - GI/Abdominal Exam GI & Abdominal Exam: Soft, Normal Bowel Sounds. absent: Distended, Firm, Guarding, Rigid, Tenderness, Hernia, Mass, Organomegaly, Rebound - Extremities Exam Extremities Exam: Normal Inspection. absent: Calf Tenderness, Pedal Edema - Back Exam Back Exam: NORMAL INSPECTION. absent: CVA tenderness (L), CVA tenderness (R) - Neurological Exam Neurological Exam: Alert, Awake, Oriented x3 - Psychiatric Exam Psychiatric exam: Normal Affect, Normal Mood - Skin Skin Exam: Dry, Normal Color, Warm Discharge Plan - Discharge Medications Prescriptions: oxyCODONE [oxyCODONE Immediate Release Tab] 5 mg PO Q6 PRN 3 Days tab PRN Reason: Pain, Moderate (4-7) Piperacill/Tazo 4.5gm in NS [Zosyn 4.5 gm in NS 100ml] 4.5 gm IVPB Q6 8 Days bag - Follow Up Plan Condition: FAIR [facility] Instructions: Diabetic Ketoacidosis (DC), Peptic Ulcers (DC), Cellulitis (Skin Infection), Adult (DC), Duodenal Ulcer (DC), Epiglottitis (DC) Additional Instructions: - take meds as prescribed at LTAC. - Follow up with PMD in 1 week. - Return to ER for any concerns. RN NOTE: Pt discharged to [facility] in [place], [place]. Pt aware of transport approx. 2:30-3:00pm today by [facility]. Report given to [facility] @ [facility]. Referrals: Jovita Mendez MD [Primary Care Provider] - <Lila Espinosa - Last Filed: 02/24/18 17:00> Provider - Provider Date of Admission: 02/15/18 10:24 Attending physician: Lila Espinosa MD Primary care physician: Jovita Mendez MD Hospital Course - Lab Results Lab Results: Micro Results 02/18/18 09:30 Blood-Venous Blood Culture - Final NO GROWTH AFTER 5 DAYS 02/18/18 09:30 Blood-Venous Gram Stain - Final TEST NOT PERFORMED 02/18/18 09:00 Blood-Venous Blood Culture - Final NO GROWTH AFTER 5 DAYS 02/17/18 15:55 Abscess - Neck Gram Stain - Final 02/17/18 15:55 Abscess - Neck Anaerobic Culture - Final NO ANAEROBES ISOLATED. 02/17/18 15:55 Abscess - Neck Wound Culture - Final No growth. 02/17/18 22:15 Neck Gram Stain - Final 02/17/18 22:15 Neck Wound Culture - Final No growth. 02/15/18 16:00 Abscess - Neck Anaerobic Culture - Final NO ANAEROBES ISOLATED. Most Recent Lab Values WBC 14.8 10^3/ul (4.5-11.0) H 02/24/18 08:00 RBC 2.98 10^6/uL (3.5-6.1) L 02/24/18 08:00 Hgb 8.9 g/dL (12.0-16.0) L 02/24/18 08:00 Hct 27.3 % (36.0-48.0) L 02/24/18 08:00 MCV 91.6 fl (80.0-105.0) 02/24/18 08:00 MCH 29.9 pg (25.0-35.0) 02/24/18 08:00 MCHC 32.6 g/dl (31.0-37.0) 02/24/18 08:00 RDW 14.3 % (11.5-14.5) 02/24/18 08:00 Plt Count 283 10^3/uL (120.0-450.0) 02/24/18 08:00 MPV 8.8 fl (7.0-11.0) 02/24/18 08:00 Gran % 75.4 % (50.0-68.0) H 02/24/18 08:00 Lymph % (Auto) 16.7 % (22.0-35.0) L 02/24/18 08:00 [place] % (Auto) 6.0 % (1.0-6.0) 02/24/18 08:00 Eos % (Auto) 1.6 % (1.5-5.0) 02/24/18 08:00 Baso % (Auto) 0.3 % (0.0-3.0) 02/24/18 08:00 Gran # 11.13 (1.4-6.5) H 02/24/18 08:00 Lymph # (Auto) 2.5 (1.2-3.4) 02/24/18 08:00 [place] # (Auto) 0.9 (0.1-0.6) H 02/24/18 08:00 Eos # (Auto) 0.2 (0.0-0.7) 02/24/18 08:00 Baso # (Auto) 0.04 K/mm3 (0.0-2.0) 02/24/18 08:00 ESR 60 mm/hr (0.0-20.0) H 02/15/18 08:15 PT 13.6 SECONDS (9.4-12.5) H 02/17/18 05:20 INR 1.18 (0.93-1.08) H 02/17/18 05:20 APTT 25.2 Seconds (25.1-36.5) 02/15/18 08:15 pCO2 41 mm/Hg (35-45) 02/19/18 05:40 pO2 80.0 mm/Hg (80-100) 02/19/18 05:40 HCO3 25.4 mmol/L (21-28) 02/19/18 05:40 ABG pH 7.40 (7.35-7.45) 02/19/18 05:40 ABG Total CO2 26.7 mmol.L (22-28) 02/19/18 05:40 ABG O2 Saturation 96.6 % (95-98) 02/19/18 05:40 ABG O2 Content 13.9 ML/dl (15-23) L 02/16/18 04:40 ABG Base Excess 0.5 mmol/L (-2.0-3.0) 02/19/18 05:40 ABG Hemoglobin 10.3 g/dL (11.7-17.4) L 02/16/18 04:40 ABG Carboxyhemoglobin 0.2 % (0.5-1.5) L 02/16/18 04:40 POC ABG HHb (Measured) 4.1 % (0-5) 02/16/18 04:40 ABG Methemoglobin 0.1 % (0.0-3.0) 02/16/18 04:40 ABG O2 Capacity 14.5 mL/dl (16-24) L 02/16/18 04:40 ABG Potassium 3.0 mmol/L (3.6-5.2) L 02/19/18 05:40 VBG pH 7.39 (7.32-7.43) 02/17/18 01:45 VBG pCO2 43.0 (40-60) 02/17/18 01:45 VBG HCO3 26.0 mmol/l (21-28) 02/17/18 01:45 VBG Total CO2 27.3 mmol.L (22-28) 02/17/18 01:45 VBG O2 Sat (Calc) 91.0 % (40-65) H 02/17/18 01:45 VBG Base Excess 0.8 mmol/L (0.0-2.0) 02/17/18 01:45 VBG Potassium 3.1 mmol/L (3.6-5.2) L 02/17/18 01:45 Hgb O2 Saturation 95.6 % (95.0-98.0) 02/16/18 04:40 Sodium 138.0 mmol/L (132-148) 02/19/18 05:40 Chloride 106.0 mmol/L (98-107) 02/19/18 05:40 Glucose 213 mg/dl (65-105) H 02/19/18 05:40 Lactate 0.8 mmol/L (0.7-2.1) 02/19/18 05:40 Mechanical Rate 12 02/16/18 17:00 FiO2 50.0 % 02/19/18 05:40 Tidal Volume 400 02/16/18 17:00 PEEP 5 02/16/18 17:00 Sodium 136 mmol/L (132-148) 02/24/18 08:00 Potassium 3.8 mmol/L (3.6-5.0) 02/24/18 08:00 Chloride 100 mmol/L (98-107) 02/24/18 08:00 Carbon Dioxide 31 mmol/L (21-33) 02/24/18 08:00 Anion Gap 9 (10-20) L 02/24/18 08:00 BUN 5 mg/dL (7-21) L 02/24/18 08:00 Creatinine 0.8 mg/dl (0.7-1.2) 02/24/18 08:00 Est GFR ( Amer) > 60 02/24/18 08:00 Est GFR (Non-Af Amer) > 60 02/24/18 08:00 POC Glucose (mg/dL) 280 mg/dL (65-110) H 02/24/18 11:11 Random Glucose 140 mg/dL (70-110) H 02/24/18 08:00 Hemoglobin A1c 10.6 % (4.2-6.5) H 02/15/18 14:00 Serum Osmolality 297 mosm/kg (272-300) 02/15/18 08:15 Calcium 8.4 mg/dL (8.4-10.5) 02/24/18 08:00 Phosphorus 3.2 mg/dL (2.5-4.5) 02/19/18 06:40 Magnesium 1.9 mg/dL (1.7-2.2) 02/19/18 06:40 Iron 11 ug/dL (45-180) L 02/16/18 10:30 TIBC 205 ug/dL (265-497) L 02/16/18 10:30 % Saturation 5 % (20-55) L 02/16/18 10:30 Ferritin 1150.0 ng/mL 02/16/18 10:30 Total Bilirubin 0.5 mg/dL (0.2-1.3) 02/24/18 08:00 AST 118 U/L (14-36) H D 02/24/18 08:00 ALT 105 U/L (7-56) H 02/24/18 08:00 Alkaline Phosphatase 244 U/L (38-126) H 02/24/18 08:00 Ammonia 9 umol/L (9-33) 02/16/18 16:40 C-React Prot High Sens > 15.00 mg/L (1.00-3.00) H 02/15/18 08:15 NT-Pro-B Natriuret Pep 4020 pg/mL (0-450) H 02/16/18 16:40 Total Protein 5.9 g/dL (5.8-8.3) 02/24/18 08:00 Albumin 2.7 g/dL (3.0-4.8) L 02/24/18 08:00 Globulin 3.2 gm/dL 02/24/18 08:00 Albumin/Globulin Ratio 0.8 (1.1-1.8) L 02/24/18 08:00 Ceruloplasmin 28 mg/dL (18-53) 02/16/18 10:30 Triglycerides 104 mg/dL (35-160) 02/16/18 11:24 Cholesterol 120 mg/dL (130-200) L 02/16/18 11:24 LDL Cholesterol Direct 67 mg/dL (0-129) 02/16/18 11:24 HDL Cholesterol 39 mg/dL (29-60) 02/16/18 11:24 Lipase 25 U/L (23-300) 02/16/18 11:24 Procalcitonin 33.54 NG/ML (0.19-0.49) H 02/15/18 08:15 Free T4 0.60 ng/dL (0.78-2.19) L 02/19/18 06:40 TSH 3rd Generation 28.70 mIU/mL (0.46-4.68) H 02/19/18 06:40 Arterial Blood Potassium 3.0 mmol/L (3.6-5.2) L 02/19/18 05:40 Venous Blood Potassium 3.1 mmol/L (3.6-5.2) L 02/17/18 01:45 Urine Color Yellow (YELLOW) 02/15/18 09:30 Urine Appearance Sl cloudy (CLEAR) 02/15/18 09:30 Urine pH 6.0 (4.7-8.0) 02/15/18 09:30 Ur Specific [place] 1.020 (1.005-1.035) 02/15/18 09:30 Urine Protein 30 mg/dL (<30 mg/dL) H 02/15/18 09:30 Urine Glucose (UA) 250 mg/dL (NEGATIVE) H 02/15/18 09:30 Urine Ketones 15 mg/dL (NEGATIVE) H 02/15/18 09:30 Urine Blood Negative (NEGATIVE) 02/15/18 09:30 Urine Nitrate Negative (NEGATIVE) 02/15/18 09:30 Urine Bilirubin Negative (NEGATIVE) 02/15/18 09:30 Urine Urobilinogen 1.0 E.U./dL (<1 E.U./dL) H 02/15/18 09:30 Ur Leukocyte Esterase Negative [place]/uL (NEGATIVE) 02/15/18 09:30 Urine RBC Negative /hpf (0-2) 02/15/18 09:30 Urine WBC 2 - 5 /hpf (0-6) 02/15/18 09:30 Ur Epithelial Cells Many /hpf (0-5) 02/15/18 09:30 Stool Occult Blood Positive (NEGATIVE) H 02/20/18 08:00 Random Vancomycin 36.5 ug/mL (20-40) 02/17/18 17:01 Salicylates < 1 mg/dL (2.0-20.0) L 02/16/18 10:30 Urine Opiates Screen Negative (NEGATIVE) 02/16/18 15:00 Urine Methadone Screen Positive (NEGATIVE) H 02/16/18 15:00 Acetaminophen < 10.0 ug/ml (10.0-20.0) L 02/16/18 10:30 Ur Barbiturates Screen Negative (NEGATIVE) 02/16/18 15:00 Ur Phencyclidine Scrn Negative (NEGATIVE) 02/16/18 15:00 Ur Amphetamines Screen Negative (NEGATIVE) 02/16/18 15:00 U Benzodiazepines Scrn Positive (NEGATIVE) H 02/16/18 15:00 U Oth Cocaine Metabols Negative (NEGATIVE) 02/16/18 15:00 U Cannabinoids Screen Negative (NEGATIVE) 02/16/18 15:00 Alcohol, Quantitative < 10 mg/dL (0-10) 02/15/18 16:00 IgG 712.5 mg/dL (700.0-1600.0) 02/16/18 10:30 REGINO Screen Negative (Negative) 02/16/18 10:30 REGINO Titer TEST NOT PERFORMED 02/16/18 10:30 REGINO Titer 2 TEST NOT PERFORMED 02/16/18 10:30 REGINO Pattern TEST NOT PERFORMED 02/16/18 10:30 REGINO Pattern 2 TEST NOT PERFORMED 02/16/18 10:30 Anti-Mitochondrial Ab Negative (Negative) 02/16/18 10:30 Smooth Muscle Ab Titer TEST NOT PERFORMED 02/16/18 10:30 Anti-Smooth Muscle Ab Negative (Negative) 02/16/18 10:30 Liver/Kid Microsomes Ab <=20.0 U (<=20.0) 02/16/18 10:30 Hepatitis A IgM Ab Negative (NEGATIVE) 02/15/18 16:00 Hep Bs Antigen Negative (NEGATIVE) 02/15/18 16:00 Hep B Core IgM Ab Negative (NEGATIVE) 02/15/18 16:00 Hepatitis C Antibody Reactive (NEGATIVE) 02/15/18 16:00 Hepatitis C RNA <15 not detected IU/mL (<15) 02/20/18 10:35 HCV RNA Quant (PCR) <1.18 not detected Log IU/mL (<1.18) 02/20/18 10:35 HIV 1&2 Ag/Ab, 4th Gen Nonreactive (Nonreactive) 02/16/18 16:40 Blood Type B POSITIVE 02/20/18 08:00 Blood Type Confirm B POSITIVE 02/20/18 08:30 Antibody Screen Negative 02/20/18 08:00 Crossmatch See Detail 02/20/18 08:00 BBK History Checked No verified bt 02/20/18 08:00 Attending/Attestation - Attestation I have personally seen and examined this patient.: Yes I have fully participated in the care of the patient.: Yes I have reviewed all pertinent clinical information, including history, physical exam and plan: Yes Notes (Text): 02/24/18 16:54 38 year old female with past medical history of hepatitis C, diabetes, hypertension, hypothyroidism and substance abuse who presented with parapharyngeal abdscess. She was seen by ENT and is s/p I&D and tracheostomy. She was on iv antibiotics. She was also seen by GI for anemia. EGD showed gastric ulcer with clean base. She was transfused 2 units prbc and hemoglobin remained relatively stable. She also had DKA which resolved. Overall her symptoms improved. She is discharged to [facility]. Continue with iv antibiotics. Follow up with pmd, GI and ENT. Counselled on risks of continued substance abuse. Counselled on alcohol cessation. Lila Espinosa MD Hospitalist.
== END 2018-02-24 15:21 | DRG 877 ==
LOC: ED 07:37 → ERH 10:24 → CCU 14:23 → ICU 14:34 → 5RNO 02-19 13:50 → 2RNO 02-20 13:35
PROVIDERS: ADMIT Internal Medicine; ATTEND Internal Medicine
PROC: 0W9 Anatomical Regions, General, Drainage (ICD-10-PCS; 2018-02-15)
PROC: 5A1945Z Respiratory Ventilation, 24-96 Consecutive Hours (ICD-10-PCS; 2018-02-15)
PROC: 0B113F4 Bypass Trachea to Cutaneous with Tracheostomy Device, Percutaneous Approach (ICD-10-PCS; principal; 2018-02-15 11:38)
PROC: 30233N1 Transfusion of Nonautologous Red Blood Cells into Peripheral Vein, Percutaneous Approach (ICD-10-PCS; 2018-02-20)
PROC: 0DB58ZX Excision of Esophagus, Via Natural or Artificial Opening Endoscopic, Diagnostic (ICD-10-PCS; 2018-02-20)
PROC: 0DB68ZX Excision of Stomach, Via Natural or Artificial Opening Endoscopic, Diagnostic (ICD-10-PCS; 2018-02-20)
DX: A41.9 Sepsis, unspecified organism (principal); J96.01 Acute respiratory failure with hypoxia; J69.0 Pneumonitis due to inhalation of food and vomit; I50.30 Unspecified diastolic (congestive) heart failure; N17.9 Acute kidney failure, unspecified; B37.81 Candidal esophagitis; K26.4 Chronic or unspecified duodenal ulcer with hemorrhage; K12.2 Cellulitis and abscess of mouth; L02.11 Cutaneous abscess of neck; E05.90 Thyrotoxicosis, unspecified without thyrotoxic crisis or storm; E11.10 Type 2 diabetes mellitus with ketoacidosis without coma; I42.9 Cardiomyopathy, unspecified; E87.6 Hypokalemia; I11.0 Hypertensive heart disease with heart failure; D62 Acute posthemorrhagic anemia; J39.0 Retropharyngeal and parapharyngeal abscess; F14.10 Cocaine abuse, uncomplicated; F11.23 Opioid dependence with withdrawal; E86.0 Dehydration; J05.10 Acute epiglottitis without obstruction; K25.9 Gastric ulcer, unspecified as acute or chronic, without hemorrhage or perforation; E83.42 Hypomagnesemia; K29.70 Gastritis, unspecified, without bleeding; E89.0 Postprocedural hypothyroidism; K02.9 Dental caries, unspecified; E83.51 Hypocalcemia; K44.9 Diaphragmatic hernia without obstruction or gangrene; F17.210 Nicotine dependence, cigarettes, uncomplicated; Z79.4 Long term (current) use of insulin; Z86.19 Personal history of other infectious and parasitic diseases

== ENCOUNTER 2018-10-03 10:43 | Outpatient (CLI) | payer MEDICAID | END 2018-10-03 10:44 | disposition home or self-care (01) | LOC: RAD 10:43 ==